=== PATIENT | male | born 1960 | race Caucasian/White ===

== ENCOUNTER 2023-05-13 07:58 | Inpatient (IN) ==
--- OUTSIDE RECORDS SUMMARY | 2023-05-13 08:04 | External Medical Summary | Continuity of Care Document ---
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 Name Role Phone Jennifer Landin Primary Care Physician [phone] [id number] Date(s): 05/09/23 - 05/09/23 [facility] [address] [place] [id number] [facility] Medicine [address] [place] [id number] Encounter Diagnosis Right knee pain(Discharge Diagnosis) - 05/09/23 Discharge Disposition: Home or Self Care Attending Physician: MD Mitra, Sven Francisco Allergies, Adverse Reactions, Alerts Substance Reaction Severity Status sulfa drugs weird nervous reation Active Bactrim Active Medications levothyroxine Start: 05/08/23 17:45:00 EDT, 100 mcg =, PO, Daily Start Date: 05/08/23 Status: Ordered [place] 5 mg-325 mg oral tablet Start: 05/08/23 17:54:00 EDT, See Instructions, Disp# 12 tab, Refills: 0, 1 tab PO every 4hours OR 2 tabs every 6hours, PRN: as needed for pain, Pharmacy: [id number] Start Date: 05/08/23 Status: Ordered Opdivo 10 mg/mL intravenous solution Start: 05/08/23 17:48:00 EDT, once every 4 weeks Start Date: 05/08/23 Status: Ordered Xarelto 20 mg oral tablet Start: 05/08/23 17:45:00 EDT, 1 tab, PO, qPM Start Date: 05/08/23 Status: Ordered Mental Status 05/09/23 Barriers to Learning one year None evide nt Mandatory Health Literacy Documentation Yes Health Literacy Communication Barriers N ever Primary Language Chinese Problem List Condition Confirmation Course Effective Dates Status Health St atus Informant Left ankle pain Confirmed Active HTN (hypertension) Confirmed Active Knee pain 1 Confirmed 02/27/10 Active Knee pain 2 Confirmed 05/31/12 Active 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 Right knee pain Confirmed Active Prepatellar bursa 3 Confirmed 02/27/10 Active Seasonal allergies Confirmed Active Weight disorder Confirmed Active 1with Edema 2LEFT 3RIGHT KNEE Diagnosis Diagnosis Type Effective Dates Health Status Cl inical Service Informant Right knee pain Discharge Diagnosis 05/09/23 Procedures Procedure Date Related Diagnosis Body Site Status Surgery 1 2011 Completed Surgery 2 2010 Completed 1JAW 2JAW Vital Signs Most recent to oldest [Reference Range]: 1 Height 191 cm (05/09/23 10:43 AM) Patient Weight 93 kg (05/09/23 10:43 AM) Body Mass Index 25.49 kg/m2 (05/09/23 10:43 AM) Social History Social History Type Response Smoking Status Never smoked cigaret miguel Sex Ortho Outpt Note * MD Mitra, Sven S: PERFORM Event Display: Ortho Outpt Note Authored Date: [id number] Name:PHILLY PARIS Patient Number:[id number] :1960 Date of Service:05/09/2023 Philly is here for follow-up evaluation. He was able to rest last night. Took 1 pain pill. He has been able to ambulate with the brace and reports minimal or no painwhen walking with the brace on. He has been able to walk without an assistive device. There is been no fevers chills or sweats. Mainly the right knee and lower thigh are hurting. On exam he is able to ambulate well using a stiff leg gait even without the brace. Suggested to usecanewalking stickcrutch etc.for assistance and balance. He is able to do a straight leg raise but he has about a10 to 15 degree lag. I do not palpate a defect within the quadriceps tendonor patellar tendon. There is tenderness mostly over the medial distal thigh VMO area but alsoover theanterior quad and lateral quad. The knee itself is mildly warm without erythema or lossof skin wrinkles. He does have a large right knee effusion. Range of motion is 0 to 70 degrees with intact cruciates and collaterals. He has 5 out of 5 knee flexion strength but only a 4+ to 5- out of 5 right knee extension strength. No erythema. There is 1-2+ edema of the right ankle. 3 viewsboth knees obtainedpersonally reviewed by me show vascular calcifications and peripatellarossifications and calcifications particularly on theright kneesuperior patella. Negative for fracture but there is significant arthritis left knee medial compartment with bone spurs. Thereare no bone or soft tissue lesions otherwise noted. Positive right knee effusion. Impressionright knee pain, hemarthrosis. Plan:Fines were discussed. They can follow through with the other lab work to be ordered however I think that this is more of a traumatic etiology. I do have some concern regarding a partialor completequadriceps tendon or quadriceps muscle injury. There is less swelling in the right lower thigh area today. Order MRI for evaluation. Follow-up when completed. Should be done withinthe next few days. Otherwise continue to elevate and ice. Wear knee immobilizer at all times when he is up and walking. Use an assistive device. Elevate the leg for swelling. If things worsen he will need to go to the emergency room. Do not stand or walk without the brace. He can takethe brace off when he is nonweightbearing and may bend the knee to his tolerance. WBCs and fluid were 953. The RBCs were over million. Gram stain no organisms few WBCs culture pending. Crystals are pending Electronic Signature on File Electronically Reviewed/Signed by: Sven Manriquez MD Author Signature Dt/Tm:05/09/2023 11:17 AM Division of Sports Medicine PSS Patient Care team information Care Team Related Persons Name: KAPIL PARIS Address: [address] [phone] Name: WILFREDO PARIS Address: home [address] [place] [id number]
--- OUTSIDE RECORDS SUMMARY | 2023-05-13 08:04 | External Medical Summary | Continuity of Care Document ---
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 Name Role Phone Jennifer Landin Primary Care Physician [phone] [id number] Date(s): 05/08/23 - 05/08/23 [facility] [address] [place] [id number] [facility] Medicine [address] [place] [id number] Encounter Diagnosis Right knee pain(Discharge Diagnosis) - 05/08/23 Discharge Disposition: Home or Self Care Attending Physician: MD Mitra, Sven Francisco Allergies, Adverse Reactions, Alerts Substance Reaction Severity Status sulfa drugs weird nervous reation Active Bactrim Active Medications levothyroxine Start: 05/08/23 17:45:00 EDT, 100 mcg =, PO, Daily Start Date: 05/08/23 Status: Ordered [place] 5 mg-325 mg oral tablet Start: 05/08/23 17:54:00 EDT, See Instructions, Disp# 12 tab, Refills: 0, 1 tab PO every 4hours OR 2 tabs every 6hours, PRN: as needed for pain, Pharmacy: [id number] Start Date: 05/08/23 Status: Ordered Opdivo 10 mg/mL intravenous solution Start: 05/08/23 17:48:00 EDT, once every 4 weeks Start Date: 05/08/23 Status: Ordered Xarelto 20 mg oral tablet Start: 05/08/23 17:45:00 EDT, 1 tab, PO, qPM Start Date: 05/08/23 Status: Ordered Mental Status 05/08/23 Barriers to Learning one year None evide nt Mandatory Health Literacy Documentation Yes Health Literacy Communication Barriers N ever Primary Language Kazakh Problem List Condition Confirmation Course Effective Dates [...] Service Informant Right knee pain Discharge Diagnosis 05/08/23 Procedures Procedure Date Related Diagnosis Body Site Status Surgery 1 2011 Completed Surgery 2 2010 Completed 1JAW 2JAW Social History Social History Type Response Smoking Status Never smoked cigaret miguel Sex Ortho Outpt Note * MD Mitra, Sven S: PERFORM Event Display: Ortho Outpt Note Authored Date: [id number] Name:PHILLY PARIS Patient Number:[id number] :1960 Date of Service:05/08/2023 Philly's contacted me earlier today that he has a severe knee pain. I asked that she bring himinto the office for evaluation. He is undergoing treatment for malignant melanoma. He has had surgery on his right leonor a lymph node biopsy. It has also been determined that he may have thyroid cancer. He is undergoing immunotherapy. He stumbled in the yard on Sunday but did not fall . His knee was little bit sore after that. He was able to walk without any instability. Yesterday his knee started to hurt. Today the knee got progressively worse. He has not had any fever chills or sweats nor has he had any recent illness. There is no history of gout or Lyme disease.He takes Xarelto and levothyroxine. He has diabetes high blood pressure and second- degree heart block. He is allergic to sulfa. On examhe requires assistance for all mobility tasks partly related to fatigueas well as right knee pain. He is able to stand with assistance and pivot onto the exam table out of the wheelchair. The right knee has mild increased warmth without any erythema the right knee is swollen. The swelling extends intothedistal thigh area where there is some tenderness on thejunction of the middle and distalright thigh. There is mild discomfort with certain positions in the hip andnotenderness to palpation over the upper thigh or hip area. There isreasonable mobility of the hip withminimal to no discomfort. He is not able to do active straight leg raise or extend the knee againstgravity. I do not palpate a defect of the patellar tendon or quadriceps tendon. Thereis mild swelling of the right ankle. DP and PT pulses are 1+ sensation intact he has 5 out of 5 ankle and toe plantarflexion dorsiflexion inversion and eversion strength. He range of motion is 0-90 with intact posterior drawer negative Janell and no looseness to varus valgus stressing at 0 or 30 degrees. There is mild diffuse tenderness of the knee itself. With his permission I attempted aspiration of the right knee. The site was marked with my initials. Cleaned with alcohol and an 18-gauge needle was introduced. Iwas only able to aspirate 2 or3 cc ofblood. Pressure was held till bleeding was stopped. The fluid was sent for Gram stain aerobic and anaerobic culture cell count with differentialalthough a purple top tube was not available and crystal analysis. Treatment options risk benefits discussed. Impression is right knee pain and swelling Plan findings are discussed. Drop labs off tonight. There are some blood work that I ordered including CBC sed rate C-reactive proteinand Lyme test. Could beaggravation of underlying arthritis. GoutLyme diseaseinfection. I think most likely probably has a hemarthrosis related to his recent injury. Whether or not there is any structural damage is notable to be determined at this point. X-ray is not available. He does report a history of torn meniscus in his knee as wellas some arthritis and some off-and-on knee pains in the past but has never had surgery. Prescription for hydrocodone. Databank checked. Tubigrip knee immobilizer. Use walker. He can weight-bear as tolerated elevate ice. Will follow-up with him later this week for recheck. They will get blood work done later. If things worsen in terms of pain swelling feversneed to go to the emergency room. He may have strained his quadriceps muscle as well. Electronic Signature on File Electronically Reviewed/Signed by: Sven Manriquez MD Author Signature Dt/Tm:05/08/2023 06:19 PM Division of Sports Medicine PSS Patient Care team information Care Team Related Persons Name: KAPIL PARIS Address: [address] [phone] Name: WILFREDO PARIS Address: home [address] [place], [place] [id number]
[2023-05-13] MEDS: HYDROmorphone INJ 1 MG/ML SYRINGE IV STA (08:52)
[2023-05-13] MEDS: SODIUM CHLORIDE 0.9% 1,000 ML IV ONE (08:52)
[2023-05-13] MEDS: ONDANSETRON INJ 2 MG/ML 2 ML VIAL IV STA (08:52)
--- NOTE | 2023-05-13 08:59 | Emergency Department Note ---
Impression & Plan Pain in right knee, Hemarthrosis of right knee, Coagulopathy, Failure of outpatient treatment, Anemia, Hypomagnesemia ED Provider Note NAME: PHILLY PARIS AGE: 63 SEX: M : 1960 ARRIVES VIA: Ambulance INFORMANT: [Patient][family] ED PROVIDER(S): [Yuriy Reza MD] CHIEF COMPLAINT: Knee pain HISTORY OF PRESENT ILLNESS: The patient is a 63-year-old male on Xarelto. He states that he was taking the garbage out about 7 days ago and somehow, injured his right knee. Initially, he had minimal pain. Within a few days, he had increased pain and swelling. He did see orthopedics and an x-ray was performed showing no fracture. He had an aspiration of the knee that showed hemarthrosis. The patient was placed in a knee immobilizer and is scheduled for an MRI tomorrow. The patient states that the pain is unbearable. He is on hydrocodone and Tylenol and has not had relief. He cannot function. He presents by ambulance. He has noticed that the right leg is now swollen as well. PMHx/PSHx/Social Hx: See Below PHYSICAL EXAM: GENERAL: Patient is in mild distress from pain. HEENT: No acute trauma, normocephalic atraumatic, mucous membranes dry, no nasal congestion. NECK: No stridor, no adenopathy, no meningismus, trachea is midline. LUNGS: Clear to auscultation bilaterally, no wheeze, no rhonchi, breath sounds equal. HEART: Subtle systolic murmur, regular rate and rhythm. ABDOMEN: Soft, nontender, no peritonitis. EXTREMITIES: No cyanosis. There is a knee immobilizer on the right leg. When this is removed, there is a significant right knee joint effusion. The entire right knee is tender with palpation. There is no erythema but there is some increased warmth to the knee. Movement of the knee causes increased pain. There is some right leg pedal edema. NEUROLOGIC: Oriented x 3, no acute motor or sensory deficits, no focal weakness. SKIN: No jaundice, no diaphoresis. DIFFERENTIAL DIAGNOSIS: Septic joint, hemarthrosis, gout, ligamentous or cartilaginous injury, fracture, failed outpatient management, DVT, among others. EMERGENCY DEPARTMENT PROCEDURES: Right knee joint aspiration: This procedure was performed by me. Using sterile technique, lidocaine with epinephrine, the lateral aspect of the right knee was prepped. Despite the large effusion, only about a cc of blood was aspirated. This was sent for analysis. No complication with the procedure. The patient tolerated the procedure well. A dressing was placed afterwards. MEDICAL DECISION MAKING: There is no leukocytosis. The patient is anemic however, he carries a history of anemia. His hemoglobin today is lower than his recent testing. There was a normal platelet count. Sed rate and CRP were both higher than recent testing. No renal failure. Lactic acid level was not elevated making sepsis less likely. Magnesium was low at 1.3. No concerning liver enzyme elevation. Right knee film shows an effusion, no fracture. Right leg ultrasound does not show any findings of DVT. The patient was given IV Dilaudid for pain, he received IV saline for hydration, he was given IV magnesium and IV Zofran. I did perform an aspiration of the right knee joint effusion however, only a small amount of blood was obtained, I suspect the blood has clotted within the joint space. Gram stain analysis of the fluid does not show bacteria. The cell count differential was not suggestive of a septic joint. Crystal analysis is pending. Culture of the fluid sample is pending. I did speak with orthopedics, patient is being hospitalized. He may require OR intervention. I did speak with case management and the on-call hospitalist. Prior/Outside records/notes reviewed: Today's EMS notes describing his presentation and transport to this hospital. Imaging/x-ray results per my interpretation: Right knee film shows a large effusion, no fracture or dislocation. Chronic Medical/Social conditions affecting care: Chronic anticoagulation. Care/Management discussed with: Orthopedics--Dr. Jacinto and Dr. Manriquez. Case management and the on-call hospitalist. Level of care consideration(s): After review of the information above and other included data: --I believe the patient requires escalation of care to admission DISPOSITION: Admission Past Med/Surg History Medical History LVH (left ventricular hypertrophy) Type 2 diabetes mellitus Metastatic melanoma Osteoarthritis Hx of sleep apnea RESOLVED SINCE JAW SURGERY Heart valve regurgitation Mild MR and TR per 08/2019 ECHO Hyperlipidemia Hypertension Atrial fibrillation JUST STARTED ON ELIQUIS Surgical History Hx of vasectomy History of colonoscopy History of tooth extraction WISDOM TEETH History of mandibular surgery RECONSTRUCTED> JAW EXTENEDED 2011 Family History Grandfather (Maternal) Diabetes Grandfather (Paternal) Diabetes Uncle Diabetes Social History Smoking Status: Never smoker Second Hand Exposure: No; Do You Dip or Chew Tobacco: No; Hx Alcohol Use: Yes Alcohol type: beer Hx Substance Use: No Preferred Language: Malian Communication Ability: Effective Graduate Teaching Assistant Required: No Beliefs That Will Affect Care: None Current Living Situation: Spouse Feels Safe at Home: Yes Assistive Devices: Contacts and Glasses Allergies Allergies Allergy/AdvReac Type Severity Reaction Status Date / Time Bactrim Allergy Severe THROAT AND Unverified 07/18/10 13:38 HANDS SWELL sulfamethoxazole Allergy Severe THROAT AND Verified 05/02/23 14:40 HANDS SWELL trimethoprim Allergy Severe THROAT AND Verified 05/02/23 14:40 HANDS SWELL Home Meds Home Medications Medication Instructions Recorded Confirmed levothyroxine 100 mcg capsule 100 mcg PO DAILY 04/10/23 05/13/23 rivaroxaban 20 mg tablet (Xarelto) 20 mg PO DAILY 04/10/23 05/13/23 nivolumab [Opdivo] See Rx Instructions IV .COMPLEX 04/27/23 05/13/23 hydrocodone 5 mg-acetaminophen 325 1 tab PO Q4H PRN Pain 05/13/23 05/13/23 mg tablet Results & Data (ED) Vital Signs Vital Signs - 24 hr 05/13/23 08:03 05/13/23 09:22 Temperature 36.7 C Temperature Source Oral Pulse Rate 72 Respiratory Rate 20 Blood Pressure 138/80 Blood Pressure Mean 99 Pulse Oximetry 100 98 Oxygen Delivery Method Room Air Room Air Sepsis Recent Fever Within 48 Hours No Sepsis New/Unexplained Change in Mental Status N/A Sepsis Action Taken by Nursing No Action Required Home Medications Current Medication List: was personally reviewed by me Laboratory Data Attestation: I reviewed the patient's lab results. 05/13/23 08:30 05/13/23 08:30 Lab Results 05/13/23 05/13/23 Range/Units 08:30 09:02 WBC 7.35 (4.8-10.8) K/ul RBC 2.70 L (4.70-6.10) M/uL Hgb 7.7 L (14.0-18.0) g/dl Hct 23.0 L (42.0-52.0) % MCV 85.2 (80.0-100.0) fL MCH 28.5 (25.0-34.0) pg MCHC 33.5 (32.0-36.0) g/dL RDW Std Deviation 46.3 (36.4-46.3) fL RDW Coeff of Tracy 14.9 H (11.5-14.5) % Plt Count 334 (130-400) K/uL MPV 8.6 L (9.4-12.4) fL Immature Gran % (Auto) 0.3 % Neut % (Auto) 53.9 % Lymph % (Auto) 25.4 % Overton % (Auto) 8.6 % Eos % (Auto) 11.3 % Baso % (Auto) 0.5 % Neut # (Auto) 3.96 (1.40-6.50) K/uL Lymph # (Auto) 1.87 (1.20-3.40) K/uL Overton # (Auto) 0.63 H (0.11-0.59) K/uL Eos # (Auto) 0.83 H (0.00-0.50) K/uL Baso # (Auto) 0.04 (0.00-0.20) K/uL Immature Gran # (Auto) 0.02 (0.01-0.20) K/uL Polychromasia 1+ Ovalocytes 1+ Acanthocytes (Spur) 1+ ESR 36 H (0-20) mm/hr Sodium 135 L (136-145) mmol/L Potassium 3.7 (3.5-5.1) mmol/L Chloride 101 (98-107) mmol/L Carbon Dioxide 22 (21-32) mmol/L Anion Gap 12 H (3-11) BUN 20 (6-23) mg/dl Creatinine 1.33 (0.6-1.4) mg/dl Est Cr Clr Drug Dosing 68.0 ml/min Est GFR ( Amer) 64.6 ml/min Est GFR (Non-Af Amer) 55.7 ml/min BUN/Creatinine Ratio 15.0 (10-20) Glucose 99 (70-99(Fasting)) mg/dl Lactate 1.0 (0.4-2.0) mmol/L Uric Acid 9.4 H (2.6-7.2) mg/dl Calcium 9.4 (8.6-10.3) mg/dl Magnesium 1.3 L (1.7-2.4) mg/dl Total Bilirubin 1.4 H (0.2-1.0) mg/dl AST 14 (13-39) U/L ALT 7 (7-52) U/L Alkaline Phosphatase 66 (34-104) U/L C-Reactive Protein 13.92 H (0-0.5) mg/dl Total Protein 6.2 (6.0-8.3) gm/dl Albumin 3.6 (3.4-5.0) gm/dl Globulin 2.6 (2.5-4.0) gm/dl Albumin/Globulin Ratio 1.4 (0.9-2) Administered Medications Acetaminophen (Acetaminophen 500 Mg Tab) 1,000 mg PO Q8H NORMAN Stop: 06/12/23 13:59 Last Admin: 05/13/23 14:18 Dose: 1,000 mg Documented By: SHAN Magnesium Sulfate/Dextrose (Magnesium Sulfate / D5w) 1 gm in 100 mls @ 50 mls/hr IV Q2H NORMAN Stop: 05/13/23 16:14 Last Admin: 05/13/23 13:30 Dose: 50 mls/hr Documented By: SHAN Discontinued Medications Hydromorphone HCl (Hydromorphone Inj 1 Mg/Ml Syringe) 1 mg IV NOW STA Stop: 05/13/23 08:38 Last Admin: 05/13/23 08:52 Dose: 1 mg Documented By: ALPESH Hydromorphone HCl (Hydromorphone Inj 0.5 Mg/0.5 Ml Syr) 0.5 mg IV Q15M PRN PRN Reason: Pain Stop: 05/27/23 08:36 Last Admin: 05/13/23 10:20 Dose: 0.5 mg Documented By: ALPESH Sodium Chloride (Nss) 1,000 mls @ 999 mls/hr IV .Q1H1M ONE Stop: 05/13/23 09:37 Last Infusion: 05/13/23 10:07 Dose: Infused Documented By: Admin: 05/13/23 08:52 Dose: 999 mls/hr Documented By: ML Magnesium Sulfate/Dextrose (Magnesium Sulfate / D5w) 1 gm in 100 mls @ 100 mls/hr IV Q1H NORMAN Stop: 05/13/23 11:25 Last Infusion: 05/13/23 13:31 Dose: Infused Documented By: Admin: 05/13/23 12:24 Dose: 100 mls/hr Documented By: Infusion: 05/13/23 12:24 Dose: Infused Documented By: Admin: 05/13/23 11:25 Dose: 100 mls/hr Documented By: ML Lidocaine HCl (Xylocaine 1%/Sod Bicarb 20 Ml Vial) 20 ml INFIL NOW ONE Stop: 05/13/23 10:01 Last Admin: 05/13/23 10:20 Dose: 20 ml Documented By: JOLANTA Ondansetron HCl (Ondansetron Inj 2 Mg/Ml 2 Ml Vial) 4 mg IV NOW STA Stop: 05/13/23 08:38 Last Admin: 05/13/23 08:52 Dose: 4 mg Documented By: ALPESH Imaging Data Radiologist's Impression: Knee X-Ray 05/13/23 08:37 RIGHT KNEE 2 VIEWS CLINICAL HISTORY: Right knee pain and swelling. Recent fall. FINDINGS: AP and crosstable lateral views of the right knee are compared to study dated 05/09/2023. The skeletal structures are osteopenic. No fracture is seen. There is mild/moderate tricompartmental degenerative joint space narrowing, greatest at the patellofemoral articulation. There are marginal osteophytes, patellar enthesophyte, and degenerative beaking of the tibial spine. There is a large joint effusion. Prepatellar soft tissue swelling is observed. IMPRESSION: Soft tissue swelling and large joint effusion with no radiographic evidence of acute fracture. Electronically signed by: Yuriy Corbin M.D. 05/13/2023 8:58 AM Venous Doppler Study 05/13/23 08:37 ULTRASOUND RIGHT LOWER EXTREMITY VENOUS CLINICAL HISTORY: Right leg swelling. COMPARISON STUDY: No priors. TECHNIQUE: Real-time, grayscale, and color Doppler sonography of the deep veins of the right lower extremity was performed from the inguinal crease to the calf. Compression and augmentation were utilized. FINDINGS: There is no sonographic evidence of deep venous thrombosis identified in the right lower extremity. The common femoral, superficial femoral, and popliteal veins are patent and normally compressible. The greater saphenous vein and the profunda femoris vein at the junction with the common femoral vein are clear. The visualized calf veins are patent. There is a small complex fluid collection in the right groin measuring 2.0 x 1.0 x 2.3 cm. IMPRESSION: 1. There is no sonographic evidence of deep venous thrombosis identified in the right lower extremity. 2. There is a small complex fluid collection the right groin as above. Correlate clinically. ACT 112: Negative or not required by law. Electronically signed by: Yuriy Corbin M.D. 05/13/2023 10:24 AM Discharge Plan Visit Data Chief Complaint: Knee Injury/Pain Stated Complaint: KNEE PAIN ED Provider: Yuriy Reza Discharge Problem: Pain in right knee, Hemarthrosis of right knee, Coagulopathy, Failure of outpatient treatment, Anemia, Hypomagnesemia Patient Disposition: Admitted As Inpatient Condition: Fair Discharge Instructions Interventions: ED Discharge Assessment Last Done: 05/13/23 13:48 Discharge Problem: Pain in right knee Qualifiers: Chronicity: acute Qualified Code(s): M25.561 - Pain in right knee Anemia Qualifiers: Anemia type: unspecified type Qualified Code(s): D64.9 - Anemia, unspecified
--- NOTE | 2023-05-13 09:00 | XRay Report ---
RIGHT KNEE 2 VIEWS CLINICAL HISTORY: Right knee pain and swelling. Recent fall. FINDINGS: AP and crosstable lateral views of the right knee are compared to study dated 05/09/2023. Th e skeletal structures are osteopenic. No fracture is seen. There is mild/moderate tricompartmental de generative joint space narrowing, greatest at the patellofemoral articulation. There are marginal ost eophytes, patellar enthesophyte, and degenerative beaking of the tibial spine. There is a large joint effusion. Prepatellar soft tissue swelling is observed. IMPRESSION: Soft tissue swelling and large joint effusion with no radiographic evidence of acute frac ture. Electronically signed by: Yuriy Corbin M.D. 05/13/2023 8:58 AM
[2023-05-13 09:09] LABS: Basophils # (auto) 0.04 K/uL (0.00-0.20); Basophils % (auto) 0.5 %; Eosinophils # (auto) 0.83 K/uL (0.00-0.50); Eosinophils % (auto) 11.3 %; Hemoglobin 7.7 g/dl (14.0-18.0); Immature Granulocytes # (auto) 0.02 K/uL (0.01-0.20); Immature Granulocytes % (auto) 0.3 %; Lymphocytes # (auto) 1.87 K/uL (1.20-3.40); Lymphocytes % (auto) 25.4 %; Mean Corpuscular Hemoglobin 28.5 pg (25.0-34.0); Mean Corpuscular Hgb Conc 33.5 g/dL (32.0-36.0); Mean Corpuscular Volume 85.2 fL (80.0-100.0); Mean Platelet Volume 8.6 fL (9.4-12.4); Monocytes # (auto) 0.63 K/uL (0.11-0.59); Monocytes % (auto) 8.6 %; Neutrophils # (auto) 3.96 K/uL (1.40-6.50); Neutrophils % (auto) 53.9 %; Platelet Count 334 K/uL (130-400); RDW Coefficient of Variation 14.9 % (11.5-14.5); RDW Standard Deviation 46.3 fL (36.4-46.3); White Blood Count 7.35 K/ul (4.8-10.8)
[2023-05-13 09:17] LABS: Albumin Globulin Ratio 1.4 (0.9-2); Albumin Level 3.6 gm/dl (3.4-5.0); Bilirubin,Total 1.4 mg/dl (0.2-1.0); C Reactive Protein 13.92 mg/dl (0-0.5); Calcium 9.4 mg/dl (8.6-10.3); Est GFR (African American) 64.6 ml/min; Est GFR (Non-African American) 55.7 ml/min; Globulin 2.6 gm/dl (2.5-4.0); Magnesium 1.3 mg/dl (1.7-2.4); Potassium 3.7 mmol/L (3.5-5.1); Total Protein 6.2 gm/dl (6.0-8.3); Uric Acid 9.4 mg/dl (2.6-7.2)
[2023-05-13 10:04] LABS: Acanthocytes 1+; Ovalocytes 1+; Polychromasia 1+
[2023-05-13] MEDS: XYLOCAINE 1%/SOD BICARB 20 ML VIAL INFIL ONE (10:20)
[2023-05-13] MEDS: HYDROmorphone INJ 0.5 MG/0.5 ML SYR IV PRN (10:20)
--- NOTE | 2023-05-13 10:26 | Ultrasound Report ---
ULTRASOUND RIGHT LOWER EXTREMITY VENOUS CLINICAL HISTORY: Right leg swelling. COMPARISON STUDY: No priors. TECHNIQUE: Real-time, grayscale, and color Doppler sonography of the deep veins of the right lower ex tremity was performed from the inguinal crease to the calf. Compression and augmentation were utilize d. FINDINGS: There is no sonographic evidence of deep venous thrombosis identified in the right lower ex tremity. The common femoral, superficial femoral, and popliteal veins are patent and normally tania sible. The greater saphenous vein and the profunda femoris vein at the junction with the common femor al vein are clear. The visualized calf veins are patent. There is a small complex fluid collection in the right groin measuring 2.0 x 1.0 x 2.3 cm. IMPRESSION: 1. There is no sonographic evidence of deep venous thrombosis identified in the right lower extremity . 2. There is a small complex fluid collection the right groin as above. Correlate clinically. ACT 112: Negative or not required by law. Electronically signed by: Yuriy Corbin M.D. 05/13/2023 10:24 AM
--- NOTE | 2023-05-13 11:02 | History & Physical Report ---
Date of Service May 13, 2023 Assessment & Plan (1) Hemarthrosis of right knee: Plan: This is a 63 y/o male with history of metastatic melanoma, on Opdivo Q4 weeks, papillary thyroid carcinoma, atrial fibrillation s/p cardioversion, DM2, HTN, and other history as outlined who presented to the ED today with intractable right knee pain that started after an injury one week ago. Outpatient work-up from earlier this week c/w hemarthrosis but pain and swelling are worsening so pt came to the ED for evaluation. Please see the physician addendum for the details of the assessment and plan. (2) Anemia: Plan: Acute on chronic Transfuse if Hgb <7 (3) Hypomagnesemia: Plan: Being repleted IV - will recheck in the AM (4) Type 2 diabetes mellitus: Plan: Metformin recently discontinued in view of side effects and weight loss Check A1c in the AM Regular diet for now due to weight loss. (5) Hypertension: Plan: Medications recently discontinued due to side effects - monitor BP off meds (6) Atrial fibrillation: (7) Metastatic melanoma: (8) Hypothyroidism: Plan: Continue levothyroxine Plan Pt seen and reviewed with attending physician, Dr. Albert. Plan of care as outlined above and in her addendum Code status: Full code Anton Peña PA-C History of Present Illness Chief Complaint: Intractable right knee pain Primary Care Provider: Yon Burns, This is a 63 y/o male with history of metastatic melanoma, on Opdivo Q4 weeks, papillary thyroid carcinoma, atrial fibrillation s/p cardioversion, DM2, HTN, and other history as outlined who presented to the ED today with intractable right knee pain that started after an injury one week ago. Pt was taking out the trash one week ago and injured his right knee although mechanism of injury is not entirely clear. Initially, it was not that painful but he noted gradually increasing pain and swelling over the first few days so he saw Dr. Manriquez with orthopedics earlier this week. X-ray showed no fracture. Ortho attempted to aspirate the joint but was able to get minimal amount of bloody fluid as the rest seemed to be clotted. Pt was scheduled for an outpatient MRI to rule out occult injury, which was supposed to be completed tomorrow. However, he has had worsening pain since then such that even the hydrocodone/acetaminophen 5/325 that he was given is no longer controlling the pain and the swelling now involves most of his right leg. The pain radiates up from his knee to his thigh but not down to his foot. He is on chronic anticoagulation with Xarelto due to history of atrial fibrillation. He notes that his Sotalol was recently discontinued after he was noted to be bradycardic with second degree heart block when he underwent anesthesia for a planned thyroidectomy, which had to be aborted due to the cardiac issues. His statin and Metformin were also recently discontinued due to weight loss, poor appetite, and generalized sense of feeling unwell. His last Opdivo was 04/24. Allergies Allergy/AdvReac Type Severity Reaction Status Date / Time Bactrim Allergy Severe THROAT AND Unverified 07/18/10 13:38 HANDS SWELL sulfamethoxazole Allergy Severe THROAT AND Verified 05/02/23 14:40 HANDS SWELL trimethoprim Allergy Severe THROAT AND Verified 05/02/23 14:40 HANDS SWELL Home Medications Medication Instructions Recorded Confirmed Type levothyroxine 100 mcg capsule 100 mcg PO DAILY 04/10/23 05/13/23 History rivaroxaban 20 mg tablet (Xarelto) 20 mg PO DAILY 04/10/23 05/13/23 History nivolumab [Opdivo] See Rx Instructions IV .COMPLEX 04/27/23 05/13/23 History hydrocodone 5 mg-acetaminophen 325 1 tab PO Q4H PRN Pain 05/13/23 05/13/23 History mg tablet Past Med/Surg History Medical History (Updated 05/13/23 @ 16:52 by Lilian Peña PA-C) Hypothyroidism LVH (left ventricular hypertrophy) Type 2 diabetes mellitus Metastatic melanoma Osteoarthritis Hx of sleep apnea RESOLVED SINCE JAW SURGERY Heart valve regurgitation Mild MR and TR per 08/2019 ECHO Hyperlipidemia Hypertension Atrial fibrillation JUST STARTED ON ELIQUIS Surgical History Hx of vasectomy History of colonoscopy History of tooth extraction WISDOM TEETH History of mandibular surgery RECONSTRUCTED> JAW EXTENEDED 2011 Family History Grandfather (Maternal) Diabetes Grandfather (Paternal) Diabetes Uncle Diabetes Social History Smoking Status: Never smoker Second Hand Exposure: No; Do You Dip or Chew Tobacco: No; Hx Alcohol Use: No Hx Substance Use: No Preferred Language: Estonian Communication Ability: Effective Social Security Assessor Required: No Beliefs That Will Affect Care: None Current Living Situation: Spouse and Family Other Information That Helps Us Care for You: No Feels Safe at Home: Yes Safety Concerns: Feels Safe At This Time Assistive Devices: Cane and Walker Review of Systems Review of Systems: All systems reviewed & are unremarkable except as noted in HPI & below Constitutional: + chills (chronic issue) and + fatigue; no fever Respiratory: no cough and no dyspnea Cardiovascular: + edema; no chest pain and no palpitatio ns Gastrointestinal: no abdominal pain, no vomiting and no change in bowel habits Genitourinary: + urinary frequency (chronic); no dysuri a or no hematuria Musculoskeletal: + joint pain and + swelling Integumentary: no rash and no yellowing of the skin Physical Exam Physical Exam: For details of the physical exam, please see the physician addendum. Results & Data Results & Data Vital Signs (Past 12 Hours) Vital Signs Temp Pulse Pulse Resp BP BP Pulse Ox 05/13/23 10:20 69 15 147/83 H 98 05/13/23 09:22 98 05/13/23 08:03 36.7 C 72 20 138/80 100 O2 Del Method 05/13/23 10:20 Room Air 05/13/23 09:22 Room Air 05/13/23 08:03 Room Air Laboratory Results Laboratory Results - last 24 hr 05/13/23 05/13/23 08:30 09:02 WBC 7.35 RBC 2.70 L Hgb 7.7 L Hct 23.0 L MCV 85.2 MCH 28.5 MCHC 33.5 RDW Std Deviation 46.3 RDW Coeff of [place] 14.9 H Plt Count 334 MPV 8.6 L Immature Gran % (Auto) 0.3 Neut % (Auto) 53.9 Lymph % (Auto) 25.4 [place] % (Auto) 8.6 Eos % (Auto) 11.3 Baso % (Auto) 0.5 Neut # (Auto) 3.96 Lymph # (Auto) 1.87 [place] # (Auto) 0.63 H Eos # (Auto) 0.83 H Baso # (Auto) 0.04 Immature Gran # (Auto) 0.02 Polychromasia 1+ Ovalocytes 1+ Acanthocytes (Spur) 1+ ESR 36 H Sodium 135 L Potassium 3.7 Chloride 101 Carbon Dioxide 22 Anion Gap 12 H BUN 20 Creatinine 1.33 Est Cr Clr Drug Dosing 68.0 Est GFR ( Amer) 64.6 Est GFR (Non-Af Amer) 55.7 BUN/Creatinine Ratio 15.0 Glucose 99 Lactate 1.0 Uric Acid 9.4 H Calcium 9.4 Magnesium 1.3 L Total Bilirubin 1.4 H AST 14 ALT 7 Alkaline Phosphatase 66 C-Reactive Protein 13.92 H Total Protein 6.2 Albumin 3.6 Globulin 2.6 Albumin/Globulin Ratio 1.4 Diagnostic Findings Knee X-Ray 05/13/23 08:37 RIGHT KNEE 2 VIEWS CLINICAL HISTORY: Right knee pain and swelling. Recent fall. FINDINGS: AP and crosstable lateral views of the right knee are compared to study dated 05/09/2023. The skeletal structures are osteopenic. No fracture is seen. There is mild/moderate tricompartmental degenerative joint space narrowing, greatest at the patellofemoral articulation. There are marginal osteophytes, patellar enthesophyte, and degenerative beaking of the tibial spine. There is a large joint effusion. Prepatellar soft tissue swelling is observed. IMPRESSION: Soft tissue swelling and large joint effusion with no radiographic evidence of acute fracture. Electronically signed by: Yuriy Corbin M.D. 05/13/2023 8:58 AM Venous Doppler Study 05/13/23 08:37 ULTRASOUND RIGHT LOWER EXTREMITY VENOUS CLINICAL HISTORY: Right leg swelling. COMPARISON STUDY: No priors. TECHNIQUE: Real-time, grayscale, and color Doppler sonography of the deep veins of the right lower extremity was performed from the inguinal crease to the calf. Compression and augmentation were utilized. FINDINGS: There is no sonographic evidence of deep venous thrombosis identified in the right lower extremity. The common femoral, superficial femoral, and popliteal veins are patent and normally compressible. The greater saphenous vein and the profunda femoris vein at the junction with the common femoral vein are clear. The visualized calf veins are patent. There is a small complex fluid collection in the right groin measuring 2.0 x 1.0 x 2.3 cm. IMPRESSION: 1. There is no sonographic evidence of deep venous thrombosis identified in the right lower extremity. 2. There is a small complex fluid collection the right groin as above. Correlate clinically. ACT 112: Negative or not required by law. Electronically signed by: Yuriy Corbin M.D. 05/13/2023 10:24 AM Medications Administered Hydromorphone HCl (Hydromorphone Inj 0.5 Mg/0.5 Ml Syr) 0.5 mg IV Q15M PRN PRN Reason: Pain Stop: 05/27/23 08:36 Last Admin: 05/13/23 10:20 Dose: 0.5 mg Documented By: ML Discontinued Medications Hydromorphone HCl (Hydromorphone Inj 1 Mg/Ml Syringe) 1 mg IV NOW STA Stop: 05/13/23 08:38 Last Admin: 05/13/23 08:52 Dose: 1 mg Documented By: ALPESH Sodium Chloride (Nss) 1,000 mls @ 999 mls/hr IV .Q1H1M ONE Stop: 05/13/23 09:37 Last Infusion: 05/13/23 10:07 Dose: Infused Documented By: Admin: 05/13/23 08:52 Dose: 999 mls/hr Documented By: ALPESH Lidocaine HCl (Xylocaine 1%/Sod Bicarb 20 Ml Vial) 20 ml INFIL NOW ONE Stop: 05/13/23 10:01 Last Admin: 05/13/23 10:20 Dose: 20 ml Documented By: JOLANTA Ondansetron HCl (Ondansetron Inj 2 Mg/Ml 2 Ml Vial) 4 mg IV NOW STA Stop: 05/13/23 08:38 Last Admin: 05/13/23 08:52 Dose: 4 mg Documented By: ML Code Status & VTE Plan VTE Prophylaxis Plan VTE Prophylaxis will be ordered: Yes Supervising Physician Co-Signing Physician Notes I have seen and discussed the case with the collaborating advanced practitioner. I agree with the above H&P. I have reviewed and confirmed the patients medical history, the findings on physical examination, and the patients diagnosis and treatment plan with PADmitry and agree with the information documented. Patient evaluated in ED. Noted knee pain for over a week that has progressed despite rest and pain medication. OSH aspiration revealed hemarthrosis. Pain progressed prompting presentation to ED. labs with chronic anemia, stable renal function, no WBC. GENERAL APPEARANCE: AxOx4, mild distress from pain HEENT: NC, AT. MMM. EOMI, clear conjunctiva, oropharynx clear. NECK: Supple without lymphadenopathy. No stiffness or restricted ROM. HEART: Normal rate and regular rhythm, normal S1/S1, no m/r/g LUNGS: CTAB, moving air well. No crackles or wheezes are heard. ABDOMEN: Soft, nontender, nondistended with good bowel sounds heard. EXTREMITIES: right lower extremity swelling, predominately around knee, no erythema NEUROLOGICAL: Grossly nonfocal. Alert and oriented, moving all 4 extremities. CN not formally tested but appear grossly intact. Skin: Warm and dry without any rash. In short, Mr. Ray is a 63 year old gentleman with history of metastatic melanoma s/p excision from right forearm, papillary thyroid carcinoma, a fib on Xarelto, unintentional weight loss 2/2 malignancy who is admitted for management and evaluation of right knee swelling and pain with recent diagnosis of filomena rthrosis from injury ~1 week prior. Imaging revealed notable soft tissue swelling with effusion. #Hemarthrosis MRI ordered Pain management Holding Xarelto in interim NPO at midnight WBAT Ratio [id number]: 6400, iso hemarthrosis , low suspicion for septic joint #Acute on chronic normocytic anemia, multifactorial #Immunosuppression 2/2 chemotherapy likely iso malignancy, chemo, now hemarthrosis -Transfuse less than 7 #Complex fluid collection in right groin There is a small complex fluid collection in the right groin measuring 2.0 x 1.0 x 2.3 cm. Plan for repeat dedicated imaging contingent on following knee procedure #Paroxysmal A fib, s/p cardioversion #Sinus bradycardia -Sotalol recently discontinued Zio patch still in place Cards consult for patch removal and optimization if procedure possible/naomi Also discussion of risk/benefit of continued Xarelto given hemarthrosis #Metastatic melanoma s/p excision from right forearm excision of the mass on 08/08/2022 and pathology consistent with [id number], [id number] and focally Bastian-1 positive neoplasm involving the subcutis Soft tissue, left cervical lymph node, needle core biopsy: Metastatic poorly differentiated carcinoma completed 4 cyclesof nivolumab plus ipilimumab Last completed infusion of nivolumab Follows Dr. Espinosa for Melanoma #Hypothyroidism #Papillary thyroid carcinoma Thyroid FNA pathology from 03/13 showed Atypia of Undetermined Significance - AUS ([place] Category III). The tumor cells are positive for PAX8, TTF-1, and thyroglobulin; consistent with papillary thyroid carcinoma. Delayed thyroid procedure 2/2 cardiac Follows [facility] for thyroid issues Continue Synthroid #HTN #HLD No longer on medications statin, acei, metformin, sotalol since 04/10 #DMTII No longer on medications 2/2 weight loss from malignancy A1C in am Regular diet 2/2 malnutrition, will start SSI if warranted I spent a total of 45 minutes coordinating, documenting, and providing care for this patient excluding time spent in the performance of separately billed services. All of the aforementioned completed outside of collaborating with the assigned advanced practitioner for a full treatment plan. I have reviewed the advanced practitioner's documentation, and I agree with, and take responsibility for the plan of care (2) Anemia Anemia type: unspecified type Qualified Code(s): D64.9 - Anemia, unspecified (4) Type 2 diabetes mellitus Diabetes mellitus long term care phlebotomist insulin use: without long term care phlebotomist use Diabetes mellitus complication status: without complication Qualified Code(s): E11.9 - Type 2 diabetes mellitus without complications (5) Hypertension Hypertension type: unspecified Qualified Code(s): I10 - Essential (primary) hypertension (6) Atrial fibrillation Atrial fibrillation type: unspecified Qualified Code(s): I48.91 - Unspecified atrial fibrillation (8) Hypothyroidism Hypothyroidism type: unspecified Qualified Code(s): E03.9 - Hypothyroidism, unspecified
[2023-05-13] MEDS: MAGNESIUM SULFATE / D5W 1 GM/100 ML BAG IV SCH ×2 (11:25→13:30)
--- NOTE | 2023-05-13 12:40 | Orthopedic Consultation ---
Date of Service May 13, 2023 Assessment & Plan (1) Hemarthrosis: Discussed case with Dr. Reza in the ER. Repeat aspiration attempted to alleviate pain. MRI would expedite care plan Rest, ice, elevation, NSAIDs (IV toradol, if not contraindicated) Consider holding anticoagulant if acceptable risk otherwise NPO at midnight WBAT, ROMAT Dr. Manriquez to take over care plan on 05/13. History of Present Illness Reason for Consultation: . Requesting Physician: . . Allergies Allergy/AdvReac Type Severity Reaction Status Date / Time Bactrim Allergy Severe THROAT AND Unverified 07/18/10 13:38 HANDS SWELL sulfamethoxazole Allergy Severe THROAT AND Verified 05/02/23 14:40 HANDS SWELL trimethoprim Allergy Severe THROAT AND Verified 05/02/23 14:40 HANDS SWELL Home Medications Medication Instructions Recorded Confirmed Type levothyroxine 100 mcg capsule 100 mcg PO DAILY 04/10/23 05/13/23 History rivaroxaban 20 mg tablet (Xarelto) 20 mg PO DAILY 04/10/23 05/13/23 History nivolumab [Opdivo] See Rx Instructions IV .COMPLEX 04/27/23 05/13/23 History hydrocodone 5 mg-acetaminophen 325 1 tab PO Q4H PRN Pain 05/13/23 05/13/23 History mg tablet Past Med/Surg History Medical History (Updated 05/13/23 @ 16:52 by Lilian Peña PA-C) Hypothyroidism LVH (left ventricular hypertrophy) Type 2 diabetes mellitus Metastatic melanoma Osteoarthritis Hx of sleep apnea RESOLVED SINCE JAW SURGERY Heart valve regurgitation Mild MR and TR per 08/2019 ECHO Hyperlipidemia Hypertension Atrial fibrillation JUST STARTED ON ELIQUIS Surgical History Hx of vasectomy History of colonoscopy History of tooth extraction WISDOM TEETH History of mandibular surgery RECONSTRUCTED> JAW EXTENEDED 2011 Family History Grandfather (Maternal) Diabetes Grandfather (Paternal) Diabetes Uncle Diabetes Social History Smoking Status: Never smoker Second Hand Exposure: No; Do You Dip or Chew Tobacco: No; Hx Alcohol Use: No Hx Substance Use: No Preferred Language: Turkmen Communication Ability: Effective Transcript Clerk Required: No Beliefs That Will Affect Care: None Current Living Situation: Spouse and Family Other Information That Helps Us Care for You: No Feels Safe at Home: Yes Safety Concerns: Feels Safe At This Time Assistive Devices: Cane and Walker Review of Systems All systems reviewed & are unremarkable except as noted in HPI & below. Physical Exam . Results & Data Results & Data Laboratory Results . Diagnostic Findings . PG Care Time/CCT Total # of Minutes Spent Total Time Spent with Patient: Total time spent is greater than 50% in coordination of care (as documented) at patient's floor/unit and/or counseling patient: Coding Level of Care Code None Diagnoses Hemarthrosis M25.00
[2023-05-13 13:04] LABS: Appearance Synovial Fluid Bloody; Color Synovial Fluid Red; Mononuclear WBC Synovial 22.2 %; Polynuclear WBC Synovial 77.8 %; RBC Synovial Fluid Auto 1179000 /uL; Source Synovial Fluid Knee; WBC Synovial Fluid Auto 6400 /ul (0-200)
[2023-05-13] MEDS: ACETAMINOPHEN 500 MG TAB PO SCH (14:18)
[2023-05-13] MEDS: oxyCODONE HCL IR 5 MG TAB (IMMEDIATE RELEASE) PO PRN (15:57)
--- NOTE | 2023-05-13 23:58 | Magnetic Resonance Report ---
Exam(s): MRI RIGHT KNEE Without Contrast EXAM: MR Right Lower Extremity Without Intravenous Contrast, Knee CLINICAL HISTORY: Reason for exam: hemarthrosis. TECHNIQUE: Multiplanar magnetic resonance images of the right knee without intravenous contrast. COMPARISON: X-ray 04/23/2023 FINDINGS: There is full-thickness avulsion of the quadriceps from its patellar insertion. Approximately 1 cm of retraction. Extensive superficial and deep soft tissue edema throughout the visualized field. There is a complex joint effusion. Menisci are intact. ACL and PCL are intact. MCL and LCL are intact. Cartilage loss most pronounced along the patella where there is diffuse moderate cartilage loss. Essentially full-thickness cartilage loss along the medial trochlea. No acute fracture. IMPRESSION: 1. Avulsion of the quadriceps from its patellar insertion. 2. Extensive superficial and deep soft tissue edema. 3. Complex joint effusion. Electronically signed by: Jeremi Saez MD 05/13/23 23:57 PM
[2023-05-14] MEDS: LEVOTHYROXINE SODIUM 100 MCG TABLET PO SCH (05:52)
[2023-05-14] MEDS ORDERED: TRANEXAMIC ACID / 0.7% NACL 1,000 MG/100 ML BAG IV ONE (09:17)
[2023-05-14] MEDS ORDERED: ceFAZolin 2000MG 2,000 MG/15 ML SYR IV ONE (09:18)
--- NOTE | 2023-05-14 09:22 | Orthopedic Progress Note ---
Date of Service May 14, 2023 Assessment & Plan (1) Quadriceps tendon rupture: Plan: Findings discussed. Options reviewed. There is a high-grade partial rupture of the right quadriceps tendon noted on MRI. I think this explains the ongoing knee pain as well as the hemarthrosis. Hold anticoagulation. He may eat today. N.p.o. after midnight in preparation for surgery tomorrow. Will need to be optimized for tomorrow. Recheck CBC today and if necessary transfuse. Antibiotics and TXA preop. Risks benefits rehab recovery discussed. Informed consent obtained. Allergies noted. No issues with bleeding blood clots metal allergy MRSA history. Does not smoke. The aspiration is consistent with hemarthrosis. Currently no evidence of infection. The MRI and report are noted and reviewed. Admission and Anticipated Discharge Date Admission Date: May 13, 2023 Subjective Feeling better. Still right knee pain and swelling. Events of yesterday are noted. I spoke to his yesterday. Physical Exam Physical Exam: There is moderate swelling in the right knee but nothing in terms of deformity or bruising. Tenderness around the patella and quad tendon but also a little bit up into the quad muscle and around the knee. Calf is soft and supple. DP and PT pulses are 1+ he reports diffuse numbness in the right foot but has 5 out of 5 ankle and toe plantarflexion dorsiflexion inversion and eversion strength Results & Data Vital Signs (Past 12 Hours) Vital Signs Temp Pulse Pulse Pulse Resp BP Pulse Ox 05/14/23 07:22 36.5 C 60 18 124/52 L 96 05/14/23 07:00 65 05/14/23 03:47 36.9 C 59 L 16 118/67 95 05/14/23 00:35 72 05/13/23 23:28 36.3 C L 72 20 144/78 H 96 O2 Del Method 05/14/23 07:22 Room Air 05/14/23 07:00 05/14/23 03:47 Room Air 05/14/23 00:35 05/13/23 23:28 Room Air Laboratory Results 05/13/23 05/13/23 05/13/23 Range/Units Unknown 14:06 08:30 Blood Smear Review Pending Polychromasia 1+ Ovalocytes 1+ Acanthocytes (Spur) 1+ ESR 36 H (0-20) mm/hr Fluid Comment Synovial Source Knee Synovial Color Red Synovial Appearance Bloody Synovial WBC (Auto) 6400 H (0-200) /ul Synovial RBC (Auto) [id number] /uL Synovial Polynuclear % 77.8 % Synovial Mononuclear % 22.2 % Synovial Crystals Pending Blood Type A Positive Antibody Screen NEGATIVE Diagnostic Findings Microbiology 05/13/23 Unknown Gram Stain - Final Knee,Right
--- NOTE | 2023-05-14 09:27 | Hospitalist Progress Note ---
Date of Service May 14, 2023 Assessment & Plan (1) Hemarthrosis of right knee: (2) Anemia: (3) Hypomagnesemia: (4) Type 2 diabetes mellitus: (5) Hypertension: (6) Atrial fibrillation: (7) Metastatic melanoma: (8) Hypothyroidism: Plan Mr. Ray is a 63 year old gentleman with history of metastatic melanoma s/p excision from right forearm, papillary thyroid carcinoma, a fib on Xarelto, unintentional weight loss 2/2 malignancy who is admitted for management and evaluation of right knee swelling and pain with recent diagnosis of hemarthrosis from injury ~1 week prior. Imaging revealed notable soft tissue swelling with effusion. #Hemarthrosis #High grade partial quadriceps rupture, righ MRI with avulsion of right quadriceps rupture, likely source of hemarthrosis and persistent pain Pain management Holding Xarelto in interim NPO at midnight for procedure with Ortho Ratio [id number]: [id number], iso hemarthrosis , low suspicion for septic joint Will need PT/OT post op #Acute on chronic normocytic anemia, multifactorial #Immunosuppression 2/2 chemotherapy likely iso malignancy, chemo, now hemarthrosis -Transfuse less than 7 #Complex fluid collection in right groin There is a small complex fluid collection in the right groin measuring 2.0 x 1.0 x 2.3 cm. Plan for repeat dedicated imaging contingent on following knee procedure #Paroxysmal A fib, s/p cardioversion #Sinus bradycardia -Sotalol recently discontinued Zio patch still in place Cards consult for patch removal and optimization if procedure possible/naomi Also discussion of risk/benefit of continued Xarelto given hemarthrosis #Metastatic melanoma s/p excision from right forearm excision of the mass on 08/08/2022 and pathology consistent with [id number], Sox-10 and focally [place]-1 positive neoplasm involving the subcutis Soft tissue, left cervical lymph node, needle core biopsy: Metastatic poorly differentiated carcinoma completed 4 cyclesof nivolumab plus ipilimumab Last completed infusion of nivolumab Follows Dr. Espinosa for Melanoma #Hypothyroidism #Papillary thyroid carcinoma Thyroid FNA pathology from 03/13 showed Atypia of Undetermined Significance - AUS ([place] Category III). The tumor cells are positive for PAX8, TTF-1, and thyroglobulin; consistent with papillary thyroid carcinoma. Delayed thyroid procedure 2/2 cardiac Follows [facility] for thyroid issues Continue Synthroid #HTN #HLD No longer on medications statin, acei, metformin, sotalol since 04/10 #DMTII No longer on medications 2/2 weight loss from malignancy A1C in am Regular diet 2/2 malnutrition, will start SSI if warranted DVT ppx hold portiakeniadurga, YAN in interim on left leg Admission and Anticipated Discharge Date Admission Date: May 13, 2023 Subjective JUDYO Discussed MR findings, patient understanding that procedure will be necessary Reports pain is better controlled at this time. Denies any fevers, chest pain, palpitations or other acute concerns Physical Exam Constitutional: WD/WN, vitals as above Respiratory: normal respiratory effort, lungs clear to auscultation Cardiovascular: RRR, no murmur, no edema Gastrointestinal (Abdomen): normal bowel sounds, soft, nontender, no hepatosplenomegaly Results & Data Results & Data Vital Signs (Past 12 Hours) Vital Signs Temp Pulse Pulse Pulse Resp BP Pulse Ox 05/14/23 07:22 36.5 C 60 18 124/52 L 96 05/14/23 07:00 65 05/14/23 03:47 36.9 C 59 L 16 118/67 95 05/14/23 00:35 72 05/13/23 23:28 36.3 C L 72 20 144/78 H 96 O2 Del Method 05/14/23 07:22 Room Air 05/14/23 07:00 05/14/23 03:47 Room Air 05/14/23 00:35 05/13/23 23:28 Room Air Diagnostic Findings Knee MRI 05/13/23 17:31 Exam(s): MRI RIGHT KNEE Without Contrast EXAM: MR Right Lower Extremity Without Intravenous Contrast, Knee CLINICAL HISTORY: Reason for exam: hemarthrosis. TECHNIQUE: Multiplanar magnetic resonance images of the right knee without intravenous contrast. COMPARISON: X-ray 04/23/2023 FINDINGS: There is full-thickness avulsion of the quadriceps from its patellar insertion. Approximately 1 cm of retraction. Extensive superficial and deep soft tissue edema throughout the visualized field. There is a complex joint effusion. Menisci are intact. ACL and PCL are intact. MCL and LCL are intact. Cartilage loss most pronounced along the patella where there is diffuse moderate cartilage loss. Essentially full-thickness cartilage loss along the medial trochlea. No acute fracture. IMPRESSION: 1. Avulsion of the quadriceps from its patellar insertion. 2. Extensive superficial and deep soft tissue edema. 3. Complex joint effusion. Electronically signed by: Jeremi Saez MD 05/13/23 23:57 PM Medications Administered Home Medications Medication Instructions Recorded Confirmed Last Taken levothyroxine 100 mcg capsule 100 mcg PO DAILY 04/10/23 05/13/23 Unknown rivaroxaban 20 mg tablet (Xarelto) 20 mg PO DAILY 04/10/23 05/13/23 Unknown nivolumab [Opdivo] See Rx Instructions IV .COMPLEX 04/27/23 05/13/23 04/25/23 hydrocodone 5 mg-acetaminophen 325 1 tab PO Q4H PRN Pain 05/13/23 05/13/23 Unknown mg tablet Active Medications Generic Name Dose Route Start Last Admin Trade Name Freq PRN Reason Stop Dose Admin Acetaminophen 1,000 mg 05/13/23 14:00 05/14/23 05:52 Acetaminophen 500 Mg Tab PO 06/12/23 13:59 1,000 mg Q8H NORMAN Administration Levothyroxine Sodium 100 mcg 05/14/23 06:30 05/14/23 05:52 Levothyroxine Sodium 100 Mcg Tablet PO 06/13/23 06:29 100 mcg DAILYBB NORMAN Administration Oxycodone HCl 5 mg 05/13/23 13:48 05/14/23 08:35 Oxycodone Hcl Ir 5 Mg Tab (Immediate Release) PO 05/27/23 13:47 5 mg Q6H PRN Administration Pain (2) Anemia Anemia type: unspecified type Qualified Code(s): D64.9 - Anemia, unspecified (4) Type 2 diabetes mellitus Diabetes mellitus complication status: without complication 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
[2023-05-14 10:10] LABS: Hematocrit (blood only) 21.6 % (42.0-52.0); Hemoglobin 7.2 g/dl (14.0-18.0)
[2023-05-14 10:13] LABS: Basophils # (auto) 0.04 K/uL (0.00-0.20); Basophils % (auto) 0.5 %; Eosinophils % (auto) 13.7 %; Hematocrit (blood only) 21.3 % (42.0-52.0); Hemoglobin 7.1 g/dl (14.0-18.0); Immature Granulocytes # (auto) 0.04 K/uL (0.01-0.20); Immature Granulocytes % (auto) 0.5 %; Lymphocytes # (auto) 2.17 K/uL (1.20-3.40); Mean Corpuscular Hemoglobin 28.4 pg (25.0-34.0); Mean Corpuscular Hgb Conc 33.3 g/dL (32.0-36.0); Mean Corpuscular Volume 85.2 fL (80.0-100.0); Mean Platelet Volume 8.4 fL (9.4-12.4); Monocytes # (auto) 0.72 K/uL (0.11-0.59); Monocytes % (auto) 8.9 %; Neutrophils # (auto) 3.98 K/uL (1.40-6.50); Neutrophils % (auto) 49.4 %; Platelet Count 342 K/uL (130-400); RDW Coefficient of Variation 15.1 % (11.5-14.5); White Blood Count 8.05 K/ul (4.8-10.8)
[2023-05-14 10:31] LABS: Acanthocytes 1+; Ovalocytes 1+; Polychromasia 1+
[2023-05-14 10:35] LABS: BUN Creatinine Ratio 15.2 (10-20); Creatinine Clr Calc Pharmacy 68.5 ml/min; Est GFR (African American) 65.2 ml/min; Est GFR (Non-African American) 56.2 ml/min; Magnesium 1.7 mg/dl (1.7-2.4); Potassium 3.9 mmol/L (3.5-5.1)
[2023-05-14 10:52] LABS: Folate (Folic Acid),Ser orPlas 7.01 ng/ml (>5.38)
--- NOTE | 2023-05-14 12:20 | Cardiology Consultation ---
Date of Consultation May 14, 2023 Assessment & Plan (1) Atrial fibrillation: Currently in sinus rhythm. Not requiring any beta-ana, calcium channel ana, or arrhythmia medications at this time. He does have indications for anticoagulation but agree that the should be held at this time. Low daily risk of CVA while in sinus rhythm. Continue to monitor through hospitalization. He also has mitral regurgitation based on remote echo. Will obtain another echo to ensure that there is been no change in his LVEF or worsening of his mitral regurgitation. This could have implications for perioperative management. (2) Hypertension: Not requiring any blood pressure medications at this time to manage blood pressure. Likely because of significant weight loss. Continue to hold at this time. (3) Hemarthrosis of right knee: The Xarelto will need to be held for at least 48 hours preoperatively to reduce likelihood of bleeding. We will follow and assist in management. Anticipate that we can restart his Xarelto once surgery determines that risk of perioperative bleeding is sufficiently low. Plan Patient will need to follow-up with Dr. Williamson or Xuan Gomez PA-C within 4 weeks of discharge. History of Present Illness Reason for Consultation: Anticoagulation management Attending Physician: Qian Albert MD History of Present Illness 63-year-old gentleman with cardiac history including LVH and paroxysmal atrial fibrillation. Noted to have moderate mitral regurgitation on prior echo. Previously managed by the cardiac team at [facility]. Recently began to see Dr. Williamson with [facility] cardiology. Unfortunately, patient has a number of significant comorbid diseases including hypertension, diabetes, dyslipidemia, and metastatic melanoma. He has been receiving immunotherapy for the melanoma and he recently has diagnosis of thyroid cancer. He has had a 60 pound weight loss. This triggered hypotension and his cardiac medications including sotalol and lisinopril were discontinued. Patient presents at this time following apparent quadriceps rupture and hemarthrosis. He is to undergo surgery for this. He takes Xarelto 20 mg daily for CVA prophylaxis with his atrial fibrillation. He denies any chest pain, shortness of breath, syncope, near syncope, orthopnea, PND, racing heartbeat, or palpitations. He does have right lower extremity swelling which was part of his presenting complex. No other complaints or concerns at this time. Allergies Allergy/AdvReac Type Severity Reaction Status Date / Time Bactrim Allergy Severe THROAT AND Unverified 07/18/10 13:38 HANDS SWELL sulfamethoxazole Allergy Severe THROAT AND Verified 05/02/23 14:40 HANDS SWELL trimethoprim Allergy Severe THROAT AND Verified 05/02/23 14:40 HANDS SWELL Home Medications Medication Instructions Recorded Confirmed Type levothyroxine 100 mcg capsule 100 mcg PO DAILY 04/10/23 05/13/23 History rivaroxaban 20 mg tablet (Xarelto) 20 mg PO DAILY 04/10/23 05/13/23 History nivolumab [Opdivo] See Rx Instructions IV .COMPLEX 04/27/23 05/13/23 History hydrocodone 5 mg-acetaminophen 325 1 tab PO Q4H PRN Pain 05/13/23 05/13/23 History mg tablet Patient History Medical History Hypothyroidism LVH (left ventricular hypertrophy) Type 2 diabetes mellitus Metastatic melanoma Osteoarthritis Hx of sleep apnea RESOLVED SINCE JAW SURGERY Heart valve regurgitation Mild MR and TR per 08/2019 ECHO Hyperlipidemia Hypertension Atrial fibrillation JUST STARTED ON ELIQUIS Surgical History Hx of vasectomy History of colonoscopy History of tooth extraction WISDOM TEETH History of mandibular surgery RECONSTRUCTED> JAW EXTENEDED 2011 Family History Grandfather (Maternal) Diabetes Grandfather (Paternal) Diabetes Uncle Diabetes Social History Smoking Status: Never smoker Second Hand Exposure: No; Do You Dip or Chew Tobacco: No; Hx Alcohol Use: No Hx Substance Use: No Preferred Language: Frisian Communication Ability: Effective [place] Required: No Beliefs That Will Affect Care: None Current Living Situation: Spouse and Family Other Information That Helps Us Care for You: No Feels Safe at Home: Yes Safety Concerns: Feels Safe At This Time Assistive Devices: Cane and Walker Review of Systems Review of Systems: Negative except as per HPI Physical Exam Constitutional: WD/WN, vitals as above Eyes: PERRL, conjunctivae normal, anicteric sclerae ENMT: external ear and nose normal, oropharynx normal Neck: No JVD or bruits Respiratory: Clear to auscultation bilaterally. No wheezing, rhonchi, or rales. Cardiovascular: Regular rate and rhythm. Sinus rhythm on the monitor. Grade 1-2/6 systolic murmur. 1-2+ right lower extremity swelling. None on the left. Musculoskeletal: no cyanosis or clubbing, extremities motor strength 5/5 Neurologic: Cognition is intact. Speech is fluent. No focal deficits. Psychiatric: A+Ox3, euthymic affect Results & Data Vital Signs (Past 12 Hours) Vital Signs Temp Pulse Pulse Pulse Resp BP Pulse Ox 05/14/23 11:44 36.8 C 61 18 115/69 97 05/14/23 08:00 05/14/23 07:22 36.5 C 60 18 124/52 L 96 05/14/23 07:00 65 05/14/23 03:47 36.9 C 59 L 16 118/67 95 05/14/23 00:35 72 O2 Del Method 05/14/23 11:44 Room Air 05/14/23 08:00 Room Air 05/14/23 07:22 Room Air 05/14/23 07:00 05/14/23 03:47 Room Air 05/14/23 00:35 PG Care Time/CCT Total # of Minutes Spent Total Time Spent with Patient: Total time spent is greater than 50% in coordination of care (as documented) at patient's floor/unit and/or counseling patient: Coding Level of Care Code 90106 IN/OBS CONSULT LVL 3,45M Diagnoses Atrial fibrillation, unspecified type I48.91 Atrial fibrillation type: unspecified Hypertension, unspecified type I10 Hypertension type: unspecified Hemarthrosis of right knee M25.061 (1) Atrial fibrillation Atrial fibrillation type: unspecified Qualified Code(s): I48.91 - Unspecified atrial fibrillation (2) Hypertension Hypertension type: unspecified Qualified Code(s): I10 - Essential (primary) hypertension
[2023-05-14 15:15] LABS: Hematocrit (blood only) 21.6 % (42.0-52.0); Hemoglobin 6.9 g/dl (14.0-18.0)
[2023-05-14] MEDS ORDERED: SODIUM CHLORIDE 0.9% 250 ML IV PRN (15:23)
[2023-05-14] MEDS: POLYETHYLENE (MIRALAX) 17 GM PACK PO SCH (16:36)
[2023-05-14] MEDS: HYDROmorphone INJ 0.5 MG/0.5 ML SYR IV PRN (21:09)
[2023-05-14] MEDS: GADOBUTROL 65ML VIAL IV ONE (22:07)
--- NOTE | 2023-05-14 23:58 | Magnetic Resonance Report ---
Exam(s): MRI RIGHT HIP W/WO Contrast IV Amt: 9ml gadavist EXAM: MR Right Lower Extremity Without and With Intravenous Contrast, Hip CLINICAL HISTORY: Reason for exam: fluid collection, bleeding? infection?. TECHNIQUE: Multiplanar magnetic resonance images of the right hip without and with intravenous contrast. CONTRAST: Patient received 9ml gadavist of IV contrast COMPARISON: No relevant prior studies available. FINDINGS: TENDONS: Flexors: Unremarkable. Extensors/Hamstring: Unremarkable. Abductors: Unremarkable. Adductors: Unremarkable. Rotators: Unremarkable. Muscles: Intramuscular soft tissue edema within the anterior hip musculature. Fluid: No joint effusion. Labrum: Poorly evaluated on this study. Potential superior labral tear with tiny para labral cyst measuring 7 mm. Cartilage: Poorly evaluated on this study. Appears to be mild cartilage loss. Bones/joints: No acute fracture. No dislocation. No osteomyelitis. Degenerative changes in the femoral head neck junction. Soft tissues: Nonspecific subcutaneous soft tissue edema within the right lower extremity. No fluid collection or abscess. IMPRESSION: Nonspecific subcutaneous soft tissue edema within the right lower extremity. No fluid collection or abscess. Communications: Verify Receipt Electronically signed by: Jeremi Saez MD 05/14/23 23:58 PM
[2023-05-15] MEDS ORDERED: ROPIVACAINE 0.5% 5 MG/ML 30 ML VIAL ONE (07:11)
[2023-05-15 07:57] LABS: Basophils # (auto) 0.03 K/uL (0.00-0.20); Basophils % (auto) 0.4 %; Eosinophils # (auto) 1.05 K/uL (0.00-0.50); Eosinophils % (auto) 14.7 %; Hematocrit (blood only) 22.3 % (42.0-52.0); Hemoglobin 7.4 g/dl (14.0-18.0); Immature Granulocytes # (auto) 0.02 K/uL (0.01-0.20); Immature Granulocytes % (auto) 0.3 %; Lymphocytes # (auto) 1.67 K/uL (1.20-3.40); Lymphocytes % (auto) 23.3 %; Mean Corpuscular Hemoglobin 28.1 pg (25.0-34.0); Mean Corpuscular Hgb Conc 33.2 g/dL (32.0-36.0); Mean Corpuscular Volume 84.8 fL (80.0-100.0); Mean Platelet Volume 8.5 fL (9.4-12.4); Monocytes # (auto) 0.56 K/uL (0.11-0.59); Monocytes % (auto) 7.8 %; Neutrophils # (auto) 3.83 K/uL (1.40-6.50); Neutrophils % (auto) 53.5 %; Platelet Count 319 K/uL (130-400); RDW Coefficient of Variation 15.1 % (11.5-14.5); RDW Standard Deviation 46.5 fL (36.4-46.3); Red Blood Count 2.63 M/uL (4.70-6.10); White Blood Count 7.16 K/ul (4.8-10.8)
[2023-05-15 08:33] LABS: Echinocytes 1+; Polychromasia 1+
[2023-05-15 09:05] LABS: BUN Creatinine Ratio 15.9 (10-20); Bilirubin Direct 0.2 mg/dl (0-0.2); Bilirubin,Total 0.9 mg/dl (0.2-1.0); Calcium 8.6 mg/dl (8.6-10.3); Est GFR (African American) 78.6 ml/min; Est GFR (Non-African American) 67.8 ml/min; Magnesium 1.5 mg/dl (1.7-2.4); Potassium 3.9 mmol/L (3.5-5.1)
[2023-05-15 09:18] LABS: Ferritin 404.5 ng/ml (8-388)
--- NOTE | 2023-05-15 10:57 | Hospitalist Progress Note ---
Date of Service May 15, 2023 Assessment & Plan (1) Hemarthrosis of right knee: (2) Anemia: (3) Hypomagnesemia: (4) Type 2 diabetes mellitus: (5) Hypertension: (6) Atrial fibrillation: (7) Metastatic melanoma: (8) Hypothyroidism: Plan Mr. Ray is a 63 year old gentleman with history of metastatic melanoma s/p excision from right forearm, papillary thyroid carcinoma, a fib on Xarelto, unintentional weight loss 2/2 malignancy who is admitted for management and evaluation of right knee swelling and pain with recent diagnosis of hemarthrosis from injury ~1 week prior. Imaging revealed notable soft tissue swelling with effusion. #Hemarthrosis #High grade partial quadriceps rupture, right MRI with avulsion of right quadriceps rupture, likely source of hemarthrosis and persistent pain Pain management Holding Xarelto in interim Ratio [id number]: 6400, iso hemarthrosis , low suspicion for septic joint Will need PT/OT post op Planning for OR today with [facility] #Acute on chronic normocytic anemia, multifactorial #Iron deficiency #Immunosuppression 2/2 chemotherapy likely iso malignancy, chemo, now hemarthrosis -Transfuse less than 7 -s/p 1prbc on 05/13 #Complex fluid collection in right groin There is a small complex fluid collection in the right groin measuring 2.0 x 1.0 x 2.3 cm. MRI hip with out clear abscess/infection #Paroxysmal A fib, s/p cardioversion #Hx of MR #Sinus bradycardia -Sotalol recently discontinued Zio patch still in place Cards consult for patch removal and optimization if procedure possible/likley -Patient to hold xarelto, plan to resume when able post-op -Repeat ECHO ordered for perioperative management given MR history Also discussion of risk/benefit of continued Xarelto given hemarthrosis #Metastatic melanoma s/p excision from right forearm excision of the mass on 08/08/2022 and pathology consistent with [id number], Sox-10 and focally [place]-1 positive neoplasm involving the subcutis Soft tissue, left cervical lymph node, needle core biopsy: Metastatic poorly differentiated carcinoma completed 4 cyclesof nivolumab plus ipilimumab Last completed infusion of nivolumab Follows Dr. Espinosa for Melanoma #Hypothyroidism #Papillary thyroid carcinoma Thyroid FNA pathology from 03/13 showed Atypia of Undetermined Significance - AUS ([place] Category III). The tumor cells are positive for PAX8, TTF-1, and thyroglobulin; consistent with papillary thyroid carcinoma. Delayed thyroid procedure 2/2 cardiac [facility] Continue Synthroid #HTN #HLD No longer on medications statin, acei, metformin, sotalol since 04/10 #DMTII No longer on medications 2/2 weight loss from malignancy A1C in am Regular diet 2/2 malnutrition, will start SSI if warranted DVT ppx hold xarelto, SCD in interim on left leg Admission and Anticipated Discharge Date Admission Date: May 13, 2023 Subjective s/p transfusion 05/13 Denies any acute concerns. Eager for procedure. States pain is controlled. Last bowel movement 05/12, passing gas Physical Exam Constitutional: WD/WN, vitals as above Respiratory: normal respiratory effort, lungs clear to auscultation Cardiovascular: RRR, no murmur, no edema Musculoskeletal: right leg in immobilizer Results & Data Results & Data Vital Signs (Past 12 Hours) Vital Signs Temp Pulse Pulse Resp BP BP Pulse Ox 05/15/23 08:23 05/15/23 05:56 58 L 05/15/23 04:04 36.8 C 62 20 107/60 93 05/14/23 23:39 36.7 C 65 20 123/68 95 O2 Del Method 05/15/23 08:23 Room Air 05/15/23 05:56 05/15/23 04:04 Room Air 05/14/23 23:39 Room Air Laboratory Results Short CBC 05/14/23 05/15/23 Range/Units 14:25 07:27 WBC 7.16 (4.8-10.8) K/ul Hgb 6.9 L* 7.4 L (14.0-18.0) g/dl Hct 21.6 L 22.3 L (42.0-52.0) % Plt Count 319 (130-400) K/uL BMP 05/15/23 07:27 Sodium 136 Potassium 3.9 Chloride 104 Carbon Dioxide 25 BUN 18 Creatinine 1.13 Glucose 83 Calcium 8.6 Liver Function 05/15/23 Range/Units 07:27 Total Bilirubin 0.9 D (0.2-1.0) mg/dl Direct Bilirubin 0.2 (0-0.2) mg/dl Medications Administered Home Medications Medication Instructions Recorded Confirmed Last Taken levothyroxine 100 mcg capsule 100 mcg PO DAILY 04/10/23 05/13/23 Unknown rivaroxaban 20 mg tablet (Xarelto) 20 mg PO DAILY 04/10/23 05/13/23 Unknown nivolumab [Opdivo] See Rx Instructions IV .COMPLEX 04/27/23 05/13/23 04/25/23 hydrocodone 5 mg-acetaminophen 325 1 tab PO Q4H PRN Pain 05/13/23 05/13/23 Unknown mg tablet Active Medications Generic Name Dose Route Start Last Admin Trade Name Lorin PRN Reason Stop Dose Admin Acetaminophen 1,000 mg 05/13/23 14:00 05/15/23 06:13 Acetaminophen 500 Mg Tab PO 06/12/23 13:59 1,000 mg Q8H NORMAN Administration Hydromorphone HCl 0.5 mg 05/13/23 13:48 05/14/23 21:09 Hydromorphone Inj 0.5 Mg/0.5 Ml Syr IV 05/27/23 13:47 0.5 mg Q6H PRN Administration Pain Levothyroxine Sodium 100 mcg 05/14/23 06:30 05/15/23 06:14 Levothyroxine Sodium 100 Mcg Tablet PO 06/13/23 06:29 100 mcg DAILYBB NORMAN Administration Oxycodone HCl 5 mg 05/13/23 13:48 05/14/23 20:39 Oxycodone Hcl Ir 5 Mg Tab (Immediate Release) PO 05/27/23 13:47 5 mg Q6H PRN Administration Pain Polyethylene Glycol 17 gm 05/14/23 16:30 05/15/23 09:10 Polyethylene (Miralax) 17 Gm Pack PO 06/13/23 16:29 Not Given DAILY NORMAN (2) Anemia Anemia type: unspecified type Qualified Code(s): D64.9 - Anemia, unspecified (4) Type 2 diabetes mellitus Diabetes mellitus alf insulin use: without termite treater use Diabetes mellitus complication status: without complication Qualified Code(s): E11.9 - Type 2 diabetes mellitus without complications (5) Hypertension Hypertension type: unspecified Qualified Code(s): I10 - Essential (primary) hypertension (6) Atrial fibrillation Atrial fibrillation type: unspecified Qualified Code(s): I48.91 - Unspecified atrial fibrillation (8) Hypothyroidism Hypothyroidism type: unspecified Qualified Code(s): E03.9 - Hypothyroidism, unspecified
[2023-05-15] MEDS: MAGNESIUM SULFATE / D5W 1 GM/100 ML BAG IV SCH (11:28)
--- NOTE | 2023-05-15 12:22 | XCELERA ---
[id number] \\[email or web address]\[id number]
[2023-05-15] MEDS ORDERED: BUPIVACAINE 0.5 % 5 MG/1 ML PF 10ML VIAL ONE (12:52)
--- NOTE | 2023-05-15 12:56 | History & Physical Bridge Note ---
Date of Service May 15, 2023 History & Physical Bridge Note I have examined the patient, reviewed the History & Physical and in the interval since the performance of the History & Physical I have noted the following changes of clinical significance: no changes noted
[2023-05-15] MEDS ORDERED: MIDAZOLAM HCL 1 MG/ML 2ML VIAL ONE (12:57)
--- NOTE | 2023-05-15 12:57 | Anesthesiology Consultation ---
Date of Service May 15, 2023 Assessment & Plan Chart Review Chart Review: Acceptable Risk for Surgery Consults Requested none ASA ASA3 Proposed Anesthesia Anesthesia Type: General Regional Regional Laterality: Right Site: Femoral Risk / Benefits Reviewed With: PT / POA / Parent / Guardian, Accepts Plan and Informed Consent Obtained History Surgery Operation Date: 05/15/23 13:30 Proposed Procedures p Right Knee Quadriceps Tendon Repair - Sven Manriquez MD Height/Weight Height: 6 ft 4 in Weight: 93 kg Allergies Allergy/AdvReac Type Severity Reaction Status Date / Time Bactrim Allergy Severe THROAT AND Unverified 07/18/10 13:38 HANDS SWELL sulfamethoxazole Allergy Severe THROAT AND Verified 05/02/23 14:40 HANDS SWELL trimethoprim Allergy Severe THROAT AND Verified 05/02/23 14:40 HANDS SWELL Medications Home Medications Medication Instructions Recorded Confirmed Last Taken levothyroxine 100 mcg capsule 100 mcg PO DAILY 04/10/23 05/13/23 Unknown rivaroxaban 20 mg tablet (Xarelto) 20 mg PO DAILY 04/10/23 05/13/23 Unknown nivolumab [Opdivo] See Rx Instructions IV .COMPLEX 04/27/23 05/13/23 04/25/23 hydrocodone 5 mg-acetaminophen 325 1 tab PO Q4H PRN Pain 05/13/23 05/13/23 Unknown mg tablet Active Medications Generic Name Dose Route Start Last Admin Trade Name Freq PRN Reason Stop Dose Admin Acetaminophen 1,000 mg 05/13/23 14:00 05/15/23 06:13 Acetaminophen 500 Mg Tab PO 06/12/23 13:59 1,000 mg Q8H NORMAN Administration Hydromorphone HCl 0.5 mg 05/13/23 13:48 05/14/23 21:09 Hydromorphone Inj 0.5 Mg/0.5 Ml Syr IV 05/27/23 13:47 0.5 mg Q6H PRN Administration Pain Magnesium Sulfate/Dextrose 1 gm in 100 mls @ 50 mls/hr 05/15/23 11:00 05/15/23 11:28 Magnesium Sulfate / D5w IV 05/15/23 16:59 50 mls/hr Q2H NORMAN Administration Levothyroxine Sodium 100 mcg 05/14/23 06:30 05/15/23 06:14 Levothyroxine Sodium 100 Mcg Tablet PO 06/13/23 06:29 100 mcg DAILYBB NORMAN Administration Oxycodone HCl 5 mg 05/13/23 13:48 05/14/23 20:39 Oxycodone Hcl Ir 5 Mg Tab (Immediate Release) PO 05/27/23 13:47 5 mg Q6H PRN Administration Pain Polyethylene Glycol 17 gm 05/14/23 16:30 05/15/23 09:10 Polyethylene (Miralax) 17 Gm Pack PO 06/13/23 16:29 Not Given DAILY NORMAN Past Medical History Medical History Hypothyroidism LVH (left ventricular hypertrophy) Type 2 diabetes mellitus Metastatic melanoma Osteoarthritis Hx of sleep apnea RESOLVED SINCE JAW SURGERY Heart valve regurgitation Mild MR and TR per 08/2019 ECHO Hyperlipidemia Hypertension Atrial fibrillation JUST STARTED ON ELIQUIS Exercise / Class Metabolic Activity II 4-5 Yardwork/Stairs/Walk up hill Past Family History Family History Grandfather (Maternal) Diabetes Grandfather (Paternal) Diabetes Uncle Diabetes Past Surgical History Surgical History Hx of vasectomy History of colonoscopy History of tooth extraction WISDOM TEETH History of mandibular surgery RECONSTRUCTED> JAW EXTENEDED 2011 Past Anesthesia History No Hx of Anesthesia Complications History of PONV No Hx of PONV Social History Smoking Status: Never smoker Do You Dip or Chew Tobacco: No Hx Alcohol Use: No Alcohol type: beer alcohol intake frequency: a few times a week Hx Substance Use: No substance use type: does not use Physical Exam Vital Signs Last Vital Signs Temp 37.0 C 05/15/23 11:11 Pulse 60 05/15/23 11:11 Resp 18 05/15/23 11:11 BP 125/72 05/15/23 11:11 Pulse Ox 97 05/15/23 11:11 O2 Del Method Room Air 05/15/23 11:11 O2 Flow Rate 0 05/13/23 15:49 Constitutional no acute distress ENMT Thyromental Distance: > or= 3.5 Finger Breadths Mallampati Class: II Neck normal visual inspection Respiratory normal respiratory effort; no respiratory distress Auscultation: lungs clear to auscultation bilaterally Cardiovascular Rate/Rhythm: regular rate and regular rhythm Heart Sounds: no murmur Psychiatric Orientation: alert and oriented x 3 Testing Laboratory Results 05/15/23 07:27 05/15/23 07:27 Blood Type A Positive 05/13/23 14:06 Antibody Screen NEGATIVE 05/13/23 14:06 05/13/23 Unknown Gram Stain - Final Knee,Right Aerobic and Anaerobic Culture - Preliminary Pin-point growth present, reincubating. 05/13/23 09:06 Aerobic Blood Culture - Preliminary Blood No growth in Aerobic bottle after 48 hours. Anaerobic Blood Culture - Preliminary No growth in Anaerobic bottle after 48 hours. 05/13/23 09:02 Aerobic Blood Culture - Preliminary Blood No growth in Aerobic bottle after 48 hours. Anaerobic Blood Culture - Preliminary No growth in Anaerobic bottle after 48 hours. Echocardiogram LV Function: normal Valvular Disease: + no significant valvular disease
[2023-05-15] MEDS ORDERED: fentaNYL citrate PF 100 MCG/2 ML VIAL ONE (12:58)
[2023-05-15] MEDS: LACTATED RINGER'S 1,000 ML IV SCH (13:07)
[2023-05-15] MEDS: TRANEXAMIC ACID / 0.7% NACL 1,000 MG/100 ML BAG IV ONE (13:11)
[2023-05-15] MEDS: TRANEXAMIC ACID / 0.7% NACL 1000MG/100ML BAG IV ONE (13:14)
[2023-05-15] MEDS: ceFAZolin 2000MG 2,000 MG/15 ML SYR IV SCH ×2 (13:19→21:35)
[2023-05-15] MEDS ORDERED: ROCURONIUM BROMIDE 10 MG/ML 5 ML VIAL IV ONE (13:35)
[2023-05-15] MEDS ORDERED: PROPOFOL IV EMULSION 10 MG/ML 20 ML VIAL IV ONE (13:35)
[2023-05-15] MEDS ORDERED: LIDOCAINE 2% 2 ML VIAL/AMP(20MG/ML) INFIL ONE ×2 (13:35→13:39)
[2023-05-15] MEDS ORDERED: PHENYLEPHRINE HCL 10 MG/ML VIAL ONE (13:36)
[2023-05-15] MEDS ORDERED: ONDANSETRON INJ 2 MG/ML 2 ML VIAL IV PRN ×2 (13:37→16:24)
[2023-05-15] MEDS ORDERED: ePHEDrine sulfate 50 MG/ML AMP IV PRN (13:37)
[2023-05-15] MEDS ORDERED: ATROPINE SULFATE 0.1 MG/ML 10ML SYR IV PRN (13:37)
[2023-05-15] MEDS ORDERED: HYDROmorphone INJ 2 MG/ML SYR/VIAL IV PRN (13:37)
[2023-05-15] MEDS ORDERED: ONDANSETRON INJ 2 MG/ML 2 ML VIAL ONE (13:52)
[2023-05-15] MEDS ORDERED: DEXAMETHASONE SOD INJ 4 MG/ML VIAL ONE (13:52)
[2023-05-15] MEDS ORDERED: SUGAMMADEX SODIUM 200 MG/2 ML VIAL IV ONE (14:53)
--- NOTE | 2023-05-15 15:14 | Operative Report ---
Post Operative Report Pre & Post Diagnosis Operation Date: 05/15/23 13:30 Pre-Op Diagnosis: Right Quadriceps tendon rupture Post-Op Diagnosis: Right Quadriceps tendon rupture I identified the patient and participated in the time-out.: Yes Procedure Operation Date: 05/15/23 13:30 Actual Procedures p Right Knee Exploration, Evacuation of Hemarthrosis(Right) - Sven Manriquez MD Surgeon Sven Manriquez M.D. Cold Roller Leandra Jaramillo PA-C; no fellow or resident available Estimated Blood Loss 5 Findings Consistent with Post-Op Diagnosis Specimens None Drains Hemovac x 1 Anesthesia Type General Regional Description of Procedure Patient was taken to the operating room, placed under general anesthesia. Given peripheral nerve block. Time out performed, prepped and draped in routine sterile fashion. He was given 2gm IV Ancef for surgical prophylaxis. He was given 1 gm IV TXA for bleeding prophylaxis preoperatively. I was present during the entire case, and assisted with positioning, tissue retraction, irrigation, evacuation of hematoma, exploration of quad tendon and closure. Please see Dr. Manriquez's operative report for further detail. Patient was taken to the recovery room in stable condition. I attest to the content of the Intraoperative Record and any orders documented therein. Any exceptions are noted below.
--- NOTE | 2023-05-15 15:25 | Operative Report ---
Post Operative Report Pre & Post Diagnosis Operation Date: 05/15/23 13:30 Pre-Op Diagnosis: Right Quadriceps tendon rupture Post-Op Diagnosis: Right Quadriceps tendon rupture I identified the patient and participated in the time-out.: Yes Procedure Operation Date: 05/15/23 13:30 Actual Procedures p Right Knee exploration and evacuation of hemarthrosis right) - Sven Manriquez MD Surgeon Sven Manriquez MD Nitro Man Leandra Jaramillo physicians workforce development assistant no resident or fellow available Estimated Blood Loss 5 Findings Consistent with Post-Op Diagnosis A large tense hemarthrosis. Quadriceps tendinopathy but no evidence of traumatic tear Specimens None Drains Hemovac x 1 Anesthesia Type General Regional Complications none Disposition Accompanied Patient To Recovery: No Disposition: Recovery Room Indications Hla is 63. He had a recent minor knee injury. He developed significant right knee pain and swelling. He is undergoing treatment for malignant melanoma. He also has thyroid cancer. He has acute on chronic anemia. Hemoglobin was 6.9 yesterday. Status post 1 unit of packed red blood cells and hemoglobin is 7.4 today. He was being managed as an outpatient but was recently admitted to the hospital because of worsening right knee pain. He has not been on any antibiotics. White blood cell count is within normal limits. MRI suggests hemarthrosis and a tear at the quadriceps tendon insertion without significant retraction. He has an MRI of his hip showing injury to the quadriceps muscles consistent with strain. We discussed his options and I recommend that he consider surgery for quadriceps tendon repair and he agreed to proceed. He had an initial knee aspiration as an outpatient which showed hemarthrosis and culture negative. White blood cell count less than 1000. His knee was reaspirated Sunday. Again high red blood cell count and about 6000 white blood cells. Culture was no growth to date but did show pinpoint growth reintubating. Crystals were negative Lyme negative. There is nothing clinically that really suggest the possibility of infection. Description of Procedure Informed consent. Patient identified. He identified the operative site as the right knee. I marked with my initials. A preoperative surgical timeout was performed. A preop dose of IV antibiotics was given. He was taken to the operating room positioned supine on the operating room table and the anesthetic was administered. The leg was scrubbed and then prepped and draped in usual sterile fashion. DVT prophylaxis intraoperatively with mechanical devices. Postop with early mobility and Xarelto. He was off of his Xarelto for 48 hours prior to start of the surgical procedure. He has been seen by medicine and cardiology. A tourniquet was applied to the right thigh prior to prepping and draping. The exam under anesthesia revealed intact cruciates and collaterals. The knee was not red or indurated. He did have a tense right knee effusion in the suprapatellar pouch and range of motion with gravity from 0-90. He received a preop dose of IV antibiotics as well as TXA. Limb exsanguinated with the Esmarch. Tourniquet inflated to 250 mmHg. A midline incision was made extending from the inferior pole of the patella several centimeters proximal to the superior pole of the patella. I incised the skin and elevated minimal full-thickness flaps down to the level of the quadriceps tendon. I did not see any significant bruising or evidence of acute injury. The quadriceps tendon was visibly intact and appeared normal. On the MRI it looked like the most superficial portion of the quad tendon was intact and that the tear involved the deeper layers just at the insertion. I therefore went ahead and made a several centimeter midline incision part way through the tendon and did not encounter any evidence of quadriceps tendon tear. I incised the full-thickness of the quadriceps tendon longitudinally and found that it was completely intact anterior to posterior. I enlarged the incision proximally enough that I could insert my fingers. Once the joint was opened a large hemarthrosis was identified and evacuated. Probably 150 cc of clotted blood. There otherwise was no cloudy fluid or purulence or other fluid encountered. Through the smaller incision I could feel part ways around the suprapatellar pouch and I was able to identify that the quadriceps tendon attachment to the patella was cleared completely intact. The medial lateral retinaculum's were not disrupted. I could feel proximally that there felt to be some thickened tissue at the upper border of the suprapatellar pouch. I thought perhaps there was an undersurface tear of the quad tendon which had retracted. I then went ahead and extended the incision proximally and incised the remainder of the quadriceps tendon longitudinally up to near the muscular tendinous junction. I then was able to see the entire suprapatellar pouch. I felt proximally and there was no retracted tendon. This was just some muscle of the quadriceps with suprapatellar pouch tissue. The suprapatellar pouch tissue did not have any significant bleeding. The knee was placed through range of motion and the hemarthrosis was completely evacuated. There was some mild diffuse synovitis with some hemosiderin staining consistent with the hemarthrosis. I was able to visually and digitally inspect the quad tendon and found that it was completely intact. I was able to grab a hold of it with forceps and pull on it and it did not demonstrate any detachment. The tendon at the level of the superior pole the patella was at least a centimeter and a half thick. The thinnest area of the tendon was several centimeters proximal where it was only 1 cm thick but in no area was there any evidence of traumatic injury or granulation tissue. The knee was copiously irrigated with 2 L of sterile saline. I then let the tourniquet down and achieve meticulous hemostasis. There was some minor bleeding superficially but nothing inside the knee joint. A large Hemovac cut at the 7 hole was inserted in the suprapatellar pouch and brought out the superior lateral knee. I then reapproximated the longitudinal split in the quadriceps tendon using [id number] #1 PDS sutures and oversewed this with a running locked 0 PDS. The skin was closed in layers with 0 and 2-0 Vicryl and konstantin on the skin. The leg was cleaned with wet and dry sponges a soft sterile dressing was applied Xeroform 4 x 4's ABD soft wrap and a full-length Teodoro wrap with a knee immobilizer. Patient awakened from anesthesia without difficulty and taken to recovery in stable condition. There were no specimens or complications. Counts were correct. Blood loss was estimated to be 5 cc. At the conclusion of the operation I spoke the patient's informed her my findings. Postoperatively he may weight-bear as tolerated. We will keep the knee straight and in the knee immobilizer until we are able to pull the drain out. Once that occurs he will be able to range of motion as tolerated. Routine course of postop IV antibiotics. Will do postop DVT prophylaxis with Xarelto. Will coordinate starting this with medicine and cardiology. I attest to the content of the Intraoperative Record and any orders documented therein. Any exceptions are noted below.
--- NOTE | 2023-05-15 16:07 | Anesthesiology Progress Note ---
Date of Service May 15, 2023 Anesthesia Post Procedure Vital Signs Vital Signs: Temp Pulse Pulse Pulse Resp BP BP 05/15/23 15:45 36.5 C 70 19 05/15/23 15:35 66 21 05/15/23 15:25 67 20 05/15/23 15:15 64 19 05/15/23 15:07 37.1 C 65 17 05/15/23 13:04 36.9 C 64 20 05/15/23 11:11 37.0 C 60 18 05/15/23 08:23 05/15/23 05:56 58 L 05/15/23 04:04 36.8 C 62 20 05/14/23 23:39 36.7 C 65 20 123/68 05/14/23 19:40 05/14/23 19:30 36.7 C 60 18 144/73 H 05/14/23 18:55 36.8 C 62 18 125/72 05/14/23 17:55 36.7 C 60 18 121/68 05/14/23 17:25 36.6 C 56 L 18 127/72 05/14/23 16:55 36.5 C 56 L 18 126/72 05/14/23 16:39 36.6 C 59 L 18 131/73 05/14/23 16:25 36.7 C 58 L 18 124/71 BP Pulse Ox O2 Del Method O2 Flow Rate 05/15/23 15:45 105/88 96 Room Air 05/15/23 15:35 119/68 100 Oxymask 3 05/15/23 15:25 124/68 98 Oxymask 3 05/15/23 15:15 126/70 99 Oxymask 6 05/15/23 15:07 122/70 98 Oxymask 6 05/15/23 13:04 134/77 99 Room Air 05/15/23 11:11 125/72 97 Room Air 05/15/23 08:23 Room Air 05/15/23 05:56 05/15/23 04:04 107/60 93 Room Air 05/14/23 23:39 95 Room Air 05/14/23 19:40 Room Air 05/14/23 19:30 96 05/14/23 18:55 99 05/14/23 17:55 98 05/14/23 17:25 96 Room Air 05/14/23 16:55 96 Room Air 05/14/23 16:39 95 Room Air 05/14/23 16:25 97 Pain Intensity Right Knee: Pain Intensity: 6 Transfer of Care Handoff Completed per policy Notes Mental Status: alert / awake / arousable and participated in evaluation Patient Amnestic to Procedure: Yes Nausea / Vomiting: adequately controlled Pain: adequately controlled Airway Patency, RR, SpO2: stable & adequate BP & HR: stable & adequate Hydration State: stable & adequate Anesthetic Complications: no major complications apparent
[2023-05-15] MEDS ORDERED: TAMSULOSIN HCL 0.4 MG CAP PO PRN (16:24)
[2023-05-15] MEDS ORDERED: NALOXONE HCL 0.4 MG/1 ML VIAL/CARP IV PRN (16:24)
[2023-05-15] MEDS: SODIUM CHLORIDE 0.9% 1,000 ML IV SCH (16:44)
[2023-05-15] MEDS: TRANEXAMIC ACID / 0.7% NACL 1,000 MG/100 ML BAG IV SCH (21:30)
[2023-05-15] MEDS: DOCUSATE SODIUM 100 MG CAP PO SCH (21:35)
[2023-05-16 06:31] LABS: Mean Corpuscular Hgb Conc 34.8 g/dL (32.0-36.0); Mean Corpuscular Volume 83.3 fL (80.0-100.0); Mean Platelet Volume 8.5 fL (9.4-12.4); Platelet Count 378 K/uL (130-400); RDW Coefficient of Variation 14.6 % (11.5-14.5); RDW Standard Deviation 44.6 fL (36.4-46.3); Red Blood Count 2.76 M/uL (4.70-6.10); White Blood Count 8.54 K/ul (4.8-10.8)
[2023-05-16 08:18] LABS: BUN Creatinine Ratio 20.7 (10-20); Calcium 8.6 mg/dl (8.6-10.3); Creatinine Clr Calc Pharmacy 81.5 ml/min; Est GFR (African American) 80.3 ml/min; Est GFR (Non-African American) 69.3 ml/min; Magnesium 1.9 mg/dl (1.7-2.4); Phosphorus 4.4 mg/dl (2.5-4.9); Potassium 4.2 mmol/L (3.5-5.1)
--- NOTE | 2023-05-16 11:17 | Orthopedic Progress Note ---
Date of Service May 16, 2023 Assessment & Plan (1) Hemarthrosis of right knee: Plan: Postop day 1-status post evacuation of hemarthrosis right knee, exploration of quadricep tendon. Dr. Manriquez on 05/15/2023 May be out of bed, weight-bear as tolerated with knee immobilizer on right knee. Use walker or crutches to assist with ambulation. Regular diet as ordered. Home medications as ordered. Plan to hold Xarelto until tomorrow, 05/17/2023 due to hemarthrosis. Then may be resumed. GARCIA stockings and AV impulse boots on left lower extremity for DVT prophylaxis. Out of bed as tolerated with assistance. Hemovac discontinued today. May start gentle range of motion 0 to 90 degrees to the right knee. PT and OT as ordered. Ice to right knee as needed for pain. Elevation above heart as needed for swelling. Will plan for dressing change tomorrow. Will continue to follow cultures. No evidence of infection intraoperatively. Will continue to monitor during inpatient stay. Will discuss findings with Dr. Manriquez. Patient understands and agrees with the plan. Admission and Anticipated Discharge Date Admission Date: May 13, 2023 Subjective Patient is resting in bed. He is doing well. No complaints of significant pain in the right leg. He still has some tingling noted. He has been out of bed with physical therapy and and did an entire lap around the his wing. He has been keeping the brace in place. He does feel that his pain is improved since before surgery. Hemovac in place and functioning. Denies any postoperative nausea, vomiting, lightheadedness or dizziness. Has been tolerating a regular diet. Denies any postoperative chest pain or shortness of breath. Physical Exam Musculoskeletal: Exam of his right lower extremity: Postoperative dressings are clean, dry and intact. He has full ankle range of motion with dorsiflexion, plantarflexion, inversion and eversion. Strength is 5/5. Distal sensation is normal. Distal pulses are 1+. He is able independently straight leg raise. He is Hemovac is in place and functioning but has not been draining since surgery yesterday and has very minimal drainage in the bowel. This was removed today. Tolerates logrolling of the right hip. Calf is nontender. Knee range of motion is limited due to the dressing. Results & Data Vital Signs (Past 12 Hours) Vital Signs Temp Pulse Pulse Pulse Resp BP Pulse Ox 05/16/23 08:14 36.4 C L 78 20 118/68 96 05/16/23 07:21 73 05/16/23 04:09 36.3 C L 76 18 107/64 94 O2 Del Method 05/16/23 08:14 Room Air 05/16/23 07:21 05/16/23 04:09 Room Air Laboratory Results 05/16/23 05/15/23 Range/Units 05:26 15:13 WBC 8.54 (4.8-10.8) K/ul RBC 2.76 L (4.70-6.10) M/uL Hgb 8.0 L (14.0-18.0) g/dl Hct 23.0 L (42.0-52.0) % MCV 83.3 (80.0-100.0) fL MCH 29.0 (25.0-34.0) pg MCHC 34.8 (32.0-36.0) g/dL RDW Std Deviation 44.6 (36.4-46.3) fL RDW Coeff of Tracy 14.6 H (11.5-14.5) % Plt Count 378 (130-400) K/uL MPV 8.5 L (9.4-12.4) fL Sodium 135 L (136-145) mmol/L Potassium 4.2 (3.5-5.1) mmol/L Chloride 103 (98-107) mmol/L Carbon Dioxide 24 (21-32) mmol/L Anion Gap 8 (3-11) BUN 23 (6-23) mg/dl Creatinine 1.11 (0.6-1.4) mg/dl Est Cr Clr Drug Dosing 81.5 ml/min Est GFR ( Amer) 80.3 ml/min Est GFR (Non-Af Amer) 69.3 ml/min BUN/Creatinine Ratio 20.7 H (10-20) Glucose 166 H (70-99(Fasting)) mg/dl POC Glucose 93 (70-99) mg/dl Calcium 8.6 (8.6-10.3) mg/dl Phosphorus 4.4 (2.5-4.9) mg/dl Magnesium 1.9 (1.7-2.4) mg/dl
--- NOTE | 2023-05-16 14:23 | Hospitalist Progress Note ---
Date of Service May 16, 2023 Assessment & Plan (1) Hemarthrosis of right knee: (2) Anemia: (3) Hypomagnesemia: (4) Type 2 diabetes mellitus: (5) Hypertension: (6) Atrial fibrillation: (7) Metastatic melanoma: (8) Hypothyroidism: Plan Mr. Ray is a 63 year old gentleman with history of metastatic melanoma s/p excision from right forearm, papillary thyroid carcinoma, a fib on Xarelto, unintentional weight loss 2/2 malignancy who presented with right knee hemarthrosis after an injury at home. He is s/p right knee exploration and evacuation of hemarthrosis on 05/14 with orthopedic surgery after concern for right quadriceps rupture noted on MRI. Knee exploration noted that right quadriceps tendon was intact, no evidence of tear. Hemarthrosis Suspected high grade partial quadriceps rupture, right Pt with noted soft tissue swelling and large joint effusion on knee xray MRI with avulsion of right quadriceps rupture, likely source of hemarthrosis and persistent pain s/p right knee exploration and evacuation of hemarthrosis on 05/14 with orthopedic surgery -no evidence of quadriceps tear, large hemarthrosis evacuated Knee fluid culture from 05/12 currently growing rare gram positive cocci, possible contaminant Appreciate further recs from orthopedic surgery -continue with IV abx, Cefazolin -can resume home xarelto -PT/OT Pain management as needed Continue to monitor Acute on chronic normocytic anemia, multifactorial Iron deficiency anemia Hgb has ranged from 6.9 to 8.4 this hospitalization Iron level low at 20 with low transferrin sat, ferritin slightly elevated (ferritin likely elevated in setting of acute inflammation currently) s/p 1U of prbc transfusion on 05/13 s/p IV Venofer on 05/15 Hgb currently stable post-op continue to monitor and transfuse as needed R groin Complex fluid collection Venous Doppler noting a small complex fluid collection in the right groin measuring 2.0 x 1.0 x 2.3 cm. MRI hip with out clear abscess/infection, notes soft tissue edema. PCP followup for continued monitoring Hyponatremia Slight, na low at 135 continue to monitor Elevated uric acid Gout Uric acid elevated at 9.4 Consider treatment/prevention therapy PCP follow up Hypomagnesemia Mag levels low between 1.3 to 1.5 Replete as needed Paroxysmal A fib, s/p cardioversion Hx of MR Sinus bradycardia Sotalol recently discontinued Zio patch still in place Cardiology was consulted for patch removal and surgical optimization -xarelto held, per ortho ok to resume -in sinus rhythm currently -not on HTN meds currently -Repeat ECHO noting EF 55-60%, LVH, mild MR and TR Xarelto to resume AM 05/15 Cardiology recommending follow up after discharge in 4 weeks Metastatic melanoma s/p excision from right forearm excision of the mass on 08/08/2022 and pathology consistent with [id number], Sox-10 and focally [place]-1 positive neoplasm involving the subcutis Soft tissue, left cervical lymph node, needle core biopsy: Metastatic poorly differentiated carcinoma completed 4 cyclesof nivolumab plus ipilimumab Last completed infusion of nivolumab Follows with Dr. Espinosa for Melanoma Hypothyroidism Papillary thyroid carcinoma Thyroid FNA pathology from 03/13 showed Atypia of Undetermined Significance - AUS ([place] Category III). The tumor cells are positive for PAX8, TTF-1, and thyroglobulin; consistent with papillary thyroid carcinoma. Delayed thyroid procedure 2/2 cardiac [facility] Continue Synthroid HTN HLD No longer on medications statin, acei, metformin, sotalol since 04/10 DMII No longer on medications 2/2 weight loss from malignancy A1C in am Regular diet 2/2 malnutrition, will start SSI if warranted CODE STATUS: Full code Diet: regular DVT ppx: xarelto restarted, SCD in interim on left leg Dispo: PT/OT recommending return home with walker, home PT Admission and Anticipated Discharge Date Admission Date: May 13, 2023 Subjective Pt was seen laying in bed. States able to move toes on right foot, notes occasional tingling. Occasional pain in patellar area but overall no acute concerns. Review of Systems Review of Systems: All systems reviewed & are unremarkable except as noted in Subjective Physical Exam Physical Exam: General: Alert, oriented. No acute distress Psych: Appropriate mood and affect Neuro: able to move foot and toes on the right HEENT: NC/AT Chest: Nontender to palpation. CV: RRR Resp: Breath sounds clear bilaterally, no increased effort of breathing. Abdomen:Soft, nontender, nondistended. No guarding. No organomegaly appreciated. Extremities: R leg in shant wrap, ice on right knee Results & Data Results & Data Vital Signs (Past 12 Hours) Vital Signs Temp Pulse Pulse Pulse Resp BP Pulse Ox 05/16/23 11:38 36.5 C 72 15 110/62 93 05/16/23 08:14 36.4 C L 78 20 118/68 96 05/16/23 07:21 73 05/16/23 04:09 36.3 C L 76 18 107/64 94 O2 Del Method 05/16/23 11:38 Room Air 05/16/23 08:14 Room Air 05/16/23 07:21 05/16/23 04:09 Room Air (2) Anemia Anemia type: unspecified type Qualified Code(s): D64.9 - Anemia, unspecified (4) Type 2 diabetes mellitus Diabetes mellitus complication status: without complication Diabetes mellitus senior care insulin use: without ip network architect use Qualified Code(s): E11.9 - Type 2 diabetes mellitus without complications (5) Hypertension Hypertension type: unspecified Qualified Code(s): I10 - Essential (primary) hypertension (6) Atrial fibrillation Atrial fibrillation type: unspecified Qualified Code(s): I48.91 - Unspecified atrial fibrillation (8) Hypothyroidism Hypothyroidism type: unspecified Qualified Code(s): E03.9 - Hypothyroidism, unspecified
[2023-05-16] MEDS: ceFAZolin 2000MG 2,000 MG/15 ML SYR IV SCH (18:25)
[2023-05-16] MEDS: IRON SUCROSE 200 MG in 0.9 % SODIUM CHLORIDE 100 ML IV ONE (21:38)
[2023-05-17 04:57] LABS: Hematocrit (blood only) 21.5 % (42.0-52.0); Hemoglobin 7.2 g/dl (14.0-18.0); Mean Corpuscular Hemoglobin 28.9 pg (25.0-34.0); Mean Corpuscular Hgb Conc 33.5 g/dL (32.0-36.0); Mean Corpuscular Volume 86.3 fL (80.0-100.0); Mean Platelet Volume 8.7 fL (9.4-12.4); Platelet Count 370 K/uL (130-400); RDW Standard Deviation 47.6 fL (36.4-46.3); Red Blood Count 2.49 M/uL (4.70-6.10); White Blood Count 11.29 K/ul (4.8-10.8)
[2023-05-17 05:17] LABS: BUN Creatinine Ratio 23.8 (10-20); Calcium 8.2 mg/dl (8.6-10.3); Creatinine Clr Calc Pharmacy 74.1 ml/min; Est GFR (African American) 71.7 ml/min; Est GFR (Non-African American) 61.8 ml/min; Magnesium 1.8 mg/dl (1.7-2.4); Phosphorus 3.1 mg/dl (2.5-4.9)
[2023-05-17 07:40] LABS: Estimated Average Glucose 103 mg/dl; Hemoglobin A1C 5.2 % (4.5-5.6)
[2023-05-17] MEDS: RIVAROXABAN 20 MG TAB PO SCH (08:57)
--- NOTE | 2023-05-17 09:59 | Orthopedic Progress Note ---
Date of Service May 17, 2023 Assessment & Plan (1) Hemarthrosis of right knee: Plan: The patient was educated regarding today's findings. Conservative care measures were discussed. He has no significant knee effusion at this time. I do not suspect recollection of his intra-articular hemarthrosis. His wound looks excellent. No signs of infection. He was rewrapped and gauze, Kerlex, and an ABD. Kwadwo stocking was applied for compression. Continue with ice, elevation, and compression for edema control. He may remove the knee immobilizer when in bed. He understands it is to be on at all times when out of bed, including sitting in his chair. Today's findings will be discussed with Dr. Manriquez. Patient remains anemic, with a low H&H despite previous transfusion. Will continue to follow while he is admitted. Admission and Anticipated Discharge Date Admission Date: May 13, 2023 Subjective This 63-year-old male was seen today in his room. He was ambulating in the hallway with the physical therapy staff, just prior to my arrival. At this point he states the knee is feeling fairly good. He does get some occasional moments of pain. He has been using his knee immobilizer for stability. No other complaints at this time. Physical Exam Physical Exam: General: Well-developed, well-nourished, middle-aged male, in no acute distress. Laying in bed. Alert and oriented. Skin: Warm and dry with good turgor. He has a postsurgical dressing in place on his right leg. Upon removal, he has no erythema. No significant edema. There is no significant intra-articular effusion. Jovana are in place. Wound edges are well-approximated. No warmth. Musculoskeletal: The patient has intact motor function of his toes, ankle, and knee. He has a weak quad contraction when setting his quad. Tone is palpable. He has full terminal extension. Flexion of the knee beyond 20 degrees was not attempted. No significant discomfort with palpation about the knee itself. Neurologic: Gross sensation is intact across the right leg by soft touch. Results & Data Vital Signs (Past 12 Hours) Vital Signs Temp Pulse Pulse Resp BP Pulse Ox O2 Del Method 05/17/23 07:51 36.9 C 55 L 18 142/76 H 95 Room Air 05/17/23 07:45 Room Air 05/17/23 07:12 58 L 05/17/23 04:00 36.5 C 59 L 18 105/60 98 Room Air 05/16/23 23:55 36.9 C 63 18 105/61 94 Room Air 05/16/23 22:10 65 Laboratory Results CBC obtained today shows a white count of 11.29. H&H of 7.2 and 21.5. This has dropped since yesterday. Platelets are normal at 370,000. PRP obtained this morning shows normal sodium, potassium, and chloride. Anion gap of 9. BUN mil dly elevated at 29. Creatinine normal at 1.22. Glucose 133.
--- NOTE | 2023-05-17 13:50 | Hospitalist Progress Note ---
Date of Service May 17, 2023 Assessment & Plan (1) Hemarthrosis of right knee: (2) Anemia: (3) Hypomagnesemia: (4) Type 2 diabetes mellitus: (5) Hypertension: (6) Atrial fibrillation: (7) Metastatic melanoma: (8) Hypothyroidism: Plan Mr. Ray is a 63 year old gentleman with history of metastatic melanoma s/p excision from right forearm, papillary thyroid carcinoma, a fib on Xarelto, unintentional weight loss 2/2 malignancy who presented with right knee hemarthrosis after an injury at home. He is s/p right knee exploration and evacuation of hemarthrosis on 05/14 with orthopedic surgery after concern for right quadriceps rupture noted on MRI. Knee exploration noted that right quadriceps tendon was intact, no evidence of tear. Hemarthrosis Suspected high grade partial quadriceps rupture, right Pt with noted soft tissue swelling and large joint effusion on knee xray MRI with avulsion of right quadriceps rupture, likely source of hemarthrosis and persistent pain s/p right knee exploration and evacuation of hemarthrosis on 05/14 with orthopedic surgery -no evidence of quadriceps tear, large hemarthrosis evacuated Knee fluid culture from 05/12 currently growing rare gram positive cocci, possible contaminant Appreciate further recs from orthopedic surgery -continue with IV abx, Cefazolin -can resume home xarelto -PT/OT Pain management as needed Continue to monitor Acute on chronic normocytic anemia, multifactorial Iron deficiency anemia Hgb has ranged from 6.9 to 8.4 this hospitalization Iron level low at 20 with low transferrin sat, ferritin slightly elevated (ferritin likely elevated in setting of acute inflammation currently) s/p 1U of prbc transfusion on 05/13 s/p IV Venofer on 05/15 Hgb currently stable post-op continue to monitor and transfuse as needed R groin Complex fluid collection Venous Doppler noting a small complex fluid collection in the right groin measuring 2.0 x 1.0 x 2.3 cm. MRI hip with out clear abscess/infection, notes soft tissue edema. PCP followup for continued monitoring Hyponatremia Slight, na low at 135 continue to monitor Elevated uric acid Gout Uric acid elevated at 9.4 Consider treatment/prevention therapy PCP follow up Hypomagnesemia Mag levels low between 1.3 to 1.5 Replete as needed Paroxysmal A fib, s/p cardioversion Hx of MR Sinus bradycardia Sotalol recently discontinued Zio patch still in place Cardiology was consulted for patch removal and surgical optimization -xarelto held, per ortho ok to resume -in sinus rhythm currently -not on HTN meds currently -Repeat ECHO noting EF 55-60%, LVH, mild MR and TR Xarelto to resume AM 05/15 Cardiology recommending follow up after discharge in 4 weeks Metastatic melanoma s/p excision from right forearm excision of the mass on 08/08/2022 and pathology consistent with [id number], Sox-10 and focally [place]-1 positive neoplasm involving the subcutis Soft tissue, left cervical lymph node, needle core biopsy: Metastatic poorly differentiated carcinoma completed 4 cyclesof nivolumab plus ipilimumab Last completed infusion of nivolumab Follows with Dr. Espinosa for Melanoma Hypothyroidism Papillary thyroid carcinoma Thyroid FNA pathology from 03/13 showed Atypia of Undetermined Significance - AUS ([place] Category III). The tumor cells are positive for PAX8, TTF-1, and thyroglobulin; consistent with papillary thyroid carcinoma. Delayed thyroid procedure 2/2 cardiac [facility] Continue Synthroid HTN HLD No longer on medications statin, acei, metformin, sotalol since 04/10 DMII No longer on medications 2/2 weight loss from malignancy A1C in am Regular diet 2/2 malnutrition, will start SSI if warranted CODE STATUS: Full code Diet: regular DVT ppx: xarelto restarted, SCD in interim on left leg Dispo: PT/OT recommending return home with walker, home PT Admission and Anticipated Discharge Date Admission Date: May 13, 2023 Subjective Pt seen while on laptop in bed. Denied acute concerns. having BMs and gas Review of Systems Review of Systems: All systems reviewed & are unremarkable except as noted in Subjective Physical Exam Physical Exam: General: Alert, oriented. No acute distress Psych: Appropriate mood and affect Neuro: able to move foot and toes on the right HEENT: NC/AT Chest: Nontender to palpation. CV: RRR Resp: Breath sounds clear bilaterally, no increased effort of breathing. Abdomen:Soft, nontender, nondistended. No guarding. No organomegaly appreciated. Extremities: R leg in shant wrap, ice on right knee Results & Data Results & Data Vital Signs (Past 12 Hours) Vital Signs Temp Pulse Pulse Resp BP Pulse Ox O2 Del Method 05/17/23 12:01 36.9 C 61 18 130/70 99 Room Air 05/17/23 07:51 36.9 C 55 L 18 142/76 H 95 Room Air 05/17/23 07:45 Room Air 05/17/23 07:12 58 L 05/17/23 04:00 36.5 C 59 L 18 105/60 98 Room Air (2) Anemia Anemia type: unspecified type Qualified Code(s): D64.9 - Anemia, unspecified (4) Type 2 diabetes mellitus Diabetes mellitus complication status: without complication Diabetes mellitus watermelon inspector insulin use: without half-way use Qualified Code(s): E11.9 - Type 2 diabetes mellitus without complications (5) Hypertension Hypertension type: unspecified Qualified Code(s): I10 - Essential (primary) hypertension (6) Atrial fibrillation Atrial fibrillation type: unspecified Qualified Code(s): I48.91 - Unspecified atrial fibrillation (8) Hypothyroidism Hypothyroidism type: unspecified Qualified Code(s): E03.9 - Hypothyroidism, unspecified
[2023-05-18 05:36] LABS: Hemoglobin 7.1 g/dl (14.0-18.0); Mean Corpuscular Hemoglobin 28.3 pg (25.0-34.0); Mean Corpuscular Hgb Conc 32.3 g/dL (32.0-36.0); Mean Corpuscular Volume 87.6 fL (80.0-100.0); Mean Platelet Volume 8.5 fL (9.4-12.4); Platelet Count 344 K/uL (130-400); RDW Coefficient of Variation 15.2 % (11.5-14.5); RDW Standard Deviation 48.5 fL (36.4-46.3); Red Blood Count 2.51 M/uL (4.70-6.10)
[2023-05-18 06:01] LABS: BUN Creatinine Ratio 21.7 (10-20); Calcium 8.4 mg/dl (8.6-10.3); Creatinine Clr Calc Pharmacy 85.3 ml/min; Est GFR (African American) 84.9 ml/min; Est GFR (Non-African American) 73.3 ml/min; Magnesium 1.7 mg/dl (1.7-2.4); Phosphorus 2.4 mg/dl (2.5-4.9); Potassium 3.6 mmol/L (3.5-5.1)
[2023-05-18] MEDS ORDERED: POTASSIUM PHOS 3 MMOL/1 ML INFUSION IV STA (10:01)
[2023-05-18] MEDS: POTASSIUM PHOSPHATE 15 MMOL in SODIUM CHLORIDE 0.9% 250 ML IV STA (10:32)
--- NOTE | 2023-05-18 10:55 | Orthopedic Progress Note ---
Date of Service May 18, 2023 Assessment & Plan (1) Hemarthrosis of right knee: Plan: The patient was educated regarding today's findings. Conservative care measures were discussed. He has no significant knee effusion at this time. I do not suspect recollection of his intra-articular hemarthrosis. His wound looks excellent. No signs of infection. Dressing was clean dry and intact and left in place. Kwadwo stocking was applied for compression. Continue with ice, elevation, and compression for edema control. He may remove the knee immobilizer when in bed. He understands it is to be on at all times when out of bed, including sitting in his chair. I advised patient that Dr. Manriquez will see him later this afternoon and discuss their plan of action, which is possible discharged home on oral antibiotics. Admission and Anticipated Discharge Date Admission Date: May 13, 2023 Subjective This 63-year-old male seen for follow-up after exploration of his right quadriceps tendon after MRI showed tear. During the surgery it was noted that the quad tendon was intact. Patient had irrigation and debridement of the area. He states that he is doing very well today. States that his pain is well- controlled with p.o. pain medication. He is currently receiving antibiotics because the cultures showed presence of bacteria. Currently he denies chest pain, shortness of breath, fever, chills, sweats or numbness or tingling in his right lower extremity. He also denies nausea, vomiting, diarrhea or difficulty voiding. Review of Systems Review of Systems: All systems reviewed & are unremarkable except as noted in Subjective Physical Exam Physical Exam: Right lower extremity: Dressing on the right knee was clean dry and intact left in place. He is able to perform an active assisted straight leg raise. He is able to actively dorsi and plantarflex foot without issue. He is able to detect light sensation to touch over the pads of all digits. Knee range of motion is from 0 degrees of extension to about 65 degrees of flexion actively. He is neurovascularly intact in the right lower extremity. Results & Data Vital Signs (Past 12 Hours) Vital Signs Temp Pulse Pulse Resp BP Pulse Ox O2 Del Method 05/18/23 09:08 Room Air 05/18/23 07:29 36.8 C 58 L 18 118/68 99 Room Air 05/18/23 07:23 55 L 05/18/23 04:56 36.4 C L 60 20 135/68 97 Room Air 05/18/23 00:05 36.7 C 67 20 143/75 H 98 Room Air Diagnostic Findings Laboratory Results WBC 8.40 K/ul (4.8-10.8) 05/18/23 04:17 RBC 2.51 M/uL (4.70-6.10) L 05/18/23 04:17 Hgb 7.1 g/dl (14.0-18.0) L 05/18/23 04:17 Hct 22.0 % (42.0-52.0) L 05/18/23 04:17 MCV 87.6 fL (80.0-100.0) 05/18/23 04:17 MCH 28.3 pg (25.0-34.0) 05/18/23 04:17 MCHC 32.3 g/dL (32.0-36.0) 05/18/23 04:17 RDW Std Deviation 48.5 fL (36.4-46.3) H 05/18/23 04:17 RDW Coeff of [place] 15.2 % (11.5-14.5) H 05/18/23 04:17 Plt Count 344 K/uL (130-400) 05/18/23 04:17 MPV 8.5 fL (9.4-12.4) L 05/18/23 04:17 Immature Gran % (Auto) 0.3 % 05/15/23 07:27 Neut % (Auto) 53.5 % 05/15/23 07:27 Lymph % (Auto) 23.3 % 05/15/23 07:27 [place] % (Auto) 7.8 % 05/15/23 07:27 Eos % (Auto) 14.7 % 05/15/23 07:27 Baso % (Auto) 0.4 % 05/15/23 07:27 Neut # (Auto) 3.83 K/uL (1.40-6.50) 05/15/23 07:27 Lymph # (Auto) 1.67 K/uL (1.20-3.40) 05/15/23 07:27 [place] # (Auto) 0.56 K/uL (0.11-0.59) 05/15/23 07:27 Eos # (Auto) 1.05 K/uL (0.00-0.50) H 05/15/23 07:27 Baso # (Auto) 0.03 K/uL (0.00-0.20) 05/15/23 07:27 Immature Gran # (Auto) 0.02 K/uL (0.01-0.20) 05/15/23 07:27 Blood Smear Review 05/13/23 08:30 Polychromasia 1+ 05/15/23 07:27 Ovalocytes 1+ 05/14/23 09:48 Echinocytes 1+ 05/15/23 07:27 Acanthocytes (Spur) 1+ 05/14/23 09:48 ESR 36 mm/hr (0-20) H 05/13/23 08:30 Haptoglobin 176 mg/dL (43-212) 05/15/23 07:27 Sodium 141 mmol/L (136-145) 05/18/23 04:17 Potassium 3.6 mmol/L (3.5-5.1) 05/18/23 04:17 Chloride 108 mmol/L (98-107) H 05/18/23 04:17 Carbon Dioxide 26 mmol/L (21-32) 05/18/23 04:17 Anion Gap 7 (3-11) 05/18/23 04:17 BUN 23 mg/dl (6-23) 05/18/23 04:17 Creatinine 1.06 mg/dl (0.6-1.4) 05/18/23 04:17 Est Cr Clr Drug Dosing 85.3 ml/min 05/18/23 04:17 Est GFR ( Amer) 84.9 ml/min 05/18/23 04:17 Est GFR (Non-Af Amer) 73.3 ml/min 05/18/23 04:17 BUN/Creatinine Ratio 21.7 (10-20) H 05/18/23 04:17 Glucose 96 mg/dl (70-99(Fasting)) 05/18/23 04:17 POC Glucose 93 mg/dl (70-99) 05/15/23 15:13 Estimat Average Glucose 103 mg/dl 05/17/23 03:39 Hemoglobin A1c 5.2 % (4.5-5.6) 05/17/23 03:39 Lactate 1.0 mmol/L (0.4-2.0) 05/13/23 09:02 Uric Acid 9.4 mg/dl (2.6-7.2) H 05/13/23 08:30 Calcium 8.4 mg/dl (8.6-10.3) L 05/18/23 04:17 Phosphorus 2.4 mg/dl (2.5-4.9) L 05/18/23 04:17 Magnesium 1.7 mg/dl (1.7-2.4) 05/18/23 04:17 Iron 20 mcg/dl (35-175) L 05/15/23 07:27 TIBC 154 mcg/dl (250-450) L 05/15/23 07:27 Unsaturated IBC 134 mcg/dl (155-355) L 05/15/23 07:27 Transferrin % Sat 13 % (20-50) L 05/15/23 07:27 Ferritin 404.5 ng/ml (8-388) H 05/15/23 07:27 Total Bilirubin 0.9 mg/dl (0.2-1.0) D 05/15/23 07:27 Direct Bilirubin 0.2 mg/dl (0-0.2) 05/15/23 07:27 AST 14 U/L (13-39) 05/13/23 08:30 ALT 7 U/L (7-52) 05/13/23 08:30 Alkaline Phosphatase 66 U/L (34-104) 05/13/23 08:30 Lactate Dehydrogenase 118 U/L (86-244) 05/15/23 07:27 C-Reactive Protein 13.92 mg/dl (0-0.5) H 05/13/23 08:30 Total Protein 6.2 gm/dl (6.0-8.3) 05/13/23 08:30 Albumin 3.6 gm/dl (3.4-5.0) 05/13/23 08:30 Globulin 2.6 gm/dl (2.5-4.0) 05/13/23 08:30 Albumin/Globulin Ratio 1.4 (0.9-2) 05/13/23 08:30 Vitamin B12 525 pg/ml (180-914) 05/14/23 09:48 Folate 5.96 ng/ml (>5.38) 05/15/23 07:27 Fluid Comment 05/13/23 Unknown Synovial Source Knee 05/13/23 Unknown Synovial Color Red 05/13/23 Unknown Synovial Appearance Bloody 05/13/23 Unknown Synovial WBC (Auto) 6400 /ul (0-200) H 05/13/23 Unknown Synovial RBC (Auto) 0742952 /uL 05/13/23 Unknown Synovial Polynuclear % 77.8 % 05/13/23 Unknown Synovial Mononuclear % 22.2 % 05/13/23 Unknown Synovial Crystals 05/13/23 Unknown Stool Occult Bld Scrn Negative (Negative) 05/17/23 21:20 Blood Type A Positive 05/13/23 14:06 Blood Type Recheck A Positive 05/14/23 14:25 Antibody Screen NEGATIVE 05/13/23 14:06 Crossmatch See Detail 05/13/23 14:06 Impressions Knee X-Ray 05/13/23 08:37 RIGHT KNEE 2 VIEWS CLINICAL HISTORY: Right knee pain and swelling. Recent fall. FINDINGS: AP and crosstable lateral views of the right knee are compared to study dated 05/09/2023. The skeletal structures are osteopenic. No fracture is seen. There is mild/moderate tricompartmental degenerative joint space narrowing, greatest at the patellofemoral articulation. There are marginal osteophytes, patellar enthesophyte, and degenerative beaking of the tibial spine. There is a large joint effusion. Prepatellar soft tissue swelling is observed. IMPRESSION: Soft tissue swelling and large joint effusion with no radiographic evidence of acute fracture. Electronically signed by: Yuriy Corbin M.D. 05/13/2023 8:58 AM Venous Doppler Study 05/13/23 08:37 ULTRASOUND RIGHT LOWER EXTREMITY VENOUS CLINICAL HISTORY: Right leg swelling. COMPARISON STUDY: No priors. TECHNIQUE: Real-time, grayscale, and color Doppler sonography of the deep veins of the right lower extremity was performed from the inguinal crease to the calf. Compression and augmentation were utilized. FINDINGS: There is no sonographic evidence of deep venous thrombosis identified in the right lower extremity. The common femoral, superficial femoral, and popliteal veins are patent and normally compressible. The greater saphenous vein and the profunda femoris vein at the junction with the common femoral vein are clear. The visualized calf veins are patent. There is a small complex fluid collection in the right groin measuring 2.0 x 1.0 x 2.3 cm. IMPRESSION: 1. There is no sonographic evidence of deep venous thrombosis identified in the right lower extremity. 2. There is a small complex fluid collection the right groin as above. Correlate clinically. ACT 112: Negative or not required by law. Electronically signed by: Yuriy Corbin M.D. 05/13/2023 10:24 AM Knee MRI 05/13/23 17:31 Exam(s): MRI RIGHT KNEE Without Contrast EXAM: MR Right Lower Extremity Without Intravenous Contrast, Knee CLINICAL HISTORY: Reason for exam: hemarthrosis. TECHNIQUE: Multiplanar magnetic resonance images of the right knee without intravenous contrast. COMPARISON: X-ray 04/23/2023 FINDINGS: There is full-thickness avulsion of the quadriceps from its patellar insertion. Approximately 1 cm of retraction. Extensive superficial and deep soft tissue edema throughout the visualized field. There is a complex joint effusion. Menisci are intact. ACL and PCL are intact. MCL and LCL are intact. Cartilage loss most pronounced along the patella where there is diffuse moderate cartilage loss. Essentially full-thickness cartilage loss along the medial trochlea. No acute fracture. IMPRESSION: 1. Avulsion of the quadriceps from its patellar insertion. 2. Extensive superficial and deep soft tissue edema. 3. Complex joint effusion. Electronically signed by: Jeremi Saez MD 05/13/23 23:57 PM Hip MRI 05/14/23 15:23 CR Exam(s): MRI RIGHT HIP W/WO Contrast IV Amt: 9ml gadavist EXAM: MR Right Lower Extremity Without and With Intravenous Contrast, Hip CLINICAL HISTORY: Reason for exam: fluid collection, bleeding? infection?. TECHNIQUE: Multiplanar magnetic resonance images of the right hip without and with intravenous contrast. CONTRAST: Patient received 9ml gadavist of IV contrast COMPARISON: No relevant prior studies available. FINDINGS: TENDONS: Flexors: Unremarkable. Extensors/Hamstring: Unremarkable. Abductors: Unremarkable. Adductors: Unremarkable. Rotators: Unremarkable. Muscles: Intramuscular soft tissue edema within the anterior hip musculature. Fluid: No joint effusion. Labrum: Poorly evaluated on this study. Potential superior labral tear with tiny para labral cyst measuring 7 mm. Cartilage: Poorly evaluated on this study. Appears to be mild cartilage loss. Bones/joints: No acute fracture. No dislocation. No osteomyelitis. Degenerative changes in the femoral head neck junction. Soft tissues: Nonspecific subcutaneous soft tissue edema within the right lower extremity. No fluid collection or abscess. IMPRESSION: Nonspecific subcutaneous soft tissue edema within the right lower extremity. No fluid collection or abscess. Communications: Verify Receipt Electronically signed by: Jeremi Saez MD 05/14/23 23:58 PM
--- NOTE | 2023-05-18 12:06 | Discharge Summary ---
Discharge Summary Date of Service May 18, 2023 Notes For Next Care Provider Please ensure followup with Orthopedics for his right knee Please ensure followup with Cardiology- pt had zio patch, removed by cardiology. Cardiology recommending follow up after discharge in 4 weeks Please ensure followup with Oncology Medication Changes From Visit Per Orthopedics: Keflex 500mg QID x 7 days with 1 refill Admission HPI Per Admitting Provider This is a 63 y/o male with history of metastatic melanoma, on Opdivo Q4 weeks, papillary thyroid carcinoma, atrial fibrillation s/p cardioversion, DM2, HTN, and other history as outlined who presented to the ED today with intractable right knee pain that started after an injury one week ago. Pt was taking out the trash one week ago and injured his right knee although mechanism of injury is not entirely clear. Initially, it was not that painful but he noted gradually increasing pain and swelling over the first few days so he saw Dr. Manriquez with orthopedics earlier this week. X-ray showed no fracture. Ortho attempted to aspirate the joint but was able to get minimal amount of bloody fluid as the rest seemed to be clotted. Pt was scheduled for an outpatient MRI to rule out occult injury, which was supposed to be completed tomorrow. However, he has had worsening pain since then such that even the hydrocodone/acetaminophen 5/325 that he was given is no longer controlling the pain and the swelling now involves most of his right leg. The pain radiates up from his knee to his thigh but not down to his foot. He is on chronic anticoagulation with Xarelto due to history of atrial fibrillation. He notes that his Sotalol was recently discontinued after he was noted to be bradycardic with second degree heart block when he underwent anesthesia for a planned thyroidectomy, which had to be aborted due to the cardiac issues. His statin and Metformin were also recently discontinued due to weight loss, poor appetite, and generalized sense of feeling unwell. His last Opdivo was 04/24. Admission Exam Per Admitting Provider GENERAL APPEARANCE: AxOx4, mild distress from pain HEENT: NC, AT. MMM. EOMI, clear conjunctiva, oropharynx clear. NECK: Supple without lymphadenopathy. No stiffness or restricted ROM. HEART: Normal rate and regular rhythm, normal S1/S1, no m/r/g LUNGS: CTAB, moving air well. No crackles or wheezes are heard. ABDOMEN: Soft, nontender, nondistended with good bowel sounds heard. EXTREMITIES: right lower extremity swelling, predominately around knee, no erythema NEUROLOGICAL: Grossly nonfocal. Alert and oriented, moving all 4 extremities. CN not formally tested but appear grossly intact. Skin: Warm and dry without any rash. Principal Dx & Hospital Course #1 = Principal Diagnosis (1) Hemarthrosis of right knee: (2) Anemia: (3) Hypomagnesemia: (4) Type 2 diabetes mellitus: (5) Hypertension: (6) Atrial fibrillation: (7) Metastatic melanoma: (8) Hypothyroidism: Plan Mr. Ray is a 63 year old gentleman with history of metastatic melanoma s/p excision from right forearm, papillary thyroid carcinoma, a fib on Xarelto, unintentional weight loss 2/2 malignancy who presented with right knee hemarthrosis after an injury at home. He is s/p right knee exploration and evacuation of hemarthrosis on 05/14 with orthopedic surgery after concern for right quadriceps rupture noted on MRI. Knee exploration noted that right quadriceps tendon was intact, no evidence of tear. Hemarthrosis Suspected high grade partial quadriceps rupture, right Pt with noted soft tissue swelling and large joint effusion on knee xray MRI with avulsion of right quadriceps rupture, likely source of hemarthrosis and persistent pain s/p right knee exploration and evacuation of hemarthrosis on 05/14 with orthopedic surgery -no evidence of quadriceps tear, large hemarthrosis evacuated Knee fluid culture from 05/12 grew rare gram positive cocci "micrococcus species", possible contaminant Appreciate further recs from orthopedic surgery - IV abx, Cefazolin -can resume home xarelto -PT/OT Pain management as needed Per Orthopedics, pt discharged with Keflex 500mg QID x 7 days with 1 refill Close orthopedic followup after discharge Acute on chronic normocytic anemia, multifactorial Iron deficiency anemia Hgb has ranged from 6.9 to 8.4 this hospitalization Iron level low at 20 with low transferrin sat, ferritin slightly elevated (ferritin likely elevated in setting of acute inflammation currently) s/p 1U of prbc transfusion on 05/13 s/p IV Venofer on 05/15 Hgb currently stable post-op continue to monitor PCP follow up R groin Complex fluid collection Venous Doppler noting a small complex fluid collection in the right groin measuring 2.0 x 1.0 x 2.3 cm. MRI hip with out clear abscess/infection, notes soft tissue edema. PCP followup for continued monitoring Hyponatremia Slight, na low at 135 on admission Within normal limits on discharge Elevated uric acid Gout Uric acid elevated at 9.4 Consider treatment/prevention therapy PCP follow up Hypomagnesemia Mag levels low between 1.3 to 1.5 Repleted as needed Paroxysmal A fib, s/p cardioversion Hx of MR Sinus bradycardia Sotalol recently discontinued Zio patch still in place Cardiology was consulted for patch removal and surgical optimization -xarelto held, per ortho ok to resume -in sinus rhythm currently -not on HTN meds currently -Repeat ECHO noting EF 55-60%, LVH, mild MR and TR Xarelto to resume AM 05/15 Cardiology recommending follow up after discharge in 4 weeks Metastatic melanoma s/p excision from right forearm excision of the mass on 08/08/2022 and pathology consistent with [id number], [id number] and focally [place]-1 positive neoplasm involving the subcutis Soft tissue, left cervical lymph node, needle core biopsy: Metastatic poorly differentiated carcinoma completed 4 cyclesof nivolumab plus ipilimumab Last completed infusion of nivolumab Follows with Dr. Espinosa for Melanoma Please ensure oncology followup Hypothyroidism Papillary thyroid carcinoma Thyroid FNA pathology from 03/13 showed Atypia of Undetermined Significance - AUS ([place] Category III). The tumor cells are positive for PAX8, TTF-1, and thyroglobulin; consistent with papillary thyroid carcinoma. Delayed thyroid procedure 2/2 cardiac Follows with [facility] for thyroid issues Continue Synthroid Please ensure follow up HTN HLD No longer on medications statin, acei, metformin, sotalol since 04/10 PCP monitoring of BP and lipid levels DMII No longer on medications 2/2 weight loss from malignancy A1C 5.4, wnl Regular diet 2/2 malnutrition Discharge Exam General: Alert, oriented. No acute distress Psych: Appropriate mood and affect Neuro: able to move foot and toes on the right HEENT: NC/AT Chest: Nontender to palpation. CV: RRR Resp: Breath sounds clear bilaterally, no increased effort of breathing. Abdomen:Soft, nontender, nondistended. No guarding. No organomegaly appreciated. Extremities: R leg and knee wrapped Updated Medication List Medication Instructions Recorded Confirmed Type levothyroxine 100 mcg capsule 100 mcg PO DAILY 04/10/23 05/13/23 History rivaroxaban 20 mg tablet (Xarelto) 20 mg PO DAILY 04/10/23 05/13/23 History nivolumab [Opdivo] See Rx Instructions IV .COMPLEX 04/27/23 05/13/23 History hydrocodone 5 mg-acetaminophen 325 1 tab PO Q4H PRN Pain 05/13/23 05/13/23 History mg tablet cephalexin 500 mg tablet 500 mg PO QID #28 tabs 05/18/23 Rx Hospital Stay Data Consultations 05/13/23 10:00 ED Decision to Admit Stat 05/13/23 13:48 Consult Orthopedic Surgery Routine 05/13/23 14:09 Consult Cardiology Routine Procedures Performed Operation Date: 05/15/23 13:30 Actual Procedures p Right Knee Exploration, Evacuation of Hemarthrosis(Right) - Sven Manriquez MD Diagnostic Imagining Performed 05/13/23 08:37 US venous doppler LE RT Stat 05/13/23 17:31 MRI Knee [MR knee RT wo con] Urgent 05/14/23 15:23 MR hip RT wo/w con Urgent 05/15/23 12:58 US - OR guided needle placemen Routine Knee X-Ray 05/13/23 08:37 RIGHT KNEE 2 VIEWS CLINICAL HISTORY: Right knee pain and swelling. Recent fall. FINDINGS: AP and crosstable lateral views of the right knee are compared to study dated 05/09/2023. The skeletal structures are osteopenic. No fracture is seen. There is mild/moderate tricompartmental degenerative joint space narrowing, greatest at the patellofemoral articulation. There are marginal osteophytes, patellar enthesophyte, and degenerative beaking of the tibial spine. There is a large joint effusion. Prepatellar soft tissue swelling is observed. IMPRESSION: Soft tissue swelling and large joint effusion with no radiographic evidence of acute fracture. Electronically signed by: Yuriy Corbin M.D. 05/13/2023 8:58 AM Venous Doppler Study 05/13/23 08:37 ULTRASOUND RIGHT LOWER EXTREMITY VENOUS CLINICAL HISTORY: Right leg swelling. COMPARISON STUDY: No priors. TECHNIQUE: Real-time, grayscale, and color Doppler sonography of the deep veins of the right lower extremity was performed from the inguinal crease to the calf. Compression and augmentation were utilized. FINDINGS: There is no sonographic evidence of deep venous thrombosis identified in the right lower extremity. The common femoral, superficial femoral, and popliteal veins are patent and normally compressible. The greater saphenous vein and the profunda femoris vein at the junction with the common femoral vein are clear. The visualized calf veins are patent. There is a small complex fluid collection in the right groin measuring 2.0 x 1.0 x 2.3 cm. IMPRESSION: 1. There is no sonographic evidence of deep venous thrombosis identified in the right lower extremity. 2. There is a small complex fluid collection the right groin as above. Correlate clinically. ACT 112: Negative or not required by law. Electronically signed by: Yuriy Corbin M.D. 05/13/2023 10:24 AM Knee MRI 05/13/23 17:31 Exam(s): MRI RIGHT KNEE Without Contrast EXAM: MR Right Lower Extremity Without Intravenous Contrast, Knee CLINICAL HISTORY: Reason for exam: hemarthrosis. TECHNIQUE: Multiplanar magnetic resonance images of the right knee without intravenous contrast. COMPARISON: X-ray 04/23/2023 FINDINGS: There is full-thickness avulsion of the quadriceps from its patellar insertion. Approximately 1 cm of retraction. Extensive superficial and deep soft tissue edema throughout the visualized field. There is a complex joint effusion. Menisci are intact. ACL and PCL are intact. MCL and LCL are intact. Cartilage loss most pronounced along the patella where there is diffuse moderate cartilage loss. Essentially full-thickness cartilage loss along the medial trochlea. No acute fracture. IMPRESSION: 1. Avulsion of the quadriceps from its patellar insertion. 2. Extensive superficial and deep soft tissue edema. 3. Complex joint effusion. Electronically signed by: Jeremi Saez MD 05/13/23 23:57 PM Hip MRI 05/14/23 15:23 CR Exam(s): MRI RIGHT HIP W/WO Contrast IV Amt: 9ml gadavist EXAM: MR Right Lower Extremity Without and With Intravenous Contrast, Hip CLINICAL HISTORY: Reason for exam: fluid collection, bleeding? infection?. TECHNIQUE: Multiplanar magnetic resonance images of the right hip without and with intravenous contrast. CONTRAST: Patient received 9ml gadavist of IV contrast COMPARISON: No relevant prior studies available. FINDINGS: TENDONS: Flexors: Unremarkable. Extensors/Hamstring: Unremarkable. Abductors: Unremarkable. Adductors: Unremarkable. Rotators: Unremarkable. Muscles: Intramuscular soft tissue edema within the anterior hip musculature. Fluid: No joint effusion. Labrum: Poorly evaluated on this study. Potential superior labral tear with tiny para labral cyst measuring 7 mm. Cartilage: Poorly evaluated on this study. Appears to be mild cartilage loss. Bones/joints: No acute fracture. No dislocation. No osteomyelitis. Degenerative changes in the femoral head neck junction. Soft tissues: Nonspecific subcutaneous soft tissue edema within the right lower extremity. No fluid collection or abscess. IMPRESSION: Nonspecific subcutaneous soft tissue edema within the right lower extremity. No fluid collection or abscess. Communications: Verify Receipt Electronically signed by: Jeremi Saez MD 05/14/23 23:58 PM Discharge Instructions Given to Patient (Per Discharging Provider) Mr Ray, You were admitted with bleeding into your right knee. You underwent a surgical procedure with the orthpedic surgeon and he is recommending that you be discharged home with some antibiotics, Keflex 500mg to be taken 4 times a day. Please take it as prescribed. Please keep close follow up with your primary care provider after discharge, as well as all your specilaist including your Fitness Instructor and Oncologist. Please do not hesitate to come back to the emergency room if your symptoms worsen or return. It was a pleasure taking care of you while you were here. Your orthopedic surgeon has additional instructions for you below: Total Time Total Time Spent Total Time Spent (In Minutes): > 30 minutes
--- NOTE | 2023-05-22 09:16 | Coding Query ---
ANEMIA To promote full compliance with coding requirements relating to patient care, physician participation is requested in all cases of manager asset uncertainty. Please assist us with the question(s) below: Coding Question(s): The record reflects the following clinical findings:Pt with hgb preop of 7.2 . Admitted with a large tense right upper leg hematoma. I Unit packed cells given. If these findings are indicative of anemia, please specify the known or suspected type by placing an "X" within the parenthesis (x). If other, please document type. Examples are: (x ) Acute blood loss anemia ( ) Acute Postoperative blood loss anemia ( ) Acute postoperative anemia due to dilutional fluids ( ) Chronic blood loss anemia ( ) Anemia of chronic disease ( ) Aplastic anemia ( ) Anemia due to renal disease ( ) Anemia in neoplastic disease (x ) Iron deficient anemia ( ) Anemia, unspecified or other ( ) Other: (please specify) Thank you DAIJA Huston CCS
== END 2023-05-18 16:21 | disposition home or self-care (01) | DRG 501 ==
LOC: ED 07:58 → EDINP 10:10 → SUATTDRO 10:10 → 2W 13:48

== ENCOUNTER 2023-06-04 11:01 | Observation (INO) ==
[2023-06-04 12:34] LABS: Basophils # (auto) 0.06 K/uL (0.00-0.20); Basophils % (auto) 0.7 %; Eosinophils # (auto) 0.69 K/uL (0.00-0.50); Eosinophils % (auto) 8.1 %; Hematocrit (blood only) 27.2 % (42.0-52.0); Immature Granulocytes # (auto) 0.02 K/uL (0.01-0.20); Immature Granulocytes % (auto) 0.2 %; Lymphocytes # (auto) 2.11 K/uL (1.20-3.40); Lymphocytes % (auto) 24.7 %; Mean Corpuscular Hemoglobin 28.7 pg (25.0-34.0); Mean Corpuscular Hgb Conc 33.1 g/dL (32.0-36.0); Mean Corpuscular Volume 86.6 fL (80.0-100.0); Mean Platelet Volume 8.5 fL (9.4-12.4); Monocytes # (auto) 0.72 K/uL (0.11-0.59); Monocytes % (auto) 8.4 %; Neutrophils # (auto) 4.94 K/uL (1.40-6.50); Neutrophils % (auto) 57.9 %; Platelet Count 316 K/uL (130-400); RDW Coefficient of Variation 15.6 % (11.5-14.5); RDW Standard Deviation 49.8 fL (36.4-46.3); Red Blood Count 3.14 M/uL (4.70-6.10); White Blood Count 8.54 K/ul (4.8-10.8)
--- NOTE | 2023-06-04 12:36 | Emergency Department Note ---
Impression & Plan Weakness, Post-op pain, Anemia, Acute hyponatremia, Ambulatory dysfunction ED Provider Note NAME: PHILLY PARIS AGE: 63 SEX: M : 1960 ARRIVES VIA: Walk-In INFORMANT: Patient ED PROVIDER(S): Jesus Patel DO CHIEF COMPLAINT: Right knee pain HPI: Patient is a 63-year-old male with past medical history of coagulopathy, hypertension, diabetes, metastatic melanoma, A-fib on rivaroxaban who is about 3 weeks postop from right knee surgery by Dr. Manriquez. He had an injection this past Sunday and since then has been feeling very weak and rundown. He was sent in as he has become nonmobile and is very weak and tired. Denies any headache or change in vision. No chest pain or shortness of breath. No nausea, vomiting, or diarrhea. No dysuria, urgency, or frequency. No other exacerbating or remitting factors. ADDITIONAL HISTORY OBTAINED: Additional history presented by who is present at bedside who notes that she they were sent in due to ambulatory dysfunction for admission by orthopedics Chronic Medical/Social Conditions Affecting Care: Per HPI PAST MEDICAL HISTORY:See Below PAST SURGICAL HISTORY:See Below FAMILY HISTORY:See Below SOCIAL HISTORY:See Below HOME MEDICATIONS:See Below ALLERGIES:See Below VITALS:See Below PHYSICAL EXAMINATION: GENERAL: Sitting up in bed, alert, well appearing, well nourished, no distress, non-toxic EYE EXAM: normal conjunctiva. PERRL and EOM's grossly intact. OROPHARYNX: no exudate, no erythema, lips, buccal mucosa, and tongue normal and mucous membranes are moist NECK: supple, no nuchal rigidity, no adenopathy, non-tender LUNGS: Clear to auscultation. Normal chest wall mechanics HEART: no murmurs, S1 normal and S2 normal ABDOMEN: abdomen soft, non-tender, normo-active bowel sounds, no masses, no rebound or guarding. BACK: Back is symmetrical on inspection and there is no deformity, no midline tenderness, no CVA tenderness. SKIN: no rashes and no bruising UPPER EXTREMITIES: upper extremities are grossly normal. LOWER EXTREMITIES: Flexion-extension right hip knee and ankles intact with minimal range of motion of the right knee. Incision is clean dry intact. Effusion present. Skin is not warm or tender erythematous NEURO EXAM: Normal sensorium, cranial nerves II-XII grossly intact, normal speech, no gross weakness of arms, no gross weakness of legs. MEDICAL DECISION MAKING: Patient is a 63-year-old female who presents the ER with above-stated complaint. IV was established medicals obtained. Labs show mild anemia at 9.0 fairly consistent with previous. BMP with mild hyponatremia 130. LFTs bilirubin was unremarkable. Lipase was normal. Pro-Iraj fairly normal. UA was clean. Patient was sent in by orthopedics for admission as patient has been unable to get around since this past Sunday and getting worse. Patient denies any chest pain or shortness of breath. No belly pain. No other exacerbating or remitting factors. Consults/Care Managements Discussions: Per MDM Triage Nursing notes reviewed. Limited review of prior medical records performed Vital Signs: reviewed and remarkable for no significant abnormalities Differential diagnosis: Infection, dehydration, metabolic abnormality, hypo/hyperglycemia, electrolyte disturbance, anemia, hypoxia, cardiac sources, intracerebral event, toxicologic, neurologic, as well as other pathologies. ER treatment provided: See below Diagnostics interpreted by me include EKG and cardiac monitoring as listed below: -Cardiac Monitoring: An order was placed for continuous cardiac monitoring. The monitor shows a rate of 80 with sinus rhythm. -ECG: Sinus rhythm rate of 68 PVC T wave inversions in septal leads QTc 487 -Laboratory studies:Interpreted by me as stated above in MDM and shown below. Imaging studies: Xrays: As interpreted by me:none CTs show: none Procedures:none Critical Care: None Past Med/Surg History Medical History Hemarthrosis of right knee Hypothyroidism LVH (left ventricular hypertrophy) Type 2 diabetes mellitus Metastatic melanoma Osteoarthritis Hx of sleep apnea RESOLVED SINCE JAW SURGERY Heart valve regurgitation Mild MR and TR per 08/2019 ECHO Hyperlipidemia Hypertension Atrial fibrillation JUST STARTED ON ELIQUIS Surgical History Hx of vasectomy History of colonoscopy History of tooth extraction WISDOM TEETH History of mandibular surgery RECONSTRUCTED> JAW EXTENEDED 2011 Family History Grandfather (Maternal) Diabetes Grandfather (Paternal) Diabetes Uncle Diabetes Social History Smoking Status: Never smoker Second Hand Exposure: No; Do You Dip or Chew Tobacco: No; Hx Alcohol Use: No Hx Substance Use: No Preferred Language: Slovenian Communication Ability: Effective Waste Salvager Required: No Beliefs That Will Affect Care: None Current Living Situation: Spouse and Family Feels Safe at Home: Yes Assistive Devices: Cane and Walker Allergies Allergies Allergy/AdvReac Type Severity Reaction Status Date / Time Bactrim Allergy Severe THROAT AND Unverified 07/18/10 13:38 HANDS SWELL Sulfa (Sulfonamide Allergy Severe Attacks Unverified 06/04/23 13:39 Antibiotics) nerve system sulfamethoxazole Allergy Severe THROAT AND Verified 06/04/23 13:38 HANDS SWELL trimethoprim Allergy Severe THROAT AND Verified 06/04/23 13:38 HANDS SWELL Home Meds Home Medications Medication Instructions Recorded Confirmed rivaroxaban 20 mg tablet (Xarelto) 20 mg PO HS 04/10/23 06/04/23 acetaminophen 500 mg tablet 500 mg PO Q6H PRN Pain 06/04/23 06/04/23 levothyroxine 112 mcg tablet 112 mcg PO QAM 06/04/23 06/04/23 nivolumab 240 mg/24 mL intravenous 0 mg IV Q4WK 06/04/23 06/04/23 solution (Opdivo) Previous Rx's Medication Instructions Recorded hydrocodone 5 mg-acetaminophen 325 1 tab PO Q8H PRN Pain #6 tabs 05/18/23 mg tablet Results & Data (ED) Vital Signs Vital Signs - 24 hr 06/04/23 11:34 06/04/23 12:33 06/04/23 12:42 Temperature 36.9 C Temperature Source Temporal Artery Scan Pulse Rate 87 66 Pulse Rate [Right Finger] Respiratory Rate 14 Respiratory Effort / Characteristics Non-Labored Spontaneous Respiratory Depth Normal Blood Pressure 113/66 Blood Pressure [Left Arm] Blood Pressure Mean 81 Blood Pressure Mean [Left Arm] Pulse Oximetry 92 93 Oxygen Delivery Method Room Air Room Air Sepsis New/Unexplained Change in Mental Status No Sepsis Action Taken by Nursing No Action Required 06/04/23 13:22 Temperature Temperature Source Pulse Rate Pulse Rate [Right Finger] 69 Respiratory Rate 18 Respiratory Effort / Characteristics Respiratory Depth Blood Pressure Blood Pressure [Left Arm] 132/78 Blood Pressure Mean Blood Pressure Mean [Left Arm] 96 Pulse Oximetry 97 Oxygen Delivery Method Room Air Sepsis New/Unexplained Change in Mental Status Sepsis Action Taken by Nursing Laboratory Data 06/04/23 12:10 06/04/23 12:10 Lab Results 06/04/23 Range/Units 12:10 WBC 8.54 (4.8-10.8) K/ul RBC 3.14 L (4.70-6.10) M/uL Hgb 9.0 L (14.0-18.0) g/dl Hct 27.2 L (42.0-52.0) % MCV 86.6 (80.0-100.0) fL MCH 28.7 (25.0-34.0) pg MCHC 33.1 (32.0-36.0) g/dL RDW Std Deviation 49.8 H (36.4-46.3) fL RDW Coeff of Tracy 15.6 H (11.5-14.5) % Plt Count 316 (130-400) K/uL MPV 8.5 L (9.4-12.4) fL Immature Gran % (Auto) 0.2 % Neut % (Auto) 57.9 % Lymph % (Auto) 24.7 % [place] % (Auto) 8.4 % Eos % (Auto) 8.1 % Baso % (Auto) 0.7 % Neut # (Auto) 4.94 (1.40-6.50) K/uL Lymph # (Auto) 2.11 (1.20-3.40) K/uL [place] # (Auto) 0.72 H (0.11-0.59) K/uL Eos # (Auto) 0.69 H (0.00-0.50) K/uL Baso # (Auto) 0.06 (0.00-0.20) K/uL Immature Gran # (Auto) 0.02 (0.01-0.20) K/uL ESR 52 H (0-20) mm/hr Sodium 130 L (136-145) mmol/L Potassium 3.8 (3.5-5.1) mmol/L Chloride 97 L (98-107) mmol/L Carbon Dioxide 25 (21-32) mmol/L Anion Gap 8 (3-11) BUN 16 (6-23) mg/dl Creatinine 0.90 (0.6-1.4) mg/dl Est Cr Clr Drug Dosing 100.5 ml/min Est GFR ( Amer) 103.5 ml/min Est GFR (Non-Af Amer) 89.3 ml/min BUN/Creatinine Ratio 17.8 (10-20) Glucose 92 (70-99(Fasting)) mg/dl Uric Acid 7.1 (2.6-7.2) mg/dl Calcium 10.0 (8.6-10.3) mg/dl Total Bilirubin 1.0 (0.2-1.0) mg/dl AST 11 L (13-39) U/L ALT 5 L (7-52) U/L Alkaline Phosphatase 54 (34-104) U/L C-Reactive Protein 20.71 H (0-0.5) mg/dl Total Protein 6.9 (6.0-8.3) gm/dl Albumin 4.0 (3.4-5.0) gm/dl Globulin 2.9 (2.5-4.0) gm/dl Albumin/Globulin Ratio 1.4 (0.9-2) Lipase 11 (11-82) U/L Procalcitonin 0.35 (0-0.5) ng/ml Lyme Disease Screen Negative (Negative) Administered Medications Lorazepam 0.5 mg/ Syringe 0.5 mls @ 2 mls/min IV ONE PRN PRN Reason: MRI Stop: 07/04/23 14:29 Last Admin: 06/04/23 17:09 Dose: 2 mls/min Documented By: SURY Sodium Chloride (Nss) 1,000 mls @ 125 mls/hr IV .Q8H NORMAN Stop: 06/05/23 06:44 Last Admin: 06/04/23 15:25 Dose: 125 mls/hr Documented By: SURY Discontinued Medications Sodium Chloride (Nss) 1,000 mls @ 999 mls/hr IV .Q1H1M ONE Stop: 06/04/23 13:36 Last Infusion: 06/04/23 13:55 Dose: Infused Documented By: Admin: 06/04/23 12:48 Dose: 999 mls/hr Documented By: VESTA Discharge Plan Visit Data Chief Complaint: Referred by Doctor Stated Complaint: KNEE SURGERY 2 WEEKS, PAIN ED Provider: Jesus Patel Discharge Problem: Weakness, Post-op pain, Anemia, Acute hyponatremia, Ambulatory dysfunction Patient Disposition: Admitted As Inpatient Discharge Instructions Interventions: ED Discharge Assessment Last Done: 06/04/23 17:32 Discharge Problem: Anemia Qualifiers: Anemia type: unspecified type Qualified Code(s): D64.9 - Anemia, unspecified
[2023-06-04] MEDS: SODIUM CHLORIDE 0.9% 1,000 ML IV ONE (12:48)
[2023-06-04 12:52] LABS: Albumin Globulin Ratio 1.4 (0.9-2); BUN Creatinine Ratio 17.8 (10-20); Creatinine Clr Calc Pharmacy 100.5 ml/min; Est GFR (African American) 103.5 ml/min; Est GFR (Non-African American) 89.3 ml/min; Globulin 2.9 gm/dl (2.5-4.0); Potassium 3.8 mmol/L (3.5-5.1); Total Protein 6.9 gm/dl (6.0-8.3)
--- NOTE | 2023-06-04 13:45 | History & Physical Report ---
Date of Service June 04, 2023 Assessment & Plan (1) Pain in right knee: (2) Metastatic melanoma: (3) Atrial fibrillation: (4) Hypothyroidism: Admission and Anticipated Discharge Date Admission Date: This is a 63-year-old male who has a significant past medical history of PAF with history of cardioversion on Xarelto, metastatic melanoma on Opdivo, thyroid cancer, HTN, HLD, moderate MR and borderline diabetes who presents with to ED secondary to worsening knee pain x 5 days. Persistent pain in right knee Ambulatory dysfunction Admit to med telemetry Consult orthopedics Repeat MRI Obtain inflammatory markers ESR, CRP, rheumatoid factor, uric acid and Lyme screen Recent hospitalization status post right knee exploration and evacuation of hemarthrosis Prior right knee aspirate culture grew micrococcus species, felt to be contaminant during last admission but did complete course of Keflex Obtain blood cultures, knee aspiration was performed as outpatient in orthopedic office today Empirically cover with IV vancomycin and Zosyn Consult infectious disease Hyponatremia likely 2/2 poor intake IVF x 2 L urine sodium, osm, serum osm repeat bmp in a.m. Metastatic melanoma Currently on Opdivo infusions every 4 weeks Follows [facility] oncology As well as [facility] Patient symptoms started after Opdivo infusion, typically takes 1 to 2 days to recover; however has had a persistent decline ? If symptoms at all related to infusion therapy Papillary thyroid carcinoma Following [facility] plan for thyroidectomy in May Continue thyroid replacement PAF Continue Xarelto Follows with [facility] cardiology Off sotalol therapy due to significant bradycardia Currently in normal sinus rhythm Last Xarelto dose was on 05/31, will hold until seen by orthopedics and MRI results Resume Xarelto if orthopedics not pursuing procedure Anemia, acute on chronic anemia, multifactorial Iron deficiency anemia hgb stable at 9.0 required 1 unit PRBC during recent hospital stay DVT prophylaxis: SCDS, holding xarelto until MRI results FULL CODE PCP: Yon Burns Dispo: admit to med [facility] Pt was seen and examined in collaboration with Dr. Ding, please see addendum A total of 50 minutes was spent coordinating, documenting, and providing care for this patient excluding time spent in the performance of separately billed services. This included personally viewing all current laboratories and imaging studies, medication reconciliation, outpatient chart review, and discussion with specialists. History of Present Illness Chief Complaint: Worsening Knee pain. Primary Care Provider: Yon Burns DO This is a 63-year-old male who has a significant past medical history of PAF with history of cardioversion on Xarelto, metastatic melanoma on Opdivo, thyroid cancer, HTN, HLD, moderate MR and borderline diabetes who presents with to ED secondary to worsening knee pain x 5 days. is at bedside who also helps elicit history. Of significance patient was recently hospitalized 05/12 to 05/18/2023 secondary to similar symptoms. On 05/14 he underwent right knee exploration and evacuation of hemarthrosis due to concern for possible right quadriceps rupture noted on MRI. Knee exploration noted in the right quadriceps tendon was intact with no evidence of tear. He did have evacuation of hem arthrosis. Knee fluid culture grew rare gram-positive cocci, possible contaminant. He received IV antibiotics and was discharged on oral Keflex. His Xarelto was also resumed. He received PT and OT and was to follow-up with orthopedics at discharge during hospitalization he did require 1 unit of PRBC as well as he received IV Venofer. He had been doing quite well since discharge until last Sunday. He received his infusion of Opdivo. Typically after infusion he has fatigue and weakness for 1 to 2 days. Unfortunately this has lingered and he has continued to decline over the last 5 days. He overall feels fatigued, weak, poor appetite, shaking chills and persistent right knee pain. He was seen in clinic today with Dr. Espinosa and had difficulty handling patient as he required a wheelchair. She then called over to orthopedics and he was seen in the orthopedic office who referred him to ED for further evaluation. His knee was aspirated in clinic. Of significance patient follows with [facility] in regards to his metastatic melanoma. It was also discovered that he has papillary thyroid cancer. This is scheduled to be removed in June providing his health allows so. Allergies Allergy/AdvReac Type Severity Reaction Status Date / Time Bactrim Allergy Severe THROAT AND Unverified 07/18/10 13:38 HANDS SWELL Sulfa (Sulfonamide Allergy Severe Attacks Unverified 06/04/23 13:39 Antibiotics) nerve system sulfamethoxazole Allergy Severe THROAT AND Verified 06/04/23 13:38 HANDS SWELL trimethoprim Allergy Severe THROAT AND Verified 06/04/23 13:38 HANDS SWELL Home Medications Medication Instructions Recorded Confirmed Type rivaroxaban 20 mg tablet (Xarelto) 20 mg PO HS 04/10/23 06/04/23 History hydrocodone 5 mg-acetaminophen 325 1 tab PO Q8H PRN Pain #6 tabs 05/18/23 06/04/23 Rx mg tablet acetaminophen 500 mg tablet 500 mg PO Q6H PRN Pain 06/04/23 06/04/23 History levothyroxine 112 mcg tablet 112 mcg PO QAM 06/04/23 06/04/23 History nivolumab 240 mg/24 mL intravenous 0 mg IV Q4WK 06/04/23 06/04/23 History solution (Opdivo) Past Med/Surg History Medical History Hemarthrosis of right knee Hypothyroidism LVH (left ventricular hypertrophy) Type 2 diabetes mellitus Metastatic melanoma Osteoarthritis Hx of sleep apnea RESOLVED SINCE JAW SURGERY Heart valve regurgitation Mild MR and TR per 08/2019 ECHO Hyperlipidemia Hypertension Atrial fibrillation JUST STARTED ON ELIQUIS Surgical History Hx of vasectomy History of colonoscopy History of tooth extraction WISDOM TEETH History of mandibular surgery RECONSTRUCTED> JAW EXTENEDED 2011 Family History Grandfather (Maternal) Diabetes Grandfather (Paternal) Diabetes Uncle Diabetes Social History Smoking Status: Never smoker Second Hand Exposure: No; Do You Dip or Chew Tobacco: No; Hx Alcohol Use: No Hx Substance Use: No Preferred Language: Cymraes Communication Ability: Effective Order Dispatcher Required: No Beliefs That Will Affect Care: None Current Living Situation: Spouse and Family Feels Safe at Home: Yes Assistive Devices: Cane and Walker Review of Systems Review of Systems: All systems reviewed & are unremarkable except as noted in HPI & below Physical Exam Physical Exam: please refer to Dr. Ding addendum for physical exam findings. Results & Data Results & Data Vital Signs (Past 12 Hours) Vital Signs Temp Pulse Resp BP Pulse Ox O2 Del Method 06/04/23 12:42 93 Room Air 06/04/23 12:33 66 06/04/23 11:34 36.9 C 87 14 113/66 92 Room Air Medications Administered Medication List Sodium Chloride (Nss) 1,000 mls @ 999 mls/hr IV .Q1H1M ONE Stop: 06/04/23 13:36 Last Admin: 06/04/23 12:48 Dose: 999 mls/hr Documented By: MWNolan ECG Additional Comments: I have independently reviewed and interpreted patient's admitting EKG which revealed: NSR with persistent T wave inversions similar to ecg 04/10/23; however HR much improved COVID-19 Results Results COVID-19 Adm Lab Results: RBC 3.14 M/uL (4.70-6.10) L 06/04/23 WBC 8.54 K/ul (4.8-10.8) 06/04/23 Hgb 9.0 g/dl (14.0-18.0) L 06/04/23 Hct 27.2 % (42.0-52.0) L 06/04/23 Plt Count 316 K/uL (130-400) 06/04/23 Neutrophils (%) (Auto) 57.9 % 06/04/23 Lymphocytes (%) (Auto) 24.7 % 06/04/23 Monocytes # (Auto) 0.72 K/uL (0.11-0.59) H 06/04/23 Eosinophils # (Auto) 0.69 K/uL (0.00-0.50) H 06/04/23 Immature Granulocyte % (Auto) 0.2 % 06/04/23 Neutrophils # (Auto) 4.94 K/uL (1.40-6.50) 06/04/23 Lymphocytes # (Auto) 2.11 K/uL (1.20-3.40) 06/04/23 Monocytes # (Auto) 0.72 K/uL (0.11-0.59) H 06/04/23 Eosinophils # (Auto) 0.69 K/uL (0.00-0.50) H 06/04/23 Basophils # (Auto) 0.06 K/uL (0.00-0.20) 06/04/23 Immature Granulocyte # (Auto) 0.02 K/uL (0.01-0.20) 4 Na 130 mmol/L (136-145) L 06/04/23 K 3.8 mmol/L (3.5-5.1) 06/04/23 Cl 97 mmol/L (98-107) L 06/04/23 CO2 25 mmol/L (21-32) 06/04/23 Anion Gap 8 (3-11) 06/04/23 BUN 16 mg/dl (6-23) 06/04/23 Creatinine 0.90 mg/dl (0.6-1.4) 06/04/23 BUN/Creatinine Ratio 17.8 (10-20) 06/04/23 Glucose Level 92 mg/dl (70-99(Fasting)) 06/04/23 Ca 10.0 mg/dl (8.6-10.3) 06/04/23 Total Bilirubin 1.0 mg/dl (0.2-1.0) 06/04/23 AST/SGOT 11 U/L (13-39) L 06/04/23 ALT/SGPT 5 U/L (7-52) L 06/04/23 Alkaline Phosphatase 54 U/L (34-104) 06/04/23 Total Protein 6.9 gm/dl (6.0-8.3) 06/04/23 Albumin 4.0 gm/dl (3.4-5.0) 06/04/23 Globulin 2.9 gm/dl (2.5-4.0) 06/04/23 Albumin/Globulin Ratio 1.4 (0.9-2) 06/04/23 CRP 20.71 mg/dl (0-0.5) H 06/04/23 Procalcitonin 0.35 ng/ml (0-0.5) 06/04/23 Code Status & VTE Plan Code Status FULL CODE Supervising Physician Co-Signing Physician Notes Patient seen and examined independently. Discussed with above provider. Patient is a 63-year-old male with past medical history of metastatic melanoma currently on nivolumab every 4 weeks, hypothyroidism, paroxysmal A-fib on Xarelto. Recently admitted for hemarthrosis of right knee thought secondary to trauma. He underwent right knee exploration and evacuation of hemarthrosis on May 15, 2023 by orthopedic surgery. Knee aspirate from 05/12 grew micrococcus species for which he was given IV cefazolin while hospitalized; was discharged on Keflex. On physical examination; Constitutional: Alert oriented x 3; not in distress. Respiratory: Bilateral basilar breath sound. Cardiovascular: RRR, no murmur, no edema Vessels: no JVD or carotid bruit Chest: normal inspection of chest Abdomen: normal bowel sounds, soft, nontender, no hepatosplenomegaly Musculoskeletal: Right knee with slight effusion; ROM limited by pain. Incision intact, clean. Skin: no rashes, warm and dry normal turgor Neurologic: PERRL, EOMI, accommodation nl, no face palsy, no dysarthria CN's II- XI intact bilaterally and moves all extremities Psychiatric: A+Ox3, euthymic affect Assessment/plan Generalized weakness Recent hemarthrosis status post evacuation Will rule out sepsis; obtain blood culture; start Zosyn and vancomycin Will obtain MRI of the knee; orthopedic consulted; appreciate recommendation Will get infectious disease input aspirate culture results from 05/12(micrococcus species) PT OT eval Obtain inflammatory markers Xarelto on hold for possible intervention. Resume when able. Chronic conditions; Hypothyroidismcontinue on levothyroxine Metastatic melanomacompleted fourth cycle of nivolumab plus ipilimumab. Currently on nivolumab every 4 weeks. Patient is planned for thyroid surgery in [facility] in 06/2023 Atrial fibrillation; last echo in May 2023; normal LV systolic function. No other significant abnormality. Recent Holter monitoring on May 29 showed mostly sinus rhythm with rare PAC and PVCs. No episode of significant atrial fibrillation was seen. I have reviewed the advanced practitioner's documentation, and I agree with, and take responsibility for the plan of care I spent a total of 30 minutes coordinating, documenting, and providing care for this patient excluding time spent in the performance of separately billed services. All of the aforementioned completed while collaborating with the assigned advanced practitioner for a full treatment plan Please note the above document was generated using voice recognition software. It may contain grammatical, syntax or spelling errors. Any formal questions or concerns about the content, text or information contained within the body of this dictation should be directly addressed to the provider for clarification (1) Pain in right knee Chronicity: acute Qualified Code(s): M25.561 - Pain in right knee (3) Atrial fibrillation Atrial fibrillation type: unspecified Qualified Code(s): I48.91 - Unspecified atrial fibrillation (4) Hypothyroidism Hypothyroidism type: unspecified Qualified Code(s): E03.9 - Hypothyroidism, unspecified
[2023-06-04 14:56] LABS: C Reactive Protein 20.71 mg/dl (0-0.5); Uric Acid 7.1 mg/dl (2.6-7.2)
[2023-06-04 15:00] LABS: Procalcitonin 0.35 ng/ml (0-0.5)
[2023-06-04] MEDS: SODIUM CHLORIDE 0.9% 1,000 ML IV SCH (15:25)
[2023-06-04 15:26] LABS: Lyme Screen Rflx Confirmation Negative (Negative)
--- NOTE | 2023-06-04 15:45 | Electrocardiogram Report ---
Test Reason : Blood Pressure : / mmHG Vent. Rate : 068 BPM Atrial Rate : 068 BPM P-R Int : 260 ms QRS Dur : 100 ms QT Int : 458 ms P-R-T Axes : 034 -14 126 degrees QTc Int : 487 ms Sinus rhythm with 1st degree A-V block with occasional Premature ventricular complexes Low voltage QRS T wave abnormality, consider anterolateral ischemia Prolonged QT Abnormal ECG When compared with ECG of 27-NOV-2019 07:29, Premature ventricular complexes are now Present MS interval has increased T wave inversion more evident in Anterior leads T wave inversion less evident in Lateral leads Confirmed by Reynold Latif ([id number]) on 06/04/2023 3:45:32 PM Referred By: Yon Burns Confirmed By:Reynold Latif
[2023-06-04 16:42] LABS: Appearance Urine Clear (Clear); Bilirubin Urine Negative (Negative); Blood Urine Negative (Negative); Color Urine Yellow; Glucose Urine UA Negative (Negative); Ketones Urine 1+ (Negative); Leukocyte Esterase Urine Negative (Negative); Nitrite Urine Negative (Negative); Protein Urine Negative (Negative); Specific Gravity Urine 1.016 (1.000-1.030); Urobilinogen Urine Negative (Negative)
[2023-06-04] MEDS: LORazepam 0.5 MG in SYRINGE 0.25 ML IV PRN (17:09)
[2023-06-04] MEDS ORDERED: VANCOMYCIN CONSULT ACTIVE PRN (17:31)
[2023-06-04] MEDS ORDERED: POLYETHYLENE (MIRALAX) 17 GM PACK PO PRN (17:31)
[2023-06-04] MEDS ORDERED: ALUMINUM/MAGNESIUM SUSP 30 ML UDC PO PRN (17:31)
[2023-06-04] MEDS ORDERED: ONDANSETRON INJ 2 MG/ML 2 ML VIAL IV PRN (17:31)
[2023-06-04] MEDS ORDERED: MAGNESIUM HYDROXIDE SUSP 30 ML UDC PO PRN (17:31)
[2023-06-04] MEDS: PIPER/TAZO 4.5g in D5W MINI-B 100 ML IV ONE (19:19)
[2023-06-04] MEDS: VANCOMYCIN HCL 2,000 MG in SODIUM CHLORIDE 0.9% 500 ML IV STA (19:55)
--- OUTSIDE RECORDS SUMMARY | 2023-06-04 20:00 | External Medical Summary ---
Author Name Unknown Address Unknown Organization K0G:LABORATORY [facility] [place] [address] [place] [address] Laboratory Report Ordering Provider Test Date Status SHERI RENEE 05/30/2023 12:54:17 Final Observation Date Value Abnormality Reference (Units ) Status SYNC LEUKOCYTES IN BLOOD BY AUTOMATED COUNT 05/30/2023 12:54:17 10.12 4.00-10.80 (K/uL) Final Segs 05/30/2023 12:54:17 60.0 40.0-75.0 (%) Final Lymphs % 05/30/2023 12:54:17 24.4 18.0-42.0 (%) Final Monos 05/30/2023 12:54:17 4.3 1.0-11.0 (%) Final Eosinophils 05/30/2023 12:54:17 11.0 Above high normal 0.0-6.0 (%) Final Basos 05/30/2023 12:54:17 0.3 0.0-2.0 (%) Final Absolute Segs 05/30/2023 12:54:17 6.07 1.80-7.70 (K/uL) Final Lymphs, absolute 05/30/2023 12:54:17 2.47 1.00-4.80 (K/ul) Final Monos, Abs 05/30/2023 12:54:17 0.44 0.00-1.10 (K/uL) Final Eos, Abs 05/30/2023 12:54:17 1.11 Above high normal 0.00-0.70 (K/uL) Final Basos, Abs 05/30/2023 12:54:17 0.03 0.00-0.20 (K/uL) Final Performing Location LAB[facility]ATORY [facility] [place] [address] [place] [address]
--- OUTSIDE RECORDS SUMMARY | 2023-06-04 20:00 | External Medical Summary | Continuity of Care Document ---
Author Name Unknown Organization [place] [id number] Address [address] [place] [id number] Care Team Providers Care Ballaster Name Role Phone Yon Burns Primary Care Physician [phone] [id number] Date(s): 05/24/23 - 05/24/23 [facility] [address] [id number] [facility] Medicine [address] [place] [id number] Encounter Diagnosis Right knee pain(Discharge Diagnosis) - 05/24/23 Hemarthrosis of knee(Discharge Diagnosis) - 05/24/23 Discharge Disposition: Home or Self Care Attending Physician: MD Mitra, Sven Francisco Allergies, Adverse Reactions, Alerts Substance Reaction Severity Status sulfa drugs weird nervous reation Active Bactrim Active Medications cephalexin 500 mg oral capsule Start: 05/24/23 11:48:00 EDT Start Date: 05/24/23 Status: Ordered levothyroxine Start: 05/08/23 17:45:00 EDT, 100 mcg =, PO, Daily Start Date: 05/08/23 Status: Ordered [place] 5 mg-325 mg oral tablet Start: 05/08/23 17:54:00 EDT, See Instructions, Disp# 12 tab, Refills: 0, 1 tab PO every 4hours OR 2 tabs every 6hours, PRN: as needed for pain, Pharmacy: [id number] Start Date: 05/08/23 Status: Ordered Opdivo 10 mg/mL intravenous solution Start: 05/08/23 17:48:00 EDT, once every 4 weeks Start Date: 05/08/23 Status: Ordered Xarelto 20 mg oral tablet Start: 05/08/23 17:45:00 EDT, 1 tab, PO, qPM Start Date: 05/08/23 Status: Ordered Mental Status 05/24/23 Barriers to Learning one year None evide nt Mandatory Health Literacy Documentation Yes Health Literacy Communication Barriers N ever Primary Language Frisian Problem List Condition Confirmation Course Effective Dates Status Health St atus Informant Left ankle pain Confirmed Active Hemarthrosis of knee Confirmed Active HTN (hypertension) Confirmed Active Knee pain 1 Confirmed 02/27/10 Active Knee pain 2 Confirmed 05/31/12 Active 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 Right knee pain Confirmed Active Prepatellar bursa 3 Confirmed 02/27/10 Active Seasonal allergies Confirmed Active Weight disorder Confirmed Active 1with Edema 2LEFT 3RIGHT KNEE Diagnosis Diagnosis Type Effective Dates Health Status Clinical Service Informant Right knee pain Discharge Diagnosis 05/24/23 Hemarthrosis of knee Discharge Diagnosis 05/24/23 Procedures Procedure Date Related Diagnosis Body Site Status Surgery 1 2011 Completed Surgery 2 2010 Completed 1JAW 2JAW Social History Social History Type Response Smoking Status Never smoked cigaret miguel Sex Patient Care team information Care Team Personnel Name: DO Burns Trevor S Position: Referring DIRECT Member Role: Primary Care Provider Address: Address: [address] [place] [address] Care Team Related Persons Name: KAPIL [place] Address: home [address], [place] [id number] Name: WILFREDO [place] Address: home [address], [place] [id number]
--- OUTSIDE RECORDS SUMMARY | 2023-06-04 20:00 | External Medical Summary ---
Author Name Unknown Address Unknown Organization [facility] [address] [place] [address] Laboratory Report Ordering Provider Test Date Status SHERI RENEE 05/30/2023 12:54:17 Final Observation Date Value Abnormality Reference (Units ) Status WBC, Total 05/30/2023 12:54:17 10.12 4.00-10.8 0 (K/uL) Final RBC 05/30/2023 12:54:17 3.18 4.50-5.25 (M/uL) Final Hemoglobin 05/30/2023 12:54:17 9.4 Below low normal 14 .0-16.8 (g/dL) Final HCT 05/30/2023 12:54:17 28.8 Below low normal 40. 0-48.4 (%) Final MCV 05/30/2023 12:54:17 90.6 82.0-99.5 (fL) Final MCH 05/30/2023 12:54:17 29.6 27.0-34.0 (pg) Final MCHC 05/30/2023 12:54:17 32.6 32.0-36.0 (g/dL) Final RDW 05/30/2023 12:54:17 16.8 11.5-15.5 (%) Final Platelets 05/30/2023 12:54:17 430 Above high normal 14 0-400 (K/uL) Final MPV 05/30/2023 12:54:17 7.5 6.6-11.1 ( fL) Final Performing Location LABORATORY [facility] [place] [address] [place] [address]
--- OUTSIDE RECORDS SUMMARY | 2023-06-04 20:00 | External Medical Summary ---
Author Name Unknown Address Unknown Organization K01:LABORATORY [address] [place] [address] Laboratory Report Ordering Provider Test Date Status SHERI RENEE 05/30/2023 12:54:17 Final Observation Date Value Abnormality Reference (Units ) Status T4, Free 05/30/2023 12:54:17 0.9 0.9-1.7 (n g/dL) Final Performing Location LAB[facility]ATORY [facility] - [address] [place] [address]
--- OUTSIDE RECORDS SUMMARY | 2023-06-04 20:00 | External Medical Summary | Summary of Care ---
Author Name Unknown Organization [facility] Address [address] [place] [address] Phone [phone] Care Team Providers Care Rn Neonatal Icu Name Role Phone Yon Burns Primary Care Provider Reason for Visit * Reason Comments Outpatient Testing Encounter Details Date Type Department Care Team (Late st Contact Info) Description 05/25/2023 11:50 AM EDT Laboratory Laboratory, [facility] [address] [place] [address] [facility], [facility] [address] [place] [address] Metastatic melanoma (HCC) Allergies Active Allergy Reactions Criticality Noted Date Comments Bactrim 02/16/2010 Sulfa Antibiotics Edema Other 08/29/2019 documented as of this encounter (statuses as of 05/25/2023) Medications Medication Sig Dispensed Refills Start Date End Date Status Lidocaine-Prilocain e 2.5-2.5 % External Cream (Emla)Indications:M etastatic melanoma (HCC) APPLY TO SKIN OVER MEDIPORT & COVER 1HR PRIOR TO ACCESSING. 30 g 1 09/20/2022 Active Sotalol HCl 80 MG Oral Tablet (Betapace) Take 1 Tablet by mouth in the morning and 1 Tablet before bedtime. 68 Tablet 11 01/15/2023 Active Additional Information Patient not taking.Reported on 04/23/2023 Xarelto 20 MG Oral Tablet (Rivaroxaban)Indica tions:Paroxysmal atrial flutter (HCC) TAKE ONE TABLET BY MOUTH EVERY DAY WITH DINNER 90 Tablet 3 02/19/2023 Active Cephalexin 500 MG Oral Capsule (Keflex) Take 1 Capsule by mouth in the morning and 1 Capsule at noon and 1 Capsule in the evening and 1 Capsule before bedtime. 0 05/18/2023 Active HYDROcodone-Acetami nophen 5-325 MG Oral Tablet Take 1 Tablet by mouth every 8 hours as needed. 0 05/08/2023 Active Levothyroxine Sodium 112 MCG Oral Tablet (Levoxyl)Indication s:Hypothyroidism due to medication Take 1 Tablet by mouth in the morning. (at least 30 min prior to breakfast or other meds). 30 Tablet 11 05/23/2023 Active documented as of this encounter (statuses as of 05/25/2023) Active Problems Problem Noted Date Diagnosed Date Secondary malignant neoplasm of skin 05/23/2023 Secondary malignant neoplasm of skin 05/23/2023 Metastatic melanoma 09/16/2022 Mass of right forearm 08/08/2022 PAF (paroxysmal atrial fibrillation) 04/08/2021 LVH (left ventricular hypertrophy) 12/18/2019 Nonspecific abnormal electrocardiogram (ECG) (EK G) 12/18/2019 Type 2 diabetes mellitus wit h hemoglobin A1c goal of less than 8.0% 10/17/2016 HYPERTENSIVE HEART DZ 10/01/2008 Overview: Per Heart Failure Taxonomy Protocol. HTN, goal below 140/90 03/08/2007 ADVANCE DIRECTIVE INFORMATION 06/15/2005 Overview: Information given previously MITRAL VALVE INSUFFICIENCY 11/03/1998 documented as of this encounter (statuses as of 05/25/2023) Resolved Problems Problem Noted Date Diagnosed Date Resolved Date SLEEP APNEA, PRIMARY 03/26/2009 017 Overview: Refuses CPAP 06/15/09 ACUTE SINOBRONCHITIS 04/05/2002 007 ACUTE URI NOS 04/05/2002 05/07/2006 LEFT VENTRICULAR HYPERTROPHY 11/03/1998 10/01/2008 Overview: Per Heart Failure Taxonomy Protocol. documented as of this encounter (statuses as of 05/25/2023) Immunizations Name Administration Dates Next Due COVID-19 mRNA, LNP-s, No Pre serve, 2-Dose Series ([employer]) 12/15/2020,05/03/2020,04/07/2020 COVID-19, MRNA-LNP, 23-24, P F, 30 MCG/0.3 mL, 12 YRS AND ABOVE, IM ([facility]) 12/13/2022 Covid-19, Mrna, Lnp-s, Pf, B ivalent, 30 Mcg, IM, 12 yrs and above (Pfizer) 01/26/2022 H1N1 2009 Influenza, IM 03/15/2009 Pneumococcal Conjugate Vacc, 13 Valent (Prevnar) 12/06/2017 Pneumococcal Polysaccharide PPV23 (Pneumovax) 11/24/2020 RSV Vac., Bivalent, Perfusio n F, Pf,0.5 Ml (Abrysvo) 12/13/2022 Seasonal Influenza, PF, 6 M & above, IM , (FluLaval or Fluzone) 12/13/2022,11/07/2021,11/24/2020,10/13,11/27/2017,01/16/2017,12/26/2013 ,10/28/2012,10/26/2011,02/08/2010 Seasonal Influenza, Quadriva lent, No Preserve, IM 11/27/2017,02/22/2015 Seasonal Influenza, Split, I IV3, With Preserve, Inj 12/26/2013,10/28/2012,10/26/2011,02/08 TD, Preservative Free 10/15/1998 TDAP (age 10 and older)(Boostrix) 07/19/2020,02/2009 TDAP (age 11 and older)(Adacel) 03/15/2009 Zoster Vaccine Recombinant (Shingrix) 05/06/2021 ,11/24/2020 documented as of this encounter Social History Tobacco Use Types Packs/Day Years Used Date Smoking Tobacco: Never Smokeless Tobacco: Never Alcohol Use Standard Drinks/Week Comments Yes 0 (1 standard drink = 0.6 oz pur e alcohol) occasional PHQ-2 Answer Date Recorded PHQ Adult Total Score 0 07/31/2022 Hunger Vital Sign Answer Date Recorded Within the past 12 months, y ou worried that your food would run out before you got the money to buy more. Never true 02/19/19 24 Within the past 12 months, t he food you bought just didn't last and you didn't have money to get more. Never true 02/19/2023 Sex and Gender Information Value Date Recorded Sex Assigned at Male 08/22/2022 10:03 AM EDT Gender Identity Male 08/22/2022 10:03 AM EDT Sexual Orientation Straight 08/22/2022 10 :03 AM EDT Job Start Date Occupation Industry Not on file Not on file Not on file documented as of this encounter Functional Status Functional Status Response Date of Assess ment Are you deaf or do you have serious difficulty h earing? No 04/07/2021 Are you blind or do you have serious difficulty seeing, even when wearing glasses? No 04/07/2021 Do you have serious difficul ty walking or climbing stairs? (5 years old or older) No 04/07/2021 Do you have difficulty dress ing or bathing? (5 years old or older) No 04/07/2021 Because of a physical, menta l, or emotional condition, do you have difficulty doing errands alone such as visiting a doctor s office or shopping? (15 years old or older) No 04/07/19 Cognitive Status Response Date of Assessm ent Because of a physical, menta l, or emotional condition, do you have serious difficulty concentrating, remembering, or making decisions? (5 years old or older) No 04/07/2021 documented as of this encounter Plan of Treatment Upcoming Encounters Date Type Department Care Team (Late st Contact Info) Description 05/30/2023 12:40 PM EDT [facility] [address] [facility] [place] [phone] Gary Combs [address] [address] 05/30/2023 2:30 PM EDT Hem/Onc Treatment Hematology/Oncology Treatment, [place] [address] [place] [phone] Yaz, Chair 9 Hem Onc Scenery [address] [place] [address] 06/01/2023 1:00 PM EDT [facility] [place] [address] Jhoana Evangelista CRNP [address] [facility] [place] [address] 06/04/2023 8:00 AM EDT Office Visit Hematology/Oncology Scenery [facility] [place] [address] [place] [address] Maria Luisa Espinosa MD [address] [place] [address] 06/05/2023 1:50 PM EDT Office Visit Dermatology [facility], [place] [address] [place] [address] Sharon Younger PA-C [address] [place] [address] 06/19/2023 9:30 AM EDT Laboratory Laboratory [facility] [place] [address] [place] [phone] Yaz, Lab Scenery [address] [facility] [place] [address] 06/19/2023 10:30 AM EDT Hem/Onc Treatment Hematology/Oncology Treatment, [place] [address] [place] [phone] Yaz, Chair 4 Hem Onc Scenery [address] [place] [address] 08/31/2023 1:20 PM EDT Office Visit [facility] [address] [place] [address] Jhoana Evangelista CRNP [address] [place] [address] 12/13/2023 8:00 AM EDT Office Visit [facility] [address] [place] [address] Yon Burns, DO [address] [place] [address] 03/04/2024 10:00 AM EST Office Visit [facility] [address] [place] [address] Yon Burns, DO [address] [place] [address] Pending Results Name Type Priority Associated Diagnoses Date /Time CBC WITH WBC DIFFERENTIAL Lab STAT Metastatic melanoma (HCC) 05/25/2023 11:54 AM EDT COMPREHENSIVE METABOLIC PANEL Lab STAT Metastatic melanoma (HCC) 05/25/2023 11:54 AM EDT TSH WITH FREE T4 IF INDICATED Lab STAT Metastatic melanoma (HCC) 05/25/2023 11:54 AM EDT CBC Lab STAT Metastatic melanoma (HCC) 05/25/2023 11:54 AM EDT DIFFERENTIAL, AUTOMATED Lab STAT Metastatic melanoma (HCC) 05/25/2023 11:54 AM EDT Scheduled Procedures Name Priority Associated Diagnoses Date/Ti me COLONOSCOPY FLEXIBLE PROXIMAL DIAGNOSTIC Recall History of colon polyps Health Maintenance Due Date Last Done Comments Depression Screening 08/01/2023 07/31/2022 Diabetic Foot Exam 08/01/2023 07/31/2022, 0 07/21/2021, 04/05/2020, Additional history exists HbA1c 11/21/2023 05/22/2023, 02/13, 09/08/2022, Additional history exists Albumin/Creatinine Ratio 03/15/2024 024, 09/08/2022, 01/18/2022, Additional history exists Diabetic Eye Exam 04/18/2024 04/19/2023, , 04/21/2020, Additional history exists GFR 05/21/2024 05/22/2023, 04/12, 03/15/2023, Additional history exists TSH 05/21/2024 05/22/2023, 04/12, 03/15/2023, Additional history exists COLONOSCOPY-EVERY 5 YRS AGES 18-100 09/21/2025 09/21/2020, 09/21/2020, 05/04/2009 Pneumococcal Vaccine: 65+ Years (3 of 3 - PPSV23 or PCV20) 11/24/2025 11/24/2020, 12/06/2017 Lipid Panel 03/15/2028 03/15/2023, 08/13, 01/18/2022, Additional history exists DTaP,Tdap,and Td Vaccines (4 - Td or Tdap) 07/19/2030 07/19/2020, 03/15/2009, 03/15/2009, Additional history exists Zoster Vaccines Completed 05/06/2021, 11/24/2020 COVID-19 Vaccine Completed 12/13/2022, , 12/15/2020, Additional history exists Influenza Vaccine (FLU shot) Completed 02/2022, 11/07/2021, 11/24/2020, Additional history exists GARDASIL-HPV IMMUNIZATION SERIES Aged Out No longer eligible based on patient's age to complete this topic Hepatitis B Aged Out No longer eligi ble based on patient's age to complete this topic MENINGOCOCCAL (MENACTRA/MENVEO) Aged Out No longer eligible based on patient's age to complete this topic documented as of this encounter Medical Devices Implanted Type Area Ecommerce Marketing Specialist Device Identifier Shelf Expiration Date Model / Serial / Lot Port Implant W/8f Poly Cath - Sn/A - [id number] Implanted:Qty : 1 on 10/11/2022 by Hal Loza DO at OR [facility] N/A: Chest CR BARD : PERIPHERAL VASCULAR N/A 06/12/2023 [id number] / N/A / [id number] Port Implant W/8f Poly Cath - [id number] Implanted:Qty : 1 on 10/11/2022 by Hal Loza DO at OR [facility] CR BARD : PERIPHERAL VASCULAR [id number] 06/12/2023 [id number] / / [id number] documented as of this encounter Visit Diagnoses Diagnosis Metastatic melanoma (HCC) Melanoma of skin, site unspecified documented in this encounter Advance Directives Latest Code Status on File Code Status Date Activated Date Inactivated Comments Full Code 08/08/2022 9:23 AM 08/08/2022 3:44 PM This order reflects the patients wishes and were consensually agreed upon. Question Answer Comments Discussion of Advance Directives occurred with: Patient Care Teams Rn Neonatal Icu Relationship Specialty Start Date End Date Yon Burns DO [address] [place] [address] PCP - General Family Medicine 07/13/20 documented as of this encounter
--- OUTSIDE RECORDS SUMMARY | 2023-06-04 20:00 | External Medical Summary | Summary of Care ---
Author Name Unknown Organization [facility] Address [address] [place] [address] Phone [phone] Care Team Providers Care Appraiser Oil And [employer] Name Role Phone Yon Burns Primary Care Provider Reason for Visit * Reason Comments Chemotherapy Opdivo. * Episode Based Medications (Routine) - Authorized Specialty Diagnoses / Procedures Referred By Contac t Referred To Contact Diagnoses Metastatic melanoma (HCC) Procedures MT IPILIMUMAB INJECTION MT INJECTION, NIVOLUMAB Maria Luisa Espinosa MD [address] [place] [address] Anc Hem/Onc Lorna Mukherjee DEPT CLOSED - 12/26/22 [address] [place] [address] Referral ID Status Reason Start Date Expiration Date V isits Requested Visits Authorized [id number] Authorized 09/21/2022 11/24/2023 999 [id number] Encounter Details Date Type Department Care Team (Latest Contact Info) Description 05/30/2023 2:30 PM EDT Hem/Onc Treatment Hematology/Oncolog y Treatment, [place] [address] [place] [address] Yaz [address] Hem Onc Scenery [address] [place] [address] Metastatic melanoma (HCC)*; Encounter for antineoplastic chemotherapy Allergies Active Allergy Reactions Criticality Noted Date Comments Bactrim 02/16/2010 Sulfa Antibiotics Edema Other 08/29/2019 documented as of this encounter (statuses as of 05/30/2023) Medications Medication Sig Dispensed Refills Start Date [...] as of this encounter (statuses as of 05/30/2023) Active Problems Problem Noted Date Diagnosed Date [...] as of this encounter (statuses as of 05/30/2023) Resolved Problems Problem Noted Date Diagnosed Date Resolved Date SLEEP APNEA, PRIMARY 03/26/2009 017 Overview: Refuses CPAP 06/15/09 ACUTE SINOBRONCHITIS 04/05/2002 007 ACUTE URI NOS 04/05/2002 05/07/2006 LEFT VENTRICULAR HYPERTROPHY 11/03/1998 10/01/2008 Overview: Per Heart Failure Taxonomy Protocol. documented as of this encounter (statuses as of 05/30/2023) Immunizations Name Administration Dates Next Due COVID-19 mRNA, LNP-s, No Pre serve, 2-Dose Series ([employer]) 12/15/2020,05/03/2020,04/07/2020 COVID-19, MRNA-LNP, 23-24, P F, 30 MCG/0.3 mL, 12 YRS AND ABOVE, IM ([employer]) 12/13/2022 Covid-19, Mrna, Lnp-s, Pf, B ivalent, [...] on file documented as of this encounter Last Filed Vital Signs Vital Sign Reading Time Taken Comments Blood Pressure 130/66 05/30/2023 2:32 PM EDT Pulse 84 05/30/2023 2:32 PM EDT Temperature 36.4 C (97.5 F) 05/30/2023 2:32 PM ED T Respiratory Rate 18 05/30/2023 2:32 PM EDT Oxygen Saturation 95% 05/30/2023 2:32 PM EDT Inhaled Oxygen Concentration - - Weight 90.8 kg (200 lb 3.2 oz) 05/30/2023 2:32 P M EDT Height - - Body Mass Index 25.36 04/23/2023 2:15 PM EDT documented in this encounter Functional Status Functional Status Response [...] (15 years old or older) No 04/07/19 22 Cognitive Status Response Date of Assessm ent Because of a physical, menta l, or emotional condition, do you have serious difficulty concentrating, remembering, or making decisions? (5 years old or older) No 04/07/2021 documented as of this encounter Nursing Notes * Sharon Stratton RN - 05/30/2023 3:51 PM EDT Goals: Patient will remain free from injury. Possible barriers to meeting goals: Fall risk d/t ambulation with IV pole. Stability of the patient: Moderately unstable - medium risk of patient condition declining or worsening Summary regarding today's goals: Met: Patient remained free of injury. Patient tolerated infusion well. Discharged in stable condition. * Sharon Stratton RN - 05/30/2023 3:00 PM EDT Chair 3. at chairside. Patient arrived for C10D1 opdivo with no acute complaints. Patient did have knee surgery 2 weeks ago. Feeling well overall from that. VAD accessed. Chemotherapy/Immunotherapy agents: OPDIVO Consent for chemotherapy drug treatment complete, dated, and signed? yes, date - 09/18/22 Treatment lab parameters met? Yes Has treatment weight changed > than 10%? No Treatment preauthorized? Yes VITALS Filed Vitals: 05/30/23 1432 BP: 130/66 Pulse: 84 Resp: 18 Temp: 36.4 C (97.5 F) TempSrc: Tympanic SpO2: 95% Weight: 90.8 kg (200 lb 3.2 oz) Urine protein: N/A Patient education completed for treatment? Yes Blood transfusion consent signed and complete? NA Return appointment scheduled? Yes Patient had provider visit today? No - If no provider visit must complete Pretreatment Assessment Functional Status: Functional status at today's visit: Restricted in physically strenuous activity but ambulatory and able to carry out work on a light orsedentary nature, e.g. light house work, office work The drug name, dose, infusion volume, rate and route of administration, expiration date and time, appearance and physical integrity of the drug and rate set on the pump and sequencing of drug administration (as applicable) were verified by me and second sign-in RN. Patient was assessed for symptoms or adverse side effects during treatment. PRE-TREATMENT ASSESSMENT: NEURO: denies symptoms CV/RESP: denies symptoms GI/: denies symptoms OTHER: denies any additional symptoms PAIN: 1-2 pain location : knee, from knee surgery Safety and Risk for Injury Patient will remain free from injury. Ensure appropriate safety devices are available. Provide and maintain safe environment. documented in this encounter Plan of Treatment Upcoming Encounters Date Type Department Care Team (Late st Contact Info) Description 06/01/2023 1:00 PM EDT Office Visit Family Practice [facility] [address] [facility] [place] [address] Jhoana Evangelista CRNP [facility] [address] 06/04/2023 8:00 AM EDT Office Visit Hematology[facility]Oncology [facility] [address] [place] [phone] Maria Luisa Espinosa MD [address] [place] [address] 06/05/2023 1:50 PM EDT Office Visit Dermatology [facility], [place] [address] [place], [place] [phone] Sharon Younger PA-C [address] [facility] [place] [address] 06/27/2023 12:40 PM EDT Laboratory Laboratory, [facility] [address] [place] [phone] [facility] [address] [place] [address] 06/27/2023 2:00 PM EDT Hem/Onc Treatment Hematology/Oncology Treatment, [place] [address] [place], [place] [phone] Yaz, Chair 6 Hem Onc Scenery [address] [place], [place] [address] 08/31/2023 1:20 PM EDT Office Visit [facility] [address] [place] [address] Jhoana Evangelista CRNP [address] [place] [address] 12/13/2023 8:00 AM EDT Office Visit [facility] [address] [place] [address] Yon Burns DO [address] [address] 03/04/2024 10:00 AM EST Office Visit [facility] [address] [place] [address] Yon Burns DO [address] [place] [address] Scheduled Procedures Name Priority Associated Diagnoses Date/Ti [...] 04/18/2024 04/19/2023, , 04/21/2020, Additional history exists TSH 05/24/2024 05/25/2023, 04/0 10/2023, 04/25/2023, Additional history exists GFR 05/29/2024 05/30/2023, 05/13, 05/22/2023, Additional history exists COLONOSCOPY-EVERY 5 YRS AGES [...] this encounter Medical Devices Implanted Type Area Metal Window Screen Assembler Device Identifier Shelf Expiration Date Model / Serial / Lot Port Implant W/8f Poly Cath - Sn/A - [id number] Implanted:Qty : 1 on 10/11/2022 by Hal Loza DO at OR [facility] N/A: Chest CR BARD : PERIPHERAL VASCULAR N/A 06/12/2023 [id number] / N/A / [id number] Port Implant W/8f Poly Cath - [id number] Implanted:Qty : 1 on 10/11/2022 by Hal Loza DO at OR [facility] CR BARD : PERIPHERAL VASCULAR [id number] 06/12/2023 [id number] / / [id number] documented as of this encounter Visit Diagnoses Diagnosis Metastatic melanoma (HCC)- Primary Melanoma of skin, site unspecified Encounter for antineoplastic chemotherapy documented in this encounter Administered Medications Active Administered Medications - up to 3 most recent administrations Medication Order MAR Action Action Date Dose Rate Site diphenhydrAMINE (Benadryl) inj 50 mg 50 mg, IV Push, ONCE PRN Other, Hypersensitivity Reaction, Starting on Sun05/30/23 at 1438, Until Sun05/31/23 at 1437, For 24 hours EPINEPHrine 1 MG/ML inj 0.3 mg 0.3 mg, Intramuscular, ONCE PRN Other, Hypersensitivity Reaction or Anaphylaxis, Starting on Sun05/30/23 at 1438, Until Sun05/31/23 at 1437, For 24 hours hEParin 100 UNIT/ML Lock Flush inj 500 Units 500 Units (5 mL), IV Lock, PRN Other, IV Flush, Starting on Sun05/30/23 at 1438, Until Sun05/31/23 at 1437, For 24 hours, Do not flush if lock, PICC, or central line not in place; IV infusing or unable to flush. Given 05/30/2023 3:45 PM EDT 500 Units Hydrocortisone Sod Suc (PF) (Solu-Cortef) inj 100 mg 100 mg, IV Push, ONCE PRN Other, Hypersensitivity Reaction, Starting on Sun05/30/23 at 1438, Until Maryann 05/31/23 at 1437, For 24 hours NSS infusion 500 mL, Intravenous, at 50 mL/hr, CONTINUOUS, Starting on Sun05/30/23 at 1545, Until Sun05/31/23 at 0144 Start Infusion 05/30/2023 3:00 PM EDT 500 mL 50 mL/hr oxygen GAS Inhalation, OXYGEN, First dose on Sun05/30/23 at 1600, Until Discontinued, Device/Managed by: Low Flow Device, Goal SPO2 (%): 91-95, Starting Device: Nasal Cannula, Initial Flow Rate (LPM): 2, Lowest Support: Nasal Cannula: Flow 0-6 LPM. Titrate up/down by 1 LPM., Higher Support: Non-Rebreather (NRB) Mask: Minimum of 10 LPM. Titrate to maintain bag inflation., Titration Interval: Q2 minutes and as needed., Notify Provider: For sudden DECREASE in resting SPO2 to less than 85% and when escalating delivery device. sodium chloride 0.9 % flush central line 10 mL 10 mL, IV Push, PRN Other, IV Flush, Starting on Sun05/30/23 at 1438, Until Maryann 05/31/23 at 1437, For 24 hours, Do not flush if lock, PICC, or central line not in place; IV infusing or unable to flush. Given 05/30/2023 3:45 PM EDT 10 mL Inactive Administered Medications - up to 3 most recent administrations Medication Order MAR Action Action Date Dose Rate Site Nivolumab (Opdivo) 480 mg in NSS 100 mL ivpb 480 mg, IV Piggyback, ONCE, 1 dose, On Sun05/30/23 at 1615, Administer over 30 Minutes, DO NOT SHAKE Final concentration should be between 1 and 10 mg/ml Use a sterile, non-pyrogenic, low-protein binding in-line filter (0.2 micrometer-1.2 micrometer) Start Infusion 05/30/2023 3:14 PM EDT 480 mg 200 mL/hr documented in this encounter Advance Directives Latest Code Status on File Code Status Date Activated Date Inactivated Comments Full Code 08/08/2022 9:23 AM 08/08/2022 3:44 PM This order reflects the patients wishes and were consensually agreed upon. Question Answer Comments Discussion of Advance Directives occurred with: Patient Care Teams Appraiser Oil And Water Relationship Specialty Start Date End Date Yon Burns DO [address] [place] [address] PCP - General Family Medicine 07/13/20 documented as of this encounter
--- OUTSIDE RECORDS SUMMARY | 2023-06-04 20:00 | External Medical Summary | Continuity of Care Document ---
Author Name Unknown Organization [place] [id number] Address [address] [place] [id number] Care Team Providers Care Consultant Dietitian Name Role Phone Yon Burns Primary Care Physician [phone] [facility]counter [id number] Date(s): 05/30/23 - 05/30/23 [facility] [address] [place] [id number] [facility] Medicine [address] [place] [address] Encounter Diagnosis Hemarthrosis, right knee(Discharge Diagnosis) - 05/18/23 Discharge Disposition: Home or Self Care Attending Physician: MD Mitra, Sven Francisco Allergies, Adverse Reactions, Alerts Substance Reaction Severity Status sulfa drugs weird nervous reation Active Bactrim Active Medications cephalexin 500 mg oral capsule Start: 05/24/23 11:48:00 EDT Start Date: 05/24/23 Status: Ordered levothyroxine Start: 05/08/23 17:45:00 EDT, 100 mcg =, PO, Daily Start Date: 05/08/23 Status: Ordered Hatch 5 mg-325 mg oral tablet Start: 05/08/23 17:54:00 EDT, See Instructions, Disp# 12 tab, Refills: 0, 1 tab PO every 4hours OR 2 tabs every 6hours, PRN: as needed for pain, Pharmacy: [id number] Start Date: 05/08/23 Status: Ordered Opdivo 10 mg/mL intravenous solution Start: 05/08/23 17:48:00 EDT, once every 4 weeks Start Date: 05/08/23 Status: Ordered Xarelto 20 mg oral tablet Start: 05/08/23 17:45:00 EDT, 1 tab, PO, qPM Start Date: 05/08/23 Status: Ordered Mental Status 05/30/23 Barriers to Learning one year None evide nt Mandatory Health Literacy Documentation Yes Health Literacy Communication Barriers N ever Primary Language Bengali Problem List Condition Confirmation Course Effective Dates [...] Dates Health Status Cl inical Service Informant Hemarthrosis, right knee Discharge Diagnosis 05/18/23 Non-Specified Procedures Procedure Date Related Diagnosis Body Site Status Surgery 1 2011 Completed Surgery 2 2010 Completed 1JAW 2JAW Social History Social History Type Response Smoking Status Never smoked cigaret miguel Sex Ortho Outpt Note * Fortino Danuta: PERFORM Danuta Freitas: PERFORM, MODIFY Danuta Freitas: MODIFY Event Display: Ortho Outpt Note Authored Date: [id number] Name:PHILLY PARIS Patient Number:[id number] :1960 Date of Service:05/30/2023 CHIEF COMPLAINT: f/u right quadriceps tendon injury; DOS 05/15/2023 HPI: [id number] Maite presents today forf/uright quadricpes tendoninjury;DOS 05/15/2023. He states he is getting better every day. He has been ambulating using a walker, but no brace. He has since completed his series of antibiotics. He denies any redness or drainage, and his notes a decrease in swelling. Patient continues to take Xarelto. States his PT, Aureliano,would like him to be cleared for more intensive work.He is receiving an infusion today after his visit as well as continuing immunotherapy. RecentPET scan showed no evidence of metastatic disease. PHYSICAL EXAM: Focusing on the patient'srightlower extremity: Ambulates well with walker Trace knee effusion Motor strength5-/5: Knee flexion and extension/ Knee (right) ROM: 0/ 5/ 100 Knee extension lag15 degree Incisions are well appearing Active straight leg raiseintactwith extensor lag IMPRESSION: f/u s/p hemarthrosis evacuationwith quadriceps tendon exploration PLAN: After a lengthy discussion with the patient today regarding my above clinical findings, I am pleased with how well they are doing. - RICE. - They may use Tylenol as needed for pain. - continue with formal PT, and progress out of walker into cane usage. - Increase right quadriceps strength. Continue PT and progress with range of motion as tolerated. - Harvel were removed, and steri-strips placed during today's visit - Continue progressing to activities as tolerated. - Follow-up [id number]. The patient understood all my instructions and explanations; all their questions were satisfactorily addressed. ATTESTATION: I, Danuta Freitas, scribing for and in the presence of, Sven Manriquez, on this date,05/30/2023 13:25:38. Electronic Signature on File Electronically Reviewed/Signed by: Danuta Freitas Author Signature Dt/Tm:05/30/2023 02:00 PM Electronically Reviewed/Signed by: Sven Manriquez MD Cosigner Signature Dt/Tm: 06/01/2023 03:23 PM Division of Sports Medicine MR Patient Care team information Care Team Personnel Name: DO Burns Trevor S Position: Referring DIRECT Member Role: Primary Care Provider Address: Address: [address] [address] [place] Care Team Related Persons Name: KAPIL PARIS Address: [address] [id number] Name: WILFREDO PARIS Address: home [address] [place] [phone]
--- OUTSIDE RECORDS SUMMARY | 2023-06-04 20:00 | External Medical Summary ---
Author Name Unknown Address Unknown Organization K0G:[facility] [address] [place] [address] Laboratory Report Ordering Provider Test Date Status SHERI RENEE 05/30/2023 12:54:17 Final Observation Date Value Abnormality Reference (Units ) Status BUN 05/30/2023 12:54:17 12 6-20 (mg/dL) Final Creatinine 05/30/2023 12:54:17 1.0 0.6-1.2 (mg/dL) Final Glomerular filtration rate/1.73 sq M.predicted [Volume Rate/Area] in Serum, Plasma or Blood by Creatinine-based formula (CKD-EPI) 05/30/2023 12:54:17 83 >=60 (mL/min) Final eGFR is calculated based on the CKD-EPI 2020 equation Sodium 05/30/2023 12:54:17 136 135-146 (m mol/L) Final Potassium 05/30/2023 12:54:17 3.9 3.5-5.1 (m mol/L) Final Cl 05/30/2023 12:54:17 100 98-107 (mm ol/L) Final CO2 05/30/2023 12:54:17 26 22-32 (mmo l/L) Final Anion gap 05/30/2023 12:54:17 10 7-15 (mmol /L) Final Glucose 05/30/2023 12:54:17 104 70-120 (mg /dL) Final Albumin 05/30/2023 12:54:17 4.0 3.8-5.0 (g /dL) Final AST (Aspartate aminotransferase) 05/30/2023 12:54:17 20 10-50 (U/L) Fin al Alk Phos 05/30/2023 12:54:17 62 35-130 (U/ L) Final Bilirubin, Total 05/30/2023 12:54:17 0.6 <=1 .2 (mg/dL) Final Calcium 05/30/2023 12:54:17 9.8 8.4-10.2 ( mg/dL) Final Protein 05/30/2023 12:54:17 6.9 6.0-8.3 (g /dL) Final ALT (Alanine aminotransferase) 05/30/2023 12:54:17 6 Below low normal 10-50 (U/L) Final Performing Location [facility] [place] [address] [facility] [address]
--- OUTSIDE RECORDS SUMMARY | 2023-06-04 20:00 | External Medical Summary ---
Author Name Unknown Address Unknown Organization [id number][facility] [address] [place] [address] Laboratory Report Ordering Provider Test Date Status SHERI RENEE 05/25/2023 11:54:16 Final Observation Date Value Abnormality Reference (Units ) Status SYNC LEUKOCYTES IN BLOOD BY AUTOMATED COUNT 05/25/2023 11:54:16 7.37 4.00-10.80 (K/uL) Final Segs 05/25/2023 11:54:16 52.1 40.0-75.0 (%) Final Lymphs % 05/25/2023 11:54:16 31.1 18.0-42.0 (%) Final Monos 05/25/2023 11:54:16 5.8 1.0-11.0 (%) Final Eosinophils 05/25/2023 11:54:16 10.2 Above high normal 0.0-6.0 (%) Final Basos 05/25/2023 11:54:16 0.5 0.0-2.0 (%) Final Immature Granulocyte, Percent 05/25/2023 11:54:16 0.3 0.0-2.0 (%) Final Absolute Segs 05/25/2023 11:54:16 3.84 1.80-7.70 (K/uL) Final Lymphs, absolute 05/25/2023 11:54:16 2.29 1.00-4.80 (K/ul) Final Monos, Abs 05/25/2023 11:54:16 0.43 0.00-1.10 (K/uL) Final Eos, Abs 05/25/2023 11:54:16 0.75 Above high normal 0.00-0.70 (K/uL) Final Basos, Abs 05/25/2023 11:54:16 0.04 0.00-0.20 (K/uL) Final Immature Granulocytes, Number 05/25/2023 11:54:16 0.02 0.00-0.20 (K/uL) Final Performing Location [facility] - [facility] [address] [place] [address]
--- OUTSIDE RECORDS SUMMARY | 2023-06-04 20:00 | External Medical Summary | Summary of Care ---
Author Name Unknown Organization [facility] Address [address] [place] [address] Phone [phone] Care Team Providers Care Bit Bender Name Role Phone Yon Burns Primary Care Provider Reason for Visit * Reason Comments Follow Up Encounter Details Date Type Department Care Team (Late st Contact Info) Description 06/04/2023 8:00 AM EDT Office Visit Hematology/Oncology Lorna Mukherjee [place] [address] [facility] [place] [address] Maria Luisa Espinosa MD [address] [facility] [place] [address] Metastatic melanoma (HCC)*; Encounter for antineoplastic chemotherapy Allergies Active Allergy Reactions Criticality Noted Date Comments Bactrim 02/16/2010 Sulfa Antibiotics Edema Other 08/29/2019 documented as of this encounter (statuses as of 06/04/2023) Medications Medication Sig Dispensed Refills Start Date End Date Status Lidocaine-Prilocaine 2.5-2.5 % External Cream (Emla)Indications:Me tastatic melanoma (HCC) APPLY TO SKIN OVER MEDIPORT & COVER 1HR PRIOR TO ACCESSING. 30 g 1 09/20/2022 Active Xarelto 20 MG Oral Tablet (Rivaroxaban)Indicat ions:Paroxysmal atrial flutter (HCC) TAKE ONE TABLET BY MOUTH EVERY DAY WITH DINNER 90 Tablet 3 02/19/2023 Active Levothyroxine Sodium 112 MCG Oral Tablet (Levoxyl)Indications :Hypothyroidism due to medication Take 1 Tablet by mouth in the morning. (at least 30 min prior to breakfast or other meds). 30 Tablet 11 05/23/2023 Active documented as of this encounter (statuses as of 06/04/2023) Active Problems Problem Noted Date Diagnosed Date [...] as of this encounter (statuses as of 06/04/2023) Resolved Problems Problem Noted Date Diagnosed Date Resolved Date SLEEP APNEA, PRIMARY 03/26/2009 017 Overview: Refuses CPAP 06/15/09 ACUTE SINOBRONCHITIS 04/05/2002 007 ACUTE URI NOS 04/05/2002 05/07/2006 LEFT VENTRICULAR HYPERTROPHY 11/03/1998 10/01/2008 Overview: Per Heart Failure Taxonomy Protocol. documented as of this encounter (statuses as of 06/04/2023) Immunizations Name Administration Dates Next Due COVID-19 mRNA, LNP-s, No Pre serve, 2-Dose Series ([employer] [employer]) 12/15/2020,05/03/2020,04/07/2020 COVID-19, MRNA-LNP, 23-24, P F, 30 MCG/0.3 mL, 12 YRS AND ABOVE, IM [facility] 12/13/2022 Covid-19, Mrna, Lnp-s, Pf, B ivalent, [...] Sign Reading Time Taken Comments Blood Pressure 126/83 06/04/2023 8:17 AM EDT Pulse 109 06/04/2023 8:17 AM EDT Temperature 36.4 C (97.5 F) 06/04/2023 8:17 AM ED T Respiratory Rate 17 06/04/2023 8:17 AM EDT Oxygen Saturation 96% 06/04/2023 8:17 AM EDT Inhaled Oxygen Concentration - - Weight 88.3 kg (194 lb 9.6 oz) 06/04/2023 8:17 A M EDT Height - - Body Mass Index 24.65 04/23/2023 2:15 PM EDT documented in this [...] No 04/07/2021 documented as of this encounter Progress Notes * Maria Luisa Espinosa MD - 06/04/2023 8:23 AM EDT Outpatient Consult Note Data Source: Patient, [facility] record. Data Source: Patient, Epic record. 06/04/2023 8:23 AM Hal Ray [id number] 63 year old Patient Encounter: HEMATOLOGY/ONCOLOGY [facility] Cancer Diagnosis: Metastatic melanoma Status post excision of the tumor from the right forearm. Papillary thyroid carcinoma. Current Treatment: On nivolumab q.4 weeks. Previous Treatment: Status post excision of the tumor from the right forearm. underwent axillary lymph node dissection and biopsy from the neck lymph node. In 1 lymph node therewas hyaline necrosis, necrosis was approximately 60%, there was no residual viable tumor cells. Biopsy from the left cervical lymph node was consistent with metastatic poorly differential carcinoma Four cycles of nivolumab plus ipilimumab, received last dose on 11/30/2022. Oncologic History : 63-year-old male past medical history significant for AFib, hyperlipidemia, hypertension, osteoarthritis has a large mass on the right forearm for last 4-5 years. Recently the mast started increasingin size. He was going to have it removed and then COVID happened and the procedure was canceled. He underwent excision of the mass on 08/08/2022 and pathology consistent with malignant S100, Sox-10 and focally Padroni-1 positive neoplasm involving the subcutis most likely consistent with melanoma. EWSR1 was negative which ruled out clear cell cell. A. Skin, right forearm, excision: Malignant S100, Sox-10 and focally Padroni-1 positive neoplasm involving the subcutis. Comment: Tumor abuts the peripheral dermal and deep inked margins in the portions available. Given the histologic findings and focal presence of melanin,metastatic melanoma is favored. Lymphovascularinvasion is present. The resection margin is designated with blue ink and the specimen is serially sectioned and revealsa gamino-pink, congested, focally hemorrhagic, focally necrotic nodular mass measuring 5.5 x 3.7 x 2.8cm. The mass grossly abuts the deep aspect and the peripheral aspect margins of the specimen. NGS revealed high tumor burden with MSI stable and B Brijesh positive Immunotherapy Markers Tumor Mutational Maceo (TMB): TMB Unit Maceo 16.05 m/MB High Microsatellite Instability Status (MSI): MSI Status 4.16 Stable Result Detail DNA Variants (SNV and indels): Gene Variant Tier Amino Acid Change Nucleotide Change Consequence Allele Frequency Sequencing Depth BRAF V600E Tier 1: Strong significance [id number]: c.1799T>A Missense Variant 58.2 % 1924 MAP2K1 P124S Tier 2: Potential significance p.[id number] [id number]: c.370C>T Missense Variant 56.6 % 1986 TERT Tier 2: Potential significance p.? [id number]: c.-124C>T Non Coding Transcript Variant 50.1 % 571 Note: Given their presence at near 50% variant allele fraction, the possibility of germline derivation for these variants cannot be excluded. Determination of germline vs somatic origin would requirespecific testing of the germline, if clinically indicated. Interpretation Negative for EWSR1 (22q12) gene rearrangement. PET scan revealed right axillary lymph node and left cervical lymph node with small lung lesion. Patient was evaluated by Dr. Hernandez and recommend systemic treatment. Denies smoking. Drinks alcohol socially. Family history significant for the father was diagnosed of non-Hodgkin's lymphoma and skin cancer. Mother was diagnosed breast cancer. Maternal grandmother was diagnosed of breast cancer and paternalcousin was diagnosed of some kind of cancer of unknown type. He had a PET scan done on 12/19/2022 which revealed decrease in the metabolic activity in the rightaxillary lymph node and decrease in the left cervical lymph nodes and there was diffuse symmetricalhilar and mediastinal lymphadenopathy reflect sarcoid like reaction to immunotherapy. He was seen and evaluated at [facility] and underwent axillary lymph node dissection and biopsy from theneck lymph node. In 1 lymph node there was hyaline necrosis, necrosis was approximately 60%, there was no residual viable tumor cells. Biopsy from the left cervical lymph node was consistent with metastatic poorly differential carcinoma, tumor cells were negative for S100 andMelanA, Final Diagnosis: A. Lymph node, right, axillary contents, levels one and two, dissection: - Coagulation and hyaline necrosis in one of twenty-three lymph nodes (1/23). The necrosis involvesapproximately 60% of the involved node, and there are no overt residual viable tumor cells, consistent with 100% necrosis. B. Lymph node, right, axillary contents, level three, dissection: - Three lymph nodes, no tumor seen (0/3). C. Skin, right forearm, "transit melanoma," wide excision: - Skin with prior biopsy site reaction and scar, completely excised, no residual melanoma seen. - Severe solar elastosis. Soft tissue, left cervical lymph node, needle core biopsy: - Metastatic poorly differentiated carcinoma (see comment). Comment: Needle core biopsy sections demonstrate predominantly hyalinized fibrous soft tissue with foci of infiltrative epithelial tumor cells. Positive immunostains include cytokeratin AE1/3, CK7, CK5/6 (patchy), TTF1, p40 (patchy) and p63 (patchy). The tumor cells are negative for S100, MelanA, SOX10, HMB45, and Napsin A. p16 shows equivocal nuclear and cytoplasmic staining. Tumor is exhausted on the deepest levels and immunostains thyroglobulin and PAX8 are not diagnostically interpretable. The morphologic features and immunoprofile are most consistent with poorly differentiated carcinoma. The immunoprofile, while not entirely specific, may favor carcinoma of pulmonary origin. Carcinoma of thyroid origin could also be considered. Insufficient remaining tissue is available for molecular testing. US Thyroid was ordered and showed bilateral thyroid nodules. Thyroid FNA pathology from 03/13 showedAtypia of Undetermined Significance - AUS (Trego Category III). The tumor cells are positive forPAX8, TTF-1, and thyroglobulin. The morphology and immunohistochemical profile are consistent with papillary thyroid carcinoma. Interval History: Patient had severe right knee pain and had MRI done which showed hemarthrosis of the right knee andunderwent right knee exploration and evacuation of the hemarthrosis on 05/15/2023 with the Orthopedic Surgery, on MRI there was question of right quadriceps rupture but the knee exploration revealed intact right quadriceps tendon with no evidence of tear. He is complaining of generalized weakness and fatigue. LABS/IMAGING: Results for orders placed or performed in visit on 05/30/23 COMPREHENSIVE METABOLIC PANEL Result Value Ref Range BUN 12 6 - 20 mg/dL Creatinine 1.0 0.6 - 1.2 mg/dL Estimated Glomerular Filtration Rate 83 >=60 mL/min Sodium 136 135 - 146 mmol/L Potassium 3.9 3.5 - 5.1 mmol/L Chloride 100 98 - 107 mmol/L CO2 26 22 - 32 mmol/L Anion Gap 10 7 - 15 mmol/L Glucose 104 70 - 120 mg/dL Albumin 4.0 3.8 - 5.0 g/dL AST 20 10 - 50 U/L Alkaline Phosphatase 62 35 - 130 U/L Bilirubin, Total 0.6 <=1.2 mg/dL Calcium 9.8 8.4 - 10.2 mg/dL Protein 6.9 6.0 - 8.3 g/dL ALT 6 (L) 10 - 50 U/L TSH WITH FREE T4 IF INDICATED Result Value Ref Range TSH 28.10 (H) 0.27 - 4.20 uIU/mL CBC Result Value Ref Range WBC 10.12 4.00 - 10.80 K/uL RBC 3.18 4.50 - 5.25 M/uL HGB 9.4 (L) 14.0 - 16.8 g/dL HCT 28.8 (L) 40.0 - 48.4 % MCV 90.6 82.0 - 99.5 fL MCH 29.6 27.0 - 34.0 pg MCHC 32.6 32.0 - 36.0 g/dL RDW 16.8 11.5 - 15.5 % PLT 430 (H) 140 - 400 K/uL MPV 7.5 6.6 - 11.1 fL DIFFERENTIAL, AUTOMATED Result Value Ref Range WBC 10.12 4.00 - 10.80 K/uL Neutrophils % 60.0 40.0 - 75.0 % Lymphocytes % 24.4 18.0 - 42.0 % Monocytes % 4.3 1.0 - 11.0 % Eosinophils % 11.0 (H) 0.0 - 6.0 % Basophils % 0.3 0.0 - 2.0 % Absolute Neutrophils 6.07 1.80 - 7.70 K/uL Absolute Lymphocytes 2.47 1.00 - 4.80 K/ul Absolute Monocytes 0.44 0.00 - 1.10 K/uL Absolute Eosinophils 1.11 (H) 0.00 - 0.70 K/uL Absolute Basophils 0.03 0.00 - 0.20 K/uL T4, FREE Result Value Ref Range T4, Free 0.9 0.9 - 1.7 ng/dL His blood counts are in acceptable range and hemoglobin was 9 point REVIEW OF SYSTEMS: General: No Fever, chills, night sweats HEENT: No change in visual acuity, blurred or double vision. No epistaxis, facial pain, nasal discharge or change in hearing. Denies dysphagia, no muscosal ulceration, or sores noted. Cardiovascular: No chest pain, FORD, or palpitations Respiratory: No shortness of breath, cough, hemoptysis, or pleuritic chest pain Gastrointestinal: No abdominal pain, nausea, vomiting, diarrhea, rectal pain or bleeding Genitourinary: Denies Hematuria or dysuria Musculoskeletal: Generalized weakness, fatigue and pain in the right knee Psychiatric: No vegetative signs of depression Endocrine: No symptoms of hypothyroidism or hyperglycemia Hematologic: No bleeding or lymph nodes noted As mentioned above, all of the systems were reviewed in full and are unremarkable. Past Medical History: Diagnosis Date A-fib (HCC) COVID 02/07/2021 HLD (hyperlipidemia) HTN (hypertension) Osteoarthritis Sleep apnea, obstructive Sprain of medial meniscus 03/2012 left Current Outpatient Medications Medication Sig Dispense Refill Lidocaine-Prilocaine 2.5-2.5 % External Cream (Emla) APPLY TO SKIN OVER MEDIPORT & COVER 1HR PRIOR TO ACCESSING. 30 g 1 Abrysvo 120 MCG/0.5ML Intramuscular Solution Reconstituted (RSV Pre-Fusion F A&B Vac Rcmb) inject 0.5ml im as directed (Patient not taking: Reported on 04/23/2023) 1 Each 0 Xarelto 20 MG Oral Tablet (Rivaroxaban) TAKE ONE TABLET BY MOUTH EVERY DAY WITH DINNER 90 Tablet 3 Levothyroxine Sodium 112 MCG Oral Tablet (Levoxyl) Take 1 Tablet by mouth in the morning. (at least30 min prior to breakfast or other meds). 30 Tablet 11 No current facility-administered medications for this visit. Social History Tobacco Use Smoking status: Never Smokeless tobacco: Never Vaping Use Vaping Use: Never used Substance Use Topics Alcohol use: Yes Alcohol/week: 0.0 standard drinks of alcohol Comment: occasional Drug use: No Review of patient's allergies indicates: Allergen Reactions Bactrim Sulfa Antibiotics Edema Other PHYSICAL EXAMINATION: General Appearance: Weak appearing patient in no acute distress BP 126/83 (BP Site: Left Arm, BP Position: Sitting, BP Cuff Size: Regular) | Pulse 109 | Temp 36.4 C (97.5 F) (Tympanic) | Resp 17 | Wt 88.3 kg (194 lb 9.6 oz) | SpO2 96% | BMI 24.65 kg/m | BSA2.15 m Vitals reviewed. HEENT: No oral or pharyngeal masses, ulceration or thrush noted, no sinus tenderness. Neck is supple with no thyromegaly or JVD noted. Lymph Nodes: No lymphadenopathy noted in the occipital, pre and post auricular, cervical, supra andinfraclavicular, axillary, epitrochlear, inguinal, and popliteal region. Lungs/Thorax: Clear to auscultation, no accessory muscles of respiration being used. Heart: Regular rate and rhythm, normal S1, S2 Abdomen: Soft, nontender, bowel sounds present, no appreciable hepatosplenomegaly, no palpable masses Extremeties: Good pulses bilaterally, swelling right knee with tenderness ASSESSMENT: 63-year-old male past medical history significant for AFib, hyperlipidemia, hypertension, osteoarthritis has a large mass on the right forearm for last 4-5 years. Recently the mass started increasingin size. He underwent excision of the mass and histopathology is consistent with neoplasm involvingthe subcutis with S100 and SOX 10 positive and EWSR1 negative. There is a focal presence of melanin, metastatic melanoma is favored. B Brijesh mutation is positive with high tumor burden. Based on histopathology finding, patient most likely has melanoma. Patient had PET scan done which revealed right axillary lymph node and left cervical lymph node with small lung lesion. Patient was evaluated by Dr. Hernandez and recommend systemic treatment. Patient has a metastatic melanoma and completed 4 cycles of nivolumab plus ipilimumab with overall good tolerance. Only significant side effects is cramps 1 skin toxicity with rash which is improvingnow. Currently he is receiving single agent nivolumab. He had follow-up PET scan done on 12/19/2022 which revealed Interval significant decrease in size and metabolic activity of the right axillary lymph node and slightly decreased size of the left levelIII cervical lymph node, new diffuse and relatively symmetric hilar and mediastinal lymphadenopathyas well as nonspecific portacaval lymphadenopathy which could reflect sarcoid like reaction to nivolumab and/or ipilimumab, however new metastatic disease cannot be excluded. He was also seen at [facility] and had right axillary lymph node dissection and biopsy from the left cervical lymph node on on 2023. Biopsy from the left cervical weakness consistent with a poorly-differentiated carcinoma may be primary from the lung or thyroid. Axillary lymph nodes revealed coagulation and hyaline necrosis in one of twenty-three lymph nodes (03/06). The necrosis involves approximately 60% of the involved node, and there are no overt residual viable tumor cells, consistent [id number]% necrosis. Patient may have 2 different malignancy. He was scheduled for thyroid surgery on 06/22/2023 at [facility]. He was admitted to hospital recently with the pain and swelling of the right knee and had bleeding and underwent orthopedic exploration and evacuation of the hemarthrosis on 05/15/2023. He received last dose of Opdivo on 05/30/2023. He is complaining of generalized weakness and fatigue and increasing knee pain. On examination there is a tenderness and swelling of the right knee. He has follow-up PET scan done which revealed excellent response with no evidence of metastatic or recurrent disease. Discussed with the patient about the diagnosis reviewed all the available blood tests and PET scan finding with them. I also personally reviewed the radiology images of the PETscan. I also recommend to have [facility] PLAN: As above. He will return to clinic for follow-up on 06/27/2023. The patient voiced understanding of all of the above. All questions and concerns were addressed in an apparently satisfactory manner. Maria Luisa Espinosa MD (This note was completed using the dictation program Fluency Direct. As such, there may be misspellings, word substitutions, or other variations that should not change the essence of the clinical content of this encounter note. If there is need for further clarification, please direct questions to me.) documented in this encounter Nursing Notes * Lety Duarte MED ASSIST - 06/04/2023 8:17 AM EDT Patient identifed by name and birthdate Do you have any concerns about pain management for today's visit? Yes. Patient instructed to discuss pain concerns with provider during the visit today Living Will or Advance Directive for Health Care as noted on the problem list. [facility] is a way you can talk to your provider on line through e-mail. Would you like to sign up? I can activate it for you? ALREADY ACTIVE Filed Vitals: 06/04/23 0817 BP: 126/83 Pulse: 109 Resp: 17 Temp: 36.4 C (97.5 F) TempSrc: Tympanic SpO2: 96% Weight: 88.3 kg (194 lb 9.6 oz) Patient was instructed to not get up on the exam table/exam chair until directed and assisted by their provider; patient is to remain seated in the chair/ wheelchair/ exam table/ exam chair for fall prevention and safety reasons. Patient is aware to have assistance to step down off exam table/exam chair with personnel. Patient voiced full comprehension of instructions. documented in this encounter Plan of Treatment Upcoming Encounters Date Type Department Care Team (Late st Contact Info) Description 06/05/2023 1:50 PM EDT Office Visit Dermatology [address], [place] [address] [place] [address] Sharon Younger PA-C [address] [facility] [place] [address] 06/27/2023 12:40 PM EDT Laboratory Laboratory, [facility] [address] [place] [address] [facility] [address] [place] [address] 06/27/2023 2:00 PM EDT Hem/Onc Treatment Hematology/Oncology Treatment, [place] [address] [place] [address] Yaz, Chair 6 Hem Onc Scenery [address] [place] [address] 08/31/2023 1:20 PM EDT Office Visit [facility] [address] [place] [address] Jhoana Evangelista CRNP [address] [place] [address] 12/13/2023 8:00 AM EDT Office Visit [facility] [address] [place] [address] Yon Burns, [address] [place] [address] 03/04/2024 10:00 AM EST Office Visit [facility] [address] [place] [address] Yon Burns, [address] [place] [address] Scheduled Procedures Name Priority Associated Diagnoses Date/Ti [...] 04/19/2023, , 04/21/2020, Additional history exists GFR 05/29/2024 05/30/2023, 05/13, 05/22/2023, Additional history exists TSH 05/29/2024 05/30/2023, 05/13, 05/22/2023, Additional history exists [...] this encounter Medical Devices Implanted Type Area [employer] Specialist Device Identifier Shelf Expiration Date Model / Serial / Lot Port Implant W/8f Poly Cath - Sn/A - [id number] Implanted:Qty : 1 on 10/11/2022 by Hal Loza DO at [facility] N/A: Chest CR BARD : PERIPHERAL VASCULAR N/A 06/12/2023 [id number] / N/A / [id number] Port Implant W/8f Poly Cath - [id number] Implanted:Qty : 1 on 10/11/2022 by Hal Loza DO at OR [facility] CR BARD : PERIPHERAL VASCULAR [id number] 06/12/2023 [id number] / / [id number] documented as of this encounter Visit Diagnoses Diagnosis Metastatic melanoma (HCC)- Primary Melanoma of skin, site unspecified Encounter for antineoplastic chemotherapy documented in this encounter Advance Directives Latest Code Status on File Code Status Date Activated Date Inactivated Comments Full Code 08/08/2022 9:23 AM 08/08/2022 3:44 PM This order reflects the patients wishes and were consensually agreed upon. Question Answer Comments Discussion of Advance Directives occurred with: Patient Care Teams Bit Bender Relationship Specialty Start Date End Date Yon Burns DO [address] [facility] [place] [address] PCP - General Family Medicine 07/13/20 documented as of this encounter
--- OUTSIDE RECORDS SUMMARY | 2023-06-04 20:00 | External Medical Summary | Summary of Care ---
Author Name Unknown Organization [facility] Address [address] [place] [address] Phone [phone] Care Team Providers Care Police Matron Name Role Phone Yon Burns Primary Care Provider Encounter Details Date Type Department Care Team (Late st Contact Info) Description 05/29/2023 Telephone Hematology/Oncology, [facility] [place] [address] [place] [address] Maria Luisa Espinosa MD [address] [place] [address] Allergies Active Allergy Reactions Criticality Noted Date Comments Bactrim 02/16/2010 Sulfa Antibiotics Edema Other 08/29/2019 documented as of this encounter (statuses as of 05/29/2023) Medications Medication Sig Dispensed Refills Start Date [...] as of this encounter (statuses as of 05/29/2023) Active Problems Problem Noted Date Diagnosed Date [...] as of this encounter (statuses as of 05/29/2023) Resolved Problems Problem Noted Date Diagnosed Date Resolved Date SLEEP APNEA, PRIMARY 03/26/2009 017 Overview: Refuses CPAP 06/15/09 ACUTE SINOBRONCHITIS 04/05/2002 007 ACUTE URI NOS 04/05/2002 05/07/2006 LEFT VENTRICULAR HYPERTROPHY 11/03/1998 10/01/2008 Overview: Per Heart Failure Taxonomy Protocol. documented as of this encounter (statuses as of 05/29/2023) Immunizations Name Administration Dates Next Due COVID-19 mRNA, LNP-s, No Pre serve, 2-Dose Series ([employer]) 12/15/2020,05/03/2020,04/07/2020 COVID-19, MRNA-LNP, 23-24, P F, 30 MCG/0.3 mL, 12 YRS AND ABOVE, IM ([facility]) 12/13/2022 Covid-19, Mrna, Lnp-s, Pf, B ivalent, [...] No 04/07/2021 documented as of this encounter Miscellaneous Notes * Telephone Encounter - Allison Marshall LPN - 05/29/2023 10:00 AM EDT Pt aware via myg * Telephone Encounter - Allison Marshall LPN - 05/29/2023 9:59 AM EDT ----- Message from Maria Luisa Espinosa MD sent at 05/28/2023 11:46 AM EDT ----- PET IMPRESSION Favorable response to therapy. No evidence of metastatic or recurrent disease. documented in this encounter Plan of Treatment Upcoming Encounters Date Type Department Care Team (Late st Contact Info) Description 05/30/2023 12:40 PM EDT Laboratory Laboratory, [facility] [address] [facility] [phone] [facility] [address] [facility] [address] 05/30/2023 2:30 PM EDT Hem/Onc Treatment Hematology/Oncology Treatment, [place] [address] [facility] [place] [phone] Yaz, Chair 9 Hem Onc [place] [address] [place] [address] 06/01/2023 1:00 PM EDT Office Visit Family Practice [facility] [address] [facility] [place] [address] Jhoana Evangelista CRNP 132 [facility] [place] [address] 06/04/2023 8:00 AM EDT Office Visit Hematology/Oncology [facility] [place] [address] [place] [phone] Maria Luisa Espinosa MD 200 [facility] [place] [address] 06/05/2023 1:50 PM EDT Office Visit Dermatology [facility], [place] [address] [facility] [place] [address] Sharon Younger PA-C [address] [facility] [place] [address] 06/19/2023 9:30 AM EDT Laboratory Laboratory [facility] [place] [address] [facility] [phone] Yaz, Lab Scenery [address] [facility] [place] [address] 06/19/2023 10:30 AM EDT Hem/Onc Treatment Hematology/Oncology Treatment, [place] [address] [place] [phone] Yaz, Chair 4 Hem Onc [place] [address] [place] [address] 08/31/2023 1:20 PM EDT Office Visit [facility] [address] [place] [address] Jhoana Evangelista CRNP [address] [place] [address] 12/13/2023 8:00 AM EDT Office Visit [facility] [address] [place] [address] Yon Burns, [address] [place] [address] 03/04/2024 10:00 AM EST Office Visit [facility] [address] [place] [address] Yon Burns, [address] [place] [address] Scheduled Procedures Name Priority Associated Diagnoses Date/Ti [...] 04/19/2023, , 04/21/2020, Additional history exists GFR 05/24/2024 05/25/2023, 04/0 10/2023, 04/25/2023, Additional history exists TSH 05/24/2024 05/25/2023, 04/0 10/2023, 04/25/2023, Additional history exists COLONOSCOPY-EVERY 5 YRS AGES [...] this encounter Medical Devices Implanted Type Area Rib Matcher And Fitter Device Identifier Shelf Expiration Date Model / Serial / Lot Port Implant W/8f Poly Cath - Sn/A - [id number] Implanted:Qty : 1 on 10/11/2022 by Hal Loza, at OR [facility] N/A: Chest CR BARD : PERIPHERAL VASCULAR N/A 06/12/2023 [id number] / N/A / [id number] Port Implant W/8f Poly Cath - [id number] Implanted:Qty : 1 on 10/11/2022 by Hal Loza DO at OR [facility] BARD : PERIPHERAL VASCULAR [id number] 06/12/2023 [id number] / / [id number] documented as of this encounter Advance Directives Latest Code Status on File Code Status Date Activated Date Inactivated Comments Full Code 08/08/2022 9:23 AM 08/08/2022 3:44 PM This order reflects the patients wishes and were consensually agreed upon. Question Answer Comments Discussion of Advance Directives occurred with: Patient Care Teams Police Matron Relationship Specialty Start Date End Date Yon Burns DO [address] [place] [address] PCP - General Family Medicine 07/13/20 documented as of this encounter
--- OUTSIDE RECORDS SUMMARY | 2023-06-04 20:00 | External Medical Summary | Summary of Care ---
Author Name Unknown Organization [facility] Address [address] [place] [address] Phone [phone] Care Team Providers Care Convenience Store Clerk Name Role Phone Yon Burns Primary Care Provider Reason for Visit * Reason Comments Outpatient Testing Encounter Details Date Type Department Care Team (Late st Contact Info) Description 05/30/2023 12:40 PM EDT Laboratory Laboratory, [facility] 132 [facility] [place] [phone] [facility] [address] [facility] [place] [address] Metastatic melanoma (HCC) Allergies Active Allergy Reactions [...] mRNA, LNP-s, No Pre serve, 2-Dose Series ([employer]) 12/15/2020,05/03/2020,04/07/2020 COVID-19, MRNA-LNP, 23-24, P F, 30 MCG/0.3 mL, 12 YRS AND ABOVE, IM ([employer]) 12/13/2022 Covid-19, Mrna, Lnp-s, Pf, B ivalent, [...] Team (Late st Contact Info) Description 05/30/2023 2:30 PM EDT Hem/Onc Treatment Hematology/Oncology Treatment, [place] [address] [place] [phone] Yaz, Chair 9 Hem Onc [place] [address] [place] [address] 06/01/2023 1:00 PM EDT Office Visit Family [facility] 132 [facility] [place] [address] Jhoana Evangelista CRNP [address] [place] [address] 06/04/2023 8:00 AM EDT Office Visit Hematology/Oncology [facility] [place] [address] [place] [phone] Maria Luisa Espinosa MD [address] [place] [address] 06/05/2023 1:50 PM EDT Office Visit Dermatology [facility], [place] [address] [place] [address] Sharon Younger PA-C [address] [facility] [place] [address] 06/19/2023 9:30 AM EDT Laboratory Laboratory [facility] [place] [address] [place] [phone] Yaz, Lab [facility] 200 [facility] [place] [address] 06/19/2023 10:30 AM EDT Hem/Onc Treatment Hematology/Oncology Treatment, [place] [address] [place] [phone] Yaz, Chair 4 Hem Onc [address] [place] [address] 08/31/2023 1:20 PM EDT Office Visit [facility] [address] [place] [address] Jhoana Evangelista CRNP [address] [place] [address] 12/13/2023 8:00 AM EDT Office Visit [facility] [address] [place] [address] Yon Burns, DO [address] [place] [address] 03/04/2024 10:00 AM EST Office Visit Family [facility] [address] [place] [address] Yon Burns, DO [address] [place] [address] Pending Results Name Type Priority Associated Diagnoses Date /Time COMPREHENSIVE METABOLIC PANEL Lab STAT Metastatic melanoma (HCC) 05/30/2023 12:54 PM EDT TSH WITH FREE T4 IF INDICATED Lab STAT Metastatic melanoma (HCC) 05/30/2023 12:54 PM EDT Scheduled Procedures Name Priority Associated Diagnoses [...] this encounter Medical Devices Implanted Type Area Maintainer Operator Device Identifier Shelf Expiration Date Model / Serial / Lot Port Implant W/8f Poly Cath - Sn/A - [id number] Implanted:Qty : 1 on 10/11/2022 by Hal Loza DO at OR [facility] N/A: Chest CR BARD : PERIPHERAL VASCULAR N/A 06/12/2023 [id number] / N/A / [id number] Port Implant W/8f Poly Cath - [id number] Implanted:Qty : 1 on 10/11/2022 by Hal Loza DO at OR [facility] CR BARD : PERIPHERAL VASCULAR [id number] 06/12/2023 [id number] / / [id number] documented as of this encounter Procedures Procedure Name Priority Date/Time Associated Diagnosis Comments DIFFERENTIAL, AUTOMATED STAT 05/30/2023 12:54 PM EDT Metastatic melanoma (HCC) CBC STAT 05/30/2023 12:54 PM EDT Metastatic melanoma (HCC) CBC STAT 05/30/2023 12:54 PM EDT Metastatic melanoma (HCC) documented in this encounter Results * (ABNORMAL) DIFFERENTIAL, AUTOMATED (05/30/2023 12:54 PM EDT) WBC 10.12 4.00 - 10.80 K/uL 05/30/2023 12:59 PM EDT LABORATORY [place] 57-10 Neutrophils % 60.0 40.0 - 75.0 % 05/30/2023 12:59 PM EDT LABORATORY [place] 57-10 Lymphocytes % 24.4 18.0 - 42.0 % 05/30/2023 12:59 PM EDT LABORATORY [place] 57-10 Monocytes % 4.3 1.0 - 11.0 % 05/30/2023 12:59 PM EDT LABORATORY [place] 57-10 Eosinophils % 11.0(H) 0.0 - 6.0 % 05/30/2023 12:59 PM EDT LABORATORY [place] 57-10 Basophils % 0.3 0.0 - 2.0 % 05/30/2023 12:59 PM EDT LABORATORY [place] 57-10 Absolute Neutrophils 6.07 1.80 - 7.70 K/uL 05/30/2023 12:59 PM EDT LABORATORY [place] 57-10 Absolute Lymphocytes 2.47 1.00 - 4.80 K/ul 05/30/2023 12:59 PM EDT LABORATORY [place] 57-10 Absolute Monocytes 0.44 0.00 - 1.10 K/uL 05/30/2023 12:59 PM EDT LABORATORY [place] 57-10 Absolute Eosinophils 1.11(H) 0.00 - 0.70 K/uL 05/30/2023 12:59 PM EDT LABORATORY [place] 57-10 Absolute Basophils 0.03 0.00 - 0.20 K/uL 05/30/2023 12:59 PM EDT LABORATORY [place] 57-10 Blood Venous blood specimen / Unknown Venipuncture / Unknown 05/30/2023 12:54 PM EDT 05/30/2023 12:54 PM EDT Maria Luisa Espinosa MD LAB BLOOD ORDERA BLES LABORATORY [place] 57-10 [address] [facility] [place] [address] * (ABNORMAL) CBC (05/30/2023 12:54 PM EDT) WBC 10.12 4.00 - 10.80 K/uL 05/30/2023 12:59 PM EDT LABORATORY [place] 57-10 RBC 3.18 4.50 - 5.25 M/uL 05/30/2023 12:59 PM EDT LABORATORY [place] 57-10 HGB 9.4(L) 14.0 - 16.8 g/dL 05/30/2023 12:59 PM EDT LABORATORY [place] 57-10 HCT 28.8(L) 40.0 - 48.4 % 05/30/2023 12:59 PM EDT LABORATORY [place] 57-10 MCV 90.6 82.0 - 99.5 fL 05/30/2023 12:59 PM EDT LABORATORY [place] 57-10 MCH 29.6 27.0 - 34.0 pg 05/30/2023 12:59 PM EDT LABORATORY [place] 57-10 MCHC 32.6 32.0 - 36.0 g/dL 05/30/2023 12:59 PM EDT LABORATORY [place] 57-10 RDW 16.8 11.5 - 15.5 % 05/30/2023 12:59 PM EDT LABORATORY [place] 57-10 PLT 430(H) 140 - 400 K/uL 05/30/2023 12:59 PM EDT LABORATORY [place] 57-10 MPV 7.5 6.6 - 11.1 fL 05/30/2023 12:59 PM EDT LABORATORY [place] 57-10 Blood Venous blood specimen / Unknown Venipuncture / Unknown 05/30/2023 12:54 PM EDT 05/30/2023 12:54 PM EDT Maria Luisa Espinosa MD LAB BLOOD ORDERA BLES LABORATORY [place] 57-10 [address] [place] [address] documented in this encounter Visit Diagnoses Diagnosis Metastatic melanoma (HCC) Melanoma of skin, site unspecified documented in this encounter Advance Directives Latest Code Status on File Code Status Date Activated Date Inactivated Comments Full Code 08/08/2022 9:23 AM 08/08/2022 3:44 PM This order reflects the patients wishes and were consensually agreed upon. Question Answer Comments Discussion of Advance Directives occurred with: Patient Care Teams Convenience Store Clerk Relationship Specialty Start Date End Date Yon Burns DO [address] [place] [address] PCP - General Family Medicine 07/13/20 documented as of this encounter
--- OUTSIDE RECORDS SUMMARY | 2023-06-04 20:00 | External Medical Summary ---
Author Name Unknown Address Unknown Organization [id number]:LABORATORY [facility] - [address] [place] [address] Laboratory Report Ordering Provider Test Date Status SHERI RENEE 05/25/2023 11:54:16 Final Observation Date Value Abnormality Reference (Units ) Status TSH 05/25/2023 11:54:16 27.49 Above high normal 0. 27-4.20 (uIU/mL) Final Performing Location LABORATORY [facility] - [address] [place] [address]
--- OUTSIDE RECORDS SUMMARY | 2023-06-04 20:00 | External Medical Summary ---
Author Name Unknown Address Unknown Organization K01:LABORATORY [facility] - [address] [place] [address] Laboratory Report Ordering Provider Test Date Status RENEE,MEMON 05/30/2023 12:54:17 Final Observation Date Value Abnormality Reference (Units ) Status TSH 05/30/2023 12:54:17 28.10 Above high normal 0. 27-4.20 (uIU/mL) Final Performing Location LABORATORY C - [address] [place] [address]
--- OUTSIDE RECORDS SUMMARY | 2023-06-04 20:00 | External Medical Summary ---
Author Name Unknown Address Unknown Organization [id number]:LABORATORY [facility] - [facility] [place] [address] Laboratory Report Ordering Provider Test Date Status SHERI RENEE 05/25/2023 11:54:16 Final Observation Date Value Abnormality Reference (Units ) Status WBC, Total 05/25/2023 11:54:16 7.37 4.00-10.80 (K/uL) Final RBC 05/25/2023 11:54:16 3.04 4.50-5.25 (M/uL) Final Hemoglobin 05/25/2023 11:54:16 9.0 Below low normal 14.0-16.8 (g/dL) Final HCT 05/25/2023 11:54:16 27.8 Below low normal 40.0-48.4 (%) Final MCV 05/25/2023 11:54:16 91.4 82.0-99.5 (fL) Final MCH 05/25/2023 11:54:16 29.6 27.0-34.0 (pg) Final MCHC 05/25/2023 11:54:16 32.4 32.0-36.0 (g/dL) Final RDW 05/25/2023 11:54:16 16.6 11.5-15.5 (%) Final Platelets 05/25/2023 11:54:16 423 Above high normal 140-400 (K/uL) Final MPV 05/25/2023 11:54:16 8.3 6.6-11.1 (fL) Final Nucleated erythrocytes/100 leukocytes [Ratio] in Blood by Automated count 05/25/2023 11:54:16 0 <=0 (/100 WBCs) Final Performing Location LABORATORY [facility] - [address] [place] [address]
--- OUTSIDE RECORDS SUMMARY | 2023-06-04 20:00 | External Medical Summary | Summary of Care ---
Author Name Unknown Organization [facility] Address [address] [place] [address] Phone [phone] Care Team Providers Care Poultry Boner Name Role Phone Yon Burns Primary Care Provider Encounter Details Date Type Department Care Team (Late st Contact Info) Description 05/30/2023 Orders Only Hematology/On[facility], [facility] [address] [place] [address] Maria Luisa Espinosa MD [address] [place] [address] Allergies Active Allergy Reactions Criticality [...] mRNA, LNP-s, No Pre serve, 2-Dose Series ([employer]) 12/15/2020,05/03/2020,04/07/2020 COVID-19, MRNA-LNP, 23-24, P F, 30 MCG/0.3 mL, 12 YRS AND ABOVE, IM ([employer]) 12/13/2022 Covid-19, Mrna, Lnp-s, Pf, B ivalent, [...] money to buy more. Never true 02/19/19 Within the past 12 months, t he [...] 1:00 PM EDT Office Visit Family Practice [facility] [address] [place] [address] Jhoana Evangelista CRNP [address] [place] [address] 06/04/2023 8:00 AM EDT Office Visit Hematology/Oncology [facility] [place] [address] [place] [phone] Maria Luisa Espinosa MD [address] [place], [place] [address] 06/05/2023 1:50 PM EDT Office Visit Dermatology [facility], [place] [address] [place] [address] Sharon Younger PA-C [address] [facility] [place] [address] 06/27/2023 12:40 PM EDT Laboratory Laboratory, [facility] [address] [place] [phone] Gary Combs [facility] [place] [address] 06/27/2023 2:00 PM EDT Hem/Onc Treatment Hematology/Oncology Treatment, [place] [address] [place], [place] [phone] Yaz, Chair 6 Hem Onc Scenery [address] [place], [place] [address] 08/31/2023 1:20 PM EDT Office Visit [facility] [address] [place] [address] Jhoana Evangelista CRNP [address] [place] [address] 12/13/2023 8:00 AM EDT Office Visit [facility] [address] [place] [address] Yon Burns DO [address] [place] [address] 03/04/2024 10:00 AM EST Office Visit [facility] [address] [place] [address] Yon Burns, DO [address] [place] [address] Scheduled Procedures Name Priority Associated Diagnoses Date/Ti [...] this encounter Medical Devices Implanted Type Area Sound Installation Worker Device Identifier Shelf Expiration Date Model / Serial / Lot Port Implant W/8f Poly Cath - Sn/A - [id number] Implanted:Qty : 1 on 10/11/2022 by Hal Loza DO at OR [facility] N/A: Chest CR BARD : PERIPHERAL VASCULAR N/A 06/12/2023 [id number] / N/A / [id number] Port Implant W/8f Poly Cath - [id number] Implanted:Qty : 1 on 10/11/2022 by Hal Loza DO at OR [facility] CR BARD : PERIPHERAL VASCULAR [id number] 06/12/2023 [id number] / / [id number] documented as of this encounter Advance Directives Latest Code Status on File Code Status Date Activated Date Inactivated Comments Full Code 08/08/2022 9:23 AM 08/08/2022 3:44 PM This order reflects the patients wishes and were consensually agreed upon. Question Answer Comments Discussion of Advance Directives occurred with: Patient Care Teams Poultry Boner Relationship Specialty Start Date End Date Yon Burns DO [address] [place] [address] PCP - General Family Medicine 07/13/20 documented as of this encounter
--- OUTSIDE RECORDS SUMMARY | 2023-06-04 20:01 | External Medical Summary | Summary of Care ---
Author Name Unknown Organization [facility] Address [address] [place] [address] Phone [phone] Care Team Providers Care Valet Parking Attendant Name Role Phone Yon Burns Primary Care Provider Reason for Visit * Reason Comments Outpatient Testing Encounter Details Date Type Department Care Team (Late st Contact Info) Description 05/22/2023 9:30 AM EDT Laboratory Laboratory [facility] [address] [place] [phone] [facility] 200 [facility] [place] [place] [address] Metastatic melanoma (HCC) Allergies Active Allergy Reactions Criticality Noted Date Comments Bactrim 02/16/2010 Sulfa Antibiotics Edema Other 08/29/2019 documented as of this encounter (statuses as of 05/22/2023) Medications Medication Sig Dispensed Refills Start Date End Date Status Lidocaine-Prilocai ne 2.5-2.5 % External Cream (Emla)Indications: Metastatic melanoma (HCC) APPLY TO SKIN OVER MEDIPORT & COVER 1HR PRIOR TO ACCESSING. 30 g 1 09/20/2022 Active Sotalol HCl 80 MG Oral Tablet (Betapace) Take 1 Tablet by mouth in the morning and 1 Tablet before bedtime. 68 Tablet 11 01/15/2023 Active Additional Information Patient not taking.Reported on 04/23/2023 Atorvastatin Calcium 20 MG Oral Tablet (Lipitor) TAKE ONE TABLET BY MOUTH EVERY DAY 90 Tablet 1 01/29/2023 Active Additional Information Patient not taking.Reported on 04/23/2023 Xarelto 20 MG Oral Tablet (Rivaroxaban)Indic ations:Paroxysmal atrial flutter (HCC) TAKE ONE TABLET BY MOUTH EVERY DAY WITH DINNER 90 Tablet 3 02/19/2023 Active metFORMIN HCl 500 MG Oral Tablet (Glucophage) TAKE ONE TABLET BY MOUTH TWICE A DAY (MORNING AND EVENING MEALS) 180 Tablet 1 02/19/2023 Active Additional Information Patient not taking.Reported on 04/23/2023 Lisinopril 5 MG Oral Tablet (Prinivil) Take 1 Tablet by mouth in the morning. 90 Tablet 3 02/28/2023 Active Additional Information Patient not taking.Reported on 04/23/2023 Levothyroxine Sodium 100 MCG Oral Tablet (Levoxyl)Indicatio ns:Hypothyroidism due to medication Take 1 Tablet by mouth in the morning. (at least 30 min prior to breakfast or other meds). 90 Tablet 3 02/28/2023 Active documented as of this encounter (statuses as of 05/22/2023) Active Problems Problem Noted Date Diagnosed Date Metastatic melanoma 09/16/2022 Mass of right forearm [...] as of this encounter (statuses as of 05/22/2023) Resolved Problems Problem Noted Date Diagnosed Date Resolved Date SLEEP APNEA, PRIMARY 03/26/2009 017 Overview: Refuses CPAP 06/15/09 ACUTE SINOBRONCHITIS 04/05/2002 007 ACUTE URI NOS 04/05/2002 05/07/2006 LEFT VENTRICULAR HYPERTROPHY 11/03/1998 10/01/2008 Overview: Per Heart Failure Taxonomy Protocol. documented as of this encounter (statuses as of 05/22/2023) Immunizations Name Administration Dates Next Due COVID-19 mRNA, LNP-s, No Pre serve, 2-Dose Series (Pfizer) 12/15/2020,05/03/2020,04/07/2020 COVID-19, MRNA-LNP, 23-24, P F, 30 MCG/0.3 mL, 12 YRS AND ABOVE, IM (PFIZER-Comirnaty) 12/13/2022 Covid-19, Mrna, Lnp-s, Pf, B ivalent, [...] Care Team (Late st Contact Info) Description 05/22/2023 10:30 AM EDT Hem/Onc Treatment Hematology/Oncology Treatment, [place] [address] [place] [phone] Yaz, Chair 9 Hem Onc Scenery [address] [facility] [place] [address] Arrived 05/23/2023 9:00 AM EDT Office Visit [facility] [address] [place] [address] Yon Burns DO [address] [place] [address] 05/25/2023 9:45 AM EDT Imaging Radiology, [facility] [address] [place] [address] 06/01/2023 1:00 PM EDT Office Visit [facility] [address] [place] [address] Jhoana Evangelista CRNP [address] [place] [address] 06/04/2023 8:00 AM EDT Office Visit Hematology/Oncology [facility] Yaz [place] [address] [place] [phone] Maria Luisa Espinosa MD [address] [place] [address] 06/05/2023 1:50 PM EDT Office Visit Dermatology [facility] [place] [address] [place] [address] Sharon Younger PA-C [address] [place] [address] 06/19/2023 9:30 AM EDT Laboratory Laboratory [facility] Yaz [place] [address] [place] [phone] Yaz Lab [facility] [address] [place] [address] 06/19/2023 10:30 AM EDT Hem/Onc Treatment Hematology/Oncology Treatment, [place] [address] [place] [phone] Yaz, Chair 11 Hem Onc [facility] [address] [place] [address] 08/31/2023 1:20 PM EDT Office Visit [facility] [address] [place] [address] Jhoana Evangelista CRNP [address] [place] [address] 12/13/2023 8:00 AM EDT Office Visit [facility] [address] [place] [address] Yon Burns, DO [address] [place] [address] 03/04/2024 10:00 AM EST Office Visit [facility] [address] [place] [address] Yon Burns, DO [address] [place] [address] Pending Results Name Type Priority Associated Diagnoses Date /Time COMPREHENSIVE METABOLIC PANEL Lab STAT Metastatic melanoma (HCC) 05/22/2023 10:01 AM EDT TSH WITH FREE T4 IF INDICATED Lab STAT Metastatic melanoma (HCC) 05/22/2023 10:01 AM EDT Scheduled Procedures Name Priority Associated Diagnoses Date/Ti me COLONOSCOPY FLEXIBLE PROXIMAL DIAGNOSTIC Recall History of colon polyps Health Maintenance Due Date Last Done Comments B-12 01/18/2023 01/18/2022, 04/05/2020 Depression Screening 08/01/2023 07/31/2022 Diabetic Foot Exam 08/01/2023 07/31/2022, 0 07/21/2021, 04/05/2020, Additional history exists HbA1c 09/03/2023 03/05/2023, 08/13, 01/18/2022, Additional history exists Albumin/Creatinine Ratio 03/15/2024 024, 09/08/2022, 01/18/2022, Additional history exists Diabetic Eye Exam 04/18/2024 04/19/2023, , 04/21/2020, Additional history exists GFR 04/24/2024 04/25/2023, 02/0 02/2023, 02/14/2023, Additional history exists TSH 04/24/2024 04/25/2023, 02/0 02/2023, 02/14/2023, Additional history exists COLONOSCOPY-EVERY 5 YRS AGES [...] this encounter Medical Devices Implanted Type Area 4Th Grade Teacher Device Identifier Shelf Expiration Date Model / Serial / Lot Port Implant W/8f Poly Cath - Sn/A - [id number] Implanted:Qty : 1 on 10/11/2022 by Hal Loza DO at OR [facility] N/A: Chest CR BARD : PERIPHERAL VASCULAR N/A 06/12/2023 [id number] / N/A / [id number] Port Implant W/8f Poly Cath - [id number] Implanted:Qty : 1 on 10/11/2022 by Hal Loza DO at OR [facility] BARD : PERIPHERAL VASCULAR [id number] 06/12/2023 [id number] / / [id number] documented as of this encounter Procedures Procedure Name Priority Date/Time Associated Diagnosis Comments DIFFERENTIAL, AUTOMATED STAT 05/22/2023 10:01 AM EDT Metastatic melanoma (HCC) CBC STAT 05/22/2023 10:01 AM EDT Metastatic melanoma (HCC) CBC STAT 05/22/2023 10:01 AM EDT Metastatic melanoma (HCC) documented in this encounter Results * (ABNORMAL) DIFFERENTIAL, AUTOMATED (05/22/2023 10:01 AM EDT) WBC 10.18 4.00 - 10.80 K/uL 05/22/2023 10:05 AM EDT [facility] [place] 56-02 Neutrophils % 56.8 40.0 - 75.0 % 05/22/2023 10:05 AM EDT [facility] [place] 56-02 Lymphocytes % 24.5 18.0 - 42.0 % 05/22/2023 10:05 AM EDT [facility] [place] 56-02 Monocytes % 6.3 1.0 - 11.0 % 05/22/2023 10:05 AM EDT [facility] [place] 56-02 Eosinophils % 12.3(H) 0.0 - 6.0 % 05/22/2023 10:05 AM EDT [facility] [place] 56-02 Basophils % 0.1 0.0 - 2.0 % 05/22/2023 10:05 AM EDT [facility] [place] 56-02 Absolute Neutrophils 5.79 1.80 - 7.70 K/uL 05/22/2023 10:05 AM EDT [facility] [place] 56-02 Absolute Lymphocytes 2.49 1.00 - 4.80 K/ul 05/22/2023 10:05 AM EDT [facility] [place] 56-02 Absolute Monocytes 0.64 0.00 - 1.10 K/uL 05/22/2023 10:05 AM EDT [facility] [place] 56-02 Absolute Eosinophils 1.25(H) 0.00 - 0.70 K/uL 05/22/2023 10:05 AM EDT [facility] 56- Absolute Basophils 0.01 0.00 - 0.20 K/uL 05/22/2023 10:05 AM [facility] 56 Blood Venous blood specimen / Unknown Venipuncture / Unknown 05/22/2023 10:01 AM EDT 05/22/2023 10:01 AM EDT Maria Luisa Espinosa MD LAB BLOOD [facility] [address] [place] [address] * (ABNORMAL) CBC (05/22/2023 10:01 AM EDT) WBC 10.18 4.00 - 10.80 K/uL 05/22/2023 10:05 AM [place] [address] RBC 2.82 4.50 - 5.25 M/uL 05/22/2023 10:05 AM [facility] 56 HGB 8.1(L) 14.0 - 16.8 g/dL 05/22/2023 10:05 AM [facility] 56 HCT 26.2(L) 40.0 - 48.4 % 05/22/2023 10:05 AM [facility] 56 MCV 92.9 82.0 - 99.5 fL 05/22/2023 10:05 AM [facility] 56- MCH 28.7 27.0 - 34.0 pg 05/22/2023 10:05 AM [facility] 56 MCHC 30.9 32.0 - 36.0 g/dL 05/22/2023 10:05 AM [facility] 56 RDW 16.6 11.5 - 15.5 % 05/22/2023 10:05 AM [facility] 56 PLT 418(H) 140 - 400 K/uL 05/22/2023 10:05 AM [facility] 56 MPV 7.6 6.6 - 11.1 fL 05/22/2023 10:05 AM [place] [address]- Blood Venous blood specimen / Unknown Venipuncture / Unknown 05/22/2023 10:01 AM EDT 05/22/2023 10:01 AM EDT Maria Luisa Espinosa MD LAB BLOOD ORDERA BLES [facility] 56- [address] [place] [address] documented in this encounter Visit Diagnoses Diagnosis [...] Advance Directives occurred with: Patient Care Teams Valet Parking Attendant Relationship Specialty Start Date End Date Yon Burns DO [address] [place] [address] [place] [address] PCP - General Family Medicine 07/13/20 documented as of this encounter
--- OUTSIDE RECORDS SUMMARY | 2023-06-04 20:01 | External Medical Summary | Summary of Care ---
Author Name Unknown Organization [facility] Address [address] [place] [address] Phone [phone] Care Team Providers Care Immunopathologist Name Role Phone Yon Burns Primary Care Provider Encounter Details Date Type Department Care Team (Late st Contact Info) Description 05/22/2023 Orders Only Hematology/Oncology [facility] 200 [facility] [place] [phone] Maria Luisa Espinosa MD [address] [facility] [place] [address] Allergies Active Allergy Reactions Criticality Noted Date [...] mRNA, LNP-s, No Pre serve, 2-Dose Series ([employer]) 12/15/2020,05/03/2020,04/07/2020 COVID-19, MRNA-LNP, 23-24, P F, 30 MCG/0.3 mL, 12 YRS AND ABOVE, IM (PFIZER-Comirnat[employer]) 12/13/2022 Covid-19, Mrna, Lnp-s, Pf, B ivalent, [...] Care Team (Late st Contact Info) Description 05/23/2023 9:00 AM EDT Office Visit Family Practice [facility] [address] [place] [address] Yon Burns, 132 [place] [address] 05/24/2023 1:50 PM EDT Laboratory Laboratory [facility] [place] [address] [facility] [place] [phone] Cynthia Lab [facility] 8 [facility] [place] [address] 05/25/2023 9:45 AM EDT Imaging Radiology, [facility] [address] [place] [phone] 05/30/2023 12:40 PM EDT Laboratory Laboratory, [facility] 132 [facility] [phone] [facility] [address] [facility] [place] [address] 05/30/2023 2:30 PM EDT Hem/Onc Treatment Hematology/Oncology Treatment, [place] 200 [facility] [phone] Yaz, Chair 3 Hem On[address] [place] [address] 06/01/2023 1:00 PM EDT Office Visit Family Practice [facility] 132 [facility] [place] [address] Jhoana Evangelista CRNP 132 [facility] [address] 06/04/2023 8:00 AM EDT Office Visit Hematology/Oncology [facility] [address] [place] [phone] Maria Luisa Espinosa MD [address] [place] [address] 06/05/2023 1:50 PM EDT Office Visit Dermatology [address], [place] [address] [facility] [place] [address] Sharon Younger PA-C [address] [facility] [place] [address] 06/19/2023 9:30 AM EDT Laboratory Laboratory [facility] [address] [place] [phone] Yaz, Lab Scenery [address] [facility] [place] [address] 06/19/2023 10:30 AM EDT Hem/Onc Treatment Hematology/Oncology Treatment, [place] [address] [place] [phone] Yaz, Chair 11 Hem Onc Scenery [address] [place] [address] 08/31/2023 1:20 PM EDT Office Visit [facility] [address] [place] [address] Jhoana Evangelista CRNP [address] [place] [address] 12/13/2023 8:00 AM EDT Office Visit [facility] [address] [place] [address] Yon Burns, 132 [place] [address] 03/04/2024 10:00 AM EST Office Visit [facility] [address] [place] [address] Yon Burns, [address] [place] [address] Scheduled Procedures Name Priority Associated Diagnoses Date/Ti [...] 04/19/2023, , 04/21/2020, Additional history exists TSH 04/24/2024 04/25/2023, 020 02/2023, 02/14/2023, Additional history exists GFR 05/21/2024 05/22/2023, 04/12, [...] this encounter Medical Devices Implanted Type Area Promotions Producer Device Identifier Shelf Expiration Date Model / Serial / Lot Port Implant W/8f Poly Cath - Sn/A - [id number] Implanted:Qty : 1 on 10/11/2022 by Hal Loza DO at OR [facility] N/A: Chest CR BARD : PERIPHERAL VASCULAR N/A 06/12/2023 [id number] / N/A / [id number] Port Implant W/8f Poly Cath - [id number] Implanted:Qty : 1 on 10/11/2022 by Hal Loza DO at OR [facility] CR BARD : PERIPHERAL VASCULAR [id number] 06/12/2023 [id number] / / [id number] documented as of this encounter Advance Directives Latest Code Status on File Code Status Date Activated Date Inactivated Comments Full Code 08/08/2022 9:23 AM 08/08/2022 3:44 PM This order reflects the patients wishes and were consensually agreed upon. Question Answer Comments Discussion of Advance Directives occurred with: Patient Care Teams Immunopathologist Relationship Specialty Start Date End Date Yon Burns DO [address] [place] [address] PCP - General Family Medicine 07/13/20 documented as of this encounter
--- OUTSIDE RECORDS SUMMARY | 2023-06-04 20:01 | External Medical Summary | Summary of Care ---
Author Name Unknown Organization [facility] Address [address] [place] [facility] [place] [address] Phone [phone] Care Team Providers Care Military Aircraft Designer Name Role Phone Yon Burns DO Primary Care Provider Reason for Visit * Reason Onset Date Comments Appointment 02/20/2023 Encounter Details Date Type Department Care Team (Late st Contact Info) Description 02/20/2023 Telephone Family Practice [facility] [address] [place] [address] Yon Burns DO [address] [place] [address] Appointment Allergies Active Allergy Reactions Criticality Noted Date Comments Bactrim 02/16/2010 Sulfa Antibiotics Edema Other 08/29/2019 documented as of this encounter (statuses as of 05/22/2023) Medications Medication Sig Dispensed Refills Start Date End Date Status Lidocaine-Priloca ine 2.5-2.5 % External Cream (Emla)Indications :Metastatic melanoma (HCC) APPLY TO SKIN OVER MEDIPORT [...] on 04/23/2023 Xarelto 20 MG Oral Tablet (Rivaroxaban)Thelma cations:Paroxysma l atrial flutter (HCC) TAKE ONE TABLET BY MOUTH EVERY DAY WITH DINNER 90 Tablet 3 02/19/2023 Active metFORMIN HCl 500 MG Oral Tablet (Glucophage) TAKE ONE TABLET BY MOUTH TWICE A DAY (MORNING AND EVENING MEALS) 180 Tablet 1 02/19/2023 Active Additional Information Patient not taking.Reported on 04/23/2023 Trulicity 1.5 MG/0.5ML Subcutaneous Solution Pen-injector (Dulaglutide) Inject 1.5 mg under the skin once a week. 9 mL 5 03/08/2022 02/28/19 24 Discontinued Levothyroxine Sodium 75 MCG Oral Tablet (Levoxyl)Indicati ons:Hypothyroidis m due to medication Take 1 Tablet by mouth daily first thing in the morning. (at least 30 min prior to breakfast or other meds) 30 Tablet 2 01/10/2023 02/28/19 24 Discontinued Lisinopril 20 MG Oral Tablet (Prinivil) TAKE ONE TABLET BY MOUTH EVERY MORNING 90 Tablet 1 01/29/2023 02/28/19 24 Discontinued documented as of this encounter (statuses as [...] mRNA, LNP-s, No Pre serve, 2-Dose Series (Scaffold) 12/15/2020,05/03/2020,04/07/2020 COVID-19, MRNA-LNP, 23-24, P F, 30 MCG/0.3 mL, 12 YRS AND ABOVE, IM ([employer]-ComirnatP21) 12/13/2022 Covid-19, Mrna, Lnp-s, Pf, B ivalent, [...] encounter Miscellaneous Notes * Telephone Encounter - Yon Burns DO - 02/20/2023 11:50 AM EST Yes ok to get in with AP in meantime Then f/u with me * Telephone Encounter - Lars Naylor OSA - 02/20/2023 10:59 AM EST Nothing sooner with Dr. Burns, ok to offer AP in the meantime? Please advise * Telephone Encounter - Bozena Meadows [facility] - 02/20/2023 9:20 AM EST Patient cannot get in for appt today due to weather. Can someone please contact them about getting in sooner rather then later. Next opening is November with Yon Burns. documented in this encounter Plan of Treatment Upcoming Encounters Date Type Department Care Team (Late st Contact Info) Description 05/23/2023 9:00 AM EDT Office Visit Family Practice [facility] [address] [place] [address] Yon Burns DO [address] [place] [address] 05/24/2023 1:50 PM EDT Laboratory Laboratory [place] Cynthia Woodard [address] [place] [phone] Gary Marie [place] V[place] [address] [place] [address] 05/25/2023 9:45 AM EDT [facility], [facility] [address] [place] [address] [place] [address] 05/30/2023 12:40 PM EDT Laboratory Laboratory, [facility] [address] [place] [phone] Gary Combs [facility] [address] [place] [address] 05/30/2023 2:30 PM EDT Hem/Onc Treatment Hematology/Oncology Treatment, [place] 200 [facility] [phone] Yaz, Chair 3 Hem Onc Scenery 200 [facility] [place] [address] 06/01/2023 1:00 PM EDT Office Visit [facility] [address] [place] [address] Jhoana Evangelista CRNP [address] [place] [address] 06/04/2023 8:00 AM EDT Office Visit Hematology/Oncology [facility] [place] [address] [place] [phone] Maria Luisa Espinosa MD 200 [facility] [place] [address] 06/05/2023 1:50 PM EDT Office Visit Dermatology [facility] [address] [place] [address] Sharon Younger PA-C [address] [place] [address] 06/19/2023 9:30 AM EDT Laboratory Laboratory [facility] Yaz [place] [address] [place] [address] [phone] Yaz, Lab Scene [address] [place] [address] 06/19/2023 10:30 AM EDT Hem/Onc Treatment Hematology/Oncology Treatment, [place] 200 [facility] [place] [phone] Yaz, Chair 11 Hem Onc Scenery [address] [place] [address] [address] 08/31/2023 1:20 PM EDT Office Visit [facility] [address] [place], [place] [address] Jhoana Evangelista CRNP [address] [place] [address] 12/13/2023 8:00 AM EDT Office Visit [facility] [address] [place] [address] Yon Burns, DO [address] [place] [address] 03/04/2024 10:00 AM EST Office Visit [facility] [address] [place] [address] Yon Burns, [address] [place] [address] Scheduled Procedures Name Priority Associated Diagnoses Date/Ti [...] 04/21/2020, Additional history exists TSH 04/24/2024 04/25/2023, 02/0 02/2023, 02/14/2023, Additional history exists GFR 05/21/2024 [...] this encounter Medical Devices Implanted Type Area Bank Reconciliator Device Identifier Shelf Expiration Date Model / Serial / Lot Port Implant W/8f Poly Cath - Sn/A - [id number] Implanted:Qty : 1 on 10/11/2022 by Hal Loza DO at OR [facility] N/A: Chest CR BARD : PERIPHERAL VASCULAR N/A 06/12/2023 [id number] / N/A / [id number] Port Implant W/8f Poly Cath - [id number] Implanted:Qty : 1 on 10/11/2022 by aHl Loza DO at OR [facility] CR BARD : PERIPHERAL VASCULAR [id number] 06/12/2023 [id number] / / [id number] documented as of this encounter Advance Directives Latest Code Status on File Code Status Date Activated Date Inactivated Comments Full Code 08/08/2022 9:23 AM 08/08/2022 3:44 PM This order reflects the patients wishes and were consensually agreed upon. Question Answer Comments Discussion of Advance Directives occurred with: Patient Care Teams Military Aircraft Designer Relationship Specialty Start Date End Date Yon Burns DO [address] [place] [address] PCP - General Family Medicine 07/13/20 documented as of this encounter
--- OUTSIDE RECORDS SUMMARY | 2023-06-04 20:01 | External Medical Summary | Summary of Care ---
Author Name Unknown Organization [facility] Address [address] [place] [address] Phone [phone] Care Team Providers Care Advertising Sales Assistant Name Role Phone BurnsElliotr Cheryl Primary Care Provider Encounter Details Date Type Department Care Team (Late st Contact Info) Description 02/15/2023 Telephone Hematology/Oncology Treatment, [place] [address] [place] [address] Maria Luisa Espinosa MD [address] [place] [address] Allergies Active Allergy Reactions Criticality Noted Date Comments Bactrim 02/16/2010 Sulfa Antibiotics Edema Other 08/29/2019 documented as of this encounter (statuses as of 05/17/2023) Medications Medication Sig Dispensed Refills Start Date [...] EVERY DAY WITH DINNER 90 Tablet 3 02/08/2022 02/19/19 24 Discontinued Trulicity 1.5 MG/0.5ML Subcutaneous Solution Pen-injector (Dulaglutide) Inject 1.5 mg under the skin once a week. 9 mL 5 03/08/2022 02/28/19 24 Discontinued metFORMIN HCl 500 MG Oral Tablet (Glucophage) TAKE ONE TABLET BY MOUTH TWICE A DAY (MORNING AND EVENING MEALS) 180 Tablet 1 08/23/2022 02/19/19 24 Discontinued Levothyroxine Sodium 75 MCG Oral [...] as of this encounter (statuses as of 05/17/2023) Active Problems Problem Noted Date Diagnosed Date [...] as of this encounter (statuses as of 05/17/2023) Resolved Problems Problem Noted Date Diagnosed Date Resolved Date SLEEP APNEA, PRIMARY 03/26/2009 017 Overview: Refuses CPAP 06/15/09 ACUTE SINOBRONCHITIS 04/05/2002 007 ACUTE URI NOS 04/05/2002 05/07/2006 LEFT VENTRICULAR HYPERTROPHY 11/03/1998 10/01/2008 Overview: Per Heart Failure Taxonomy Protocol. documented as of this encounter (statuses as of 05/17/2023) Immunizations Name Administration Dates Next Due COVID-19 mRNA, LNP-s, No Pre serve, 2-Dose Series ([employer]) 12/15/2020,05/03/2020,04/07/2020 COVID-19, MRNA-LNP, 23-24, P F, 30 MCG/0.3 mL, 12 YRS AND ABOVE, IM ([employer]) 12/13/2022 Covid-19, Mrna, Lnp-s, Pf, B ivalent, 30 Mcg, IM, 12 yrs and above ([employer]) 01/26/2022 H1N1 2009 Influenza, IM 03/15/2009 Pneumococcal [...] encounter Miscellaneous Notes * Telephone Encounter - Musa Nolan DO - 02/16/2023 9:12 AM EST Patient can reduce lisinopril to 10 mg daily until he is evaluated by primary care. Recommend continuing current dose of sotalol. * Telephone Encounter - Sandy Finney RN - 02/15/2023 4:19 PM EST Patient was at facility today for nivolumab (Opdivo) treatment. Patient has really been complaining of a lot of fatigue and some other side effects since starting his treatments. See my previous notes for further details on side effects/etc. Looking back at his BPs, it seems to be running lower than it used to -- it looks he is on 20 mg lisinopril in AM and 80 mg sotalol BID for his a-fib. I just wanted to bring this up since BP today is 97/63 with HR in low 50s. Patient did also mentionto me that he was unsure if he took his BP medication today yet. He had mentioned that his Sotalol dose was decreased about 1 month ago d/t his low HR (in 40s). SBP for patient used to run 120-150s. BP has been down-trending since starting tx it seems. Patient is also now on 75 mcg levothyroxine, had been on 50 mcg and was increased to 75 mcg on 01/10. Patient did say he felt just a little betterwhen this was increased. However, he still has been extremely fatigued and I wanted to mention the above to see if there would be anything we could change for him moving forward, since it seems several things have changed since he started his immunotherapy tx. I did tell the patient to monitor his BP at home since he did say he does not usually check his BP and does take BP medication. Dr. Burns: Patient has a f/u with you on 02/20 and it looks like you manage his lisinopril. Just an FYI of the above noted. I did tell patient to mention this to you at the appointment as well. Dr. Nolan: It looks like patient's sotalol is managed by you and he does not have a cardiology appt until 03/20 with Stephanie Patrick, FELICITA if anything would need adjusted. documented in this encounter Plan of Treatment Upcoming Encounters Date Type Department Care Team (Late st Contact Info) Description 05/22/2023 9:30 AM EDT Laboratory Laboratory [facility] Yaz [place] [address] [place] [phone] Gary Mukherjee [address] [facility] [place] [address] 05/22/2023 10:30 AM EDT Hem/Onc Treatment Hematology/Oncology Treatment, [place] [address] [place] [phone] Yaz, Chair 9 Hem Onc Scenery [address] [place] [address] 05/25/2023 9:45 AM EDT Imaging Radiology, [address] [place] [address] 06/01/2023 1:00 PM EDT Office Visit [facility] [address] [place] [address] Jhoana Evangelista CRNP [address] [place] [address] 06/04/2023 8:00 AM EDT Office Visit Hematology/Oncology [facility] Yaz [place] [address] [place] [phone] Maria Luisa Espinosa MD [address] [place] [address] 06/05/2023 1:50 PM EDT Office Visit Dermatology [facility] [place] [address] [place] [address] Sharon Younger PA-C [address] [facility] [place] [address] 06/19/2023 9:30 AM EDT Laboratory Laboratory [facility] Yaz [place] [address] [place] [phone] Gary Mukherjee [address] [facility] [place] [address] 06/19/2023 10:30 AM EDT Hem/Onc Treatment Hematology/Oncology Treatment, [place] [address] [place] [phone] Park, Chair 11 Hem Onc Scene 200 [facility] [place] [address] 08/31/2023 1:20 PM EDT Office Visit [facility] [address] [place] [address] Jhoana Evangelista CRNP [address] [place] [address] 12/13/2023 8:00 AM EDT Office Visit [facility] [address] [place] [address] Yon Burns, DO [address] [place] [address] 03/04/2024 10:00 AM EST Office Visit [facility] [address] [place] [address] Yon Burns, DO [address] [place] [address] Scheduled Procedures Name Priority Associated Diagnoses Date/Ti [...] 02/14/2023, Additional history exists TSH 04/24/2024 04/25/2023, 020 02/2023, 02/14/2023, Additional history exists COLONOSCOPY-EVERY 5 [...] this encounter Medical Devices Implanted Type Area Director Of Industrial Relations Device Identifier Shelf Expiration Date Model / Serial / Lot Port Implant W/8f Poly Cath - Sn/A - [id number] Implanted:Qty : 1 on 10/11/2022 by Hal Loza, at OR [facility] N/A: Chest CR BARD : PERIPHERAL VASCULAR N/A 06/12/2023 [id number] / N/A / [id number] Port Implant W/8f Poly Cath - [id number] Implanted:Qty : 1 on 10/11/2022 by Hal Loza DO at OR [facility] BARD : PERIPHERAL VASCULAR [id number] 06/12/2023 [id number] / / [id number] documented as of this encounter Advance Directives Latest Code Status on File Code Status Date Activated Date Inactivated Comments Full Code 08/08/2022 9:23 AM 08/08/2022 3:44 PM This order reflects the patients wishes and were consensually agreed upon. Question Answer Comments Discussion of Advance Directives occurred with: Patient Care Teams Advertising Sales Assistant Relationship Specialty Start Date End Date Yon Burns DO [address] [place] [address] PCP - General Family Medicine 07/13/20 documented as of this encounter
--- OUTSIDE RECORDS SUMMARY | 2023-06-04 20:01 | External Medical Summary | Summary of Care ---
Author Name Unknown Organization [facility] Address [address] [facility] [address] Phone [phone] Care Team Providers Care Joint Sealer Name Role Phone Yon Burns Primary Care Provider Reason for Visit * Reason Onset Date Comments Hospital Follow-Up 05/21/2023 [facility] 05/17 Encounter Details Date Type Department Care Team (Late st Contact Info) Description 05/21/2023 Telephone Ancillary [facility] [address] [place] [address] Iwona Saldana, RN Hospital Follow-Up ([facility] 05/17) Allergies Active Allergy Reactions Criticality Noted Date [...] mRNA, LNP-s, No Pre serve, 2-Dose Series ([employer]) 12/15/2020,05/03/2020,04/07/2020 COVID-19, MRNA-LNP, 23-24, P F, 30 MCG/0.3 mL, 12 YRS AND ABOVE, IM ([employer]) 12/13/2022 Covid-19, Mrna, Lnp-s, Pf, B ivalent, [...] encounter Miscellaneous Notes * Telephone Encounter - Iwona Saldana RN - 05/22/2023 3:21 PM EDT Transitions of Care Note Reason for Referral:Recent Admission Phone visit for follow up: FREDDY Admitted to: [facility], Date: 05/12 Discharged to: home, Date: 05/17 Diagnosis driving hospitalization: Right knee hemarthrosis Pt has been at for Chemo this afternoon so myg sent in lieu of calling. * Telephone Encounter - Iwona Saldana RN - 05/21/2023 3:08 PM EDT Transitions of Care Note Reason for Referral:Recent Admission Phone visit for follow up: FREDDY Admitted to: [facility], Date: 05/12 Discharged to: home, Date: 05/17 Diagnosis driving hospitalization: Right knee hemarthrosis Message left on voicemail. If he reaches the call center he can be transferred to dc at [phone]. Thank you documented in this encounter Plan of Treatment Upcoming Encounters Date Type Department Care Team (Late st Contact Info) Description 05/23/2023 9:00 AM EDT Office Visit Family Practice [facility] [address] [place] [address] Yon Burns DO [address] [place] [address] 05/24/2023 1:50 PM EDT Laboratory Laboratory [address], [place] [address] [facility] [place] [address] Gary Marie [facility] [address] [facility] [place] [address] 05/25/2023 9:45 AM EDT Imaging Radiology, [place] [address] [place] [address] [place] [address] 05/30/2023 12:40 PM EDT Laboratory Laboratory, [facility] [address] [place] [phone] Gary Combs [facility] [place] [address] 05/30/2023 2:30 PM EDT Hem/Onc Treatment Hematology/Oncology Treatment, [place] [address] [place] [phone] Yaz, Chair 3 Hem Onc Scenery [address] [place] [address] 06/01/2023 1:00 PM EDT Office Visit [facility] 132 [facility] [place] [address] Jhoana Evangelista CRNP 132 [facility] [place] [address] 06/04/2023 8:00 AM EDT Office Visit Hematology/Oncology [facility] Yaz [place] [address] [place] [phone] Maria Luisa Espinosa MD [address] [place] [address] 06/05/2023 1:50 PM EDT Office Visit Dermatology [facility] [place] [address] [place] [address] hSaron Younger PA-C [address] [place] [address] 06/19/2023 9:30 AM EDT Laboratory Laboratory [facility] [place] [address] [place] [phone] Yaz, Lab [facility] [address] [facility] [place] [address] 06/19/2023 10:30 AM EDT Hem/Onc Treatment [facility]ematology[facility]cology Treatment, [place] [facility] [phone] Yaz, Chair 11 Hem Onc Scenery [address] [place] [address] 08/31/2023 1:20 PM EDT Office Visit [facility] 132 [facility] [place] [address] Jhoana Evangelista CRNP [address] [place] [address] 12/13/2023 8:00 AM EDT Office Visit [facility] [address] [place] [address] Yon Burns, [address] [place] [address] 03/04/2024 10:00 AM EST Office Visit [facility] [address] [place] [address] Yon Burns, DO [address] [place] [address] Scheduled Procedures Name Priority Associated Diagnoses Date/Ti [...] 04/21/2020, Additional history exists TSH 04/24/2024 04/25/2023, 02/2023, 02/14/2023, Additional history exists GFR 05/21/2024 [...] this encounter Medical Devices Implanted Type Area Facilities Maintenance Technician Device Identifier Shelf Expiration Date Model / Serial / Lot Port Implant W/8f Poly Cath - Sn/A - [id number] Implanted:Qty : 1 on 10/11/2022 by Hal Loza DO at OR [facility] N/A: Chest CR BARD : PERIPHERAL VASCULAR N/A 06/12/2023 [id number] / N/A / [id number] Port Implant W/8f Poly Cath - [id number] Implanted:Qty : 1 on 10/11/2022 by Hal Loza DO at OR [facility] CR BARD : PERIPHERAL VASCULAR [id number] 06/12/2023 [id number] / / [id number] documented as of this encounter Advance Directives Latest Code Status on File Code Status Date Activated Date Inactivated Comments Full Code 08/08/2022 9:23 AM 08/08/2022 3:44 PM This order reflects the patients wishes and were consensually agreed upon. Question Answer Comments Discussion of Advance Directives occurred with: Patient Care Teams Joint Sealer Relationship Specialty Start Date End Date Yon Burns DO [address] [place] [address] PCP - General Family Medicine 07/13/20 documented as of this encounter
--- OUTSIDE RECORDS SUMMARY | 2023-06-04 20:01 | External Medical Summary | Summary of Care ---
Author Name Unknown Organization [facility] Address [address] [place] [address] Phone [phone] Care Team Providers Care Chalk Molding Machine Operator Name Role Phone Yon Burns Primary Care Provider Encounter Details Date Type Department Care Team (Late st Contact Info) Description 05/17/2023 Orders Only Hematology/Oncology, [facility] [address] [place], [place] [phone] Maria Luisa Espinosa MD [address] [place] [address] Allergies Active Allergy Reactions Criticality Noted Date [...] Description 05/22/2023 9:30 AM EDT Laboratory Laboratory [place]orna Mukherjee [place] [address] [place] [phone] Gary Mukherjee [address] [place] [address] [place] [address] 05/22/2023 10:30 AM EDT Hem/Onc Treatment Hematology/Oncology Treatment, [place] [facility] [phone] Park, Chair 9 Hem Onc Scen[address] [address] 05/25/2023 9:45 AM EDT [facility] [address] [place] [phone] 06/01/2023 1:00 PM EDT Office Visit [facility] [address] [place] [address] Jhoana Evangelista CRNP [address] [place] [address] 06/04/2023 8:00 AM EDT Office Visit Hematology/Oncology [facility] Yaz [place] [address] [place] [phone] Maria Luisa Espinosa MD [address] [place] [address] 06/05/2023 1:50 PM EDT Office Visit Dermatology [facility] [place] [address] [place] [address] Sharon Younger PA-C [address] [place] [address] 06/19/2023 9:30 AM EDT Laboratory Laboratory [facility] Yaz [place] [address] [place] [phone] Yaz, Lab Scene [address] [facility] [place] [address] 06/19/2023 10:30 AM EDT Hem/Onc Treatment Hematology/Oncology Treatment, [place] [facility] [place] [phone] Yaz, Chair 11 Hem Onc Scene [address] [address] 08/31/2023 1:20 PM EDT Office Visit [facility] [address] [place] [address] Jhoana Evangelista CRNP [address] [place] [address] 12/13/2023 8:00 AM EDT Office Visit [facility] [address] [place] [address] Yon Burns, DO [address] [place] [address] 03/04/2024 10:00 AM EST Office Visit [facility] [address] [place] [address] Yon Burns, DO [address] [place] [address] Scheduled Procedures Name Priority Associated Diagnoses Date/Ti [...] this encounter Medical Devices Implanted Type Area [employer] Manufacturing Consultant Device Identifier Shelf Expiration Date Model / Serial / Lot Port Implant W/8f Poly Cath - Sn/A - [id number] Implanted:Qty : 1 on 10/11/2022 by Hal Loza DO at OR [facility] N/A: Chest CR BARD : PERIPHERAL VASCULAR N/A 06/12/2023 [id number] / N/A / [id number] Port Implant W/8f Poly Cath - [id number] Implanted:Qty : 1 on 10/11/2022 by Hal Loza DO at OR [facility] CR BARD : PERIPHERAL VASCULAR [id number] 06/12/2023 [id number] / / [id number] documented as of this encounter Advance Directives Latest Code Status on File Code Status Date Activated Date Inactivated Comments Full Code 08/08/2022 9:23 AM 08/08/2022 3:44 PM This order reflects the patients wishes and were consensually agreed upon. Question Answer Comments Discussion of Advance Directives occurred with: Patient Care Teams Chalk Molding Machine Operator Relationship Specialty Start Date End Date Yon Burns DO [address] [place] [address] PCP - General Family Medicine 07/13/20 documented as of this encounter
--- OUTSIDE RECORDS SUMMARY | 2023-06-04 20:01 | External Medical Summary | Summary of Care ---
Author Name Unknown Organization [facility] Address [address] [place] [address] Phone [phone] Care Team Providers Care Charm Filter Operator Helper Name Role Phone Elliot Burnsr Cheryl Primary Care Provider Reason for Visit * Reason Comments Nurse Documentation Delay treatment Encounter Details Date Type Department Care Team (Late st Contact Info) Description 05/22/2023 10:30 AM EDT Hem/Onc Treatment Hematology/Oncology Treatment, [address] [phone] Yaz, Chair [address] [address] Allergies Active Allergy Reactions Criticality Noted Date [...] Overview: Refuses CPAP 06/15/09 ACUTE SINOBRONCHITIS 04/05/2002 03/26/2 007 ACUTE URI NOS 04/05/2002 05/07/2006 LEFT [...] Date Smoking Tobacco: Never Smokeless Tobacco: Never Tobacco Cessation:Counseling Given: Not Answered Alcohol Use Standard Drinks/Week Comments Yes 0 [...] Sign Reading Time Taken Comments Blood Pressure 138/75 05/22/2023 10:38 AM EDT Pulse 77 05/22/2023 10:38 AM EDT Temperature 36.8 C (98.2 F) 05/22/2023 10:38 AM E DT Respiratory Rate 16 05/22/2023 10:38 AM EDT Oxygen Saturation 94% 05/22/2023 10:38 AM EDT Inhaled Oxygen Concentration - - Weight 91.8 kg (202 lb 6.4 oz) 05/22/2023 10:38 AM EDT Height - - Body Mass Index 25.64 04/23/2023 2:15 PM EDT documented in this [...] as of this encounter Nursing Notes * Monica Moreira, RN - 05/22/2023 12:19 PM EDT Pt presents to clinic ambulating with walker, s/p surgical procedure R knee. Pt reports weakness since hospitalization, pain is stable. Per Dr. Espinosa, delay treatment 1 week due to low Hgb, recent discharge from hospital. Pt will have CBCD checked in 2 days, and prior to treatment next week. Pt discharged in stable condition with spouse. documented in this encounter Plan of Treatment Upcoming Encounters Date Type Department Care Team (Late st Contact Info) Description 05/23/2023 9:00 AM EDT Office Visit Family Practice [facility] [address] [place] [address] Yon Burns, [address] [place] [address] 05/24/2023 1:50 PM EDT Laboratory Laboratory [place] Cynthia [place] [address] [place] [address] Gary Marie [place] [address] [place] [address] 05/25/2023 9:45 AM EDT Imaging Radiology, [place] [address] [place] [address] 05/30/2023 12:40 PM EDT Laboratory Laboratory, [facility] [address] [place] [phone] Gary Combss [address] [place] [address] 05/30/2023 2:30 PM EDT Hem/Onc Treatment Hematology/Oncology Treatment, [place] 200 [facility], [place] [phone] Yaz, Chair 3 Hem Onc [facility] [address] [place] [address] [address] 06/01/2023 1:00 PM EDT Office Visit [facility] [address] [place] [address] Jhoana Evangelista CRNP [address] [place] [address] 06/04/2023 8:00 AM EDT Office Visit Hematology/Oncology [facility] [place] [address] [place] [phone] Maria Luisa Espinosa MD [address] [place] [address] 06/05/2023 1:50 PM EDT Office Visit Dermatology [facility] [address] [place] [address] Sharon Younger PA-C [address] [place] [address] 06/19/2023 9:30 AM EDT Laboratory Laboratory [facility] Yaz [place] [address] [phone] Yaz, Lab [facility] [address] [facility] [place] [address] 06/19/2023 10:30 AM EDT Hem/Onc Treatment Hematology/Oncology Treatment, [place] 200 [facility] [place]ady [place] [phone] Yaz, Chair 11 Hem Onc Scen[address] [place] [address] [place] [address] 08/31/2023 1:20 PM EDT Office Visit [facility] [address] [place] [address] Jhoana Evangelista CRNP [address] [place] [address] 12/13/2023 8:00 AM EDT Office Visit [facility] [address] [place] [address] Yon Burns, DO [address] [place] [address] 03/04/2024 10:00 AM EST Office Visit [facility] [address] [place] [address] Yon Burns, DO [address] [place] [address] Scheduled Procedures Name Priority Associated Diagnoses Date/Ti [...] this encounter Medical Devices Implanted Type Area Tablet Coater Device Identifier Shelf Expiration Date Model / Serial / Lot Port Implant W/8f Poly Cath - Sn/A - [id number] Implanted:Qty : 1 on 10/11/2022 by Hal Loza DO at OR [facility] N/A: Chest CR BARD : PERIPHERAL VASCULAR N/A 06/12/2023 [id number] / N/A / [id number] Port Implant W/8f Poly Cath - [id number] Implanted:Qty : 1 on 10/11/2022 by Hal Loza DO at OR [facility] CR BARD : PERIPHERAL VASCULAR [id number] 06/12/2023 [id number] / / [id number] documented as of this encounter Advance Directives Latest Code Status on File Code Status Date Activated Date Inactivated Comments Full Code 08/08/2022 9:23 AM 08/08/2022 3:44 PM This order reflects the patients wishes and were consensually agreed upon. Question Answer Comments Discussion of Advance Directives occurred with: Patient Care Teams Charm Filter Operator Helper Relationship Specialty Start Date End Date Yon Burns DO [address] [place] [address] PCP - General Family Medicine 07/13/20 documented as of this encounter
--- OUTSIDE RECORDS SUMMARY | 2023-06-04 20:01 | External Medical Summary ---
Author Name Unknown Address Unknown Organization [facility] [place] [address] Laboratory Report Ordering Provider Test Date Status SHERI RENEE 05/22/2023 10:01:12 Final Observation Date Value Abnormality Reference (Units ) Status WBC, Total 05/22/2023 10:01:12 10.18 4.00-10.8 0 (K/uL) Final RBC 05/22/2023 10:01:12 2.82 4.50-5.25 (M/uL) Final Hemoglobin 05/22/2023 10:01:12 8.1 Below low normal 14 .0-16.8 (g/dL) Final HCT 05/22/2023 10:01:12 26.2 Below low normal 40. 0-48.4 (%) Final MCV 05/22/2023 10:01:12 92.9 82.0-99.5 (fL) Final MCH 05/22/2023 10:01:12 28.7 27.0-34.0 (pg) Final MCHC 05/22/2023 10:01:12 30.9 32.0-36.0 (g/dL) Final RDW 05/22/2023 10:01:12 16.6 11.5-15.5 (%) Final Platelets 05/22/2023 10:01:12 418 Above high normal 14 0-400 (K/uL) Final MPV 05/22/2023 10:01:12 7.6 6.6-11.1 ( fL) Final Performing Location [facility] [place] [address]
--- OUTSIDE RECORDS SUMMARY | 2023-06-04 20:01 | External Medical Summary | Summary of Care ---
Author Name Unknown Organization [facility] Address [address] [facility] [place] [address] Phone [phone] Care Team Providers Care Impregnator Helper Name Role Phone Yon Burns DO Primary Care Provider Reason for Visit * Reason Onset Date Comments Hospital Follow-Up Right knee [facility] Hospital Follow-Up 05/23/2023 Encounter Details Date Type Department Care Team (Late st Contact Info) Description 05/23/2023 9:00 AM EDT Office Visit Family Practice [facility] [address] [place] [address] Yon Burns DO [address] [place] [address] Type 2 diabetes mellitus with hemoglobin A1c goal of less than 8.0% (HCC)*; Metastatic melanoma (HCC); Hypothyroidism due to medication; History of thyroid cancer; Anemia in neoplastic disease; Hospital discharge follow-up; Hypomagnesemia; Hyperuricemia; Secondary malignant neoplasm of skin (HCC) Allergies Active Allergy Reactions Criticality Noted Date Comments Bactrim 02/16/2010 Sulfa Antibiotics Edema Other 08/29/2019 documented as of this encounter (statuses as of 05/23/2023) Medications Medication Sig Dispensed Refills Start Date End Date Status Lidocaine-Priloc anna 2.5-2.5 % External Cream (Emla)Indication s:Metastatic melanoma (HCC) APPLY TO SKIN OVER MEDIPORT & COVER 1HR PRIOR TO ACCESSING. 30 g 1 09/20/2022 Active Sotalol HCl 80 MG Oral Tablet (Betapace) Take 1 Tablet by mouth in the morning and 1 Tablet before bedtime. 68 Tablet 11 01/15/2023 Active Additional Information Patient not taking.Reported on 04/23/2023 Xarelto 20 MG Oral Tablet (Rivaroxaban)Ind ications:Paroxys mal atrial flutter (HCC) TAKE ONE TABLET BY MOUTH EVERY DAY WITH DINNER 90 Tablet 3 02/19/2023 Active Cephalexin 500 MG Oral Capsule (Keflex) Take 1 Capsule by mouth in the morning and 1 Capsule at noon and 1 Capsule in the evening and 1 Capsule before bedtime. 0 05/18/2023 Active HYDROcodone-Acet aminophen 5-325 MG Oral Tablet Take 1 Tablet by mouth every 8 hours as needed. 0 05/08/2023 Active Levothyroxine Sodium 112 MCG Oral Tablet (Levoxyl)Indicat ions:Hypothyroid ism due to medication Take 1 Tablet by mouth in the morning. (at least 30 min prior to breakfast or other meds). 30 Tablet 11 05/23/2023 Active Atorvastatin Calcium 20 MG Oral Tablet (Lipitor) TAKE ONE TABLET BY MOUTH EVERY DAY 90 Tablet 1 01/29/2023 4 Discontinued metFORMIN HCl 500 MG Oral Tablet (Glucophage) TAKE ONE TABLET BY MOUTH TWICE A DAY (MORNING AND EVENING MEALS) 180 Tablet 1 02/19/2023 4 Discontinued Lisinopril 5 MG Oral Tablet (Prinivil) Take 1 Tablet by mouth in the morning. 90 Tablet 3 02/28/2023 4 Discontinued Levothyroxine Sodium 100 MCG Oral Tablet (Levoxyl)Indicat ions:Hypothyroid ism due to medication Take 1 Tablet by mouth in the morning. (at least 30 min prior to breakfast or other meds). 90 Tablet 3 02/28/2023 4 Discontinued documented as of this encounter (statuses as of 05/23/2023) Active Problems Problem Noted Date Diagnosed Date [...] as of this encounter (statuses as of 05/23/2023) Resolved Problems Problem Noted Date Diagnosed Date Resolved Date SLEEP APNEA, PRIMARY 03/26/2009 017 Overview: Refuses CPAP 06/15/09 ACUTE SINOBRONCHITIS 04/05/2002 007 ACUTE URI NOS 04/05/2002 05/07/2006 LEFT VENTRICULAR HYPERTROPHY 11/03/1998 10/01/2008 Overview: Per Heart Failure Taxonomy Protocol. documented as of this encounter (statuses as of 05/23/2023) Immunizations Name Administration Dates Next Due COVID-19 mRNA, LNP-s, No Pre serve, 2-Dose Series ([employer]) 12/15/2020,05/03/2020,04/07/2020 COVID-19, MRNA-LNP, 23-24, P F, 30 [...] Sign Reading Time Taken Comments Blood Pressure 130/82 05/23/2023 9:16 AM EDT Pulse 52 05/23/2023 9:16 AM EDT Temperature 36.3 C (97.3 F) 05/23/2023 9:16 AM ED T Respiratory Rate 16 05/23/2023 9:16 AM EDT Oxygen Saturation - - Inhaled Oxygen Concentration - - Weight 94.1 kg (207 lb 8 oz) 05/23/2023 9:16 AM EDT Height - - Body Mass Index 26.29 04/23/2023 2:15 PM EDT documented in this [...] as of this encounter Progress Notes * Yon Burns, - 05/23/2023 9:22 AM EDT Images from the original note were not included. Assessment and Plan Hospital discharge follow-up Healing s/p evacuation of hemarthrosis of R leg Healing well with much improved pain Labs back for review today Remains on xarelto - DISCH MED RECON CUR MED LIS Type 2 diabetes mellitus with hemoglobin A1c goal of less than 8.0% (HCC) Checking A1C But likely ok off medications for now Blood sugar has been controlled Intake poor at times - HEMOGLOBIN A1C; Future Metastatic melanoma (HCC) Ongoing treatment Hypothyroidism due to medication Increase levo due to elevated TSH and low/norm thyroid hormone level - Levothyroxine Sodium 112 MCG Oral Tablet (Levoxyl); Take 1 Tablet by mouth in the morning. (at least 30 min prior to breakfast or other meds). History of thyroid cancer - DISCH MED RECON CUR MED LIS Anemia in neoplastic disease Hypomagnesemia - MAGNESIUM; Future Hyperuricemia - URIC ACID; Future Secondary malignant neoplasm of skin (HCC) History of Present Illness Hal S Dyreson is a 63 year old male that presents for Hospital Follow-Up (Right knee surgery) and Hospital Follow-Up Presents in f/u today Was hospitalized for refractive pain And lack of ROM of R knee s/p injury Found to have large hemarthrosis Evacuated and now doing better But will have konstantin out soon No fevers at home, urinating well No syncope or light headedness Physical Exam Vitals: 05/23/23 0916 Temp: 36.3 C (97.3 F) Pulse: 52 Resp: 16 BP: 130/82 Physical Exam Constitutional: Appearance: Normal appearance. HENT: Head: Normocephalic and atraumatic. Eyes: Extraocular Movements: Extraocular movements intact. Pupils: Pupils are equal, round, and reactive to light. Neurological: General: No focal deficit present. Mental Status: He is alert and oriented to person, place, and time. Psychiatric: Mood and Affect: Mood normal. Behavior: Behavior normal. Wrap-Up Time: Total time today was 45 minutes excluding any time spent in the performance of separately billed services. documented in this encounter Nursing Notes * Norman Childs RN - 05/23/2023 9:18 AM EDT Chief Complaint Patient presents with Hospital Follow-Up Right knee surgery documented in this encounter Plan of Treatment Upcoming Encounters Date Type Department Care Team (Late st Contact Info) Description 05/24/2023 1:50 PM EDT Laboratory Laboratory [address] [place] [address] [place] [address] 05/25/2023 9:45 AM EDT Imaging Radiology, [address] [place] [address] 05/30/2023 12:40 PM EDT Laboratory Laboratory, [facility] [address] [place] [place] [address] Gary [facility]ss [address] [facility] [place] [address] 05/30/2023 2:30 PM EDT Hem/Onc Treatment Hematology/Oncology Treatment, [place] [address] [place] [address] Yaz, Chair 3 Hem Onc Scene [address] [place] [address] 06/01/2023 1:00 PM EDT Office Visit Family Practice [facility] [address] [place] [address] Jhoana Evangelista CRNP [address] [facility] [address] 06/04/2023 8:00 AM EDT Office Visit Hematology/Oncology [facility] [place] [address] [place] [phone] Maria Luisa Espinosa MD [address] [place] [address] 06/05/2023 1:50 PM EDT Office Visit Dermatology [facility] [address] [place] [address] Sharon Younger PA-C [address] [place] [address] 06/19/2023 9:30 AM EDT Laboratory Laboratory [facility] Yaz [place] [address] [place] [phone] Gary Mukherjee [address] [place] [address] 06/19/2023 10:30 AM EDT Hem/Onc Treatment Hematology/Oncology Treatment, [place] [address] [place], [place] [address] Park, Chair 4 Hem Onc Scenery [address] [place], [place] [address] 08/31/2023 1:20 PM EDT Office Visit [facility] [address] [place] [address] Jhoana Evangelista CRNP [address] [place] [address] 12/13/2023 8:00 AM EDT Office Visit [facility] [address] [place] [address] Yon Burns, DO [address] [place] [address] 03/04/2024 10:00 AM EST Office Visit [facility] [address] [place] [address] Yon Burns, DO [address] [place] [address] Pending Results Name Type Priority Associated Diagnoses Date /Time URIC ACID Lab Routine Hyperuricemia 05/22/2023 10:01 AM EDT HEMOGLOBIN A1C Lab Routine Type 2 diabetes mellitus with hemoglobin A1c goal of less than 8.0% (HCC) 05/22/2023 10:01 AM EDT Scheduled Orders Name Type Priority Associated Diagnoses Orde r Schedule URIC ACID Lab Routine Hyperuricemia Expected: 05/23/2023 (Approximate), Expires: 05/22/2024 HEMOGLOBIN A1C Lab Routine Type 2 diabetes mellitus with hemoglobin A1c goal of less than 8.0% (HCC) Expected: 05/23/2023 (Approximate), Expires: 05/22/2024 Scheduled Procedures Name Priority Associated Diagnoses Date/Ti [...] this encounter Medical Devices Implanted Type Area Assistant Producer Device Identifier Shelf Expiration Date Model / Serial / Lot Port Implant W/8f Poly Cath - Sn/A - [id number] Implanted:Qty : 1 on 10/11/2022 by Hal Loza DO at OR [facility] N/A: Chest CR BARD : PERIPHERAL VASCULAR N/A 06/12/2023 [id number] / N/A / [id number] Port Implant W/8f Poly Cath - [id number] Implanted:Qty : 1 on 10/11/2022 by Hal Loza DO at OR [facility] CR BARD : PERIPHERAL VASCULAR [id number] 06/12/2023 [id number] / / [id number] documented as of this encounter Results * MAGNESIUM (05/22/2023 10:01 AM EDT) Magnesium 1.7 1.5 - 2.6 mg/dL 05/23/2023 9:46 AM EDT [facility] Blood Venous blood specimen / Unknown Venipuncture / Unknown 05/22/2023 10:01 AM EDT 05/22/2023 10:01 AM EDT Yon Burns DO LAB BLOOD ORDER [facility] [address] [place] [address] documented in this encounter Visit Diagnoses Diagnosis Type 2 diabetes mellitus with hemoglobin A1c goal of less than 8.0% (HCC)- Primary Metastatic melanoma (HCC) Melanoma of skin, site unspecified Hypothyroidism due to medication History of thyroid cancer Personal history of malignant neoplasm of thyroid Anemia in neoplastic disease Hospital discharge follow-up Other follow-up examination Hypomagnesemia Disorders of magnesium metabolism Hyperuricemia Other abnormal blood chemistry Secondary malignant neoplasm of skin (HCC) Secondary malignant neoplasm of skin documented in this encounter Advance Directives Latest Code Status on File Code Status Date Activated Date Inactivated Comments Full Code 08/08/2022 9:23 AM 08/08/2022 3:44 PM This order reflects the patients wishes and were consensually agreed upon. Question Answer Comments Discussion of Advance Directives occurred with: Patient Care Teams Impregnator Helper Relationship Specialty Start Date End Date Yon Burns DO [address] [place] [address] PCP - General Family Medicine 07/13/20 documented as of this encounter
--- OUTSIDE RECORDS SUMMARY | 2023-06-04 20:01 | External Medical Summary ---
Author Name Unknown Address Unknown Organization K09:[facility] [place] [address] Laboratory Report Ordering Provider Test Date Status GIFTY CASTRO 05/22/2023 10:01:12 Final Observation Date Value Abnormality Reference (Units ) Status Magnesium 05/22/2023 10:01:12 1.7 1.5-2.6 (m g/dL) Final Performing Location [facility] [place] [address]
--- OUTSIDE RECORDS SUMMARY | 2023-06-04 20:01 | External Medical Summary ---
Author Name Unknown Address Unknown Organization K01:[facility] - [address] [place] [address] Laboratory Report Ordering Provider Test Date Status SHERI RENEE 05/22/2023 10:01:12 Final Observation Date Value Abnormality Reference (Units ) Status T4, Free 05/22/2023 10:01:12 0.9 0.9-1.7 (n g/dL) Final Performing Location [facility] - [address] [place] [address]
--- OUTSIDE RECORDS SUMMARY | 2023-06-04 20:01 | External Medical Summary ---
Author Name Unknown Address Unknown Organization [id number]:LABORATORY [facility] - [address] [facility] [address] Laboratory Report Ordering Provider Test Date Status GIFTY CASTRO 05/22/2023 10:01:12 Final Observation Date Value Abnormality Reference (Units ) Status HbA1C 05/22/2023 10:01:12 4.8 4.0-5.6 (% ) Final The use of HbA1c to monitor glycemic status is based on normal hemoglobin and HbA composition. This test should not be used in patients with abnormal hemoglobin that affects the half life of the red blood cell or the in vivo glycation rates. Glucose, estimated average 05/22/2023 10:01:12 91 <126 (mg/dL) Final Performing Location LABORATORY [facility] [address] [facility] [place] [address]
--- OUTSIDE RECORDS SUMMARY | 2023-06-04 20:01 | External Medical Summary ---
Author Name Unknown Address Unknown Organization K09:[facility] [place] [address] Laboratory Report Ordering Provider Test Date Status SHERI RENEE 05/22/2023 10:01:12 Final Observation Date Value Abnormality Reference (Units ) Status SYNC LEUKOCYTES IN BLOOD BY AUTOMATED COUNT 05/22/2023 10:01:12 10.18 4.00-10.80 (K/uL) Final Segs 05/22/2023 10:01:12 56.8 40.0-75.0 (%) Final Lymphs % 05/22/2023 10:01:12 24.5 18.0-42.0 (%) Final Monos 05/22/2023 10:01:12 6.3 1.0-11.0 (%) Final Eosinophils 05/22/2023 10:01:12 12.3 Above high normal 0.0-6.0 (%) Final Basos 05/22/2023 10:01:12 0.1 0.0-2.0 (%) Final Absolute Segs 05/22/2023 10:01:12 5.79 1.80-7.70 (K/uL) Final Lymphs, absolute 05/22/2023 10:01:12 2.49 1.00-4.80 (K/ul) Final Monos, Abs 05/22/2023 10:01:12 0.64 0.00-1.10 (K/uL) Final Eos, Abs 05/22/2023 10:01:12 1.25 Above high normal 0.00-0.70 (K/uL) Final Basos, Abs 05/22/2023 10:01:12 0.01 0.00-0.20 (K/uL) Final Performing Location [facility] [place] [address]
--- OUTSIDE RECORDS SUMMARY | 2023-06-04 20:01 | External Medical Summary ---
Author Name Unknown Address Unknown Organization [id number]:LABORATORY [facility] - [address] [place] [address] Laboratory Report Ordering Provider Test Date Status SHERI RENEE 05/25/2023 11:54:16 Final Observation Date Value Abnormality Reference (Units ) Status BUN 05/25/2023 11:54:16 13 6-20 (mg/dL) Final Creatinine 05/25/2023 11:54:16 1.0 0.6-1.2 (mg/dL) Final Glomerular filtration rate/1.73 sq M.predicted [Volume Rate/Area] in Serum, Plasma or Blood by Creatinine-based formula (CKD-EPI) 05/25/2023 11:54:16 85 >=60 (mL/min) Final eGFR is calculated based on the CKD-EPI 2020 equation Sodium 05/25/2023 11:54:16 139 135-146 (m mol/L) Final Potassium 05/25/2023 11:54:16 4.4 3.5-5.1 (m mol/L) Final Cl 05/25/2023 11:54:16 102 98-107 (mm ol/L) Final CO2 05/25/2023 11:54:16 23 22-32 (mmo l/L) Final Anion gap 05/25/2023 11:54:16 14 7-15 (mmol /L) Final Glucose 05/25/2023 11:54:16 81 70-120 (mg /dL) Final Albumin 05/25/2023 11:54:16 3.8 3.8-5.0 (g /dL) Final AST (Aspartate aminotransferase) 05/25/2023 11:54:16 19 10-50 (U/L) Fin al Alk Phos 05/25/2023 11:54:16 68 35-130 (U/ L) Final Bilirubin, Total 05/25/2023 11:54:16 0.5 <=1 .2 (mg/dL) Final Calcium 05/25/2023 11:54:16 9.5 8.4-10.2 ( mg/dL) Final Protein 05/25/2023 11:54:16 5.8 Below low normal 6.0 -8.3 (g/dL) Final ALT (Alanine aminotransferase) 05/25/2023 11:54:16 12 10-50 (U/L) Michael ogrdon Performing Location LABORATORY [facility] - [address] [place], [place] [address]. [place] [address]
--- OUTSIDE RECORDS SUMMARY | 2023-06-04 20:01 | External Medical Summary ---
Author Name Unknown Address Unknown Organization K09:LAB[facility]ATORY [place] [address] [place] [address] Laboratory Report Ordering Provider Test Date Status SHERI RENEE 05/22/2023 10:01:12 Final Observation Date Value Abnormality Reference (Units ) Status BUN 05/22/2023 10:01:12 15 6-20 (mg/dL) Final Creatinine 05/22/2023 10:01:12 1.0 0.6-1.2 (mg/dL) Final Glomerular filtration rate/1.73 sq M.predicted [Volume Rate/Area] in Serum, Plasma or Blood by Creatinine-based formula (CKD-EPI) 05/22/2023 10:01:12 86 >=60 (mL/min) Final eGFR is calculated based on the CKD-EPI 2020 equation Sodium 05/22/2023 10:01:12 140 135-146 (m mol/L) Final Potassium 05/22/2023 10:01:12 4.0 3.5-5.1 (m mol/L) Final Cl 05/22/2023 10:01:12 106 98-107 (mm ol/L) Final CO2 05/22/2023 10:01:12 25 22-32 (mmo l/L) Final Anion gap 05/22/2023 10:01:12 9 7-15 (mmol /L) Final Glucose 05/22/2023 10:01:12 100 70-120 (mg /dL) Final Albumin 05/22/2023 10:01:12 3.6 Below low normal 3.8 -5.0 (g/dL) Final AST (Aspartate aminotransferase) 05/22/2023 10:01:12 21 10-50 (U/L) Fin al Alk Phos 05/22/2023 10:01:12 66 35-130 (U/ L) Final Bilirubin, Total 05/22/2023 10:01:12 0.4 <=1 .2 (mg/dL) Final Calcium 05/22/2023 10:01:12 8.9 8.4-10.2 ( mg/dL) Final Protein 05/22/2023 10:01:12 5.9 Below low normal 6.0 -8.3 (g/dL) Final ALT (Alanine aminotransferase) 05/22/2023 10:01:12 8 Below low normal 10-50 (U/L) Final Performing Location LAB[facility]ATORY [facility] [facility] [address] - [address] [place] [address]
--- OUTSIDE RECORDS SUMMARY | 2023-06-04 20:01 | External Medical Summary ---
Author Name Unknown Address Unknown Organization K1F:LABORATORY [facility] - [address] [place] [address] Laboratory Report Ordering Provider Test Date Status RENEECLAUDIASHERI 05/25/2023 11:54:16 Final Observation Date Value Abnormality Reference (Units ) Status T4, Free 05/25/2023 11:54:16 1.0 0.9-1.7 (n g/dL) Final Performing Location LABORATORY [facility] - [address] [place] [address]
--- OUTSIDE RECORDS SUMMARY | 2023-06-04 20:01 | External Medical Summary ---
Author Name Unknown Address Unknown Organization K01:LABORATORY [facility] - [address] [place] [address] Laboratory Report Ordering Provider Test Date Status GIFTY CASTRO 05/22/2023 10:01:12 Final Observation Date Value Abnormality Reference (Units ) Status Uric Acid 05/22/2023 10:01:12 6.2 3.4-7.0 (m g/dL) Final Performing Location [facility]ATORY [facility] - [address] [place] [address]
--- OUTSIDE RECORDS SUMMARY | 2023-06-04 20:01 | External Medical Summary ---
Author Name Unknown Address Unknown Organization K01:[facility] [place] [address] [place] [address] Laboratory Report Ordering Provider Test Date Status SHERI RENEE 05/22/2023 10:01:12 Final Observation Date Value Abnormality Reference (Units ) Status TSH 05/22/2023 10:01:12 28.10 Above high normal 0. 27-4.20 (uIU/mL) Final Performing Location [facility]ORY [facility] - [address] [place] [address]
[2023-06-05] MEDS: PIPERACILLIN/TAZOBACTAM 4.5 GM in DEXTROSE 5% MINI-B 100 ML IV SCH (00:25)
[2023-06-05] MEDS: VANCOMYCIN HCL 1,250 MG in SODIUM CHLORIDE 0.9% 250 ML IV SCH (04:27)
[2023-06-05 06:29] LABS: Basophils # (auto) 0.04 K/uL (0.00-0.20); Basophils % (auto) 0.6 %; Eosinophils # (auto) 0.51 K/uL (0.00-0.50); Hematocrit (blood only) 23.1 % (42.0-52.0); Hemoglobin 7.8 g/dl (14.0-18.0); Immature Granulocytes # (auto) 0.01 K/uL (0.01-0.20); Immature Granulocytes % (auto) 0.2 %; Lymphocytes % (auto) 26.8 %; Mean Corpuscular Hemoglobin 29.1 pg (25.0-34.0); Mean Corpuscular Hgb Conc 33.8 g/dL (32.0-36.0); Mean Corpuscular Volume 86.2 fL (80.0-100.0); Mean Platelet Volume 8.8 fL (9.4-12.4); Monocytes # (auto) 0.62 K/uL (0.11-0.59); Monocytes % (auto) 9.8 %; Neutrophils # (auto) 3.47 K/uL (1.40-6.50); Neutrophils % (auto) 54.6 %; Platelet Count 259 K/uL (130-400); RDW Coefficient of Variation 15.4 % (11.5-14.5); RDW Standard Deviation 48.8 fL (36.4-46.3); Red Blood Count 2.68 M/uL (4.70-6.10); White Blood Count 6.35 K/ul (4.8-10.8)
[2023-06-05] MEDS: LEVOTHYROXINE SODIUM 112 MCG TABLET PO SCH (06:35)
[2023-06-05 06:50] LABS: BUN Creatinine Ratio 15.4 (10-20); Calcium 8.9 mg/dl (8.6-10.3); Creatinine Clr Calc Pharmacy 99.4 ml/min; Est GFR (African American) 102.1 ml/min; Est GFR (Non-African American) 88.1 ml/min; Magnesium 1.3 mg/dl (1.7-2.4); Potassium 3.8 mmol/L (3.5-5.1)
[2023-06-05 06:51] LABS: Anisocytosis Present
--- NOTE | 2023-06-05 07:40 | Magnetic Resonance Report ---
RIGHT KNEE MRI HISTORY: Right knee pain, recent arthroscopy COMPARISON STUDY: Right knee radiograph 06/04/2023. Right knee MRI 05/13/2023. TECHNIQUE: Multiplanar multisequence MRI of the right knee was performed according to standard [facility] protocol without the use of contrast. FINDINGS: Menisci: Degeneration without evidence for tear involving the posterior horn of the medial meniscus a nd anterior horn of the lateral meniscus. Ligaments: The anterior and posterior cruciate ligaments are intact. The medial and lateral collatera l ligaments are normal in appearance. Extensor mechanism: The patient is status post repair of the distal quadriceps tendon tear with no ev idence for an acute quadriceps tendon injury. There is buckling of the intact patellar ligament. Ther e is suggestion of mild patella baja. Articular cartilage and bone: No acute fracture or dislocation. There is a full-thickness cartilage l oss within the medial patellar facet and medial trochlea. This remains unchanged. Remaining cartilage spaces are maintained. No bony destructive changes to suggest an osteomyelitis. Joint effusion: Large complex joint effusion consistent with a hemarthrosis. The blood products appea r to be subacute to chronic. This is similar to the prior study. Soft tissues: Diffuse soft tissue edema seen throughout the right knee, unchanged. There is also ian ma within the distal quadriceps muscles. IMPRESSION: 1. Status post repair of the distal quadriceps tendon tear with no evidence for an acute quadriceps t endon injury. 2. Large complex joint effusion consistent with a hemarthrosis. This is similar in size compared to t he prior study. The blood products appear to be subacute to chronic. 3. Diffuse subcutaneous edema throughout the right knee with edema within the distal quadriceps muscl es. 4. Additional findings as described above. ACT 112: Negative or not required by law. Electronically signed by: Stanford House M.D. 06/05/2023 7:39 AM
--- NOTE | 2023-06-05 08:53 | Pharmacy Report ---
Pharmacy PK ABX Note - Date of Service June 05, 2023 - Assessment and Plan Assessment 63 year old M receiving vancomycin and zosyn for possible right knee infection. Presenting with worsening knee pain, chills over the last several days. Recently hospitalized 05/13/23 for similar symptoms s/p knee exploration/cultures grew micrococcus (thought to be contaminant). He was discharged on keflex. Blood cultures pending. Knee aspirated in ortho clinic and cultures pending. PMHx sig nificant for metastatic melanoma, thyroid cancer and on immunomodulating therapy. Plan Vancomycin * Loading dose: 2000 mg IV x 1 * Maintenance dose: 1250 mg IV every 12 hours * Regimen is predicted to achieve target AUC/DANILO of 400-600 mg/L.hr * Plan to order random vancomycin level if ordered >48 hours Pharmacy will continue to follow and will adjust dose/frequency as necessary. Thank you. Pharmacy has transitioned to AUC monitoring for vancomycin. AUC/DANILO is the preferred PK/PD target and is associated with decreased risk of nephrotoxicity compared to traditional trough targets.
[2023-06-05] MEDS: MAGNESIUM SULFATE / D5W 1 GM/100 ML BAG IV SCH (09:17)
--- NOTE | 2023-06-05 11:17 | Hospitalist Progress Note ---
Date of Service June 05, 2023 Assessment & Plan (1) Pain in right knee: (2) Metastatic melanoma: (3) Atrial fibrillation: (4) Hypothyroidism: Plan This is a 63-year-old male who has a significant past medical history of PAF with history of cardioversion on Xarelto, metastatic melanoma on Opdivo, thyroid cancer, HTN, HLD, moderate MR and borderline diabetes who presents to the ED secondary to worsening knee pain x 5 days. Persistent pain in right knee Ambulatory dysfunction Consult orthopedics Repeat MRI Obtain inflammatory markers ESR, CRP, rheumatoid factor, uric acid and Lyme screen Recent hospitalization status post right knee exploration and evacuation of hemarthrosis Prior right knee aspirate culture grew micrococcus species, felt to be contaminant during last admission but did complete course of Keflex Obtain blood cultures, knee aspiration was performed as outpatient in orthopedic office today Empirically cover with IV vancomycin and Zosyn Consult infectious disease 06/04- ortho recommended continue with PT/OT, abx, follow cultures, possibly related to imuunotherapy. Hyponatremia likely 2/2 poor intake IVF x 2 L urine sodium, osm, serum osm Continue to monitor Metastatic melanoma Currently on Opdivo infusions every 4 weeks Follows [facility] oncology As well as [facility] Patient symptoms started after Opdivo infusion, typically takes 1 to 2 days to recover; however has had a persistent decline Possible symptoms at all related to infusion therapy Papillary thyroid carcinoma Following [facility] plan for thyroidectomy in May Continue thyroid replacement PAF Continue Xarelto Follows with [facility] cardiology Off sotalol therapy due to significant bradycardia Currently in normal sinus rhythm Last Xarelto dose was on 05/31, will hold until seen by orthopedics and MRI results Resume Xarelto if orthopedics not pursuing procedure Anemia, acute on chronic anemia, multifactorial Iron deficiency anemia hgb stable at 9.0 required 1 unit PRBC during recent hospital stay Continue to monitor DVT prophylaxis: SCDS, holding xarelto FULL CODE PCP: Yon Burns Dispo: per pt/ot recs Admission and Anticipated Discharge Date Admission Date: June 04, 2023 Subjective pt was seen in the AM. Knee still painful more swollen than the left. Review of Systems Review of Systems: All systems reviewed & are unremarkable except as noted in Subjective Physical Exam Physical Exam: General: Alert, oriented. No acute distress Psych: Appropriate mood and affect HEENT: NC/AT CV: RRR Resp: Breath sounds clear bilaterally, no increased effort of breathing. Abdomen: Soft, nontender, nondistended. Extremities: Right knee more swollen than left Results & Data Results & Data Vital Signs (Past 12 Hours) Vital Signs Temp Pulse Pulse Pulse Resp BP Pulse Ox 06/05/23 11:10 37.1 C 60 12 126/75 97 06/05/23 08:00 73 06/05/23 03:48 37 C 77 16 139/71 95 06/04/23 23:41 37.2 C 73 16 138/69 94 O2 Del Method 06/05/23 11:10 Room Air 06/05/23 08:00 06/05/23 03:48 Room Air 06/04/23 23:41 Room Air (1) Pain in right knee Chronicity: acute Qualified Code(s): M25.561 - Pain in right knee (3) Atrial fibrillation Atrial fibrillation type: unspecified Qualified Code(s): I48.91 - Unspecified atrial fibrillation (4) Hypothyroidism Hypothyroidism type: unspecified Qualified Code(s): E03.9 - Hypothyroidism, unspecified
--- NOTE | 2023-06-05 16:01 | Orthopedic Progress Note ---
Date of Service June 05, 2023 Assessment & Plan (1) Pain in right knee: Plan: Right knee pain at this time maria guadalupe appears overall improved. The etiology of his right leg discomfort and dysfunction is not completely clear. There is some fluid in the knee but not to the volume which I would expect to cause significant knee pain. Currently at rest he is doing well and is not having symptoms like he did previously. His range of motion is good. His quad funct ion is poor and I think that this is due to muscular injury. We will await and follow-up on the cultures. At this time I do not think that there is anything infectious going on into the knee. We have recommended PT and OT. Quad rehab knee range of motion he can weight-bear as tolerated with a walker using his knee brace immobilizer if necessary. Question relationship of his immunotherapy to his deterioration as he was doing pretty well last week until he had the immunotherapy done.He is on IV antibiotics. His anticoagulation has been held. Present on Admission?: Yes Admission and Anticipated Discharge Date Admission Date: June 04, 2023 Subjective Patient known to me from recent treatment. I encouraged him to come to the hospital for admission due to ongoing mobility issues and pain in the right knee area. Overall today he looks much better and is feeling better. Physical Exam Physical Exam: He is unable to do a straight leg raise on the right leg. He has a poor quad set. There is a moderate effusion in the right knee which does not appear to be specifically tender today. Knee range of motion is approximately 0-90 with some discomfort in the hamstring and nothing really in the knee area. Results & Data Vital Signs (Past 12 Hours) Vital Signs Temp Pulse Pulse Resp BP Pulse Ox O2 Del Method 06/05/23 15:42 38.3 C H 61 20 120/71 96 Room Air 06/05/23 15:10 68 06/05/23 11:10 37.1 C 60 12 126/75 97 Room Air 06/05/23 08:00 73 Laboratory Results His white count is normal. He is anemic. Inflammatory markers are all e levated. Etiology not clear. Knee aspiration cultures AFB fungus aerobic and anaerobic negative negative microscopic exam and no growth to date. Crystals are negative. MRI of the knee shows intact extensor mechanism. Edema in the distal quadriceps muscles with a hematoma in the knee joint area. Report is noted. MRI of the femur is pending but essentially shows the same by my review. (1) Pain in right knee Chronicity: acute Qualified Code(s): M25.561 - Pain in right knee
--- NOTE | 2023-06-05 18:46 | Magnetic Resonance Report ---
MRI OF THE RIGHT FEMUR/THIGH WITHOUT CONTRAST CLINICAL HISTORY: Pain, prior quad injury. COMPARISON STUDY: Right femur radiographs performed earlier today. Right hip MRI May 14, 2023. Righ t knee MRI May 13, 2023. TECHNIQUE: Utilizing a 1.5 Kate magnet and dedicated coil, multiplanar, multi echo imaging of the ri t femur and thigh was performed without intravenous contrast. FINDINGS: No fractures within the right femur are noted. Please note that the distal right femur and distal right thigh are not well evaluated on this exam. These will be better depicted on the right kn ee MRI which will be reported separately. Intramuscular edema within the right quadriceps musculature is noted. There is adjacent soft tissue edema. These findings have decreased when compared to MRI of the right knee of May 13, 2023 and hip MRI of May 14, 2023. Complex right knee joint effusion is partially imaged on this examination. The distal quadriceps tear shown on previous MRI of May 12 is not well depicted on this examination. The right hamstring origin is intact. No marrow edema i s identified within visualized portions of the pelvis. No new fluid collections are present. IMPRESSION: 1. Intramuscular edema within the right quadriceps, decreased since MRI of May 14, 2023. The quadric eps tear on MRI of May 13, 2023 is not well depicted on this exam. This will be better depicted on right knee MRI which will be reported separately. 2. No fractures within the right femur. 3. No new fluid collections within the right femur. 4. Complex right knee joint effusion. ACT 112: Negative or not required by law. Electronically signed by: Mike Church M.D. 06/05/2023 6:44 PM
[2023-06-05] MEDS: ACETAMINOPHEN 325 MG TAB PO PRN (20:00)
[2023-06-06 07:24] LABS: Basophils # (auto) 0.04 K/uL (0.00-0.20); Basophils % (auto) 0.8 %; Eosinophils # (auto) 0.52 K/uL (0.00-0.50); Eosinophils % (auto) 10.1 %; Hemoglobin 7.2 g/dl (14.0-18.0); Immature Granulocytes # (auto) 0.01 K/uL (0.01-0.20); Immature Granulocytes % (auto) 0.2 %; Lymphocytes # (auto) 1.43 K/uL (1.20-3.40); Lymphocytes % (auto) 27.7 %; Mean Corpuscular Hemoglobin 28.6 pg (25.0-34.0); Mean Corpuscular Hgb Conc 32.7 g/dL (32.0-36.0); Mean Corpuscular Volume 87.3 fL (80.0-100.0); Mean Platelet Volume 8.5 fL (9.4-12.4); Monocytes # (auto) 0.46 K/uL (0.11-0.59); Monocytes % (auto) 8.9 %; Neutrophils % (auto) 52.3 %; Platelet Count 243 K/uL (130-400); RDW Coefficient of Variation 15.4 % (11.5-14.5); RDW Standard Deviation 49.1 fL (36.4-46.3); Red Blood Count 2.52 M/uL (4.70-6.10); White Blood Count 5.16 K/ul (4.8-10.8)
[2023-06-06 07:40] LABS: Albumin Globulin Ratio 1.4 (0.9-2); Albumin Level 3.3 gm/dl (3.4-5.0); BUN Creatinine Ratio 12.6 (10-20); Bilirubin,Total 0.6 mg/dl (0.2-1.0); Calcium 8.9 mg/dl (8.6-10.3); Creatinine Clr Calc Pharmacy 103.9 ml/min; Est GFR (Non-African American) 90.6 ml/min; Globulin 2.4 gm/dl (2.5-4.0); Magnesium 1.5 mg/dl (1.7-2.4); Phosphorus 4.4 mg/dl (2.5-4.9); Potassium 3.6 mmol/L (3.5-5.1); Total Protein 5.7 gm/dl (6.0-8.3)
[2023-06-06 07:48] LABS: Ovalocytes 1+
--- NOTE | 2023-06-06 11:33 | Orthopedic Progress Note ---
Date of Service June 06, 2023 Assessment & Plan (1) Pain in right knee: Plan: Spoke with hospitalist. She will discuss with oncologist what role the immunotherapy may play in what is going on presently. He seems to be very affected by the immunotherapy. Overall the knee is better and I do not see any evidence of infection or need for surgical intervention. He has been able to get up with PT. Question whether he is getting some ongoing bleeding into the knee related to his anticoagulation. Question the source of his fever as well as the inflammatory marker elevation. AFB and fungus negative. Blood cultures negative. Knee aspiration negative for aerobic and anaerobic growth as of today. Will continue to monitor. Possible consideration is if cultures are negative consider some steroids to help with pain and inflammation. Will continue to monitor. Leg not significantly swollen today. Admission and Anticipated Discharge Date Admission Date: June 04, 2023 Subjective I met with Hal today along with Dr. Hubbard. He reports ongoing fatigue. The knee is really not bothering him. Sunday his pain was 5 out of 10. Today his pain ranges from 1-3 out of 10. He did not have any fever chills or sweats yesterday. It is reported that he had a temperature of 38 degrees yesterday. Physical Exam Physical Exam: On examination today he is able to do an active straight leg raise with about a 10 degree lag. He is knee range of motion is 0/10/90 degrees. He can do active knee extension against gravity. The incision is well-healed there is no erythema induration or drainage. There is mild discomfort in the distal qu adriceps muscles but no palpable defect. He does have a moderate to large right knee effusion. Not tense and not causing significant pain like it did previously. The remainder of his thigh is nontender and not swollen and there is no pain with movement of the right hip Results & Data Vital Signs (Past 12 Hours) Vital Signs Temp Pulse Pulse Resp BP Pulse Ox O2 Del Method 06/06/23 08:36 65 06/06/23 07:35 36.8 C 55 L 16 122/64 98 Room Air 06/06/23 03:17 36.6 C 61 16 133/56 L 98 Room Air (1) Pain in right knee Chronicity: acute Qualified Code(s): M25.561 - Pain in right knee
--- NOTE | 2023-06-06 12:46 | Infectious Disease Consult ---
<Statement entered by Viki Huynh MD - 06/06/23 14:18> Attending addendum This is a 63 y/o male w/ hx of PAF on xarelto, moderate MR, metastatic melanoma on nivolumab (a T-cell PD-1 receptor inhibitor), hypothyroidism, thyroidi CA and borderline DM, who presented to [facility] for evaluation of worsening R knee pain for 5 days. Previously, he had R knee exploratoin and evacuation of hemarthrosis for a similar issue. Micrococcus was seen back then, and the patient was given a course of cephalexin. He developed the R knee pain and swelling after he had a trauma back in April,. Fever was noted on 06/05/23. No leukocytosis. Cr 0.87. MRI knee/femur showed large complex joint effusion (consistent w/ a hemarthrosis) w/ diffuse subcutaneous edema throughout R knee w/ edeam within the distal quadriceps muscles. Synovial fluid analysis (06/03) showed WBC [id number] (N 96%) and RBC [id number]. Lyme serology negative. Synovial fluid and blood cultures NGTD. The patient is currently on pip/tazo and vancomycin iv empirically. He overall feels well w/o f/c or signficant pain in R knee. However, I am not convinced that the patient has septic arthritis. I wonder if this is a manifestation of an immune-related adverse event associated w/ the immune checkpoint inhibitor the patient is receiving: nivolumab. I agree w/ holding abx for now. F/u the cultures: bacterial, AFB and fungal. The patient may benefit from molecular sequencing to rule out presence of any potential pathogen. I saw and evaluated the patient today. I have reviewed the trainee note and agree. I spent a total of [60] minutes coordinating, documenting, and providing care for this patient excluding time spent in performance of separately billed services. Date of Service June 06, 2023 Telehealth Information I performed this visit using a real-time telehealth connection between my location and the patients location ([facility]). After connecting through interactive tele-video, patient was identified by name and date of and/or wristband check.Patient (or authorized healthcare sales representative girls' apparel) was informed that this was a telemedicine visit and it was being conducted confidentially over secure lines. My office door was closed and no one else was present in the room with me.Patient (or authorized healthcare sales representative girls' apparel) provided consent to proceed with the visit, expressed an understanding of privacy and security of the telemedicine visit, and gave permission to have a hospital sales representative girls' apparel in the room in order to assist with the visit and to conduct portions of the visit, as needed. I informed the patient (or authorized healthcare sales representative girls' apparel) that I reviewed their record and presented the opportunity for them to ask any questions regarding the visit today. The patient agreed to participate. Assessment & Plan (1) Hemarthrosis of right knee: (2) Metastatic melanoma: (3) Coagulopathy: Plan Patient presenting with recurrent knee pain/hemarthrosis with aspiration with negative cultures/stain. Septic arthritis typically doesnt cause bloody effusion but rarely can. He has no concerning systemic symptoms. Lyme testing negative. Suspicion for infection is low. Recommend -Observe off antibiotics -F/u fungal and afb cultures, can take days-weeks to grow -Recommend sending sample for next-generation sequencing History of Present Illness History of Present Illness Patient w/ pmhx of metastatic melanoma on Opdivo, borderline DM who presented w/ 5 days of worsening knee pain. He had a recent hospitalization 05/12 -05/17 with the same complaint. On 05/14 he underwent right knee exploration and evacuation of hemarthrosis. Had possible right quadriceps rupture on MRI but after exploration the tendon was intact. His knee fluid culture grew micrococcus, probable contaminant. This admission he underwent knee aspiration. [id number] RBCs, 37008 WBCs, franly bloody. Cultures and stains are negative so far. Lyme testing has been negative. On vancomycin and zosyn. Allergies Allergy/AdvReac Type Severity Reaction Status Date / Time Bactrim Allergy Severe THROAT AND Unverified 07/18/10 13:38 HANDS SWELL Sulfa (Sulfonamide Allergy Severe Attacks Unverified 06/04/23 13:39 Antibiotics) nerve system sulfamethoxazole Allergy Severe THROAT AND Verified 06/04/23 13:38 HANDS SWELL trimethoprim Allergy Severe THROAT AND Verified 06/04/23 13:38 HANDS SWELL Home Medications Medication Instructions Recorded Confirmed Type rivaroxaban 20 mg tablet (Xarelto) 20 mg PO HS 04/10/23 06/04/23 History hydrocodone 5 mg-acetaminophen 325 1 tab PO Q8H PRN Pain #6 tabs 05/18/23 06/04/23 Rx mg tablet acetaminophen 500 mg tablet 500 mg PO Q6H PRN Pain 06/04/23 06/04/23 History levothyroxine 112 mcg tablet 112 mcg PO QAM 06/04/23 06/04/23 History nivolumab 240 mg/24 mL intravenous 0 mg IV Q4WK 06/04/23 06/04/23 History solution (Opdivo) Patient History Medical History Hemarthrosis of right knee Hypothyroidism LVH (left ventricular hypertrophy) Type 2 diabetes mellitus Metastatic melanoma Osteoarthritis Hx of sleep apnea RESOLVED SINCE JAW SURGERY Heart valve regurgitation Mild MR and TR per 08/2019 ECHO Hyperlipidemia Hypertension Atrial fibrillation JUST STARTED ON ELIQUIS Surgical History Hx of vasectomy History of colonoscopy History of tooth extraction WISDOM TEETH History of mandibular surgery RECONSTRUCTED> JAW EXTENEDED 2011 Family History Grandfather (Maternal) Diabetes Grandfather (Paternal) Diabetes Uncle Diabetes Social History Smoking Status: Never smoker Second Hand Exposure: No; Do You Dip or Chew Tobacco: No; Hx Alcohol Use: No Hx Substance Use: No Preferred Language: Divehi Communication Ability: Effective Teletypewriter Installer Required: No Beliefs That Will Affect Care: None Current Living Situation: Spouse Current Living Situation Comment: lives at home with and two children Feels Safe at Home: Yes Assistive Devices: Walker Review of Systems Full ROS was performed and is negative unless mentioned in the HPI. Physical Exam Limited by telemed Generally well appearing Wrapped right knee Results & Data Vital Signs (Past 12 Hours) Vital Signs Temp Pulse Pulse Resp BP Pulse Ox O2 Del Method 06/06/23 11:36 36.8 C 57 L 16 117/71 96 Room Air 06/06/23 08:36 65 06/06/23 07:35 36.8 C 55 L 16 122/64 98 Room Air 06/06/23 03:17 36.6 C 61 16 133/56 L 98 Room Air Laboratory Results Microbiology 06/04/23 14:43 Blood Aerobic Blood Culture - Preliminary No growth in Aerobic bottle after 24 hours. 06/04/23 14:43 Blood Anaerobic Blood Culture - Preliminary No growth in Anaerobic bottle after 24 hours. 06/04/23 14:43 Blood Aerobic Blood Culture - Preliminary No growth in Aerobic bottle after 24 hours. 06/04/23 14:43 Blood Anaerobic Blood Culture - Preliminary No growth in Anaerobic bottle after 24 hours. Diagnostic Findings Knee MRI 06/04/23 14:29 RIGHT KNEE MRI HISTORY: Right knee pain, recent arthroscopy COMPARISON STUDY: Right knee radiograph 06/04/2023. Right knee MRI 05/13/2023. TECHNIQUE: Multiplanar multisequence MRI of the right knee was performed according to standard department protocol without the use of contrast. FINDINGS: Menisci: Degeneration without evidence for tear involving the posterior horn of the medial meniscus and anterior horn of the lateral meniscus. Ligaments: The anterior and posterior cruciate ligaments are intact. The medial and lateral collateral ligaments are normal in appearance. Extensor mechanism: The patient is status post repair of the distal quadriceps tendon tear with no evidence for an acute quadriceps tendon injury. There is buckling of the intact patellar ligament. There is suggestion of mild patella baja. Articular cartilage and bone: No acute fracture or dislocation. There is a full- thickness cartilage loss within the medial patellar facet and medial trochlea. This remains unchanged. Remaining cartilage spaces are maintained. No bony destructive changes to suggest an osteomyelitis. Joint effusion: Large complex joint effusion consistent with a hemarthrosis. The blood products appear to be subacute to chronic. This is similar to the prior study. Soft tissues: Diffuse soft tissue edema seen throughout the right knee, unchanged. There is also edema within the distal quadriceps muscles. IMPRESSION: 1. Status post repair of the distal quadriceps tendon tear with no evidence for an acute quadriceps tendon injury. 2. Large complex joint effusion consistent with a hemarthrosis. This is similar in size compared to the prior study. The blood products appear to be subacute to chronic. 3. Diffuse subcutaneous edema throughout the right knee with edema within the distal quadriceps muscles. 4. Additional findings as described above. ACT 112: Negative or not required by law. Electronically signed by: Stanford House M.D. 06/05/2023 7:39 AM Femur MRI 06/04/23 15:06 MRI OF THE RIGHT FEMUR/THIGH WITHOUT CONTRAST CLINICAL HISTORY: Pain, prior quad injury. COMPARISON STUDY: Right femur radiographs performed earlier today. Right hip MRI May 14, 2023. Right knee MRI May 13, 2023. TECHNIQUE: Utilizing a 1.5 Kate magnet and dedicated coil, multiplanar, multi echo imaging of the right femur and thigh was performed without intravenous contrast. FINDINGS: No fractures within the right femur are noted. Please note that the distal right femur and distal right thigh are not well evaluated on this exam. These will be better depicted on the right knee MRI which will be reported separately. Intramuscular edema within the right quadriceps musculature is noted. There is adjacent soft tissue edema. These findings have decreased when compared to MRI of the right knee of May 13, 2023 and hip MRI of May 14, 2023. Complex right knee joint effusion is partially imaged on this examination. The distal quadriceps tear shown on previous MRI of May 13, 2023 is not well depicted on this examination. The right hamstring origin is intact. No marrow edema is identified within visualized portions of the pelvis. No new fluid collections are present. IMPRESSION: 1. Intramuscular edema within the right quadriceps, decreased since MRI of May 14, 2023. The quadriceps tear on MRI of May 13, 2023 is not well depicted on this exam. This will be better depicted on right knee MRI which will be reported separately. 2. No fractures within the right femur. 3. No new fluid collections within the right femur. 4. Complex right knee joint effusion. ACT 112: Negative or not required by law. Electronically signed by: iMke Church M.D. 06/05/2023 6:44 PM Medications Administered Home Medications Medication Instructions Recorded Confirmed Last Taken rivaroxaban 20 mg tablet (Xarelto) 20 mg PO HS 04/10/23 06/04/23 06/01/23 hydrocodone 5 mg-acetaminophen 325 1 tab PO Q8H PRN Pain #6 tabs 05/18/23 06/04/23 Unknown mg tablet acetaminophen 500 mg tablet 500 mg PO Q6H PRN Pain 06/04/23 06/04/23 06/04/23 levothyroxine 112 mcg tablet 112 mcg PO QAM 06/04/23 06/04/23 06/04/23 nivolumab 240 mg/24 mL intravenous 0 mg IV Q4WK 06/04/23 06/04/23 05/30/23 solution (Opdivo) Active Medications Generic Name Dose Route Start Last Admin Trade Name Freq PRN Reason Stop Dose Admin Acetaminophen 650 mg 06/04/23 17:31 06/05/23 20:00 Acetaminophen 325 Mg Tab PO 07/04/23 17:30 650 mg Q4H PRN Administration Pain or Fever Lorazepam 0.5 mg/ Syringe 0.5 mls @ 2 mls/min 06/04/23 14:30 06/04/23 17:09 IV 07/04/23 14:29 2 mls/min ONE PRN Administration MRI Piperacillin Sod/Tazobactam 100 mls @ 25 mls/hr 06/05/23 00:00 06/06/23 12:35 Sod 4.5 gm/ Dextrose IV 06/12/23 00:00 Infused Q8H [facility] Infusion Protocol Vancomycin HCl 1,250 mg/ 275 mls @ 200 mls/hr 06/05/23 04:00 06/06/23 05:49 Sodium Chloride IV 06/12/23 03:59 Infused Q12H [facility] Infusion Levothyroxine Sodium 112 mcg 06/05/23 06:30 06/06/23 05:36 Levothyroxine Sodium 112 Mcg Tablet PO 07/05/23 06:29 112 mcg DAILYBB [facility]MAN Administration
--- NOTE | 2023-06-06 13:17 | Pharmacy Report ---
Pharmacy PK ABX Note - Date of Service June 06, 2023 - Assessment and Plan Assessment 06/05: * Random vancomycin level came back at ~14 mcg/ml - reasonable to continue same vancomycin dosing as level predicted to achieve goal AUC/DANILO of 400-600. 06/04: * 63 year old M receiving vancomycin and zosyn for possible right knee infection. Presenting with worsening knee pain, chills over the last several days. Recently hospitalized 05/13/23 for similar symptoms s/p knee exploration/cultures grew micrococcus (thought to be contaminant). He was discharged on keflex. Blood cultures pending. Knee aspirated in ortho clinic and cultures pending. PMHx significant for metastatic melanoma, thyroid cancer and on immunomodulating therapy. Plan Vancomycin * Continue vancomycin 1250 mg iv q 12 hrs * Plan to repeat level in next 2-3 days Pharmacy will continue to follow and will adjust dose/frequency as necessary. Thank you. Pharmacy has transitioned to AUC monitoring for vancomycin. AUC/DANILO is the preferred PK/PD target and is associated with decreased risk of nephrotoxicity compared to traditional trough targets.
--- NOTE | 2023-06-06 18:24 | Hospitalist Progress Note ---
Date of Service June 06, 2023 Assessment & Plan (1) Pain in right knee: (2) Metastatic melanoma: (3) Atrial fibrillation: (4) Hypothyroidism: Plan This is a 63-year-old male who has a significant past medical history of PAF with history of cardioversion on Xarelto, metastatic melanoma on Opdivo, thyroid cancer, HTN, HLD, moderate MR and borderline diabetes who presents to the ED secondary to worsening knee pain x 5 days. Persistent pain in right knee Ambulatory dysfunction Consult orthopedics Repeat MRI inflammatory markers elevated - ESR 52 , CRP 20.7 rheumatoid factor pending uric acid 7.1 wnl Lyme screen negative Recent hospitalization status post right knee exploration and evacuation of hemarthrosis Prior right knee aspirate culture grew micrococcus species, felt to be contaminant during last admission but did complete course of Keflex Obtain blood cultures, knee aspiration was performed as outpatient in orthopedic office prior to admission 06/03 - results pending Empirically cover with IV vancomycin and Zosyn Consult infectious disease - recommend to hold abx and cont. to monitor Ortho recommends to continue with PT/OT, abx, follow cultures, possibly related to immunotherapy. 06/05 Discussed in detail with orthopedics in AM, will try to contact pt's oncologist at [facility] as well Hyponatremia likely 2/2 poor intake IVF x 2 L urine sodium, osm, serum osm Continue to monitor Metastatic melanoma Currently on Opdivo infusions every 4 weeks Follows [facility] oncology As well as [facility] - Dr. Lucila Ruiz - [phone] Patient symptoms started after Opdivo infusion, typically takes 1 to 2 days to recover; however has had a persistent decline Possible symptoms at all related to infusion therapy Papillary thyroid carcinoma Following [facility] plan for thyroidectomy in May Continue thyroid replacement PAF on Xarelto Follows with [facility] cardiology Off sotalol therapy due to significant bradycardia Currently in normal sinus rhythm Last Xarelto dose was on 05/31, will hold until seen by orthopedics and MRI results discuss resuming Xarelto if orthopedics not pursuing procedure Anemia, acute on chronic anemia, multifactorial Iron deficiency anemia hgb stable at 9.0 required 1 unit PRBC during recent hospital stay Continue to monitor DVT prophylaxis: SCDS, holding xarelto FULL CODE PCP: Dr. Yon Burns Dispo: per pt/ot recs Admission and Anticipated Discharge Date Admission Date: June 04, 2023 Subjective Pt seen in follow up of knee pain Discussed in detail with orthopedics - Dr. Manriquez and saw pt together at the bedside Pt is feeling tired however knee pain seems improved and he is able to move his knee better as well Yesterday, temp noted elevated at 38.3 C , pt did not notice any fevers or ch ills. Also denies any chest pain, shortness of breath, abd. pain, n/v. He is having some loose stools though. Review of Systems Review of Systems: All systems reviewed & are unremarkable except as noted in Subjective Physical Exam Physical Exam: General: Alert, oriented. No acute distress HEENT: NC/AT CV: RRR Resp: Breath sounds clear bilaterally, no increased effort of breathing. Abdomen: Soft, nontender, nondistended. Extremities: Right knee w/ effusion, no erythema, improved ROM Psych: Appropriate mood and affect Skin: warm, dry Results & Data Results & Data Vital Signs (Past 12 Hours) Vital Signs Temp Pulse Pulse Resp BP Pulse Ox O2 Del Method 06/06/23 15:54 37.2 C 57 L 16 114/65 96 Room Air 06/06/23 15:38 61 06/06/23 11:36 36.8 C 57 L 16 117/71 96 Room Air 06/06/23 08:36 65 06/06/23 07:35 36.8 C 55 L 16 122/64 98 Room Air Laboratory Results 06/06/23 06/06/23 Range/Units 12:15 07:01 WBC 5.16 (4.8-10.8) K/ul RBC 2.52 L (4.70-6.10) M/uL Hgb 7.2 L (14.0-18.0) g/dl Hct 22.0 L (42.0-52.0) % MCV 87.3 (80.0-100.0) fL MCH 28.6 (25.0-34.0) pg MCHC 32.7 (32.0-36.0) g/dL RDW Std Deviation 49.1 H (36.4-46.3) fL RDW Coeff of Tracy 15.4 H (11.5-14.5) % Plt Count 243 (130-400) K/uL MPV 8.5 L (9.4-12.4) fL Immature Gran % (Auto) 0.2 % Neut % (Auto) 52.3 % Lymph % (Auto) 27.7 % [place] % (Auto) 8.9 % Eos % (Auto) 10.1 % Baso % (Auto) 0.8 % Neut # (Auto) 2.70 (1.40-6.50) K/uL Lymph # (Auto) 1.43 (1.20-3.40) K/uL [place] # (Auto) 0.46 (0.11-0.59) K/uL Eos # (Auto) 0.52 H (0.00-0.50) K/uL Baso # (Auto) 0.04 (0.00-0.20) K/uL Immature Gran # (Auto) 0.01 (0.01-0.20) K/uL Ovalocytes 1+ Sodium 132 L (136-145) mmol/L Potassium 3.6 (3.5-5.1) mmol/L Chloride 102 (98-107) mmol/L Carbon Dioxide 23 (21-32) mmol/L Anion Gap 7 (3-11) BUN 11 (6-23) mg/dl Creatinine 0.87 (0.6-1.4) mg/dl Est Cr Clr Drug Dosing 103.9 ml/min Est GFR ( Amer) 105.0 ml/min Est GFR (Non-Af Amer) 90.6 ml/min BUN/Creatinine Ratio 12.6 (10-20) Glucose 87 (70-99(Fasting)) mg/dl Calcium 8.9 (8.6-10.3) mg/dl Phosphorus 4.4 (2.5-4.9) mg/dl Magnesium 1.5 L (1.7-2.4) mg/dl Total Bilirubin 0.6 (0.2-1.0) mg/dl AST 10 L (13-39) U/L ALT 4 L (7-52) U/L Alkaline Phosphatase 47 (34-104) U/L Total Protein 5.7 L (6.0-8.3) gm/dl Albumin 3.3 L (3.4-5.0) gm/dl Globulin 2.4 L (2.5-4.0) gm/dl Albumin/Globulin Ratio 1.4 (0.9-2) Random Vancomycin 13.9 (10-20) mcg/ml Medications Administered Current Inpatient Medications Acetaminophen (Acetaminophen 325 Mg Tab) 650 mg PO Q4H PRN PRN Reason: Pain or Fever Stop: 07/04/23 17:30 Last Admin: 06/05/23 20:00 Dose: 650 mg Al Hydrox/Mg Hydrox/Simethicone (Aluminum/Magnesium Susp 30 Ml Udc) 15 ml PO Q4H PRN PRN Reason: Dyspepsia Stop: 07/04/23 17:30 Heparin Sodium (Porcine) (Heparin 100 Unit/Ml 5ml Flush) 5 ml FLUSH PRN PRN PRN Reason: Flush Stop: 07/05/23 15:48 Lorazepam 0.5 mg/ Syringe 0.5 mls @ 2 mls/min IV ONE PRN PRN Reason: MRI Stop: 07/04/23 14:29 Last Admin: 06/04/23 17:09 Dose: 2 mls/min Piperacillin Sod/Tazobactam (Sod 4.5 gm/ Dextrose) 100 mls @ 25 mls/hr IV Q8H [facility]; Protocol Stop: 06/12/23 00:00 Last Admin: 06/06/23 17:20 Dose: Not Given Vancomycin HCl 1,250 mg/ (Sodium Chloride) 275 mls @ 200 mls/hr IV Q12H [facility] Stop: 06/12/23 03:59 Last Admin: 06/06/23 17:20 Dose: Not Given Magnesium Sulfate/Dextrose (Magnesium Sulfate / D5w) 1 gm in 100 mls @ 50 mls/hr IV ONE ONE Stop: 06/06/23 20:14 Last Admin: 06/06/23 18:35 Dose: 50 mls/hr Lactobacillus Acidophilus (Advanced Probiotic 625 Mg Capsule) 1,250 mg PO DAILY [facility] Stop: 07/06/23 17:59 Last Admin: 06/06/23 19:18 Dose: 1,250 mg Levothyroxine Sodium ([facility]othyroxine S[facility] 112 Mcg Tablet) [facility] Stop: 07/05/23 06:29 Last Admin: 06/06/23 05:36 Dose: 112 mcg Magnesium Hydroxide (Magnesium Hydroxide Susp 30 Ml Udc) 30 ml PO Q12H PRN PRN Reason: Constipation Stop: 07/04/23 17:30 Miscellaneous Information (Vancomycin Consult Active) 1 each N/A UD PRN PRN Reason: Consult Stop: 07/04/23 17:30 Ondansetron HCl (Ondansetron Inj 2 Mg/Ml 2 Ml Vial) 4 mg IV Q6H PRN PRN Reason: Nausea Stop: 07/04/23 17:30 Oxycodone HCl (Oxycodone Hcl Ir 5 Mg Tab (Immediate Release)) 5 mg PO Q6H PRN PRN Reason: Severe Pain (Scale 7, 8, 9,10) Stop: 06/18/23 17:30 Polyethylene Glycol (Polyethylene (Miralax) 17 Gm Pack) 17 gm PO DAILY PRN PRN Reason: Constipation Stop: 07/04/23 17:30 (1) Pain in right knee Chronicity: acute Qualified Code(s): M25.561 - Pain in right knee (3) Atrial fibrillation Atrial fibrillation type: unspecified Qualified Code(s): I48.91 - Unspecified atrial fibrillation (4) Hypothyroidism Hypothyroidism type: unspecified Qualified Code(s): E03.9 - Hypothyroidism, unspecified
[2023-06-06] MEDS: MAGNESIUM SULFATE / D5W 1 GM/100 ML BAG IV ONE (18:35)
[2023-06-06] MEDS: ADVANCED PROBIOTIC 625 MG CAPSULE PO SCH (19:18)
[2023-06-07 07:20] LABS: BUN Creatinine Ratio 13.3 (10-20); Calcium 8.9 mg/dl (8.6-10.3); Creatinine Clr Calc Pharmacy 120.6 ml/min; Est GFR (African American) 111.6 ml/min; Est GFR (Non-African American) 96.3 ml/min; Magnesium 1.5 mg/dl (1.7-2.4); Phosphorus 4.2 mg/dl (2.5-4.9); Potassium 3.5 mmol/L (3.5-5.1)
[2023-06-07 07:23] LABS: Hematocrit (blood only) 31.8 % (42.0-52.0); Hemoglobin 10.4 g/dl (14.0-18.0); Mean Corpuscular Hemoglobin 28.3 pg (25.0-34.0); Mean Corpuscular Hgb Conc 32.7 g/dL (32.0-36.0); Mean Corpuscular Volume 86.6 fL (80.0-100.0); Mean Platelet Volume 9.1 fL (9.4-12.4); Platelet Count 224 K/uL (130-400); RDW Coefficient of Variation 15.1 % (11.5-14.5); RDW Standard Deviation 48.7 fL (36.4-46.3); Red Blood Count 3.67 M/uL (4.70-6.10); White Blood Count 4.02 K/ul (4.8-10.8)
--- NOTE | 2023-06-07 07:26 | Hospitalist Progress Note ---
Date of Service June 07, 2023 Assessment & Plan (1) Pain in right knee: (2) Metastatic melanoma: (3) Atrial fibrillation: (4) Hypothyroidism: Plan This is a 63-year-old male who has a significant past medical history of PAF with history of cardioversion on Xarelto, metastatic melanoma on Opdivo, thyroid cancer, HTN, HLD, moderate MR and borderline diabetes who presents to the ED secondary to worsening knee pain x 5 days. Persistent pain in right knee Ambulatory dysfunction Consult orthopedics Repeat MRI inflammatory markers elevated - ESR 52 , CRP 20.7 rheumatoid factor pending uric acid 7.1 wnl Lyme screen negative Recent hospitalization status post right knee exploration and evacuation of hemarthrosis Prior right knee aspirate culture grew micrococcus species, felt to be contaminant during last admission but did complete course of Keflex Obtain blood cultures, knee aspiration was performed as outpatient in orthopedic office prior to admission 06/03 - results pending Empirically cover with IV vancomycin and Zosyn Consult infectious disease - recommend to hold abx and cont. to monitor Ortho recommends to continue with PT/OT, abx, follow cultures, possibly related to immunotherapy. 06/05 Discussed in detail with orthopedics in AM, will try to contact pt's oncologist at [facility] as well 06/06 Developed R elbow edema, pain, knee seems to be better. Will start toradol, and possibly steroid. Cultx negat. for infection Dr. Ruiz at [facility] contacted - awaiting to hear back Hyponatremia likely 2/2 poor intake IVF x 2 L urine sodium, osm, serum osm Continue to monitor Metastatic melanoma Currently on Opdivo infusions every [address] [facility] oncology As well as [facility] - Dr. Lucila Ruiz [phone] Patient symptoms started after Opdivo infusion, typically takes 1 to 2 days to recover; however has had a persistent decline Possible symptoms at all related to infusion therapy Papillary thyroid carcinoma Following [facility] plan for thyroidectomy in May Continue thyroid replacement PAF on Xarelto 20 daily Follows with [facility] Off sotalol therapy due to significant bradycardia Currently in normal sinus rhythm Last Xarelto dose was on 05/31, will hold until seen by orthopedics and MRI results discuss resuming Xarelto if orthopedics not pursuing procedure Follows w/ Dr. Williamson - cardiology Anemia, acute on chronic anemia, multifactorial Iron deficiency anemia hgb stable at 9.0 required 1 unit PRBC during recent hospital stay Continue to monitor DVT prophylaxis: SCDS, holding xarelto FULL CODE PCP: Dr. Yon Burns Dispo: per pt/ot recs Admission and Anticipated Discharge Date Admission Date: June 06, 2023 Subjective Pt seen in follow up of knee pain Discussed in detail yesterday with orthopedics - Dr. Manriquez and saw pt together at the bedside Pt is feeling tired however knee pain seems improved and he is able to move his knee better as well. Today again reports that his knee feels better. However now devloped left elbow pain and edema overnight (d/t IV site? ) orthopedics aware and will obtain X-ray On 06/04 PM, temp elevated at 38.3 C , pt did not notice any fevers or chills. Also denies any chest pain, shortness of breath, abd. pain, n/v. + loose stools, stool pcr ordered Seen by ID yesterday and abx stopped I contacted pt's oncologist Dr. Ruiz at [facility], waiting to hear back Review of Systems Review of Systems: All systems reviewed & are unremarkable except as noted in Subjective Physical Exam Physical Exam: General: Alert, oriented. No acute distress HEENT: NC/AT CV: RRR Resp: Breath sounds clear bilaterally, no increased effort of breathing. Abdomen: Soft, nontender, nondistended. Extremities: Right knee w/ effusion, no erythema, improved ROM. R elbow with mild edema, tenderness to palpation. Psych: Appropriate mood and affect Skin: warm, dry Results & Data Results & Data Vital Signs (Past 12 Hours) Vital Signs Temp Pulse Pulse Resp BP Pulse Ox O2 Del Method 06/07/23 03:00 37.1 C 57 L 16 130/70 97 Room Air 06/06/23 23:31 37.2 C 63 18 131/67 95 Room Air 06/06/23 22:33 70 06/06/23 19:54 37 C 59 L 16 126/75 99 Room Air Laboratory Results 06/07/23 06/06/23 06/06/23 Range/Units 05:30 12:15 07:01 WBC 4.02 L (4.8-10.8) K/ul RBC 3.67 L (4.70-6.10) M/uL Hgb 10.4 L D (14.0-18.0) g/dl Hct 31.8 L (42.0-52.0) % MCV 86.6 (80.0-100.0) fL MCH 28.3 (25.0-34.0) pg MCHC 32.7 (32.0-36.0) g/dL RDW Std Deviation 48.7 H (36.4-46.3) fL RDW Coeff of Tracy 15.1 H (11.5-14.5) % Plt Count 224 (130-400) K/uL MPV 9.1 L (9.4-12.4) fL Ovalocytes 1+ Sodium 131 L 132 L (136-145) mmol/L Potassium 3.5 3.6 (3.5-5.1) mmol/L Chloride 101 102 (98-107) mmol/L Carbon Dioxide 23 23 (21-32) mmol/L Anion Gap 7 7 (3-11) BUN 10 11 (6-23) mg/dl Creatinine 0.75 0.87 (0.6-1.4) mg/dl Est Cr Clr Drug Dosing 120.6 103.9 ml/min Est GFR ( Amer) 111.6 105.0 ml/min Est GFR (Non-Af Amer) 96.3 90.6 ml/min BUN/Creatinine Ratio 13.3 12.6 (10-20) Glucose 74 87 (70-99(Fasting)) mg/dl Calcium 8.9 8.9 (8.6-10.3) mg/dl Phosphorus 4.2 4.4 (2.5-4.9) mg/dl Magnesium 1.5 L 1.5 L (1.7-2.4) mg/dl Total Bilirubin 0.6 (0.2-1.0) mg/dl AST 10 L (13-39) U/L ALT 4 L (7-52) U/L Alkaline Phosphatase 47 (34-104) U/L Total Protein 5.7 L (6.0-8.3) gm/dl Albumin 3.3 L (3.4-5.0) gm/dl Globulin 2.4 L (2.5-4.0) gm/dl Albumin/Globulin Ratio 1.4 (0.9-2) Random Vancomycin 13.9 (10-20) mcg/ml Medications Administered Current Inpatient Medications Acetaminophen (Acetaminophen 325 Mg Tab) 650 mg PO Q4H PRN PRN Reason: Pain or Fever Stop: 07/04/23 17:30 Last Admin: 06/07/23 06:16 Dose: 650 mg Al Hydrox/Mg Hydrox/Simethicone (Aluminum/Magnesium Susp 30 Ml Udc) 15 ml PO Q4H PRN PRN Reason: Dyspepsia Stop: 07/04/23 17:30 Heparin Sodium (Porcine) (Heparin 100 Unit/Ml 5ml Flush) 5 ml FLUSH PRN PRN PRN Reason: Flush Stop: 07/05/23 15:48 Lorazepam 0.5 mg/ Syringe 0.5 mls @ 2 mls/min IV ONE PRN PRN Reason: MRI Stop: 07/04/23 14:29 Last Admin: 06/04/23 17:09 Dose: 2 mls/min Piperacillin Sod/Tazobactam (Sod 4.5 gm/ Dextrose) 100 mls @ 25 mls/hr IV Q8H [facility]; Protocol Stop: 06/12/23 00:00 Last Admin: 06/06/23 22:34 Dose: Not Given Vancomycin HCl 1,250 mg/ (Sodium Chloride) 275 mls @ 200 mls/hr IV Q12H [facility] Stop: 06/12/23 03:59 Last Admin: 06/07/23 04:11 Dose: Not Given Magnesium Sulfate/Dextrose (Magnesium Sulfate / D5w) 1 gm in 100 mls @ 50 mls/hr IV ONE ONE Stop: 06/07/23 09:23 Lactobacillus Acidophilus (Advanced Probiotic 625 Mg Capsule) 1,250 mg PO DAILY [facility] Stop: 07/06/23 17:59 Last Admin: 06/06/23 19:18 Dose: 1,250 mg Levothyroxine Sodium (Levothyroxine Sodium 112 Mcg Tablet) 112 mcg PO DAILYBB [facility] Stop: 07/05/23 06:29 Last Admin: 06/07/23 05:42 Dose: 112 mcg Magnesium Hydroxide (Magnesium Hydroxide Susp 30 Ml Udc) 30 ml PO Q12H PRN PRN Reason: Constipation Stop: 07/04/23 17:30 Miscellaneous Information (Vancomycin Consult Active) 1 each N/A UD PRN PRN Reason: Consult Stop: 07/04/23 17:30 Ondansetron HCl (Ondansetron Inj 2 Mg/Ml 2 Ml Vial) 4 mg IV Q6H PRN PRN Reason: Nausea Stop: 07/04/23 17:30 Oxycodone HCl (Oxycodone Hcl Ir 5 Mg Tab (Immediate Release)) 5 mg PO Q6H PRN PRN Reason: Severe Pain (Scale 7, 8, 9,10) Stop: 06/18/23 17:30 Polyethylene Glycol (Polyethylene (Miralax) 17 Gm Pack) 17 gm PO DAILY PRN PRN Reason: Constipation Stop: 07/04/23 17:30 (1) Pain in right knee Chronicity: acute Qualified Code(s): M25.561 - Pain in right knee (3) Atrial fibrillation Atrial fibrillation type: unspecified Qualified Code(s): I48.91 - Unspecified atrial fibrillation (4) Hypothyroidism Hypothyroidism type: unspecified Qualified Code(s): E03.9 - Hypothyroidism, unspecified
[2023-06-07] MEDS: MAGNESIUM SULFATE / D5W 1 GM/100 ML BAG IV ONE ×2 (08:17→16:15)
[2023-06-07] MEDS: oxyCODONE HCL IR 5 MG TAB (IMMEDIATE RELEASE) PO PRN (15:44)
--- NOTE | 2023-06-07 17:24 | Orthopedic Progress Note ---
Date of Service June 07, 2023 Assessment & Plan (1) Pain in right knee: Plan: He is afebrile. His white count is 4 which is slightly low. He remains anemic and his labs are noted. All cultures are no growth to date. The MRI reports and addendum are noted.I would continue supportive management for the right knee at this time and continue physical therapy. (2) Right elbow pain: Plan: New problem which is developed in the past 24 hours. Could be related to IV infiltration. Could be tendinitis. Will start with an x-ray and ice. Will speak with the hospitalist regarding potential use of some NSAIDs/steroids to help out given that he is now off of his blood thinner. Admission and Anticipated Discharge Date Admission Date: June 06, 2023 Subjective Right knee feels about the same. He was up with PT. New problem began last night right elbow hurting him. He has had a couple of episodes of elbow pain in the past which have gotten better in a few days. There is no recent injury. He had an IV in his right elbow anteriorly which he requested to be removed because the elbow has been hurting him. Physical Exam Physical Exam: Knee is essentially the same as yesterday. Moderate to large effusion with minimal increased warmth and no erythema. He is able to do a leg raise with about a 10 degree lag and bend his knee to maybe 100 degrees today. The knee is not tender to palpation and he is rating pain as 1 or 2 out of 10. Examination of the right upper extremity shows swelling of the right elbow with increased warmth. There might be a little bit of faint erythema anteriorly where he had an IV in the antecubital area but there is minimal or no tenderness anterior medial or lateral. Pretty significant tenderness over the olecranon and distal triceps. Slight bogginess in this area but no effusion to aspirate. Elbow motion is approximately 0/60/100. He has full forearm rotation without significant discomfort. Radial pulses 1+ median radial and ulnar motor and sensory functions are intact he has 3 out of 5 elbow extension limited by pain 5- out of 5 elbow flexion. Results & Data Vital Signs (Past 12 Hours) Vital Signs Temp Pulse Pulse Resp BP Pulse Ox O2 Del Method 06/07/23 16:45 54 L 06/07/23 16:01 36.9 C 60 16 155/83 H 97 Room Air 06/07/23 11:43 36.7 C 52 L 16 127/71 99 Room Air 06/07/23 10:02 58 L 06/07/23 07:50 36.9 C 66 20 147/77 H 99 Room Air (1) Pain in right knee Chronicity: acute Qualified Code(s): M25.561 - Pain in right knee
[2023-06-07] MEDS: KETOROLAC TROMETHAMINE 15 MG/ML VIAL IV ONE (17:56)
[2023-06-08 07:03] LABS: Hematocrit (blood only) 22.9 % (42.0-52.0); Hemoglobin 7.5 g/dl (14.0-18.0); Mean Corpuscular Hemoglobin 28.4 pg (25.0-34.0); Mean Corpuscular Hgb Conc 32.8 g/dL (32.0-36.0); Mean Corpuscular Volume 86.7 fL (80.0-100.0); Mean Platelet Volume 8.7 fL (9.4-12.4); Platelet Count 292 K/uL (130-400); RDW Coefficient of Variation 15.1 % (11.5-14.5); RDW Standard Deviation 47.8 fL (36.4-46.3); Red Blood Count 2.64 M/uL (4.70-6.10); White Blood Count 6.38 K/ul (4.8-10.8)
[2023-06-08 07:08] LABS: BUN Creatinine Ratio 15.1 (10-20); Calcium 8.5 mg/dl (8.6-10.3); Creatinine Clr Calc Pharmacy 105.1 ml/min; Est GFR (African American) 105.5 ml/min; Magnesium 1.7 mg/dl (1.7-2.4); Phosphorus 5.3 mg/dl (2.5-4.9); Potassium 3.9 mmol/L (3.5-5.1)
--- NOTE | 2023-06-08 07:40 | XRay Report ---
XR elbow RT min 3V routine CLINICAL HISTORY: Right elbow pain. COMPARISON STUDY: None. FINDINGS: No acute fracture or dislocation within the right elbow. No elbow effusion. There is diffus e soft tissue swelling within the right elbow. Moderate osteoarthritis is noted. A few small punctate calcifications at the olecranon. No metallic foreign bodies. IMPRESSION: 1. Diffuse soft tissue swelling within the right elbow. 2. No fracture or dislocation. ACT 112: Negative or not required by law. Electronically signed by: Stanford House M.D. 06/08/2023 7:39 AM
[2023-06-08] MEDS: KETOROLAC TROMETHAMINE 15 MG/ML VIAL IV SCH (09:30)
--- NOTE | 2023-06-08 09:34 | Hospitalist Progress Note ---
Date of Service June 08, 2023 Assessment & Plan (1) Pain in right knee: (2) Metastatic melanoma: (3) Atrial fibrillation: (4) Hypothyroidism: Plan This is a 63-year-old male who has a significant past medical history of PAF with history of cardioversion on Xarelto, metastatic melanoma on Opdivo, thyroid cancer, HTN, HLD, moderate MR and borderline diabetes who presents to the ED secondary to worsening knee pain x 5 days. Persistent pain in right knee Ambulatory dysfunction Consult orthopedics Repeat MRI inflammatory markers elevated - ESR 52 , CRP 20.7 rheumatoid factor pending uric acid 7.1 wnl Lyme screen negative Recent hospitalization status post right knee exploration and evacuation of hemarthrosis Prior right knee aspirate culture grew micrococcus species, felt to be contaminant during last admission but did complete course of Keflex Obtain blood cultures, knee aspiration was performed as outpatient in orthopedic office prior to admission 06/03 - results pending Empirically cover with IV vancomycin and Zosyn Consult infectious disease - recommend to hold abx and cont. to monitor Ortho recommends to continue with PT/OT, abx, follow cultures, possibly related to immunotherapy. 06/05 Discussed in detail with orthopedics in AM, will try to contact pt's oncologist at [facility] as well 06/06 Developed R elbow edema, pain, knee seems to be better. Will start toradol, and possibly steroid. Cultx negat. for infection Dr. Ruiz at [facility] contacted and discussed with - reports that pts can get joint swelling/ pain after opdivo infusion (about 5%), and also recommends to check cortisol level for poss adrenal insufficiency. if low recommends hydrocortisone 20 daily x5 days. In addition, recommend to check TSH. recommends very close follow up w/ local oncologist to re-evaluate. - cortisol low and hydrocortisone started, TSH bit up, increased pt's levothyroxine dose. R elbow pain/ edema developed on 06/06 Seen by orthopedics X-ray - 1. Diffuse soft tissue swelling within the right elbow. 2. No fracture or dislocation. Ice and toradol started edema and pain improved, cont. ice and toradol discussed w/ orthopedics Hyponatremia likely 2/2 poor intake IVF x 2 L urine sodium, osm, serum osm Continue to monitor Metastatic melanoma Currently on Opdivo infusions every 4 weeks Follows [facility] oncology As well as [facility] - Dr. Lucila Ruiz [phone] Patient symptoms started after Opdivo infusion, typically takes 1 to 2 days to recover; however has had a persistent decline Possible symptoms at all related to infusion therapy Discussed as above Papillary thyroid carcinoma Following [facility] plan for thyroidectomy in June Continue thyroid replacement, increased levothyroxine, as above PAF on Xarelto 20 daily Follows with [facility], Dr. Williamson Off sotalol therapy due to significant bradycardia Currently in normal sinus rhythm Last Xarelto dose was on 05/31, will hold until seen by orthopedics and MRI results discuss resuming Xarelto if orthopedics not pursuing procedure Follows w/ Dr. Williamson - cardiology - will cont. to hold xarelto for now (pt is in sinus rhythm on tele) Anemia, acute on chronic anemia, multifactorial Iron deficiency anemia hgb stable at 9.0 required 1 unit PRBC during recent hospital stay Continue to monitor DVT prophylaxis: SCDS, holding xarelto FULL CODE PCP: Dr. Yon Burns Dispo: per pt/ot recs Admission and Anticipated Discharge Date Admission Date: June 06, 2023 Subjective Pt seen in follow up of knee pain Discussed in detail w/ Dr. Manriquez. Pt is feeling tired however improved and knee pain is much improved. Left elbow pain and edema also improved. Started toradol per discussion with orthopedics. On 06/04 PM, temp elevated at 38.3 C , pt did not notice any fevers or chills. Also denies any chest pain, shortness of breath, abd. pain, n/v. Seen by ID on 04/07 and abx stopped Discussed w/ pt's oncologist Dr. Ruiz at [facility] - reports that pts can get joint swelling/ pain after opdivo infusion (about 5%), and also recommends to check cortisol level for poss adrenal insufficiency. if low recommends hydrocortisone 20 daily x5 days. In addition, recommend to check TSH. recommends very close follow up w/ local oncologist to re-evaluate. Update: cortisol low and hydrocortisone started, TSH bit up, increased pt's levothyroxine dose. Review of Systems Review of Systems: All systems reviewed & are unremarkable except as noted in Subjective Physical Exam Physical Exam: General: Alert, oriented. No acute distress HEENT: NC/AT CV: RRR Resp: Breath sounds clear bilaterally, no increased effort of breathing. Abdomen: Soft, nontender, nondistended. Extremities: Right knee w/ effusion, no erythema, improved ROM. R elbow with mild edema, tenderness to palpation improved. Psych: Appropriate mood and affect Skin: warm, dry Results & Data Results & Data Vital Signs (Past 12 Hours) Vital Signs Temp Pulse Pulse Resp BP Pulse Ox O2 Del Method 06/08/23 07:27 36.8 C 55 L 18 128/75 98 Room Air 06/08/23 03:06 37.1 C 57 L 16 133/71 95 Room Air 06/07/23 23:17 60 06/07/23 23:02 36.9 C 60 16 134/69 98 Room Air Laboratory Results 06/08/23 Range/Units 05:57 WBC 6.38 (4.8-10.8) K/ul RBC 2.64 L (4.70-6.10) M/uL Hgb 7.5 L D (14.0-18.0) g/dl Hct 22.9 L (42.0-52.0) % MCV 86.7 (80.0-100.0) fL MCH 28.4 (25.0-34.0) pg MCHC 32.8 (32.0-36.0) g/dL RDW Std Deviation 47.8 H (36.4-46.3) fL RDW Coeff of Tracy 15.1 H (11.5-14.5) % Plt Count 292 (130-400) K/uL MPV 8.7 L (9.4-12.4) fL Sodium 131 L (136-145) mmol/L Potassium 3.9 (3.5-5.1) mmol/L Chloride 100 (98-107) mmol/L Carbon Dioxide 25 (21-32) mmol/L Anion Gap 6 (3-11) BUN 13 (6-23) mg/dl Creatinine 0.86 (0.6-1.4) mg/dl Est Cr Clr Drug Dosing 105.1 ml/min Est GFR ( Amer) 105.5 ml/min Est GFR (Non-Af Amer) 91.0 ml/min BUN/Creatinine Ratio 15.1 (10-20) Glucose 90 (70-99(Fasting)) mg/dl Calcium 8.5 L (8.6-10.3) mg/dl Phosphorus 5.3 H (2.5-4.9) mg/dl Magnesium 1.7 (1.7-2.4) mg/dl Medications Administered Current Inpatient Medications Acetaminophen (Acetaminophen 325 Mg Tab) 650 mg PO Q4H PRN PRN Reason: Pain or Fever Stop: 07/04/23 17:30 Last Admin: 06/07/23 06:16 Dose: 650 mg Al Hydrox/Mg Hydrox/Simethicone (Aluminum/Magnesium Susp 30 Ml Udc) 15 ml PO Q4H PRN PRN Reason: Dyspepsia Stop: 07/04/23 17:30 Heparin Sodium (Porcine) (Heparin 100 Unit/Ml 5ml Flush) 5 ml FLUSH PRN PRN PRN Reason: Flush Stop: 07/05/23 15:48 Lorazepam 0.5 mg/ Syringe 0.5 mls @ 2 mls/min IV ONE PRN PRN Reason: MRI Stop: 07/04/23 14:29 Last Admin: 06/04/23 17:09 Dose: 2 mls/min Piperacillin Sod/Tazobactam (Sod 4.5 gm/ Dextrose) 100 mls @ 25 mls/hr IV Q8H [facility]; Protocol Stop: 06/12/23 00:00 Last Admin: 06/07/23 08:08 Dose: Not Given Vancomycin HCl 1,250 mg/ (Sodium Chloride) 275 mls @ 200 mls/hr IV Q12H [facility] Stop: 06/12/23 03:59 Last Admin: 06/07/23 04:11 Dose: Not Given Ketorolac Tromethamine (Ketorolac Tromethamine 15 Mg/Ml Vial) 15 mg IV Q6H [facility] Stop: 06/13/23 08:59 Last Admin: 06/08/23 09:30 Dose: 15 mg Lactobacillus Acidophilus (Advanced Probiotic 625 Mg Capsule) 1,250 mg PO DAILY [facility] Stop: 07/06/23 17:59 Last Admin: 06/08/23 08:07 Dose: 1,250 mg Levothyroxine Sodium (Levothyroxine Sodium 112 Mcg Tablet) 112 mcg PO DAILYBB [facility] Stop: 07/05/23 06:29 Last Admin: 06/08/23 06:22 Dose: 112 mcg Magnesium Hydroxide (Magnesium Hydroxide Susp 30 Ml Udc) 30 ml PO Q12H PRN PRN Reason: Constipation Stop: 07/04/23 17:30 Miscellaneous Information (Vancomycin Consult Active) 1 each N/A UD PRN PRN Reason: Consult Stop: 07/04/23 17:30 Ondansetron HCl (Ondansetron Inj 2 Mg/Ml 2 Ml Vial) 4 mg IV Q6H PRN PRN Reason: Nausea Stop: 07/04/23 17:30 Oxycodone HCl (Oxycodone Hcl Ir 5 Mg Tab (Immediate Release)) 5 mg PO Q6H PRN PRN Reason: Severe Pain (Scale 7, 8, 9,10) Stop: 06/18/23 17:30 Last Admin: 06/08/23 03:22 Dose: 5 mg Polyethylene Glycol (Polyethylene (Miralax) 17 Gm Pack) 17 gm PO DAILY PRN PRN Reason: Constipation Stop: 07/04/23 17:30 (1) Pain in right knee Chronicity: acute Qualified Code(s): M25.561 - Pain in right knee (3) Atrial fibrillation Atrial fibrillation type: unspecified Qualified Code(s): I48.91 - Unspecified atrial fibrillation (4) Hypothyroidism Hypothyroidism type: unspecified Qualified Code(s): E03.9 - Hypothyroidism, unspecified
[2023-06-08] MEDS: MAGNESIUM SULFATE / D5W 1 GM/100 ML BAG IV ONE (10:29)
--- NOTE | 2023-06-08 10:41 | Orthopedic Progress Note ---
Date of Service June 08, 2023 Assessment & Plan (1) Pain in right knee: Plan: Continue present treatment. He feels back to baseline of last week preinfusion.. (2) Right elbow pain: Plan: Started on Toradol last evening. He has had a couple doses and has noted improvement. I think the elbow is likely bursitis or tendinitis. Possibly calcific tendinitis. I do not see anything suggesting infection or anything intra-articularly at this time. There is improvement compared to yesterday. Continue the Toradol. Elevate ice. Work on range of motion. Admission and Anticipated Discharge Date Admission Date: June 06, 2023 Subjective At rest there is no pain in the right elbow. Today at rest there is no pain in the right knee. Overall he feels better compared to Sunday. Spoke with his . Physical Exam Physical Exam: Full forearm rotation. Elbow range of motion 0/40/85. Swelling is less skin wrinkles are present there is increased warmth but no erythema. No anterior medial or lateral tenderness. Tenderness is essentially directly over the tip of the olecranon and surrounding area. No bogginess or effusion. He can actively extend against gravity but with pain. With movement pain is 4 or 5 out of 10 in the right elbow. Results & Data Vital Signs (Past 12 Hours) Vital Signs Temp Pulse Pulse Resp BP Pulse Ox O2 Del Method 06/08/23 09:37 54 L 06/08/23 07:27 36.8 C 55 L 18 128/75 98 Room Air 06/08/23 03:06 37.1 C 57 L 16 133/71 95 Room Air 06/07/23 23:17 60 06/07/23 23:02 36.9 C 60 16 134/69 98 Room Air Diagnostic Findings He is afebrile. His white blood cell count is normal. The report of his right elbow x-ray is reviewed. Negative effusion there is mild degenerative change. There are a couple small ossicles versus calcifications posteriorly. There is no fracture. Positive soft tissue swelling without air. (1) Pain in right knee Chronicity: acute Qualified Code(s): M25.561 - Pain in right knee
[2023-06-08 14:41] LABS: Thyroid Stimulating Hormone 22.112 uIu/ml (0.300-4.500)
[2023-06-08 18:12] LABS: T4 Free Thyroxine 0.65 ng/dl (0.61-1.60)
[2023-06-08] MEDS: HYDROCORTISONE SOD 50 MG in SYRINGE 0 ML IV ONE (18:24)
[2023-06-09] MEDS: LEVOTHYROXINE SODIUM 125 MCG TABLET PO SCH (06:02)
[2023-06-09 06:44] LABS: Hematocrit (blood only) 24.1 % (42.0-52.0); Hemoglobin 8.1 g/dl (14.0-18.0); Mean Corpuscular Hemoglobin 28.8 pg (25.0-34.0); Mean Corpuscular Hgb Conc 33.6 g/dL (32.0-36.0); Mean Corpuscular Volume 85.8 fL (80.0-100.0); Mean Platelet Volume 8.8 fL (9.4-12.4); Platelet Count 334 K/uL (130-400); RDW Coefficient of Variation 14.7 % (11.5-14.5); RDW Standard Deviation 46.5 fL (36.4-46.3); Red Blood Count 2.81 M/uL (4.70-6.10); White Blood Count 7.22 K/ul (4.8-10.8)
[2023-06-09 07:18] LABS: BUN Creatinine Ratio 22.8 (10-20); Calcium 8.5 mg/dl (8.6-10.3); Creatinine Clr Calc Pharmacy 114.5 ml/min; Est GFR (African American) 109.2 ml/min; Est GFR (Non-African American) 94.2 ml/min; Magnesium 1.6 mg/dl (1.7-2.4); Phosphorus 5.7 mg/dl (2.5-4.9); Potassium 4.1 mmol/L (3.5-5.1)
[2023-06-09] MEDS: HYDROCORTISONE 10 MG TAB PO SCH (08:14)
[2023-06-09] MEDS: MAGNESIUM SULFATE / D5W 1 GM/100 ML BAG IV ONE (08:20)
--- NOTE | 2023-06-09 15:48 | Hospitalist Progress Note ---
Date of Service June 09, 2023 Assessment & Plan (1) Pain in right knee: (2) Metastatic melanoma: (3) Atrial fibrillation: (4) Hypothyroidism: Plan This is a 63-year-old male who has a significant past medical history of PAF with history of cardioversion on Xarelto, metastatic melanoma on Opdivo, thyroid cancer, HTN, HLD, moderate MR and borderline diabetes who presents to the ED secondary to worsening knee pain x 5 days. Persistent pain in right knee Ambulatory dysfunction Consult orthopedics Repeat MRI inflammatory markers elevated - ESR 52 , CRP 20.7 rheumatoid factor pending uric acid 7.1 wnl Lyme screen negative Recent hospitalization status post right knee exploration and evacuation of hemarthrosis Prior right knee aspirate culture grew micrococcus species, felt to be contaminant during last admission but did complete course of Keflex Obtain blood cultures, knee aspiration was performed as outpatient in orthopedic office prior to admission 06/03 - results pending Empirically cover with IV vancomycin and Zosyn Consult infectious disease - recommend to hold abx and cont. to monitor Ortho recommends to continue with PT/OT, abx, follow cultures, possibly related to immunotherapy. 06/05 Discussed in detail with orthopedics in AM, will try to contact pt's oncologist at [facility] as well 06/06 Developed R elbow edema, pain, knee seems to be better. Will start toradol, and possibly steroid. Cultx negat. for infection Dr. Ruiz at [facility] contacted and discussed with - reports that pts can get joint swelling/ pain after opdivo infusion (about 5%), and also recommends to check cortisol level for poss adrenal insufficiency. if low recommends hydrocortisone 20 daily x5 days. In addition, recommend to check TSH. recommends very close follow up w/ local oncologist to re-evaluate. - cortisol low and hydrocortisone started, TSH bit up, increased pt's levothyroxine dose. R elbow pain/ edema developed on 06/06 Seen by orthopedics X-ray - 1. Diffuse soft tissue swelling within the right elbow. 2. No fracture or dislocation. Ice and toradol started edema and pain improved, cont. ice and toradol discussed w/ orthopedics Hyponatremia likely 2/2 poor intake IVF x 2 L urine sodium, osm, serum osm Continue to monitor Hypomagnesemia - replete and monitor Metastatic melanoma Currently on Opdivo infusions every 4 weeks [facility] As well as [facility] - Dr. Lucila Ruiz [phone] Patient symptoms started after Opdivo infusion, typically takes 1 to 2 days to recover; however has had a persistent decline Possible symptoms at all related to infusion therapy Discussed as above Papillary thyroid carcinoma Following [facility] plan for thyroidectomy in June Continue thyroid replacement, increased levothyroxine, as above PAF on Xarelto 20 daily Follows with [facility] cardiology, Dr. Williamson Off sotalol therapy due to significant bradycardia Currently in normal sinus rhythm Last Xarelto dose was on 05/31 - will cont. to hold xarelto for now (pt is in sinus rhythm on tele) Anemia, acute on chronic anemia, multifactorial Iron deficiency anemia hgb stable at 9.0 required 1 unit PRBC during recent hospital stay Continue to monitor DVT prophylaxis: SCDS, holding xarelto FULL CODE PCP: Dr. Yon Burns Dispo: per pt/ot recs Admission and Anticipated Discharge Date Admission Date: June 06, 2023 Subjective Pt seen in follow up of knee pain Discussed in detail orthopedics - w/ Dr. Manriquez. Pt is feeling tired however improved and knee pain is much improved. Left elbow pain and edema also improved. On toradol per discussion with orthopedics. On 06/04 PM, temp elevated at 38.3 C , pt did not notice any fevers or chills. Also denies any chest pain, shortness of breath, abd. pain, n/v. Seen by ID on 04/07 and abx stopped. Discussed w/ pt's oncologist Dr. Ruiz at [facility] - reports that pts can get joint swelling/ pain after opdivo infusion (about 5%), and also recommends to check cortisol level for poss adrenal insufficiency. if low recommends hydrocortisone 20 daily x5 days. In addition, recommend to check TSH. recommends very close follow up w/ local oncologist to re-evaluate. Cortisol found low and hydrocortisone started, TSH bit up, increased pt's levothyroxine dose. Overall, pt working with PT and ambulates w/ walker, much improved since admission. Review of Systems Review of Systems: All systems reviewed & are unremarkable except as noted in Subjective Physical Exam Physical Exam: General: Alert, oriented. No acute distress HEENT: NC/AT CV: RRR Resp: Breath sounds clear bilaterally, no increased effort of breathing. Abdomen: Soft, nontender, nondistended. Extremities: Right knee w/ effusion, no erythema, improved ROM. R elbow with mild edema, tenderness to palpation improved. Psych: Appropriate mood and affect Skin: warm, dry Results & Data Results & Data Vital Signs (Past 12 Hours) Vital Signs Temp Pulse Pulse Resp BP Pulse Ox O2 Del Method 06/09/23 12:05 36.6 C 63 18 115/83 97 Room Air 06/09/23 07:44 36.3 C L 65 18 120/71 98 Room Air 06/09/23 07:38 86 06/09/23 04:01 36.5 C 59 L 20 130/76 983 H Room Air Laboratory Results 06/09/23 06/08/23 06/08/23 Range/Units 06:16 15:31 05:57 WBC 7.22 (4.8-10.8) K/ul RBC 2.81 L (4.70-6.10) M/uL Hgb 8.1 L (14.0-18.0) g/dl Hct 24.1 L (42.0-52.0) % MCV 85.8 (80.0-100.0) fL MCH 28.8 (25.0-34.0) pg MCHC 33.6 (32.0-36.0) g/dL RDW Std Deviation 46.5 H (36.4-46.3) fL RDW Coeff of Tracy 14.7 H (11.5-14.5) % Plt Count 334 (130-400) K/uL MPV 8.8 L (9.4-12.4) fL Sodium 132 L (136-145) mmol/L Potassium 4.1 (3.5-5.1) mmol/L Chloride 101 (98-107) mmol/L Carbon Dioxide 24 (21-32) mmol/L Anion Gap 7 (3-11) BUN 18 (6-23) mg/dl Creatinine 0.79 (0.6-1.4) mg/dl Est Cr Clr Drug Dosing 114.5 ml/min Est GFR ( Amer) 109.2 ml/min Est GFR (Non-Af Amer) 94.2 ml/min BUN/Creatinine Ratio 22.8 H (10-20) Glucose 137 H (70-99(Fasting)) mg/dl Calcium 8.5 L (8.6-10.3) mg/dl Phosphorus 5.7 H (2.5-4.9) mg/dl Magnesium 1.6 L (1.7-2.4) mg/dl Free T4 0.65 (0.61-1.60) ng/dl Random Cortisol 0.78 mcg/dl Medications Administered Current Inpatient Medications Acetaminophen (Acetaminophen 325 Mg Tab) 650 mg PO Q4H PRN PRN Reason: Pain or Fever Stop: 07/04/23 17:30 Last Admin: 06/07/23 06:16 Dose: 650 mg Al Hydrox/Mg Hydrox/Simethicone (Aluminum/Magnesium Susp 30 Ml Udc) 15 ml PO Q4H PRN PRN Reason: Dyspepsia Stop: 07/04/23 17:30 Heparin Sodium (Porcine) (Heparin 100 Unit/Ml 5ml Flush) 5 ml FLUSH PRN PRN PRN Reason: Flush Stop: 07/05/23 15:48 Hydrocortisone (Hydrocortisone 10 Mg Tab) 20 mg PO QAM [facility] Stop: 07/09/23 08:59 Last Admin: 06/09/23 08:14 Dose: 20 mg Lorazepam 0.5 mg/ Syringe 0.5 mls @ 2 mls/min IV ONE PRN PRN Reason: MRI Stop: 07/04/23 14:29 Last Admin: 06/04/23 17:09 Dose: 2 mls/min Piperacillin Sod/Tazobactam (Sod 4.5 gm/ Dextrose) 100 mls @ 25 mls/hr IV Q8H [facility]; Protocol Stop: 06/12/23 00:00 Last Admin: 06/07/23 08:08 Dose: Not Given Vancomycin HCl 1,250 mg/ (Sodium Chloride) 275 mls @ 200 mls/hr IV Q12H [facility] Stop: 06/12/23 03:59 Last Admin: 06/07/23 04:11 Dose: Not Given Ketorolac Tromethamine (Ketorolac Tromethamine 15 Mg/Ml Vial) 15 mg IV Q6H [facility] Stop: 06/13/23 08:59 Last Admin: 06/09/23 14:12 Dose: 15 mg Lactobacillus Acidophilus (Advanced Probiotic 625 Mg Capsule) 1,250 mg PO DAILY [facility] Stop: 07/06/23 17:59 Last Admin: 06/09/23 08:15 Dose: 1,250 mg Levothyroxine Sodium (Levothyroxine Sodium 125 Mcg Tablet) 125 mcg PO DAILYBB [facility] Stop: 07/09/23 06:29 Last Admin: 06/09/23 06:02 Dose: 125 mcg Magnesium Hydroxide (Magnesium Hydroxide Susp 30 Ml Udc) 30 ml PO Q12H PRN PRN Reason: Constipation Stop: 07/04/23 17:30 Miscellaneous Information (Vancomycin Consult Active) 1 each N/A UD PRN PRN Reason: Consult Stop: 07/04/23 17:30 Ondansetron HCl (Ondansetron Inj 2 Mg/Ml 2 Ml Vial) 4 mg IV Q6H PRN PRN Reason: Nausea Stop: 07/04/23 17:30 Oxycodone HCl (Oxycodone Hcl Ir 5 Mg Tab (Immediate Release)) 5 mg PO Q6H PRN PRN Reason: Severe Pain (Scale 7, 8, 9,10) Stop: 06/18/23 17:30 Last Admin: 06/08/23 03:22 Dose: 5 mg Polyethylene Glycol (Polyethylene (Miralax) 17 Gm Pack) 17 gm PO DAILY PRN PRN Reason: Constipation Stop: 07/04/23 17:30 (1) Pain in right knee Chronicity: acute Qualified Code(s): M25.561 - Pain in right knee (3) Atrial fibrillation Atrial fibrillation type: unspecified Qualified Code(s): I48.91 - Unspecified atrial fibrillation (4) Hypothyroidism Hypothyroidism type: unspecified Qualified Code(s): E03.9 - Hypothyroidism, unspecified
[2023-06-10] MEDS: MAGNESIUM SULFATE / D5W 1 GM/100 ML BAG IV ONE (08:08)
[2023-06-10] MEDS: MAGNESIUM OXIDE 400 MG TAB PO SCH (08:13)
--- NOTE | 2023-06-10 13:01 | Discharge Summary ---
Date of Service June 10, 2023 Admission HPI Per Admitting Provider This is a 63-year-old male who has a significant past medical history of PAF with history of cardioversion on Xarelto, metastatic melanoma on Opdivo, thyroid cancer, HTN, HLD, moderate MR and borderline diabetes who presents with to ED secondary to worsening knee pain x 5 days. is at bedside who also helps elicit history. Of significance patient was recently hospitalized 05/12 to 05/18/2023 secondary to similar symptoms. On 05/14 he underwent right knee exploration and evacuation of hemarthrosis due to concern for possible right quadriceps rupture noted on MRI. Knee exploration noted in the right quadriceps tendon was intact with no evidence of tear. He did have evacuation of hemarthrosis. Knee fluid culture grew rare gram-positive cocci, possible contaminant. He received IV antibiotics and was discharged on oral Keflex. His Xarelto was also resumed. He received PT and OT and was to follow-up with orthopedics at discharge during hospitalization he did require 1 unit of PRBC as well as he received IV Venofer. He had been doing quite well since discharge until last Sunday. He received his infusion of Opdivo. Typically after infusion he has fatigue and weakness for 1 to 2 days. Unfortunately this has lingered and he has continued to decline over the last 5 days. He overall feels fatigued, weak, poor appetite, shaking chills and persistent right knee pain. He was seen in clinic today with Dr. Espinosa and had difficulty handling patient as he required a wheelchair. She then called over to orthopedics and he was seen in the orthopedic office who referred him to ED for further evaluation. His knee was aspirated in clinic. Of significance patient follows with [facility] in regards to his metastatic melanoma. It was also discovered that he has papillary thyroid ca ncer. This is scheduled to be removed in June providing his health allows so. Admission Exam Per Admitting Provider Constitutional: Alert oriented x 3; not in distress. Respiratory: Bilateral basilar breath sound. Cardiovascular: RRR, no murmur, no edema Vessels: no JVD or carotid bruit Chest: normal inspection of chest Abdomen: normal bowel sounds, soft, nontender, no hepatosplenomegaly Musculoskeletal: Right knee with slight effusion; ROM limited by pain. Incision intact, clean. Skin: no rashes, warm and dry normal turgor Neurologic: PERRL, EOMI, accommodation nl, no face palsy, no dysarthria CN's II- XI intact bilaterally and moves all extremities Psychiatric: A+Ox3, euthymic affect Principal Diagnosis Right knee pain/effusion Possible reaction to opdivo infusion Discharge Exam General: Alert, oriented. No acute distress HEENT: NC/AT CV: RRR Resp: Breath sounds clear bilaterally, no increased effort of breathing. Abdomen: Soft, nontender, nondistended. Extremities: Right knee w/ effusion, no erythema, improved ROM. R elbow with mild edema, tenderness to palpation improved. Psych: Appropriate mood and affect Skin: warm, dry Discharge Data Allergies Allergy/AdvReac Type Severity Reaction Status Date / Time Bactrim Allergy Severe THROAT AND Unverified 07/18/10 13:38 HANDS SWELL Sulfa (Sulfonamide Allergy Severe Attacks Unverified 06/04/23 13:39 Antibiotics) nerve system sulfamethoxazole Allergy Severe THROAT AND Verified 06/04/23 13:38 HANDS SWELL trimethoprim Allergy Severe THROAT AND Verified 06/04/23 13:38 HANDS SWELL Consultations 06/04/23 13:03 ED Decision to Admit Stat 06/04/23 13:49 Consult Orthopedic Surgery Routine 06/04/23 14:38 Consult Infectious Diseases Routine Ordered Studies 06/04/23 14:29 MRI Knee [MR knee RT wo con] Routine FINDINGS: Menisci: Degeneration without evidence for tear involving the posterior horn of the medial meniscus and anterior horn of the lateral meniscus. Ligaments: The anterior and posterior cruciate ligaments are intact. The medial and lateral collateral ligaments are normal in appearance. Extensor mechanism: The patient is status post repair of the distal quadriceps tendon tear with no evidence for an acute quadriceps tendon injury. There is buckling of the intact patellar ligament. There is suggestion of mild patella baja. Articular cartilage and bone: No acute fracture or dislocation. There is a full- thickness cartilage loss within the medial patellar facet and medial trochlea. This remains unchanged. Remaining cartilage spaces are maintained. No bony destructive changes to suggest an osteomyelitis. Joint effusion: Large complex joint effusion consistent with a hemarthrosis. The blood products appear to be subacute to chronic. This is similar to the prior study. Soft tissues: Diffuse soft tissue edema seen throughout the right knee, unchanged. There is also edema within the distal quadriceps muscles. IMPRESSION: 1. Status post repair of the distal quadriceps tendon tear with no evidence for an acute quadriceps tendon injury. 2. Large complex joint effusion consistent with a hemarthrosis. This is similar in size compared to the prior study. The blood products appear to be subacute to chronic. 3. Diffuse subcutaneous edema throughout the right knee with edema within the distal quadriceps muscles. 4. Additional findings as described above. 06/04/23 15:06 MR femur RT wo con Routine ADDENDUM Addendum: Upon further review, note is made of a 1.4 cm T1 and T2 hypointense lobulated focus within the superior aspect of the right femoral neck which corresponds to a sclerotic lesion on radiographs of June 04, 2023. There is no associated marrow edema. Although pathologically indeterminate, this is benign appearing. Electronically signed by: Mike Church M.D. 06/06/2023 12:31 PM ADDENDUM END MRI OF THE RIGHT FEMUR/THIGH WITHOUT CONTRAST CLINICAL HISTORY: Pain, prior quad injury. COMPARISON STUDY: Right femur radiographs performed earlier today. Right hip MRI May 14, 2023. Right knee MRI May 13, 2023. TECHNIQUE: Utilizing a 1.5 Kate magnet and dedicated coil, multiplanar, multi echo imaging of the right femur and thigh was performed without intravenous contrast. FINDINGS: No fractures within the right femur are noted. Please note that the distal right femur and distal right thigh are not well evaluated on this exam. These will be better depicted on the right knee MRI which will be reported separately. Intramuscular edema within the right quadriceps musculature is noted. There is adjacent soft tissue edema. These findings have decreased when compared to MRI of the right knee of May 13, 2023 and hip MRI of May 14, 2023. Complex right knee joint effusion is partially imaged on this examination. The distal quadriceps tear shown on previous MRI of May 13, 2023 is not well depicted on this examination. The right hamstring origin is intact. No marrow edema is identified within visualized portions of the pelvis. No new fluid collections are present. IMPRESSION: 1. Intramuscular edema within the right quadriceps, decreased since MRI of May 14, 2023. The quadriceps tear on MRI of May 13, 2023 is not well depicted on this exam. This will be better depicted on right knee MRI which will be reported separately. 2. No fractures within the right femur. 3. No new fluid collections within the right femur. 4. Complex right knee joint effusion. Hospital Course (1) Pain in right knee: (2) Metastatic melanoma: (3) Atrial fibrillation: (4) Hypothyroidism: Plan This is a 63-year-old male who has a significant past medical history of PAF with history of cardioversion on Xarelto, metastatic melanoma on Opdivo, thyroid cancer, HTN, HLD, moderate MR and borderline diabetes who presents to the ED secondary to worsening knee pain x 5 days. Persistent pain in right knee Ambulatory dysfunction Consult orthopedics Repeat MRI inflammatory markers elevated - ESR 52 , CRP 20.7 rheumatoid factor pending uric acid 7.1 wnl Lyme screen negative Recent hospitalization status post right knee exploration and evacuation of hemarthrosis Prior right knee aspirate culture grew micrococcus species, felt to be contami nant during last admission but did complete course of Keflex Obtain blood cultures, knee aspiration was performed as outpatient in orthopedic office prior to admission 06/03 - results pending Empirically cover with IV vancomycin and Zosyn Consult infectious disease - recommend to hold abx and cont. to monitor Ortho recommends to continue with PT/OT, abx, follow cultures, possibly related to immunotherapy. 06/05 Discussed in detail with orthopedics in AM, will try to contact pt's oncologist at [facility] as well 06/06 Developed R elbow edema, pain, knee seems to be better. Will start toradol, and possibly steroid. Cultx negat. for infection Dr. Ruiz at [facility] contacted and discussed with - reports that pts can get joint swelling/ pain after opdivo infusion (about 5%), and also recommends to check cortisol level for poss adrenal insufficiency. if low recommends hydrocortisone 20 daily x5 days. In addition, recommend to check TSH. recommends very close follow up w/ local oncologist to re-evaluate. - cortisol low and hydrocortisone started, TSH bit up, increased pt's levothyroxine dose. R elbow pain/ edema developed on 06/06 Seen by orthopedics X-ray - 1. Diffuse soft tissue swelling within the right elbow. 2. No fracture or dislocation. Ice and toradol started edema and pain improved, cont. ice and toradol discussed w/ orthopedics Hyponatremia likely 2/2 poor intake IVF x 2 L urine sodium, osm, serum osm Continue to monitor Hypomagnesemia - replete and monitor Metastatic melanoma Currently on Opdivo infusions every 4 weeks Follows [facility] oncology As well as [facility] - Dr. Lucila Ruiz [phone] Patient symptoms started after Opdivo infusion, typically takes 1 to 2 days to recover; however has had a persistent decline Possible symptoms at all related to infusion therapy Discussed as above Papillary thyroid carcinoma Following [facility] plan for thyroidectomy in May Continue thyroid replacement, increased levothyroxine, as above PAF on Xarelto 20 daily Follows with [facility] cardiology, Dr. Williamson Off sotalol therapy due to significant bradycardia Currently in normal sinus rhythm Last Xarelto dose was on 05/31 - will cont. to hold xarelto for now (pt is in sinus rhythm on tele) - per pt and his Dr. Williamson is aware that he is off xarelto and for now in agreement to continue to hold. Recommend to follow up with Dr. Williamson. Anemia, acute on chronic anemia, multifactorial Iron deficiency anemia hgb stable at 9.0 required 1 unit PRBC during recent hospital stay Continue to monitor DVT prophylaxis: SCDS, holding xarelto PCP: Dr. Yon Burns Cardiology: Dr. Williamson Oncology: Dr. Ruiz, Dr. Espinosa Orthopedics: Dr. Manriquez Total Time Total Time Spent Total Time Spent (In Minutes): 40 Discharge Plan Discharge Items Patient Disposition: Home - Self-Care Reason For Visit: RIGHT KNEE PAIN Discharge Diagnosis: Right knee pain/effusion Possible reaction to opdivo infusion Activity: Per Instructions section Non-emergency contact: Primary Care Provider, Surgeon and Oncologist Call non-emergency contact if: you have any medication questions, your symptoms worsen, your pain is not controlled, your temperature is above 101, your wound has increased redness and your wound has increased drainage Follow-up/Referrals: Sven Manriquez MD [Surgeon] - 07/04/23 3:30 pm Yon Burns DO [Primary Care Provider] - (Date & Time 06/14/2023 9:00 AM Provider Yon Burns DO Department [facility] ) Maria Luisa Espinosa MD [Hospitalist] - (The Oncology office will contact you for a close appointment.) Diet: Regular Addtl Attending Provider Instructions: Follow up with your primary care physician, oncologist and orthopedic surgeon. Continue taking hydrocortisone as prescribed for next several days. Discuss further with your oncologist. Your levothyroxine dose was increased to 125 daily, discuss further with your primary care / fisher crab. For pain, you can continue taking tylenol and ibuprofen. Your magnesium level has been on lower side, recommend taking magnesium supplement. As discussed, for now do not continue taking xarelto and discuss further with your round corner cutter operator if/ when to resume this medication. Addtl Chiropractic Practice Manager Provider Instructions: Orthopedic Instructions: - As tolerated right lower extremity - Full range of motion to right knee as tolerated. - Ice to right knee as needed for pain and swelling. - Elevate right lower extremity as needed for pain and swelling. - Ambulate with walker - Follow up with Dr. Manriquez as scheduled. Pending Studies at Discharge: Yes Studies:: final cultx Stand-Alone Forms: My [facility], Smoking Cessation Medications and DC Order Prescriptions: New magnesium oxide 400 mg (241.3 mg magnesium) Tablet 400 mg PO QAM Qty: 10 0RF levothyroxine [Synthroid] 125 mcg Tablet 125 mcg PO DAILYBB Qty: 30 0RF hydrocortisone [Cortef] 10 mg Tablet 20 mg PO QAM 3 Days Qty: 6 0RF Continued acetaminophen [Tylenol Ex Str Rapid Release] 500 mg Tablet 500 mg PO Q6H PRN (Reason: Pain) Opdivo 240 mg/24 mL Solution 0 mg IV Q4WK Rx Instructions: 1 infusion intravenously Q4 weeks. Pt unsure of strength at this date/time. hydrocodone-acetaminophen 5-325 mg tablet 1 tab PO Q8H PRN (Reason: Pain) Qty: 6 0RF Held Xarelto 20 mg tablet 20 mg PO HS Hold Instructions: Resume on 06/18/23. Discuss with Dr. Williamson if/ when to resume Rx Instructions: must administer with evening meal Discontinued levothyroxine 112 mcg tablet 112 mcg PO QAM Discharge Orders: Discharge Order (Routine); Ordered 06/10/23 Ordered By: Pascual Hubbard Admission Data Admit Date/Time: 06/06/23 09:36 Attending Provider: Pascual Hubbard Admit Provider: Kody Ding Primary Care Provider: Yon Burns Other Providers: Kody Ding; Juan David Soto; Viki Huynh; Jesus Rose I.; Prashant Obando II; Nasrin Delgado; Hal Pearce; Lennox Lawrence; Madhu Barney; René Linda; James Whiting; Sven Manriquez
[2023-06-10] MEDS: HEPARIN 100 UNIT/ML 5ML FLUSH FLUSH PRN (13:27)
== END 2023-06-10 14:44 | disposition home or self-care (01) | DRG 565 ==
LOC: ED 11:01 → EDINP 11:01 → SUATTDRO 13:49 → 2N 17:32